=== PATIENT | female | born 1950 | race Caucasian/White ===

== ENCOUNTER 2018-03-12 18:49 | Inpatient (IN) | payer MEDICARE, OTHER ==
[~2018-03-12] VITALS: Ht 162.6 cm; Wt 107.7 kg
--- NOTE | 2018-03-12 19:02 | EKG ---
[address] [address] Test Date: 2018-03-12 Test Time: 18:59:45 Pat Name: DIA MICHELLE Department: Room: Gender: F Adaptive Physical Education Specialist: BASIL : 1950 Requested By: MOISÉS SHARMA Order Number: [id number] Reading MD: Pepe Ryder Measurements Intervals [place] Rate: 90 P: -8 CA: 164 QRS: 18 QRSD: 100 T: 43 QT: 372 QTc: 459 Interpretive Statements SINUS RHYTHM QRS(T) CONTOUR ABNORMALITY NONSPECIFIC ST-T WAVE CHANGES. RI6.01 No previous ECG available for comparison Electronically Signed On 03-23-2018 11:05:10 CDT by Pepe Ryder
[2018-03-12 20:46] LABS: BASO % 1 % (0-3); EOS # 0.3 x10^3/uL (0.0-0.7); EOS % 4 % (0-3); HEMATOCRIT 36.5 % (36.0-47.0); HEMOGLOBIN 12.4 g/dL (12.0-15.5); LYMPH # 3.1 x10^3/uL (1.0-4.8); LYMPH % 42 % (24-48); MEAN CORPUSCULAR HEMOGLOBIN 29 pg (25-35); MEAN CORPUSCULAR HGB CONC 34 g/dL (31-37); MEAN CORPUSCULAR VOLUME 84 fL (79-100); MONO # 0.7 x10^3/uL (0.0-1.1); MONO % 10 % (0-9); NEUT # 3.2 x10^3uL (1.8-7.7); NEUT % 43 % (31-73); PLATELET COUNT 267 x10^3/uL (140-400); RED BLOOD COUNT 4.33 x10^6/uL (3.50-5.40); RED CELL DISTRIBUTION WIDTH 14.3 % (11.5-14.5); WHITE BLOOD COUNT 7.4 x10^3/uL (4.0-11.0)
[2018-03-12 20:50] LABS: AMPHETAMINE/METHAMPHETAMINE NEG (NEG); BARBITURATES NEG (NEG); BENZODIAZEPINES NEG (NEG); CANNABINOIDS NEG (NEG); COCAINE NEG (NEG); METHADONE NEG (NEG); OPIATES NEG (NEG); PHENCYCLIDINE NEG (NEG)
[2018-03-12 20:55] LABS: ALBUMIN 3.6 g/dL (3.4-5.0); ALBUMIN/GLOBULIN RATIO 0.9 (1.0-1.7); CALCIUM 9.2 mg/dL (8.5-10.1); CREATININE 0.9 mg/dL (0.6-1.0); GFR 62.3; MAGNESIUM 1.5 mg/dL (1.8-2.4); TOTAL BILIRUBIN 0.4 mg/dL (0.2-1.0); TOTAL PROTEIN 7.4 g/dL (6.4-8.2)
[2018-03-12 21:03] LABS: POTASSIUM 2.9 mmol/L (3.5-5.1)
[2018-03-12 21:05] LABS: BACTERIA,URINE MANY /HPF (0-FEW); BILIRUBIN,URINE NEG (NEG); CLARITY,URINE CLOUDY; COLOR,URINE YELLOW; GLUCOSE,URINE NEG (NEG); NITRITE,URINE POS (NEG); RBC,URINE 0 /HPF (0-2); UROBILINOGEN,URINE 0.2 mg/dL (0.2 mg/dL)
[2018-03-12] MEDS ORDERED: traMADol 50 MG TABLET PO ONE (21:15)
[2018-03-12] MEDS ORDERED: POTASSIUM CHLORIDE 20 MEQ TABLET.ER. PO ONE (21:15)
[2018-03-12] MEDS ORDERED: MAGNESIUM HYDROXIDE 2,400 MG/30 ML ORAL.SUSP. PO PRN (23:00)
[2018-03-12] MEDS ORDERED: ACETAMINOPHEN 325 MG TABLET PO PRN (23:00)
[2018-03-12] MEDS ORDERED: MAG HYDROX/AL HYDROX/SIMETH 30 ML ORAL.SUSP PO PRN (23:00)
[2018-03-12] MEDS ORDERED: METHYL SALICYLATE/MENTHOL TOPICAL OINTMENT 29GM TUBE. TP PRN (23:00)
[2018-03-12] MEDS ORDERED: POTA20TA4 PO (23:45)
[2018-03-12] MEDS ORDERED: KETO5DRO4 OU (23:45)
[2018-03-12] MEDS ORDERED: CYCL-331 PO (23:45)
[2018-03-12] MEDS ORDERED: RIVA10TA PO (23:45)
[2018-03-12] MEDS ORDERED: CRAN1CAP PO (23:45)
[2018-03-12] MEDS ORDERED: MECL25TA3 PO (23:45)
[2018-03-12] MEDS ORDERED: LATA7.5D OU (23:45)
[2018-03-12] MEDS ORDERED: DICL100G18 TP (23:45)
[2018-03-12] MEDS ORDERED: FURO40TA4 PO (23:45)
[2018-03-12] MEDS ORDERED: SENN8.6T67 PO (23:45)
[2018-03-12] MEDS ORDERED: MELA3TAB2 PO (23:45)
[2018-03-12] MEDS ORDERED: GABA-585 PO (23:45)
[2018-03-12] MEDS ORDERED: CHOL4POW2 PO (23:45)
[2018-03-12] MEDS ORDERED: LEVO50TA5 PO (23:45)
[2018-03-12] MEDS ORDERED: GABA-586 PO (23:45)
[2018-03-12] MEDS ORDERED: SALI44.32 MM (23:45)
[2018-03-12] MEDS ORDERED: HYDR453.3 TP (23:45)
[2018-03-12] MEDS ORDERED: PANT40TA5 PO (23:45)
[2018-03-12] MEDS ORDERED: TOPI25TA52 PO (23:45)
[2018-03-12] MEDS ORDERED: TRAM50TA PO (23:45)
[2018-03-12] MEDS ORDERED: METO25TA4 PO (23:45)
[2018-03-12] MEDS ORDERED: LAMO100T PO (23:45)
[2018-03-12] MEDS ORDERED: IPRA3AMP29 NEB (23:45)
[2018-03-12] MEDS ORDERED: DULO20CA50 PO (23:45)
[2018-03-12] MEDS ORDERED: NITR0.4T22 SL (23:45)
[2018-03-12] MEDS ORDERED: DEXT15DR5 OU ×2 (23:45)
[2018-03-12] MEDS ORDERED: LACT1CAP6 PO (23:45)
[2018-03-12] MEDS ORDERED: ACET325T9 PO (23:45)
[2018-03-12] MEDS ORDERED: LORA0.5T PO (23:45)
[2018-03-12] MEDS ORDERED: MICO10PO MC (23:45)
[2018-03-13] MEDS ORDERED: SALIVA STIMULANT AGENT 44ML SPRAY BOTTLE. MM PRN (00:15)
[2018-03-13] MEDS ORDERED: MECLIZINE 12.5 MG TABLET. PO PRN (00:15)
[2018-03-13] MEDS ORDERED: NITROGLYCERIN SUBLINGUAL 0.4 MG BOTTLE OF 25. SL PRN (00:15)
[2018-03-13] MEDS ORDERED: ALBUTEROL SULFATE 2.5 MG/3 ML NEBU. NEB PRN (00:15)
[2018-03-13] MEDS ORDERED: POLYVINYL ALCOHOL 1.4% OPHTH SOLUTION 15ML BOTTLE. OU PRN (00:15)
[2018-03-13] MEDS: traMADol 50 MG TABLET PO PRN (00:41)
[2018-03-13 03:45] VITALS: BP 134/71
[2018-03-13] MEDS: CYCLOBENZAPRINE 10 MG TABLET. PO PRN ×2 (05:20→18:47)
[2018-03-13 06:30] VITALS: BP 138/89
--- NOTE | 2018-03-13 06:51 | ED.ADGEN ---
Past History Past Medical History: Anxiety, Asthma, Bipolar, CHF, Depression, Diabetes, DVT , GERD, Hypertension, Hypothyroid, Hepatitis, UTI Alcohol Use: None Drug Use: None Adult General Chief Complaint Chief Complaint Medical clearance for psychiatric admission HPI HPI Patient is a 67-year-old female presents for medical clearance for psychiatric admission . Denies medical complaints. Patient has history of bipolar, anxiety, fibromyalgia and is been acting aggressively towards residential staff. [] Review of Systems Review of Systems Review symptoms as per history of present illness. All other systems were reviewed and found to be within normal limits, except as documented in this note. Current Medications Current Medications Current Medications Medications (Trade) Dose Ordered Sig/Huyen Start Time Stop Time Status Last Admin Dose Admin Potassium Chloride (Klor-Con) 40 meq 1X ONCE 03/12/18 21:15 03/12/18 21:53 DC Tramadol HCl (Ultram) 50 mg 1X ONCE 03/12/18 21:15 03/12/18 21:36 DC 03/12/18 21:09 50 MG Allergies Allergies Allergies Coded Allergies Type Severity Reaction Last Updated Verified Sulfa (Sulfonamide Antibiotics) Allergy Unknown 03/12/18 Yes butorphanol Allergy Unknown 03/12/18 Yes cephalexin Allergy Unknown 03/12/18 Yes hydrocodone Allergy Unknown 03/12/18 Yes hydromorphone Allergy Unknown 03/12/18 Yes metoclopramide Allergy Unknown 03/12/18 Yes minocycline Allergy Unknown 03/12/18 Yes morphine Allergy Unknown 03/12/18 Yes moxifloxacin Allergy Unknown 03/12/18 Yes Physical Exam Physical Exam Constitutional: Well developed, well nourished, no acute distress, non-toxic appearance. [] HENT: Normocephalic, atraumatic, bilateral external ears normal, oropharynx moist, no oral exudates, nose normal. [] Eyes: PERRLA, EOMI, conjunctiva normal, no discharge. [] Neck: Normal range of motion, no tenderness, supple, no stridor. [] Cardiovascular:Heart rate regular rhythm, no murmur [] Lungs & Thorax: Bilateral breath sounds clear to auscultation [] Abdomen: Bowel sounds normal, soft, no tenderness, no masses, no pulsatile masses. [] Skin: Warm, dry, no erythema, no rash. [] Back: No tenderness. [] Extremities: No tenderness, no cyanosis, no clubbing, ROM intact, no edema. [] Neurologic: Alert and oriented X 3, normal motor function,. [] Psychologic: Affect, anxiouss. [] Current Patient Data Vital Signs Vital Signs Date Time Temp Pulse Resp B/P (MAP) Pulse Ox O2 Delivery O2 Flow Rate FiO2 03/12/18 21:09 16 98 03/12/18 18:50 97.9 77 Room Air Lab Results Laboratory Tests Test 03/12/18 20:31 White Blood Count 7.4 x10^3/uL (4.0-11.0) Red Blood Count 4.33 x10^6/uL (3.50-5.40) Hemoglobin 12.4 g/dL (12.0-15.5) Hematocrit 36.5 % (36.0-47.0) Mean Corpuscular Volume 84 fL (79-100) Mean Corpuscular Hemoglobin 29 pg (25-35) Mean Corpuscular Hemoglobin Concent 34 g/dL (31-37) Red Cell Distribution Width 14.3 % (11.5-14.5) Platelet Count 267 x10^3/uL (140-400) Neutrophils (%) (Auto) 43 % (31-73) Lymphocytes (%) (Auto) 42 % (24-48) Monocytes (%) (Auto) 10 % (0-9) H Eosinophils (%) (Auto) 4 % (0-3) H Basophils (%) (Auto) 1 % (0-3) Neutrophils # (Auto) 3.2 x10^3uL (1.8-7.7) Lymphocytes # (Auto) 3.1 x10^3/uL (1.0-4.8) Monocytes # (Auto) 0.7 x10^3/uL (0.0-1.1) Eosinophils # (Auto) 0.3 x10^3/uL (0.0-0.7) Basophils # (Auto) 0.0 x10^3/uL (0.0-0.2) Urine Collection Type U cath Urine Color Yellow Urine Clarity Cloudy Urine pH 8.5 Urine Specific [place] 1.015 Urine Protein Neg (NEG-TRACE) Urine Glucose (UA) Neg mg/dL (NEG) Urine Ketones (Stick) Neg mg/dL (NEG) Urine Blood Trace (NEG) Urine Nitrite Pos (NEG) Urine Bilirubin Neg (NEG) Urine Urobilinogen Dipstick 0.2 mg/dL (0.2 mg/dL) Urine Leukocyte Esterase Neg (NEG) Urine RBC 0 /HPF (0-2) Urine WBC 1-4 /HPF (0-4) Urine Squamous Epithelial Cells None /LPF Urine Bacteria Many /HPF (0-FEW) Urine Mucus Slight /LPF Sodium Level 138 mmol/L (136-145) Potassium Level 2.9 mmol/L (3.5-5.1) *L Chloride Level 103 mmol/L (98-107) Carbon Dioxide Level 25 mmol/L (21-32) Anion Gap 10 (6-14) Blood Urea Nitrogen 11 mg/dL (7-20) Creatinine 0.9 mg/dL (0.6-1.0) Estimated GFR (Cockcroft-Gault) 62.3 BUN/Creatinine Ratio 12 (6-20) Glucose Level 96 mg/dL (70-99) Calcium Level 9.2 mg/dL (8.5-10.1) Magnesium Level 1.5 mg/dL (1.8-2.4) L Total Bilirubin 0.4 mg/dL (0.2-1.0) Aspartate Amino Transferase (AST) 18 U/L (15-37) Alanine Aminotransferase (ALT) 17 U/L (14-59) Alkaline Phosphatase 104 U/L (46-116) Troponin I Quantitative < 0.017 ng/mL (0-0.055) Total Protein 7.4 g/dL (6.4-8.2) Albumin 3.6 g/dL (3.4-5.0) Albumin/Globulin Ratio 0.9 (1.0-1.7) L Urine Opiates Screen Neg (NEG) Urine Methadone Screen Neg (NEG) Urine Barbiturates Neg (NEG) Urine Phencyclidine Screen Neg (NEG) Urine Amphetamine/Methamphetamine Neg (NEG) Urine Benzodiazepines Screen Neg (NEG) Urine Cocaine Screen Neg (NEG) Urine Cannabinoids Screen Neg (NEG) Ethyl Alcohol Level < 10 mg/dL (0-10) Urine Ethyl Alcohol Neg (NEG) EKG EKG [EKG: Reviewed] Radiology/Procedures Radiology/Procedures [] Course & Med Decision Making Course & Med Decision Making Pertinent Labs and Imaging studies reviewed. (See chart for details) [Potassium replaced. Medically stable. . ] Final Impression Final Impression [1. Medical examination for screening examination] Fei Disclaimer Dragon Disclaimer This electronic medical record was generated, in whole or in part, using a voice recognition dictation system. MOISÉS SHARMA DO Mar 13, 2018 06:51
[2018-03-13] MEDS: CHOLESTYRAMINE/ASPARTAME 4 GM PACKET PO SCH ×2 (08:57→18:00)
[2018-03-13] MEDS: POTASSIUM CHLORIDE 20 MEQ TABLET.ER. PO SCH (08:58)
[2018-03-13] MEDS: LEVOTHYROXINE 50 MCG TABLET PO SCH (08:59)
[2018-03-13] MEDS: FUROSEMIDE 40 MG TABLET PO SCH ×2 (08:59→18:32)
[2018-03-13] MEDS: LACTOBACILLUS RHAMNOSUS GG 1 CAPSULE. PO SCH (08:59)
[2018-03-13] MEDS: METOPROLOL TART IMMED RELEASE 25 MG TABLET PO SCH (08:59)
[2018-03-13] MEDS: lamoTRIgine 100 MG TABLET. PO SCH ×2 (08:59→20:25)
[2018-03-13] MEDS: SENNOSIDES 8.6 MG TABLET PO SCH (08:59)
[2018-03-13] MEDS: GABAPENTIN 100 MG CAPSULE. PO SCH (08:59)
[2018-03-13] MEDS: PANTOPRAZOLE 40 MG TABLET. PO SCH ×2 (08:59→18:32)
[2018-03-13] MEDS ORDERED: [UNRECOGNIZED DRUG - OTHER] PO SCH (09:00)
[2018-03-13] MEDS: HYDROCORTISONE 1% TOPICAL CREAM 30GM TUBE. TP SCH ×2 (09:00→20:28)
[2018-03-13] MEDS ORDERED: CRANBERRY PO SCH (09:00)
[2018-03-13] MEDS: MICONAZOLE NITRATE 2% TOPICAL CREAM 28GM TUBE. TP SCH ×2 (09:00→20:27)
[2018-03-13] MEDS: DICLOFENAC SODIUM 1% TOPICAL GEL 100GM TUBE. TP SCH ×2 (09:00→20:33)
[2018-03-13] MEDS ORDERED: DULoxetine HCL 20 MG CAPSULE.DR PO SCH (09:00)
[2018-03-13] MEDS ORDERED: ASCORBIC ACID PO SCH (09:00)
[2018-03-13] MEDS: KETOTIFEN FUMARATE 0.025% OPHT SOLUTION BOTTLE. OU SCH ×3 (09:01→20:39)
[2018-03-13 13:44] LABS: THYROID STIM HORMONE (TSH) 1.252 uIU/mL (0.358-3.740)
--- NOTE | 2018-03-13 15:30 | CONS ---
DATE OF CONSULTATION: 03/13/2018 REASON FOR CONSULTATION: Medical management. HISTORY OF PRESENT ILLNESS: The patient is a 67-year-old female patient, a resident at [facility]. She was admitted as she has been calling 911, calling [employer], calling the facility staff repeatedly. She reports that the staffs are hurting her, paranoid, see bugs in her bed, has been in manic episode, has been doing this daily for the last 7 days, all this in a background of bipolar disorder. She is here for inpatient psychiatric stabilization. The patient has multiple medical problems including chronic respiratory failure, mild intermittent bronchial asthma. She has gastroesophageal reflux disease without esophagitis, insomnia, hypothyroidism, bipolar disorder, anxiety disorder, essential hypertension, primary osteoarthritis, personality disorder. 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 Has chronic pain syndrome, diabetes mellitus due to underlying condition without diabetic nephropathy, obesity, rheumatoid arthritis, chronic hepatitis, and she is status post right artificial shoulder. ALLERGIES: She is allergic to BUTORPHANOL, CEPHALEXIN, HYDROCODONE, HYDROMORPHONE, METOCLOPRAMIDE, MINOCYCLINE, MORPHINE, MOXIFLOXACIN, SULFONAMIDE, and TAPE. FAMILY HISTORY: Unremarkable. SOCIAL HISTORY: She is a resident at [facility]. She does not smoke, drink alcohol, or use recreational drugs. REVIEW OF SYSTEMS: As per history of present illness. MEDICATIONS: She is currently on following medications: She is on ipratropium bromide, albuterol sulfate for DuoNeb 3 mL via nebulizer every 4 hours, cyclobenzaprine 10 mg q.8 hourly, rivaroxaban 20 mg at bedtime, cholestyramine 4 grams twice a day, nitroglycerin 0.4 mg sublingually q.5 minutes, metoprolol tartrate 12.5 mg twice a day, diclofenac sodium for Voltaren 1 gram topically twice a day, tramadol 50 mg p.o. q.4 hourly, Tylenol 650 mg every 6 hours, gabapentin 100 mg daily, gabapentin 300 mg at bedtime, lamotrigine 100 mg twice a day, topiramate 25 mg at bedtime, duloxetine 40 mg twice a day, lorazepam 0.5 mg every 6 hours, potassium chloride 20 mEq daily, furosemide 40 mg twice a day, ketotifen fumarate for Zaditor 1 drop to both eyes 3 times a day. She is on latanoprost 1 drop to both eyes at bedtime, Artificial Tears 1 drop to both eyes at bedtime, Lactobacillus acidophilus 1 capsule p.o. daily, sennoside 1 tablet once a day, Protonix 40 mg twice a day, levothyroxine sodium 50 mcg daily, miconazole nitrate 1 application twice a day and hydrocortisone cream applied topically twice a day, Biotene Oral Balance 30 mL every 3 hours as needed, cranberry concentrate or ascorbic acid 425 mg 3 times a day, melatonin 3 mg at bedtime. PHYSICAL EXAMINATION: GENERAL: On examining her, she was resting slightly propped up in bed, in no apparent respiratory distress. She was pale, but no jaundice, cyanosis, or thyromegaly. No jugular venous distention. No limb edema. VITAL SIGNS: Her heart rate was 79, blood pressure was 138/89, temperature was 98, respiratory rate was 20, and oxygen saturation was 94%. HEAD, EYES, EARS, NOSE, AND THROAT: Showed normocephalic, atraumatic. NECK: Supple. HEART: Showed normal first and second sounds with no gallop, rub, or murmur. CHEST: Clear to auscultation. No crepitation or rhonchi. ABDOMEN: Distended, soft, nontender. No guarding or rigidity. No organomegaly. All hernial orifice intact. Bowel sounds normal. NEUROLOGIC: She is awake, alert, very paranoid. However, all cranial nerves intact. She moves upper extremities to much greater extent than lower extremities. She is mostly bedbound and chair bound. LABORATORY DATA: Her lab work on admission showed a white cell count of 7400, hemoglobin 12, hematocrit 36, MCV 84 and platelet count 267,000 with normal manual differential. Her serum sodium was 138, potassium 2.9, chloride 103, bicarbonate 25, anion gap of 10, BUN 11, creatinine 0.9. Estimated GFR was 62 mL per minute. Her glucose was 96, calcium was 9.2, magnesium was 1.5. Total bilirubin, AST, ALT, alkaline phosphatase were normal. Total protein was 7.4, albumin 3.6. Urinalysis showed the urine was yellow, cloudy with a pH of 8.5, specific gravity of 1.015. The urine was negative for protein, glucose, ketones but trace of blood, negative for bilirubin and leukocyte esterase with 0 rbc's, 1-4 wbc's and too many bacteria. The urine toxicology screen was negative. IMPRESSION: In summary, this is a 67-year-old female patient, a resident at [facility], who was admitted to this unit on account of enma, on the phone 24 hours a day, 7 days a week. She called social security, called 911, called the facility staff repeatedly. Reports that the staff are hurting her and paranoid, stated that the bugs in her bed and the nursing staff are trying to poison her, all this in a background of schizophrenia and bipolar disorder. Medically, she has multiple medical problems including hypertension, hyperlipidemia, type 2 diabetes, chronic obstructive pulmonary disease, chronic diastolic congestive heart failure, hypothyroidism, history of deep vein thrombosis and chronic pain syndrome. All-in-all, her vital signs and her lab works are all within acceptable range. I will review all the lab works that are still pending at the time of this dictation and make necessary recommendation. She has hypokalemia that will be replenished and also hypomagnesemia. I will repeat all her lab work tomorrow. Thank you, Dr. Snyder, for allowing me to participate in the care of this patient. SHAMAR MONGE MD DR: GIRISH/yusuf JOB#: [id number] / [id number]
[2018-03-13 16:48] VITALS: BP 122/66
[2018-03-13] MEDS ORDERED: DEXTROSE 50% 25 GM / 50ML DISP.SYRIN. IV PRN (19:30)
[2018-03-13] MEDS ORDERED: traZODone 100 MG TABLET. PO PRN (19:30)
[2018-03-13] MEDS: INSULIN LISPRO 300 UNITS/3 ML INSULN.PEN. SQ SCH (20:01)
[2018-03-13] MEDS: traZODone 100 MG TABLET. PO SCH (20:24)
[2018-03-13] MEDS: TOPIRAMATE 25 MG TABLET. PO SCH (20:25)
[2018-03-13] MEDS: RIVAROXABAN 10 MG TABLET. PO SCH (20:25)
[2018-03-13] MEDS: POLYVINYL ALCOHOL 1.4% OPHTH SOLUTION 15ML BOTTLE. OU SCH (20:27)
[2018-03-13] MEDS: LATANOPROST 0.005% OPHTH SOLUTION 2.5ML BOTTLE. OU SCH (20:27)
[2018-03-13] MEDS: GABAPENTIN 300 MG CAPSULE. PO SCH (20:32)
--- NOTE | 2018-03-13 20:58 | PDOC ---
Exam Note: Fernando Note: Please also refer to the separate dictated note~for this date of service dictated separately.~Patient seen individually. Discussed the patient with Nursing staff reviewed the chart.~Reviewed interim history and current functioning. Reviewed vital signs,~Labs/ Radiology~and current medications noted below. Continue current treatment with the changes noted in the dictated addendum note Assessment: Vital Signs: Vital Signs Date Time Temp Pulse Resp B/P (MAP) Pulse Ox O2 Delivery O2 Flow Rate FiO2 03/13/18 16:48 97.9 68 18 122/66 (84) 99 03/13/18 03:45 96.0 03/13/18 01:41 Nasal Cannula I&O Intake and Output 03/13/18 06:59 Intake Total 120 ml Output Total 525 ml Balance -405 ml Intake Oral 120 ml Output Urine Total 525 ml # Bowel Movements 1 Labs: Laboratory Tests Test 03/13/18 19:49 Glucose (Fingerstick) 213 mg/dL (70-99) H Current Medications: Meds: Current Medications Tramadol HCl (Ultram) 50 mg 1X ONCE PO Last administered on 03/12/18at 21:09; Start 03/12/18 at 21:15; Stop 03/12/18 at 21:36; Status DC Potassium Chloride (Klor-Con) 40 meq 1X ONCE PO ; Start 03/12/18 at 21:15; Stop 03/12/18 at 21:53; Status DC Acetaminophen (Tylenol) 650 mg PRN Q6HRS PRN PO PAIN / TEMP; Start 03/12/18 at 23:00 Multi-Ingredient Ointment (Analgesic [place]) 1 belle PRN QID PRN TP MUSCLE PAIN; Start 03/12/18 at 23:00 Al Hydroxide/Mg Hydroxide (Mylanta Plus Xs) 15 ml PRN AFTMEALHC PRN PO DYSPEPSIA; Start 03/12/18 at 23:00 Magnesium Hydroxide (Milk Of Magnesia) 2,400 mg PRN QHS PRN PO CONSTIPATION; Start 03/12/18 at 23:00 Duloxetine HCl (Cymbalta) 40 mg BID PO Last administered on 03/13/18at 08:59; Start 03/13/18 at 09:00; Stop 03/13/18 at 19:25; Status DC Lorazepam (Ativan) 0.5 mg PRN Q6HRS PRN PO ANXIETY; Start 03/13/18 at 00:15 Acetaminophen (Tylenol) 650 mg PRN Q6HRS PRN PO PAIN / TEMP; Start 03/13/18 at 00:15 Cyclobenzaprine HCl (Flexeril) 10 mg PRN Q8HRS PRN PO MUSCLE SPASMS Last administered on 03/13/18at 18:47; Start 03/13/18 at 00:15 Diclofenac Sodium (Voltaren) 1 belle BID TP ; Start 03/13/18 at 09:00 Gabapentin (Neurontin) 100 mg DAILY PO Last administered on 03/13/18at 08:59; Start 03/13/18 at 09:00 Gabapentin (Neurontin) 300 mg HS PO Last administered on 03/13/18at 20:32; Start 03/13/18 at 21:00 Albuterol Sulfate (Ventolin) 2.5 mg PRN Q4HRS PRN NEB SHORTNESS OF BREATH; Start 03/13/18 at 00:15 Metoprolol Tartrate (Lopressor) 12.5 mg DAILY PO Last administered on at 08:59; Start 03/13/18 at 09:00 Nitroglycerin (Nitrostat) 0.4 mg PRN Q5MIN PRN SL CHEST PAIN; Start 03/13/18 at 00:15 Potassium Chloride (Klor-Con) 20 meq DAILY PO Last administered on 03/13/18at 08 :58; Start 03/13/18 at 09:00 Rivaroxaban (Xarelto) 20 mg QHS PO Last administered on 03/13/18at 20:25; Start 03/13/18 at 21:00 Tramadol HCl (Ultram) 50 mg PRN Q4HRS PRN PO PAIN Last administered on at 00:41; Start 03/13/18 at 00:15 Cholestyramine Resin (Questran Light) 4 gm BIDAFTMEAL PO Last administered on at 08:57; Start 03/13/18 at 09:00 Non-Formulary Medication (Cranberry Conc/ Ascorbic Acid (Cranberry Concentrate Softgel)) 425 mg TID PO ; Start 03/13/18 at 09:00; Status UNV Artificial Tears (Artificial Tears) 2 drop PRN Q4HRS PRN OU DRY EYE; Start at 00:15 Artificial Tears (Artificial Tears) 2 drop QHS OU Last administered on 20:27; Start 03/13/18 at 21:00 Furosemide (Lasix) 40 mg BID92 PO Last administered on 03/13/18at 18:32; Start 03/13/18 at 09:00 Hydrocortisone (Cortaid) 1 belle BID TP Last administered on 03/13/18at 20:28; Start 03/13/18 at 09:00 Ketotifen Fumarate (Zaditor) 1 drop TID OU Last administered on 03/13/18at 09:01 ; Start 03/13/18 at 09:00 Lactobacillus Rhamnosus (Culturelle) 1 cap DAILY PO Last administered on at 08:59; Start 03/13/18 at 09:00 Lamotrigine (LaMICtal) 100 mg BID PO Last administered on 03/13/18at 20:25; Start 03/13/18 at 09:00 Latanoprost (Xalatan) 1 drop QHS OU Last administered on 03/13/18 20:27; Start 03/13/18 at 21:00 Levothyroxine Sodium (Synthroid) 50 mcg DAILY07 PO Last administered on 08:59; Start 03/13/18 at 07:00 Meclizine HCl (Antivert) 25 mg PRN Q8HRS PRN PO DIZZINESS; Start 03/13/18 at 00 :15 Miconazole Nitrate (Monistat-Derm) 1 belle BID TP Last administered on 03/13/18at 20:27; Start 03/13/18 at 09:00 Pantoprazole Sodium (Protonix) 40 mg BIDBFRMEAL PO Last administered on at 18:32; Start 03/13/18 at 07:30 Saliva Substitute (Biotene Moisturizing Mouth) 1 spray PRN Q3HRS PRN MM DRY MOUTH; Start 03/13/18 at 00:15 Sennosides (Senna) 8.6 mg DAILY PO ; Start 03/13/18 at 09:00 Topiramate (Topamax) 25 mg QHS PO Last administered on 03/13/18at 20:25; Start 03/13/18 at 21:00 Melatonin 6 mg PRN QHS PRN PO INSOMNIA; Start 03/13/18 at 06:00 Insulin Human Lispro (HumaLOG) 0-5 UNITS TIDWMEALS SQ ; Start 03/14/18 at 08:00 Dextrose 12.5 gm PRN Q15MIN PRN IV SEE COMMENTS; Start 03/13/18 at 19:30 Duloxetine HCl (Cymbalta) 40 mg DAILY PO ; Start 03/14/18 at 09:00 Oxcarbazepine (Trileptal) 300 mg DAILY PO ; Start 03/14/18 at 09:00 Trazodone HCl (Desyrel) 100 mg QHS PO Last administered on 03/13/18at 20:24; Start 03/13/18 at 21:00 Trazodone HCl (Desyrel) 100 mg PRN QHS PRN PO INSOMNIA; Start 03/13/18 at 19:30 Active Scripts Active Reported Xarelto (Rivaroxaban) 10 Mg Tablet 20 Mg PO QHS Tramadol Hcl (Tramadol HCl) 50 Mg Tablet 50 Mg PO Q4HRS PRN Topamax (Topiramate) 25 Mg Tablet 25 Mg PO QHS Sennosides 8.6 Mg Tablet 8.6 Mg PO DAILY Klor-Con M20 (Potassium Chloride) 20 Meq Tab.er.prt 20 Meq PO DAILY Pantoprazole Sodium 40 Mg Tablet.dr 40 Mg PO BIDBFRMEAL NITROGLYCERIN SubLingual (Nitroglycerin) 0.4 Mg Tab.subl 0.4 Mg SL PRN Q5MIN PRN Miconazole Nitrate 10 Gm Powder 1 Applic MC BID Metoprolol Tartrate 25 Mg Tablet 12.5 Mg PO DAILY Melatonin 3 Mg Tablet 5 Mg PO PRN QHS PRN Meclizine Hcl 25 Mg Tablet 25 Mg PO PRN Q8HRS PRN Lorazepam 0.5 Mg Tablet 0.5 Mg PO PRN Q6HRS PRN Levothyroxine Sodium 50 Mcg Tablet 50 Mcg PO DAILYAC Latanoprost 0.005% Eye Drop (Latanoprost/Pf) 7.5 Ml Drops 1 Drop OU QHS Lamotrigine 100 Mg Tablet 100 Mg PO BID Probiotic (Lactobacillus Acidophilus) 1 Each Capsule 1 Each PO DAILY Zaditor (Ketotifen Fumarate) 5 Ml Drops 1 Drop OU TID Hydrocortisone 453.6 Gm Cream..g. 1 Applic TP BID Gabapentin 300 Mg Capsule 300 Mg PO HS Gabapentin 100 Mg Capsule 100 Mg PO DAILY Furosemide 40 Mg Tablet 40 Mg PO BID Duoneb 0.5-3(2.5) Mg/3 Ml (Albuterol/Ipratropium) 3 Ml Ampul.neb 3 Ml NEB PRN Q4HRS PRN Voltaren (Diclofenac Sodium) 100 Gm Gel..gram. 1 Applic TP BID Cymbalta (Duloxetine Hcl) 20 Mg Capsule.dr 40 Mg PO BID Cyclobenzaprine Hcl 10 Mg Tablet 10 Mg PO PRN Q8HRS PRN Cranberry Concentrate Softgel (Cranberry Conc/Ascorbic Acid) 1 Each Capsule 425 Mg PO TID Cholestyramine Packet (Cholestyramine (With Sugar)) 4 Gm Powd.pack 4 Gm PO BID Biotene Oralbalance (Saliva Stimulant Agents Comb.2) 44.3 Ml Liquid 30 Ml MM PRN Q3HRS PRN Artificial Tears Eye Drops (Dextran 70/Hypromellose) 15 Ml Drops 2 Ml OU PRN Q4HRS PRN Artificial Tears Eye Drops (Dextran 70/Hypromellose) 15 Ml Drops 2 Ml OU QHS Tylenol (Acetaminophen) 325 Mg Tablet 650 Mg PO PRN Q6HRS PRN I have reviewed the current psychotropics carefully including drug interactions. Risk benefit ratio favors no change other than as noted in my dictated progress note. Diagnosis: Problems: (1) Medical clearance for psychiatric admission PATRIC QUEVEDO MD Mar 13, 2018 20:57
[2018-03-13 22:07] LABS: THYROXINE 7.6 ug/dL (4.5-12.0)
[2018-03-14 02:12] LABS: HEMOGLOBIN A1C 5.2 % (4.8-5.6)
[2018-03-14 06:02] VITALS: BP 111/62
[2018-03-14] MEDS: LEVOTHYROXINE 50 MCG TABLET PO SCH (06:03)
[2018-03-14] MEDS: DICLOFENAC SODIUM 1% TOPICAL GEL 100GM TUBE. TP SCH ×2 (09:00→19:24)
[2018-03-14] MEDS: SENNOSIDES 8.6 MG TABLET PO SCH (09:00)
[2018-03-14] MEDS: MICONAZOLE NITRATE 2% TOPICAL CREAM 28GM TUBE. TP SCH ×2 (09:00→19:21)
[2018-03-14] MEDS: METOPROLOL TART IMMED RELEASE 25 MG TABLET PO SCH (09:00)
[2018-03-14] MEDS: lamoTRIgine 100 MG TABLET. PO SCH ×2 (09:31→19:21)
[2018-03-14] MEDS: LACTOBACILLUS RHAMNOSUS GG 1 CAPSULE. PO SCH (09:32)
[2018-03-14] MEDS: FUROSEMIDE 40 MG TABLET PO SCH ×2 (09:32→13:59)
[2018-03-14] MEDS: GABAPENTIN 100 MG CAPSULE. PO SCH (09:32)
[2018-03-14] MEDS: PANTOPRAZOLE 40 MG TABLET. PO SCH ×2 (09:32→16:30)
[2018-03-14] MEDS: POTASSIUM CHLORIDE 20 MEQ TABLET.ER. PO SCH (09:32)
[2018-03-14] MEDS: CHOLESTYRAMINE/ASPARTAME 4 GM PACKET PO SCH ×2 (09:34→17:59)
[2018-03-14] MEDS: DULoxetine HCL 20 MG CAPSULE.DR PO SCH (09:35)
[2018-03-14] MEDS: KETOTIFEN FUMARATE 0.025% OPHT SOLUTION BOTTLE. OU SCH ×3 (09:35→19:23)
[2018-03-14] MEDS: HYDROCORTISONE 1% TOPICAL CREAM 30GM TUBE. TP SCH ×2 (09:37→19:23)
[2018-03-14] MEDS: CYCLOBENZAPRINE 10 MG TABLET. PO PRN ×2 (09:46→19:26)
[2018-03-14] MEDS: INSULIN LISPRO 300 UNITS/3 ML INSULN.PEN. SQ SCH ×2 (12:00→17:00)
[2018-03-14] MEDS: traMADol 50 MG TABLET PO PRN (14:00)
--- NOTE | 2018-03-14 14:51 | HP ---
ADMIT DATE: 03/13/2018 PSYCHIATRIC ADMISSION HISTORY/EVALUATION This is a late entry, date of service 03/13/2018, covers elements not covered in my initial note. SUMMARY OF PROGRESS: I met with the patient evening of 03/13/2018 and previously discussed with nursing staff several times including prior to the patient's admission to gather background historical referral information from [facility], referred by Dr. Valentino, her primary care physician on account of marked enma, psychotic symptoms, agitation, paranoia. The patient has failed outpatient psychiatric interventions resulting in this referral as she has been unmanageable, behaviors out of control at the skilled nursing. IDENTIFYING DATA: The patient is a 67-year-old female. As noted, referred from [facility] in [place], [place] by Dr. Valentino on account of extremely manic behaviors, being hyperverbal on the phone "24 x 7 calling 911 and social security, etc." Reportedly, the patient claims the staff is hurting her. She has been paranoid, seeing bugs in her food, extremely psychosomatic, noncompliant with treatment, disruptive at the skilled nursing. CHIEF COMPLAINT: "There is no problem with me." The patient is extremely hyperverbal, difficult to interrupt, difficult to understand, somewhat domineering, directing me where to stand or sit at different times of our visit, quite distractible. HISTORY OF PRESENT ILLNESS: The patient has a long history of schizoaffective disorder, bipolar type. She has been residing at the above skilled nursing for the past few weeks prior to which she has been at several different nursing facilities. Behaviors as noted have been totally out of control, unmanageable, disruptive at the skilled nursing. She has failed outpatient psychiatric interventions. She has a history of significant mood swings, paranoia, auditory hallucinations. According to the information from the patient's sister who is her DPOA, she also has a history of "drug addiction." PAST PSYCHIATRIC HISTORY: She was hospitalized at [place], [place] in 2017. PAST MEDICAL HISTORY: Positive for renal failure, diabetes mellitus, GERD, hypertension, hypothyroidism, osteoarthritis, rheumatoid arthritis, asthma, neuromuscular dysfunction of bladder, chronic hepatitis, neuropathy, chronic pain, fibromyalgia. ACCU-CHEKS: Before meals and at bedtime. ALLERGIES: She has multiple allergies, which I reviewed and the read is referred to the chart for details. FAMILY HISTORY: Noncontributory. SOCIAL HISTORY: Past history of drug addiction. No alcohol abuse history. No physical, sexual or elder abuse history is noted. Not known to be a perpetrator. REACTION TO HOSPITALIZATION: The patient accepting of it. ASSETS: Supportive sister, though the patient resents her sister. REVIEW OF SYSTEMS: Ambulation impaired, in wheelchair. No CV, , pulmonary, eye, ENT system symptoms on review. She is restless, constantly moving, extremely hyperverbal, unable to stop and interact with me. She is quite paranoid, suspicious, believes the staff are after her trying to hurt her. Attention span short. Language function intact. Intellect average. Insight poor. Judgment marginal. No active suicidal or homicidal ideation. IMPRESSION: Schizoaffective disorder, bipolar type, mixed with psychotic features versus bipolar 1 disorder, manic with psychotic features; anxiety disorder, unspecified; impulse control disorder, unspecified; cognitive disorder, unspecified. Rest as above. PLAN: Admit to geropsychiatry unit at [facility]. I will see the patient daily individually from a psychiatric standpoint, medical followup per Dr. Valentino/Dr. Harrison. I had consider starting her on Depakote, but I am unable to do this due to her history of hepatitis. I would also consider lithium, but unable to do this because of her renal failure. We will go ahead and start Trileptal 300 mg daily, increase gradually. She slept zero hours previous night. We will start her on trazodone 100 mg at bedtime, may repeat x 1 p.r.n. for insomnia. She is also on Cymbalta 40 mg twice a day. This high dose antidepressant could well be worsening her enma and will drop it down to 40 mg once a day. Continue melatonin 5 mg at bedtime p.r.n., Ativan 0.5 mg q.6 hours p.r.n. Consider adding Risperdal as an atypical antipsychotic depending on her progress. MAN Prasanth QUEVEDO MD DR: DUSTY/yusuf JOB#: [id number] / [id number]
[2018-03-14 15:51] VITALS: BP 138/80
[2018-03-14] MEDS: traZODone 100 MG TABLET. PO SCH (19:20)
[2018-03-14] MEDS: GABAPENTIN 300 MG CAPSULE. PO SCH (19:21)
[2018-03-14] MEDS: TOPIRAMATE 25 MG TABLET. PO SCH (19:21)
[2018-03-14] MEDS: RIVAROXABAN 10 MG TABLET. PO SCH (19:21)
[2018-03-14] MEDS: LATANOPROST 0.005% OPHTH SOLUTION 2.5ML BOTTLE. OU SCH (19:22)
[2018-03-14] MEDS: POLYVINYL ALCOHOL 1.4% OPHTH SOLUTION 15ML BOTTLE. OU SCH (19:23)
--- NOTE | 2018-03-14 20:41 | PDOC ---
Exam Note: Fernando Note: Please also refer to the separate dictated note~for this date of service dictated separately.~Patient seen individually. Discussed the patient with Nursing staff reviewed the chart.~Reviewed interim history and current functioning. Reviewed vital signs,~Labs/ Radiology~and current medications noted below. Continue current treatment with the changes noted in the dictated addendum note Assessment: Vital Signs: Vital Signs Date Time Temp Pulse Resp B/P (MAP) Pulse Ox O2 Delivery O2 Flow Rate FiO2 03/14/18 15:51 97.1 85 18 138/80 (99) 96 03/13/18 03:45 96.0 03/13/18 01:41 Nasal Cannula I&O Intake and Output 03/14/18 06:59 Intake Total 840 ml Output Total 925 ml Balance -85 ml Intake Oral 840 ml Output Urine Total 925 ml # Bowel Movements 2 Labs: Laboratory Tests Test 03/14/18 12:13 03/14/18 17:37 03/14/18 20:02 Glucose (Fingerstick) 114 mg/dL (70-99) H 112 mg/dL (70-99) H 135 mg/dL (70-99) H Current Medications: Meds: Current Medications Tramadol HCl (Ultram) 50 mg 1X ONCE PO Last administered on 03/12/18at 21:09; Start 03/12/18 at 21:15; Stop 03/12/18 at 21:36; Status DC Potassium Chloride (Klor-Con) 40 meq 1X ONCE PO ; Start 03/12/18 at 21:15; Stop 03/12/18 at 21:53; Status DC Acetaminophen (Tylenol) 650 mg PRN Q6HRS PRN PO PAIN / TEMP Last administered on 03/14/18at 03:42; Start 03/12/18 at 23:00; Stop 03/14/18 at 16:35; Status DC Multi-Ingredient Ointment (Analgesic [place]) 1 belle PRN QID PRN TP MUSCLE PAIN; Start 03/12/18 at 23:00 Al Hydroxide/Mg Hydroxide (Mylanta Plus Xs) 15 ml PRN AFTMEALHC PRN PO DYSPEPSIA; Start 03/12/18 at 23:00 Magnesium Hydroxide (Milk Of Magnesia) 2,400 mg PRN QHS PRN PO CONSTIPATION; Start 03/12/18 at 23:00 Duloxetine HCl (Cymbalta) 40 mg BID PO Last administered on 03/13/18at 08:59; Start 03/13/18 at 09:00; Stop 03/13/18 at 19:25; Status DC Lorazepam (Ativan) 0.5 mg PRN Q6HRS PRN PO ANXIETY; Start 03/13/18 at 00:15 Acetaminophen (Tylenol) 650 mg PRN Q6HRS PRN PO PAIN / TEMP; Start 03/13/18 at 00:15 Cyclobenzaprine HCl (Flexeril) 10 mg PRN Q8HRS PRN PO MUSCLE SPASMS Last administered on 03/14/18at 19:26; Start 03/13/18 at 00:15 Diclofenac Sodium (Voltaren) 1 belle BID TP ; Start 03/13/18 at 09:00 Gabapentin (Neurontin) 100 mg DAILY PO Last administered on 03/14/18 09:32; Start 03/13/18 at 09:00 Gabapentin (Neurontin) 300 mg HS PO Last administered on 03/14/18at 19:21; Start 03/13/18 at 21:00 Albuterol Sulfate (Ventolin) 2.5 mg PRN Q4HRS PRN NEB SHORTNESS OF BREATH; Start 03/13/18 at 00:15 Metoprolol Tartrate (Lopressor) 12.5 mg DAILY PO Last administered on at 08:59; Start 03/13/18 at 09:00 Nitroglycerin (Nitrostat) 0.4 mg PRN Q5MIN PRN SL CHEST PAIN; Start 03/13/18 at 00:15 Potassium Chloride (Klor-Con) 20 meq DAILY PO Last administered on 03/14/18at 09 :32; Start 03/13/18 at 09:00 Rivaroxaban (Xarelto) 20 mg QHS PO Last administered on 03/14/18 19:21; Start 03/13/18 at 21:00 Tramadol HCl (Ultram) 50 mg PRN Q4HRS PRN PO PAIN Last administered on at 14:00; Start 03/13/18 at 00:15 Cholestyramine Resin (Questran Light) 4 gm BIDAFTMEAL PO Last administered on at 09:34; Start 03/13/18 at 09:00 Non-Formulary Medication (Cranberry Conc/ Ascorbic Acid (Cranberry Concentrate Softgel)) 425 mg TID PO ; Start 03/13/18 at 09:00; Status UNV Artificial Tears (Artificial Tears) 2 drop PRN Q4HRS PRN OU DRY EYE; Start at 00:15 Artificial Tears (Artificial Tears) 2 drop QHS OU Last administered on 19:23; Start 03/13/18 at 21:00 Furosemide (Lasix) 40 mg [id number] PO Last administered on 03/14/18at 13:59; Start 03/13/18 at 09:00 Hydrocortisone (Cortaid) 1 belle BID TP Last administered on 03/14/18 19:23; Start 03/13/18 at 09:00 Ketotifen Fumarate (Zaditor) 1 drop TID OU Last administered on 03/14/18 19:23 ; Start 03/13/18 at 09:00 Lactobacillus Rhamnosus (Culturelle) 1 cap DAILY PO Last administered on at 09:32; Start 03/13/18 at 09:00 Lamotrigine (LaMICtal) 100 mg BID PO Last administered on 03/14/18 19:21; Start 03/13/18 at 09:00 Latanoprost (Xalatan) 1 drop QHS OU Last administered on 03/14/18 19:22; Start 03/13/18 at 21:00 Levothyroxine Sodium (Synthroid) 50 mcg DAILY07 PO Last administered on at 06:03; Start 03/13/18 at 07:00 Meclizine HCl (Antivert) 25 mg PRN Q8HRS PRN PO DIZZINESS; Start 03/13/18 at 00 :15 Miconazole Nitrate (Monistat-Derm) 1 belle BID TP Last administered on 03/14/18 19:21; Start 03/13/18 at 09:00 Pantoprazole Sodium (Protonix) 40 mg BIDBFRMEAL PO Last administered on at 16:30; Start 03/13/18 at 07:30 Saliva Substitute (Biotene Moisturizing Mouth) 1 spray PRN Q3HRS PRN MM DRY MOUTH; Start 03/13/18 at 00:15 Sennosides (Senna) 8.6 mg DAILY PO ; Start 03/13/18 at 09:00 Topiramate (Topamax) 25 mg QHS PO Last administered on 03/14/18at 19:21; Start 03/13/18 at 21:00 Melatonin 6 mg PRN QHS PRN PO INSOMNIA; Start 03/13/18 at 06:00 Insulin Human Lispro (HumaLOG) 0-5 UNITS TIDWMEALS SQ ; Start 03/14/18 at 08:00 Dextrose 12.5 gm PRN Q15MIN PRN IV SEE COMMENTS; Start 03/13/18 at 19:30 Duloxetine HCl (Cymbalta) 40 mg DAILY PO Last administered on 03/14/18at 09:35; Start 03/14/18 at 09:00 Oxcarbazepine (Trileptal) 300 mg DAILY PO Last administered on 03/14/18at 09:35 ; Start 03/14/18 at 09:00 Trazodone HCl (Desyrel) 100 mg QHS PO Last administered on 03/14/18at 19:20; Start 03/13/18 at 21:00 Trazodone HCl (Desyrel) 100 mg PRN QHS PRN PO INSOMNIA; Start 03/13/18 at 19:30 Active Scripts Active Reported Xarelto (Rivaroxaban) 10 Mg Tablet 20 Mg PO QHS Tramadol Hcl (Tramadol HCl) 50 Mg Tablet 50 Mg PO Q4HRS PRN Topamax (Topiramate) 25 Mg Tablet 25 Mg PO QHS Sennosides 8.6 Mg Tablet 8.6 Mg PO DAILY Klor-Con M20 (Potassium Chloride) 20 Meq Tab.er.prt 20 Meq PO DAILY Pantoprazole Sodium 40 Mg Tablet.dr 40 Mg PO BIDBFRMEAL NITROGLYCERIN SubLingual (Nitroglycerin) 0.4 Mg Tab.subl 0.4 Mg SL PRN Q5MIN PRN Miconazole Nitrate 10 Gm Powder 1 Applic MC BID Metoprolol Tartrate 25 Mg Tablet 12.5 Mg PO DAILY Melatonin 3 Mg Tablet 5 Mg PO PRN QHS PRN Meclizine Hcl 25 Mg Tablet 25 Mg PO PRN Q8HRS PRN Lorazepam 0.5 Mg Tablet 0.5 Mg PO PRN Q6HRS PRN Levothyroxine Sodium 50 Mcg Tablet 50 Mcg PO DAILYAC Latanoprost 0.005% Eye Drop (Latanoprost/Pf) 7.5 Ml Drops 1 Drop OU QHS Lamotrigine 100 Mg Tablet 100 Mg PO BID Probiotic (Lactobacillus Acidophilus) 1 Each Capsule 1 Each PO DAILY Zaditor (Ketotifen Fumarate) 5 Ml Drops 1 Drop OU TID Hydrocortisone 453.6 Gm Cream..g. 1 Applic TP BID Gabapentin 300 Mg Capsule 300 Mg PO HS Gabapentin 100 Mg Capsule 100 Mg PO DAILY Furosemide 40 Mg Tablet 40 Mg PO BID Duoneb 0.5-3(2.5) Mg/3 Ml (Albuterol/Ipratropium) 3 Ml Ampul.neb 3 Ml NEB PRN Q4HRS PRN Voltaren (Diclofenac Sodium) 100 Gm Gel..gram. 1 Applic TP BID Cymbalta (Duloxetine Hcl) 20 Mg Capsule.dr 40 Mg PO BID Cyclobenzaprine Hcl 10 Mg Tablet 10 Mg PO PRN Q8HRS PRN Cranberry Concentrate Softgel (Cranberry Conc/Ascorbic Acid) 1 Each Capsule 425 Mg PO TID Cholestyramine Packet (Cholestyramine (With Sugar)) 4 Gm Powd.pack 4 Gm PO BID Biotene Oralbalance (Saliva Stimulant Agents Comb.2) 44.3 Ml Liquid 30 Ml MM PRN Q3HRS PRN Artificial Tears Eye Drops (Dextran 70/Hypromellose) 15 Ml Drops 2 Ml OU PRN Q4HRS PRN Artificial Tears Eye Drops (Dextran 70/Hypromellose) 15 Ml Drops 2 Ml OU QHS Tylenol (Acetaminophen) 325 Mg Tablet 650 Mg PO PRN Q6HRS PRN I have reviewed the current psychotropics carefully including drug interactions. Risk benefit ratio favors no change other than as noted in my dictated progress note. Diagnosis: Problems: (1) Medical clearance for psychiatric admission (2) Anxiety disorder (3) Bipolar 1 disorder, mixed, moderate (4) Impulse control disorder (5) Schizoaffective disorder, bipolar type (6) Vascular dementia with delusions PATRIC QUEVEDO MD Mar 14, 2018 20:41
[2018-03-15] MEDS: LEVOTHYROXINE 50 MCG TABLET PO SCH (05:23)
[2018-03-15 05:36] VITALS: BP 130/68
[2018-03-15] MEDS: ACETAMINOPHEN 325 MG TABLET PO PRN (05:36)
[2018-03-15] MEDS: INSULIN LISPRO 300 UNITS/3 ML INSULN.PEN. SQ SCH ×3 (08:00→17:00)
[2018-03-15] MEDS: lamoTRIgine 100 MG TABLET. PO SCH ×2 (08:20→20:28)
[2018-03-15] MEDS: SENNOSIDES 8.6 MG TABLET PO SCH (08:20)
[2018-03-15] MEDS: CHOLESTYRAMINE/ASPARTAME 4 GM PACKET PO SCH ×2 (08:20→16:50)
[2018-03-15] MEDS: GABAPENTIN 100 MG CAPSULE. PO SCH (08:20)
[2018-03-15] MEDS: DULoxetine HCL 20 MG CAPSULE.DR PO SCH (08:20)
[2018-03-15] MEDS: POTASSIUM CHLORIDE 20 MEQ TABLET.ER. PO SCH (08:20)
[2018-03-15] MEDS: LACTOBACILLUS RHAMNOSUS GG 1 CAPSULE. PO SCH (08:20)
[2018-03-15] MEDS: FUROSEMIDE 40 MG TABLET PO SCH ×2 (08:21→14:05)
[2018-03-15] MEDS: PANTOPRAZOLE 40 MG TABLET. PO SCH ×2 (08:21→16:50)
[2018-03-15] MEDS: METOPROLOL TART IMMED RELEASE 25 MG TABLET PO SCH (08:23)
[2018-03-15] MEDS: KETOTIFEN FUMARATE 0.025% OPHT SOLUTION BOTTLE. OU SCH ×3 (11:20→20:32)
[2018-03-15] MEDS: HYDROCORTISONE 1% TOPICAL CREAM 30GM TUBE. TP SCH ×2 (11:20→20:34)
[2018-03-15] MEDS: MICONAZOLE NITRATE 2% TOPICAL CREAM 28GM TUBE. TP SCH ×2 (11:20→20:35)
[2018-03-15] MEDS: DICLOFENAC SODIUM 1% TOPICAL GEL 100GM TUBE. TP SCH ×2 (11:20→20:36)
[2018-03-15] MEDS: CYCLOBENZAPRINE 10 MG TABLET. PO PRN (11:25)
[2018-03-15] MEDS: traMADol 50 MG TABLET PO PRN (11:26)
[2018-03-15 16:14] VITALS: BP 112/60
[2018-03-15] MEDS: GABAPENTIN 300 MG CAPSULE. PO SCH (20:27)
[2018-03-15] MEDS: RIVAROXABAN 10 MG TABLET. PO SCH (20:28)
[2018-03-15] MEDS: traZODone 100 MG TABLET. PO SCH (20:28)
[2018-03-15] MEDS: TOPIRAMATE 25 MG TABLET. PO SCH (20:31)
[2018-03-15] MEDS: POLYVINYL ALCOHOL 1.4% OPHTH SOLUTION 15ML BOTTLE. OU SCH (20:32)
[2018-03-15] MEDS: LATANOPROST 0.005% OPHTH SOLUTION 2.5ML BOTTLE. OU SCH (20:32)
[2018-03-15] MEDS: MELATONIN 3 MG TABLET PO PRN (20:32)
[2018-03-15] MEDS: NYSTATIN TOPICAL POWDER 15GM BOTTLE. TP SCH (20:36)
--- NOTE | 2018-03-15 20:37 | PDOC ---
Exam Note: Fernando Note: Please also refer to the separate dictated note~for this date of service dictated separately.~Patient seen individually. Discussed the patient with Nursing staff reviewed the chart.~Reviewed interim history and current functioning. Reviewed vital signs,~Labs/ Radiology~and current medications noted below. Continue current treatment with the changes noted in the dictated addendum note Assessment: Vital Signs: Vital Signs Date Time Temp Pulse Resp B/P (MAP) Pulse Ox O2 Delivery O2 Flow Rate FiO2 03/15/18 16:14 97.3 72 18 112/60 (77) 100 Room Air 03/13/18 03:45 96.0 I&O Intake and Output 03/15/18 06:59 Intake Total 1080 ml Output Total 1300 ml Balance -220 ml Intake Oral 1080 ml Output Urine Total 1300 ml # Voids 1 # Bowel Movements 1 Labs: Laboratory Tests Test 03/15/18 07:25 03/15/18 11:20 03/15/18 16:51 Glucose (Fingerstick) 118 mg/dL (70-99) H 104 mg/dL (70-99) H 133 mg/dL (70-99) H Current Medications: Meds: Current Medications Tramadol HCl (Ultram) 50 mg 1X ONCE PO Last administered on 03/12/18at 21:09; Start 03/12/18 at 21:15; Stop 03/12/18 at 21:36; Status DC Potassium Chloride (Klor-Con) 40 meq 1X ONCE PO ; Start 03/12/18 at 21:15; Stop 03/12/18 at 21:53; Status DC Acetaminophen (Tylenol) 650 mg PRN Q6HRS PRN PO PAIN / TEMP Last administered on 03/14/18at 03:42; Start 03/12/18 at 23:00; Stop 03/14/18 at 16:35; Status DC Multi-Ingredient Ointment (Analgesic [place]) 1 belle PRN QID PRN TP MUSCLE PAIN; Start 03/12/18 at 23:00 Al Hydroxide/Mg Hydroxide (Mylanta Plus Xs) 15 ml PRN AFTMEALHC PRN PO DYSPEPSIA; Start 03/12/18 at 23:00 Magnesium Hydroxide (Milk Of Magnesia) 2,400 mg PRN QHS PRN PO CONSTIPATION; Start 03/12/18 at 23:00 Duloxetine HCl (Cymbalta) 40 mg BID PO Last administered on 03/13/18at 08:59; Start 03/13/18 at 09:00; Stop 03/13/18 at 19:25; Status DC Lorazepam (Ativan) 0.5 mg PRN Q6HRS PRN PO ANXIETY; Start 03/13/18 at 00:15 Acetaminophen (Tylenol) 650 mg PRN Q6HRS PRN PO PAIN / TEMP Last administered on 03/15/18at 05:36; Start 03/13/18 at 00:15 Cyclobenzaprine HCl (Flexeril) 10 mg PRN Q8HRS PRN PO MUSCLE SPASMS Last administered on 03/15/18at 11:25; Start 03/13/18 at 00:15 Diclofenac Sodium (Voltaren) 1 belle BID TP ; Start 03/13/18 at 09:00 Gabapentin (Neurontin) 100 mg DAILY PO Last administered on 03/15/18at 08:20; Start 03/13/18 at 09:00 Gabapentin (Neurontin) 300 mg HS PO Last administered on 03/15/18at 20:27; Start 03/13/18 at 21:00 Albuterol Sulfate (Ventolin) 2.5 mg PRN Q4HRS PRN NEB SHORTNESS OF BREATH; Start 03/13/18 at 00:15 Metoprolol Tartrate (Lopressor) 12.5 mg DAILY PO Last administered on at 08:23; Start 03/13/18 at 09:00 Nitroglycerin (Nitrostat) 0.4 mg PRN Q5MIN PRN SL CHEST PAIN; Start 03/13/18 at 00:15 Potassium Chloride (Klor-Con) 20 meq DAILY PO Last administered on 03/15/18at 08 :20; Start 03/13/18 at 09:00 Rivaroxaban (Xarelto) 20 mg QHS PO Last administered on 03/15/18at 20:28; Start 03/13/18 at 21:00 Tramadol HCl (Ultram) 50 mg PRN Q4HRS PRN PO PAIN Last administered on at 11:26; Start 03/13/18 at 00:15 Cholestyramine Resin (Questran Light) 4 gm BIDAFTMEAL PO Last administered on at 16:50; Start 03/13/18 at 09:00 Non-Formulary Medication (Cranberry Conc/ Ascorbic Acid (Cranberry Concentrate Softgel)) 425 mg TID PO ; Start 03/13/18 at 09:00; Status UNV Artificial Tears (Artificial Tears) 2 drop PRN Q4HRS PRN OU DRY EYE; Start at 00:15 Artificial Tears (Artificial Tears) 2 drop QHS OU Last administered on 20:32; Start 03/13/18 at 21:00 Furosemide (Lasix) 40 mg BID92 PO Last administered on 03/15/18 14:05; Start 03/13/18 at 09:00 Hydrocortisone (Cortaid) 1 belle BID TP Last administered on 03/15/18 20:34; Start 03/13/18 at 09:00 Ketotifen Fumarate (Zaditor) 1 drop TID OU Last administered on 03/15/18 20:32 ; Start 03/13/18 at 09:00 Lactobacillus Rhamnosus (Culturelle) 1 cap DAILY PO Last administered on 08:20; Start 03/13/18 at 09:00 Lamotrigine (LaMICtal) 100 mg BID PO Last administered on 03/15/18 20:28; Start 03/13/18 at 09:00 Latanoprost (Xalatan) 1 drop QHS OU Last administered on 03/15/18 20:32; Start 03/13/18 at 21:00 Levothyroxine Sodium (Synthroid) 50 mcg DAILY07 PO Last administered on 05:23; Start 03/13/18 at 07:00 Meclizine HCl (Antivert) 25 mg PRN Q8HRS PRN PO DIZZINESS; Start 03/13/18 at 00 :15 Miconazole Nitrate (Monistat-Derm) 1 belle BID TP Last administered on 03/15/18 20:35; Start 03/13/18 at 09:00 Pantoprazole Sodium (Protonix) 40 mg BIDBFRMEAL PO Last administered on at 16:50; Start 03/13/18 at 07:30 Saliva Substitute (Biotene Moisturizing Mouth) 1 spray PRN Q3HRS PRN MM DRY MOUTH; Start 03/13/18 at 00:15 Sennosides (Senna) 8.6 mg DAILY PO Last administered on 03/15/18 08:20; Start 03/13/18 at 09:00 Topiramate (Topamax) 25 mg QHS PO Last administered on 03/14/18at 19:21; Start 03/13/18 at 21:00; Stop 03/15/18 at 17:03; Status DC Melatonin 6 mg PRN QHS PRN PO INSOMNIA Last administered on 03/15/18at 20:32; Start 03/13/18 at 06:00 Insulin Human Lispro (HumaLOG) 0-5 UNITS TIDWMEALS SQ ; Start 03/14/18 at 08:00 Dextrose 12.5 gm PRN Q15MIN PRN IV SEE COMMENTS; Start 03/13/18 at 19:30 Duloxetine HCl (Cymbalta) 40 mg DAILY PO Last administered on 03/15/18at 08:20; Start 03/14/18 at 09:00 Oxcarbazepine (Trileptal) 300 mg DAILY PO Last administered on 03/15/18at 08:21 ; Start 03/14/18 at 09:00 Trazodone HCl (Desyrel) 100 mg QHS PO Last administered on 03/15/18at 20:28; Start 03/13/18 at 21:00 Trazodone HCl (Desyrel) 100 mg PRN QHS PRN PO INSOMNIA; Start 03/13/18 at 19:30 Topiramate (Topamax) 50 mg QHS PO Last administered on 03/15/18at 20:31; Start 03/15/18 at 21:00 Nystatin (Nystop) 1 belle BID TP Last administered on 03/15/18at 20:36; Start at 21:00 Ondansetron HCl (Zofran Odt) 4 mg PRN Q8HRS PRN PO NAUSEA/VOMITING; Start 03/15 at 17:15 Active Scripts Active Reported Xarelto (Rivaroxaban) 10 Mg Tablet 20 Mg PO QHS Tramadol Hcl (Tramadol HCl) 50 Mg Tablet 50 Mg PO Q4HRS PRN Topamax (Topiramate) 25 Mg Tablet 25 Mg PO QHS Sennosides 8.6 Mg Tablet 8.6 Mg PO DAILY Klor-Con M20 (Potassium Chloride) 20 Meq Tab.er.prt 20 Meq PO DAILY Pantoprazole Sodium 40 Mg Tablet.dr 40 Mg PO BIDBFRMEAL NITROGLYCERIN SubLingual (Nitroglycerin) 0.4 Mg Tab.subl 0.4 Mg SL PRN Q5MIN PRN Miconazole Nitrate 10 Gm Powder 1 Applic MC BID Metoprolol Tartrate 25 Mg Tablet 12.5 Mg PO DAILY Melatonin 3 Mg Tablet 5 Mg PO PRN QHS PRN Meclizine Hcl 25 Mg Tablet 25 Mg PO PRN Q8HRS PRN Lorazepam 0.5 Mg Tablet 0.5 Mg PO PRN Q6HRS PRN Levothyroxine Sodium 50 Mcg Tablet 50 Mcg PO DAILYAC Latanoprost 0.005% Eye Drop (Latanoprost/Pf) 7.5 Ml Drops 1 Drop OU QHS Lamotrigine 100 Mg Tablet 100 Mg PO BID Probiotic (Lactobacillus Acidophilus) 1 Each Capsule 1 Each PO DAILY Zaditor (Ketotifen Fumarate) 5 Ml Drops 1 Drop OU TID Hydrocortisone 453.6 Gm Cream..g. 1 Applic TP BID Gabapentin 300 Mg Capsule 300 Mg PO HS Gabapentin 100 Mg Capsule 100 Mg PO DAILY Furosemide 40 Mg Tablet 40 Mg PO BID Duoneb 0.5-3(2.5) Mg/3 Ml (Albuterol/Ipratropium) 3 Ml Ampul.neb 3 Ml NEB PRN Q4HRS PRN Voltaren (Diclofenac Sodium) 100 Gm Gel..gram. 1 Applic TP BID Cymbalta (Duloxetine Hcl) 20 Mg Capsule.dr 40 Mg PO BID Cyclobenzaprine Hcl 10 Mg Tablet 10 Mg PO PRN Q8HRS PRN Cranberry Concentrate Softgel (Cranberry Conc/Ascorbic Acid) 1 Each Capsule 425 Mg PO TID Cholestyramine Packet (Cholestyramine (With Sugar)) 4 Gm Powd.pack 4 Gm PO BID Biotene Oralbalance (Saliva Stimulant Agents Comb.2) 44.3 Ml Liquid 30 Ml MM PRN Q3HRS PRN Artificial Tears Eye Drops (Dextran 70/Hypromellose) 15 Ml Drops 2 Ml OU PRN Q4HRS PRN Artificial Tears Eye Drops (Dextran 70/Hypromellose) 15 Ml Drops 2 Ml OU QHS Tylenol (Acetaminophen) 325 Mg Tablet 650 Mg PO PRN Q6HRS PRN I have reviewed the current psychotropics carefully including drug interactions. Risk benefit ratio favors no change other than as noted in my dictated progress note. Diagnosis: Problems: (1) Medical clearance for psychiatric admission (2) Anxiety disorder (3) Bipolar 1 disorder, mixed, moderate (4) Impulse control disorder (5) Schizoaffective disorder, bipolar type (6) Vascular dementia with delusions PATRIC QUEVEDO MD Mar 15, 2018 20:37
[2018-03-15] MEDS ORDERED: MELATONIN 3 MG TABLET ONE (21:00)
[2018-03-16] MEDS: LEVOTHYROXINE 50 MCG TABLET PO SCH (05:38)
[2018-03-16 06:24] VITALS: BP 91/44
[2018-03-16] MEDS: INSULIN LISPRO 300 UNITS/3 ML INSULN.PEN. SQ SCH ×3 (08:00→17:00)
[2018-03-16] MEDS: METOPROLOL TART IMMED RELEASE 25 MG TABLET PO SCH (09:00)
[2018-03-16] MEDS: SENNOSIDES 8.6 MG TABLET PO SCH ×2 (09:00→09:29)
[2018-03-16] MEDS: DICLOFENAC SODIUM 1% TOPICAL GEL 100GM TUBE. TP SCH ×2 (09:00→21:00)
[2018-03-16] MEDS: DULoxetine HCL 20 MG CAPSULE.DR PO SCH (09:26)
[2018-03-16] MEDS: CHOLESTYRAMINE/ASPARTAME 4 GM PACKET PO SCH ×2 (09:26→17:42)
[2018-03-16] MEDS: POTASSIUM CHLORIDE 20 MEQ TABLET.ER. PO SCH (09:27)
[2018-03-16] MEDS: lamoTRIgine 100 MG TABLET. PO SCH ×2 (09:28→20:23)
[2018-03-16] MEDS: GABAPENTIN 100 MG CAPSULE. PO SCH (09:28)
[2018-03-16] MEDS: PANTOPRAZOLE 40 MG TABLET. PO SCH ×2 (09:28→17:42)
[2018-03-16] MEDS: LACTOBACILLUS RHAMNOSUS GG 1 CAPSULE. PO SCH (09:28)
[2018-03-16] MEDS: FUROSEMIDE 40 MG TABLET PO SCH ×2 (09:28→13:49)
[2018-03-16] MEDS: KETOTIFEN FUMARATE 0.025% OPHT SOLUTION BOTTLE. OU SCH ×3 (09:33→21:00)
[2018-03-16] MEDS: MICONAZOLE NITRATE 2% TOPICAL CREAM 28GM TUBE. TP SCH ×2 (09:33→21:00)
[2018-03-16] MEDS: HYDROCORTISONE 1% TOPICAL CREAM 30GM TUBE. TP SCH ×2 (09:33→21:00)
[2018-03-16] MEDS: NYSTATIN TOPICAL POWDER 15GM BOTTLE. TP SCH ×2 (09:34→21:00)
[2018-03-16] MEDS: CYCLOBENZAPRINE 10 MG TABLET. PO PRN ×2 (09:50→18:31)
[2018-03-16] MEDS: ACETAMINOPHEN 325 MG TABLET PO PRN (11:13)
[2018-03-16] MEDS: traMADol 50 MG TABLET PO PRN ×2 (13:48→18:31)
[2018-03-16 15:51] VITALS: BP 119/76
[2018-03-16] MEDS: GABAPENTIN 300 MG CAPSULE. PO SCH (20:22)
[2018-03-16] MEDS: traZODone 100 MG TABLET. PO SCH (20:23)
[2018-03-16] MEDS: LATANOPROST 0.005% OPHTH SOLUTION 2.5ML BOTTLE. OU SCH (20:23)
[2018-03-16] MEDS: RIVAROXABAN 10 MG TABLET. PO SCH (20:23)
[2018-03-16] MEDS: POLYVINYL ALCOHOL 1.4% OPHTH SOLUTION 15ML BOTTLE. OU SCH (20:28)
[2018-03-16] MEDS: TOPIRAMATE 25 MG TABLET. PO SCH (20:28)
--- NOTE | 2018-03-16 20:45 | PDOC ---
Exam Note: Fernando Note: Please also refer to the separate dictated note~for this date of service dictated separately.~Patient seen individually. Discussed the patient with Nursing staff reviewed the chart.~Reviewed interim history and current functioning. Reviewed vital signs,~Labs/ Radiology~and current medications noted below. Continue current treatment with the changes noted in the dictated addendum note Assessment: Vital Signs: Vital Signs Date Time Temp Pulse Resp B/P (MAP) Pulse Ox O2 Delivery O2 Flow Rate FiO2 03/16/18 18:31 20 95 Room Air 03/16/18 15:51 96.8 75 119/76 (90) 03/13/18 03:45 96.0 I&O Intake and Output 03/16/18 07:00 Intake Total 840 ml Output Total 700 ml Balance 140 ml Intake Oral 840 ml Output Urine Total 700 ml # Bowel Movements 2 Labs: Laboratory Tests Test 03/16/18 07:52 03/16/18 11:56 03/16/18 17:23 03/16/18 19:26 Glucose (Fingerstick) 97 mg/dL (70-99) 121 mg/dL (70-99) H 81 mg/dL (70-99) 69 mg/dL (70-99) L Test 03/16/18 19:41 Glucose (Fingerstick) 256 mg/dL (70-99) H Current Medications: Meds: Current Medications Tramadol HCl (Ultram) 50 mg 1X ONCE PO Last administered on 03/12/18at 21:09; Start 03/12/18 at 21:15; Stop 03/12/18 at 21:36; Status DC Potassium Chloride (Klor-Con) 40 meq 1X ONCE PO ; Start 03/12/18 at 21:15; Stop 03/12/18 at 21:53; Status DC Acetaminophen (Tylenol) 650 mg PRN Q6HRS PRN PO PAIN / TEMP Last administered on 03/14/18at 03:42; Start 03/12/18 at 23:00; Stop 03/14/18 at 16:35; Status DC Multi-Ingredient Ointment (Analgesic [place]) 1 belle PRN QID PRN TP MUSCLE PAIN; Start 03/12/18 at 23:00 Al Hydroxide/Mg Hydroxide (Mylanta Plus Xs) 15 ml PRN AFTMEALHC PRN PO DYSPEPSIA; Start 03/12/18 at 23:00 Magnesium Hydroxide (Milk Of Magnesia) 2,400 mg PRN QHS PRN PO CONSTIPATION; Start 03/12/18 at 23:00 Duloxetine HCl (Cymbalta) 40 mg BID PO Last administered on 03/13/18at 08:59; Start 03/13/18 at 09:00; Stop 03/13/18 at 19:25; Status DC Lorazepam (Ativan) 0.5 mg PRN Q6HRS PRN PO ANXIETY; Start 03/13/18 at 00:15 Acetaminophen (Tylenol) 650 mg PRN Q6HRS PRN PO PAIN / TEMP Last administered on 03/16/18at 11:13; Start 03/13/18 at 00:15 Cyclobenzaprine HCl (Flexeril) 10 mg PRN Q8HRS PRN PO MUSCLE SPASMS Last administered on 03/16/18 18:31; Start 03/13/18 at 00:15 Diclofenac Sodium (Voltaren) 1 belle BID TP ; Start 03/13/18 at 09:00 Gabapentin (Neurontin) 100 mg DAILY PO Last administered on 03/16/18 09:28; Start 03/13/18 at 09:00 Gabapentin (Neurontin) 300 mg HS PO Last administered on 03/16/18 20:22; Start 03/13/18 at 21:00 Albuterol Sulfate (Ventolin) 2.5 mg PRN Q4HRS PRN NEB SHORTNESS OF BREATH; Start 03/13/18 at 00:15 Metoprolol Tartrate (Lopressor) 12.5 mg DAILY PO Last administered on at 08:23; Start 03/13/18 at 09:00 Nitroglycerin (Nitrostat) 0.4 mg PRN Q5MIN PRN SL CHEST PAIN; Start 03/13/18 at 00:15 Potassium Chloride (Klor-Con) 20 meq DAILY PO Last administered on 03/16/18 09 :27; Start 03/13/18 at 09:00 Rivaroxaban (Xarelto) 20 mg QHS PO Last administered on 03/16/18 20:23; Start 03/13/18 at 21:00 Tramadol HCl (Ultram) 50 mg PRN Q4HRS PRN PO PAIN Last administered on 18:31; Start 03/13/18 at 00:15 Cholestyramine Resin (Questran Light) 4 gm BIDAFTMEAL PO Last administered on 17:42; Start 03/13/18 at 09:00 Non-Formulary Medication (Cranberry Conc/ Ascorbic Acid (Cranberry Concentrate Softgel)) 425 mg TID PO ; Start 03/13/18 at 09:00; Status UNV Artificial Tears (Artificial Tears) 2 drop PRN Q4HRS PRN OU DRY EYE; Start at 00:15 Artificial Tears (Artificial Tears) 2 drop QHS OU Last administered on 20:28; Start 03/13/18 at 21:00 Furosemide (Lasix) 40 mg BID92 PO Last administered on 03/16/18 13:49; Start 03/13/18 at 09:00 Hydrocortisone (Cortaid) 1 belle BID TP Last administered on 03/16/18 09:33; Start 03/13/18 at 09:00 Ketotifen Fumarate (Zaditor) 1 drop TID OU Last administered on 03/16/18 13:57 ; Start 03/13/18 at 09:00 Lactobacillus Rhamnosus (Culturelle) 1 cap DAILY PO Last administered on 09:28; Start 03/13/18 at 09:00 Lamotrigine (LaMICtal) 100 mg BID PO Last administered on 03/16/18 20:23; Start 03/13/18 at 09:00 Latanoprost (Xalatan) 1 drop QHS OU Last administered on 03/16/18 20:23; Start 03/13/18 at 21:00 Levothyroxine Sodium (Synthroid) 50 mcg DAILY07 PO Last administered on 05:38; Start 03/13/18 at 07:00 Meclizine HCl (Antivert) 25 mg PRN Q8HRS PRN PO DIZZINESS; Start 03/13/18 at 00 :15 Miconazole Nitrate (Monistat-Derm) 1 belle BID TP Last administered on 03/16/18 09:33; Start 03/13/18 at 09:00 Pantoprazole Sodium (Protonix) 40 mg BIDBFRMEAL PO Last administered on 7/20/ 18at 17:42; Start 03/13/18 at 07:30 Saliva Substitute (Biotene Moisturizing Mouth) 1 spray PRN Q3HRS PRN MM DRY MOUTH; Start 03/13/18 at 00:15 Sennosides (Senna) 8.6 mg DAILY PO Last administered on 03/15/18at 08:20; Start 03/13/18 at 09:00 Topiramate (Topamax) 25 mg QHS PO Last administered on 03/14/18at 19:21; Start 03/13/18 at 21:00; Stop 03/15/18 at 17:03; Status DC Melatonin 6 mg PRN QHS PRN PO INSOMNIA Last administered on 03/15/18 20:32; Start 03/13/18 at 06:00 Insulin Human Lispro (HumaLOG) 0-5 UNITS TIDWMEALS SQ ; Start 03/14/18 at 08:00 Dextrose 12.5 gm PRN Q15MIN PRN IV SEE COMMENTS; Start 03/13/18 at 19:30 Duloxetine HCl (Cymbalta) 40 mg DAILY PO Last administered on 03/16/18at 09:26; Start 03/14/18 at 09:00; Stop 03/16/18 at 19:41; Status DC Oxcarbazepine (Trileptal) 300 mg DAILY PO Last administered on 03/16/18 09:28 ; Start 03/14/18 at 09:00; Stop 03/16/18 at 19:41; Status DC Trazodone HCl (Desyrel) 100 mg QHS PO Last administered on 03/16/18at 20:23; Start 03/13/18 at 21:00 Trazodone HCl (Desyrel) 100 mg PRN QHS PRN PO INSOMNIA; Start 03/13/18 at 19:30 Topiramate (Topamax) 50 mg QHS PO Last administered on 03/16/18at 20:28; Start 03/15/18 at 21:00 Nystatin (Nystop) 1 belle BID TP Last administered on 03/16/18at 09:34; Start at 21:00 Ondansetron HCl (Zofran Odt) 4 mg PRN Q8HRS PRN PO NAUSEA/VOMITING; Start 03/15 at 17:15 Oxcarbazepine (Trileptal) 300 mg BID PO Last administered on 03/16/18at 20:28; Start 03/16/18 at 21:00 Active Scripts Active Reported Xarelto (Rivaroxaban) 10 Mg Tablet 20 Mg PO QHS Tramadol Hcl (Tramadol HCl) 50 Mg Tablet 50 Mg PO Q4HRS PRN Topamax (Topiramate) 25 Mg Tablet 25 Mg PO QHS Sennosides 8.6 Mg Tablet 8.6 Mg PO DAILY Klor-Con M20 (Potassium Chloride) 20 Meq Tab.er.prt 20 Meq PO DAILY Pantoprazole Sodium 40 Mg Tablet.dr 40 Mg PO BIDBFRMEAL NITROGLYCERIN SubLingual (Nitroglycerin) 0.4 Mg Tab.subl 0.4 Mg SL PRN Q5MIN PRN Miconazole Nitrate 10 Gm Powder 1 Applic MC BID Metoprolol Tartrate 25 Mg Tablet 12.5 Mg PO DAILY Melatonin 3 Mg Tablet 5 Mg PO PRN QHS PRN Meclizine Hcl 25 Mg Tablet 25 Mg PO PRN Q8HRS PRN Lorazepam 0.5 Mg Tablet 0.5 Mg PO PRN Q6HRS PRN Levothyroxine Sodium 50 Mcg Tablet 50 Mcg PO DAILYAC Latanoprost 0.005% Eye Drop (Latanoprost/Pf) 7.5 Ml Drops 1 Drop OU QHS Lamotrigine 100 Mg Tablet 100 Mg PO BID Probiotic (Lactobacillus Acidophilus) 1 Each Capsule 1 Each PO DAILY Zaditor (Ketotifen Fumarate) 5 Ml Drops 1 Drop OU TID Hydrocortisone 453.6 Gm Cream..g. 1 Applic TP BID Gabapentin 300 Mg Capsule 300 Mg PO HS Gabapentin 100 Mg Capsule 100 Mg PO DAILY Furosemide 40 Mg Tablet 40 Mg PO BID Duoneb 0.5-3(2.5) Mg/3 Ml (Albuterol/Ipratropium) 3 Ml Ampul.neb 3 Ml NEB PRN Q4HRS PRN Voltaren (Diclofenac Sodium) 100 Gm Gel..gram. 1 Applic TP BID Cymbalta (Duloxetine Hcl) 20 Mg Capsule.dr 40 Mg PO BID Cyclobenzaprine Hcl 10 Mg Tablet 10 Mg PO PRN Q8HRS PRN Cranberry Concentrate Softgel (Cranberry Conc/Ascorbic Acid) 1 Each Capsule 425 Mg PO TID Cholestyramine Packet (Cholestyramine (With Sugar)) 4 Gm Powd.pack 4 Gm PO BID Biotene Oralbalance (Saliva Stimulant Agents Comb.2) 44.3 Ml Liquid 30 Ml MM PRN Q3HRS PRN Artificial Tears Eye Drops (Dextran 70/Hypromellose) 15 Ml Drops 2 Ml OU PRN Q4HRS PRN Artificial Tears Eye Drops (Dextran 70/Hypromellose) 15 Ml Drops 2 Ml OU QHS Tylenol (Acetaminophen) 325 Mg Tablet 650 Mg PO PRN Q6HRS PRN I have reviewed the current psychotropics carefully including drug interactions. Risk benefit ratio favors no change other than as noted in my dictated progress note. Diagnosis: Problems: (1) Medical clearance for psychiatric admission (2) Anxiety disorder (3) Bipolar 1 disorder, mixed, moderate (4) Impulse control disorder (5) Schizoaffective disorder, bipolar type (6) Vascular dementia with delusions PATRIC QUEVEDO MD Mar 16, 2018 20:45
--- NOTE | 2018-03-16 23:42 | PN ---
DATE: 03/14/2018 PSYCHIATRIC PROGRESS NOTE This is a late entry 03/14/2018 covers elements not covered in my initial note. SUBJECTIVE: I met with the patient in the evening. The patient slept 5 hours previous evening. Previous night, she was extremely agitated, irritable, demanding, especially in the shower time. Trying to make frequent telephone calls, less irritable during the day 03/14/2018, frequent telephone calls to the sisters, makes frequent statements, not wanting to "get back to the hell hole" referring to the nursing facility she was living at. REVIEW OF SYSTEMS: Ambulation impaired, in wheelchair. No CV, , pulmonary, eye, ENT system symptoms on review. MENTAL STATUS EXAM: Oriented reasonably. Speech coherent, rapid at times. Abstraction fair, computation impaired, language function intact, attention span short. Mood and affect remain somewhat labile. LABORATORY DATA: Reviewed. IMPRESSION: Unchanged from initial note. Make further adjustments as clinically indicated. PATRIC QUEVEDO MD DR: DUSTY/yusuf JOB#: [id number] / [id number]
--- NOTE | 2018-03-16 23:46 | PN ---
DATE: 03/15/2018 PSYCHIATRIC PROGRESS NOTE This late entry date of service 03/15/2018, covers elements not covered in my initial note. I met with the patient in the evening and staffed at a treatment team meeting with the entire team in the morning. The patient's sister, Rhonda, attended the treatment team meeting. Reviewed the patient's history, diagnosis, reviewed her past medications and it appears the patient has never been on Depakote or lithium. Discussed her current psychotropics. Appetite 40%, sleeping an average of 5 hours, slept 6-1/2 hours previous evening. REVIEW OF SYSTEMS: Ambulation impaired, in wheelchair. No CV, , pulmonary, eye, ENT system symptoms on review. Reliability poor. MENTAL STATUS EXAM: Reasonably oriented. Speech coherent, rapid at times. Abstraction fair, computation impaired, language function intact. Mood and affect remain somewhat labile, manic, grandiose. No suicidal or homicidal ideation. LABORATORY DATA: Reviewed. IMPRESSION: Unchanged from initial note. PLAN: Continue current psychotropics. Adjust the Trileptal as a mood stabilizer. Cymbalta was reduced. May go ahead and drop it down further in a day or so. PATRIC QUEVEDO MD DR: DUSTY/yusuf JOB#: [id number] / [id number]
[2018-03-17 05:42] VITALS: BP 104/70
[2018-03-17] MEDS: LEVOTHYROXINE 50 MCG TABLET PO SCH (05:48)
[2018-03-17] MEDS: traMADol 50 MG TABLET PO PRN (05:56)
[2018-03-17] MEDS: lamoTRIgine 100 MG TABLET. PO SCH ×2 (07:35→19:40)
[2018-03-17] MEDS: FUROSEMIDE 40 MG TABLET PO SCH ×2 (07:35→13:38)
[2018-03-17] MEDS: CHOLESTYRAMINE/ASPARTAME 4 GM PACKET PO SCH ×2 (07:35→17:56)
[2018-03-17] MEDS: LACTOBACILLUS RHAMNOSUS GG 1 CAPSULE. PO SCH ×2 (07:35→19:44)
[2018-03-17] MEDS: SENNOSIDES 8.6 MG TABLET PO SCH ×3 (07:36→10:47)
[2018-03-17] MEDS: GABAPENTIN 100 MG CAPSULE. PO SCH (07:36)
[2018-03-17] MEDS: METOPROLOL TART IMMED RELEASE 25 MG TABLET PO SCH (07:36)
[2018-03-17] MEDS: PANTOPRAZOLE 40 MG TABLET. PO SCH ×2 (07:36→17:55)
[2018-03-17] MEDS: POTASSIUM CHLORIDE 20 MEQ TABLET.ER. PO SCH (07:37)
[2018-03-17] MEDS: MICONAZOLE NITRATE 2% TOPICAL CREAM 28GM TUBE. TP SCH ×2 (07:39→19:47)
[2018-03-17] MEDS: NYSTATIN TOPICAL POWDER 15GM BOTTLE. TP SCH ×2 (07:40→19:47)
[2018-03-17] MEDS: HYDROCORTISONE 1% TOPICAL CREAM 30GM TUBE. TP SCH ×2 (07:40→19:48)
[2018-03-17] MEDS: KETOTIFEN FUMARATE 0.025% OPHT SOLUTION BOTTLE. OU SCH ×3 (07:40→19:44)
[2018-03-17] MEDS: INSULIN LISPRO 300 UNITS/3 ML INSULN.PEN. SQ SCH ×3 (08:00→17:00)
[2018-03-17] MEDS: ACETAMINOPHEN 325 MG TABLET PO PRN (09:35)
[2018-03-17] MEDS: DICLOFENAC SODIUM 1% TOPICAL GEL 100GM TUBE. TP SCH ×2 (09:35→19:47)
[2018-03-17] MEDS: CYCLOBENZAPRINE 10 MG TABLET. PO PRN (13:38)
[2018-03-17] MEDS ORDERED: HYDROcodone/APAP 5/325MG 1 TAB TABLET PO PRN (15:00)
[2018-03-17] MEDS: HYDROcodone/APAP 5/325MG 1 TAB TABLET PO PRN (15:51)
[2018-03-17 15:56] VITALS: BP 117/76
[2018-03-17] MEDS: GABAPENTIN 300 MG CAPSULE. PO SCH (19:40)
[2018-03-17] MEDS: traZODone 100 MG TABLET. PO SCH (19:40)
[2018-03-17] MEDS: RIVAROXABAN 10 MG TABLET. PO SCH (19:40)
[2018-03-17] MEDS: TOPIRAMATE 25 MG TABLET. PO SCH (19:41)
[2018-03-17] MEDS: AMOXICILLIN/K CLAV 875/125MG TABLET. PO SCH (19:44)
[2018-03-17] MEDS: POLYVINYL ALCOHOL 1.4% OPHTH SOLUTION 15ML BOTTLE. OU SCH (19:44)
[2018-03-17] MEDS: QUEtiapine 50 MG TABLET. PO SCH (19:47)
[2018-03-17] MEDS: LATANOPROST 0.005% OPHTH SOLUTION 2.5ML BOTTLE. OU SCH (21:00)
--- NOTE | 2018-03-17 22:07 | PN ---
DATE: 03/16/2018 PSYCHIATRIC PROGRESS NOTE This is a late entry 03/16/2018 covers elements not covered in my initial note. SUBJECTIVE: The patient has been somewhat demanding, disorganized at times. Previous evening, she was quite labile. REVIEW OF SYSTEMS: Ambulation impaired, in wheelchair. No CV, , pulmonary, eye, ENT system symptoms on review. Reliability poor. MENTAL STATUS EXAM: Oriented to herself and situation. Speech coherent, rapid, pressured at times. Abstraction fair, computation impaired, language function intact, attention span short. Mood and affect remain somewhat grandiose, labile. The patient had many questions about her diagnosis. Discussed at great length with her. She is still unaccepting of the bipolar diagnosis. LABORATORY DATA: Reviewed. IMPRESSION: Unchanged from initial note. PLAN: Stop the Cymbalta since it could be worsening the enma. Maintain melatonin, Ativan. Increase Trileptal from 300 mg a day to 300 mg twice a day. Maintain trazodone 100 mg at bedtime, may repeat x 1 for insomnia. MAN Prasanth QUEVEDO MD DR: DUSTY/yusuf JOB#: [id number] / [id number]
--- NOTE | 2018-03-17 22:12 | PN ---
DATE: 03/17/2018 This note covers the elements not covered in my initial note of 03/17/2018. SUBJECTIVE: The patient slept 6-1/4 hours previous evening. She does have UTI Klebsiella positive, started on Augmentin. REVIEW OF SYSTEMS: Ambulation impaired in wheelchair. No CV, , pulmonary, eye, ENT system symptoms on review. MENTAL STATUS EXAM: Oriented to herself and situation. Speech coherent, rapid at times, pressured. Abstraction fair, computation impaired, language function intact, attention span short. Mood and affect remains somewhat grandiose, manic. As I met with her in the afternoon, she had many, many questions about her diagnosis, unwilling to accept the bipolar diagnosis, questioning on the criteria. Lengthy discussion with her. Labs reviewed. IMPRESSION: Bipolar 1 disorder, manic with psychotic features, urinary tract infection. PLAN: She is started on Augmentin for UTI. Start Seroquel 50 mg at bedtime. Maintain Lamictal 100 mg b.i.d., melatonin and Ativan, Trileptal 300 mg b.i.d., trazodone as before. MAN Prasanth QUEVEDO MD DR: DUSTY/yusuf JOB#: [id number] / [id number]
--- NOTE | 2018-03-17 23:00 | PDOC ---
Exam Note: Fernando Note: Please also refer to the separate dictated note~for this date of service dictated separately.~Patient seen individually. Discussed the patient with Nursing staff reviewed the chart.~Reviewed interim history and current functioning. Reviewed vital signs,~Labs/ Radiology~and current medications noted below. Continue current treatment with the changes noted in the dictated addendum note Assessment: Vital Signs: Vital Signs Date Time Temp Pulse Resp B/P (MAP) Pulse Ox O2 Delivery O2 Flow Rate FiO2 03/17/18 15:56 97.5 73 20 117/76 (90) 95 Room Air 03/13/18 03:45 96.0 I&O Intake and Output 03/17/18 06:59 Intake Total 1560 ml Output Total 950 ml Balance 610 ml Intake Oral 1560 ml Output Urine Total 950 ml # Bowel Movements 1 Labs: Laboratory Tests Test 03/17/18 07:43 03/17/18 12:10 03/17/18 17:02 03/17/18 19:06 Glucose (Fingerstick) 101 mg/dL (70-99) H 88 mg/dL (70-99) 88 mg/dL (70-99) 63 mg/dL (70-99) L Current Medications: Meds: Current Medications Tramadol HCl (Ultram) 50 mg 1X ONCE PO Last administered on 03/12/18at 21:09; Start 03/12/18 at 21:15; Stop 03/12/18 at 21:36; Status DC Potassium Chloride (Klor-Con) 40 meq 1X ONCE PO ; Start 03/12/18 at 21:15; Stop 03/12/18 at 21:53; Status DC Acetaminophen (Tylenol) 650 mg PRN Q6HRS PRN PO PAIN / TEMP Last administered on 03/14/18at 03:42; Start 03/12/18 at 23:00; Stop 03/14/18 at 16:35; Status DC Multi-Ingredient Ointment (Analgesic [place]) 1 belle PRN QID PRN TP MUSCLE PAIN; Start 03/12/18 at 23:00 Al Hydroxide/Mg Hydroxide (Mylanta Plus Xs) 15 ml PRN AFTMEALHC PRN PO DYSPEPSIA; Start 03/12/18 at 23:00 Magnesium Hydroxide (Milk Of Magnesia) 2,400 mg PRN QHS PRN PO CONSTIPATION; Start 03/12/18 at 23:00 Duloxetine HCl (Cymbalta) 40 mg BID PO Last administered on 03/13/18at 08:59; Start 03/13/18 at 09:00; Stop 03/13/18 at 19:25; Status DC Lorazepam (Ativan) 0.5 mg PRN Q6HRS PRN PO ANXIETY; Start 03/13/18 at 00:15 Acetaminophen (Tylenol) 650 mg PRN Q6HRS PRN PO PAIN / TEMP Last administered on 03/17/18at 09:35; Start 03/13/18 at 00:15 Cyclobenzaprine HCl (Flexeril) 10 mg PRN Q8HRS PRN PO MUSCLE SPASMS Last administered on 03/17/18 13:38; Start 03/13/18 at 00:15 Diclofenac Sodium (Voltaren) 1 belle BID TP Last administered on 03/17/18 19:47 ; Start 03/13/18 at 09:00 Gabapentin (Neurontin) 100 mg DAILY PO Last administered on 03/17/18at 07:36; Start 03/13/18 at 09:00 Gabapentin (Neurontin) 300 mg HS PO Last administered on 03/17/18 19:40; Start 03/13/18 at 21:00 Albuterol Sulfate (Ventolin) 2.5 mg PRN Q4HRS PRN NEB SHORTNESS OF BREATH; Start 03/13/18 at 00:15 Metoprolol Tartrate (Lopressor) 12.5 mg DAILY PO Last administered on at 07:36; Start 03/13/18 at 09:00 Nitroglycerin (Nitrostat) 0.4 mg PRN Q5MIN PRN SL CHEST PAIN; Start 03/13/18 at 00:15 Potassium Chloride (Klor-Con) 20 meq DAILY PO Last administered on 03/17/18 07 :37; Start 03/13/18 at 09:00 Rivaroxaban (Xarelto) 20 mg QHS PO Last administered on 03/17/18at 19:40; Start 03/13/18 at 21:00 Tramadol HCl (Ultram) 50 mg PRN Q4HRS PRN PO PAIN Last administered on at 05:56; Start 03/13/18 at 00:15; Stop 03/17/18 at 14:57; Status DC Cholestyramine Resin (Questran Light) 4 gm BIDAFTMEAL PO Last administered on 07:35; Start 03/13/18 at 09:00 Non-Formulary Medication (Cranberry Conc/ Ascorbic Acid (Cranberry Concentrate Softgel)) 425 mg TID PO ; Start 03/13/18 at 09:00; Status UNV Artificial Tears (Artificial Tears) 2 drop PRN Q4HRS PRN OU DRY EYE; Start at 00:15 Artificial Tears (Artificial Tears) 2 drop QHS OU Last administered on 19:44; Start 03/13/18 at 21:00 Furosemide (Lasix) 40 mg BID92 PO Last administered on 03/17/18 13:38; Start 03/13/18 at 09:00 Hydrocortisone (Cortaid) 1 belle BID TP Last administered on 03/17/18 19:48; Start 03/13/18 at 09:00 Ketotifen Fumarate (Zaditor) 1 drop TID OU Last administered on 03/17/18 19:44 ; Start 03/13/18 at 09:00 Lactobacillus Rhamnosus (Culturelle) 1 cap DAILY PO Last administered on 07:35; Start 03/13/18 at 09:00; Stop 03/17/18 at 15:35; Status DC Lamotrigine (LaMICtal) 100 mg BID PO Last administered on 03/17/18 19:40; Start 03/13/18 at 09:00 Latanoprost (Xalatan) 1 drop QHS OU Last administered on 03/17/18 21:00; Start 03/13/18 at 21:00 Levothyroxine Sodium (Synthroid) 50 mcg DAILY07 PO Last administered on 05:48; Start 03/13/18 at 07:00 Meclizine HCl (Antivert) 25 mg PRN Q8HRS PRN PO DIZZINESS; Start 03/13/18 at 00 :15 Miconazole Nitrate (Monistat-Derm) 1 belle BID TP Last administered on 03/17/18 19:47; Start 03/13/18 at 09:00 Pantoprazole Sodium (Protonix) 40 mg BIDBFRMEAL PO Last administered on 7/21/ 18at 17:55; Start 03/13/18 at 07:30 Saliva Substitute (Biotene Moisturizing Mouth) 1 spray PRN Q3HRS PRN MM DRY MOUTH; Start 03/13/18 at 00:15 Sennosides (Senna) 8.6 mg DAILY PO Last administered on 03/15/18at 08:20; Start 03/13/18 at 09:00 Topiramate (Topamax) 25 mg QHS PO Last administered on 03/14/18at 19:21; Start 03/13/18 at 21:00; Stop 03/15/18 at 17:03; Status DC Melatonin 6 mg PRN QHS PRN PO INSOMNIA Last administered on 03/15/18at 20:32; Start 03/13/18 at 06:00 Insulin Human Lispro (HumaLOG) 0-5 UNITS TIDWMEALS SQ ; Start 03/14/18 at 08:00 Dextrose 12.5 gm PRN Q15MIN PRN IV SEE COMMENTS; Start 03/13/18 at 19:30 Duloxetine HCl (Cymbalta) 40 mg DAILY PO Last administered on 03/16/18at 09:26; Start 03/14/18 at 09:00; Stop 03/16/18 at 19:41; Status DC Oxcarbazepine (Trileptal) 300 mg DAILY PO Last administered on 03/16/18at 09:28 ; Start 03/14/18 at 09:00; Stop 03/16/18 at 19:41; Status DC Trazodone HCl (Desyrel) 100 mg QHS PO Last administered on 03/17/18at 19:40; Start 03/13/18 at 21:00 Trazodone HCl (Desyrel) 100 mg PRN QHS PRN PO INSOMNIA; Start 03/13/18 at 19:30 Topiramate (Topamax) 50 mg QHS PO Last administered on 03/17/18at 19:41; Start 03/15/18 at 21:00 Nystatin (Nystop) 1 belle BID TP Last administered on 03/17/18at 19:47; Start at 21:00 Ondansetron HCl (Zofran Odt) 4 mg PRN Q8HRS PRN PO NAUSEA/VOMITING; Start 03/15 at 17:15 Oxcarbazepine (Trileptal) 300 mg BID PO Last administered on 03/17/18at 19:40; Start 03/16/18 at 21:00 Amoxicillin/ Clavulanate Potassium (Augmentin 875/ 125mg) 1 tab BID PO Last administered on 03/17/18at 19:44; Start 03/17/18 at 21:00; Stop 03/24/18 at 20:59 Lactobacillus Rhamnosus (Culturelle) 1 cap BID PO Last administered on at 19:44; Start 03/17/18 at 21:00 Quetiapine Fumarate (SEROquel) 50 mg HS PO Last administered on 03/17/18at 19:47 ; Start 03/17/18 at 21:00 Acetaminophen/ Hydrocodone Bitart (Lortab 5/325) 1 tab PRN Q6HRS PRN PO PAIN; Start 03/17/18 at 15:00; Stop 03/17/18 at 15:16; Status DC Acetaminophen/ Hydrocodone Bitart (Lortab 5/325) 1 tab PRN Q6HRS PRN PO PAIN Last administered on 03/17/18at 15:51; Start 03/17/18 at 15:45 Active Scripts Active Reported Xarelto (Rivaroxaban) 10 Mg Tablet 20 Mg PO QHS Tramadol Hcl (Tramadol HCl) 50 Mg Tablet 50 Mg PO Q4HRS PRN Topamax (Topiramate) 25 Mg Tablet 25 Mg PO QHS Sennosides 8.6 Mg Tablet 8.6 Mg PO DAILY Klor-Con M20 (Potassium Chloride) 20 Meq Tab.er.prt 20 Meq PO DAILY Pantoprazole Sodium 40 Mg Tablet.dr 40 Mg PO BIDBFRMEAL NITROGLYCERIN SubLingual (Nitroglycerin) 0.4 Mg Tab.subl 0.4 Mg SL PRN Q5MIN PRN Miconazole Nitrate 10 Gm Powder 1 Applic MC BID Metoprolol Tartrate 25 Mg Tablet 12.5 Mg PO DAILY Melatonin 3 Mg Tablet 5 Mg PO PRN QHS PRN Meclizine Hcl 25 Mg Tablet 25 Mg PO PRN Q8HRS PRN Lorazepam 0.5 Mg Tablet 0.5 Mg PO PRN Q6HRS PRN Levothyroxine Sodium 50 Mcg Tablet 50 Mcg PO DAILYAC Latanoprost 0.005% Eye Drop (Latanoprost/Pf) 7.5 Ml Drops 1 Drop OU QHS Lamotrigine 100 Mg Tablet 100 Mg PO BID Probiotic (Lactobacillus Acidophilus) 1 Each Capsule 1 Each PO DAILY Zaditor (Ketotifen Fumarate) 5 Ml Drops 1 Drop OU TID Hydrocortisone 453.6 Gm Cream..g. 1 Applic TP BID Gabapentin 300 Mg Capsule 300 Mg PO HS Gabapentin 100 Mg Capsule 100 Mg PO DAILY Furosemide 40 Mg Tablet 40 Mg PO BID Duoneb 0.5-3(2.5) Mg/3 Ml (Albuterol/Ipratropium) 3 Ml Ampul.neb 3 Ml NEB PRN Q4HRS PRN Voltaren (Diclofenac Sodium) 100 Gm Gel..gram. 1 Applic TP BID Cymbalta (Duloxetine Hcl) 20 Mg Capsule.dr 40 Mg PO BID Cyclobenzaprine Hcl 10 Mg Tablet 10 Mg PO PRN Q8HRS PRN Cranberry Concentrate Softgel (Cranberry Conc/Ascorbic Acid) 1 Each Capsule 425 Mg PO TID Cholestyramine Packet (Cholestyramine (With Sugar)) 4 Gm Powd.pack 4 Gm PO BID Biotene Oralbalance (Saliva Stimulant Agents Comb.2) 44.3 Ml Liquid 30 Ml MM PRN Q3HRS PRN Artificial Tears Eye Drops (Dextran 70/Hypromellose) 15 Ml Drops 2 Ml OU PRN Q4HRS PRN Artificial Tears Eye Drops (Dextran 70/Hypromellose) 15 Ml Drops 2 Ml OU QHS Tylenol (Acetaminophen) 325 Mg Tablet 650 Mg PO PRN Q6HRS PRN I have reviewed the current psychotropics carefully including drug interactions. Risk benefit ratio favors no change other than as noted in my dictated progress note. Diagnosis: Problems: (1) Medical clearance for psychiatric admission (2) Anxiety disorder (3) Bipolar 1 disorder, mixed, moderate (4) Impulse control disorder (5) Schizoaffective disorder, bipolar type (6) Vascular dementia with delusions PATRIC QUEVEDO MD Mar 17, 2018 23:00
[2018-03-18] MEDS: LORazepam 0.5 MG TABLET PO PRN (05:19)
[2018-03-18] MEDS: LEVOTHYROXINE 50 MCG TABLET PO SCH (05:19)
[2018-03-18] MEDS: ACETAMINOPHEN 325 MG TABLET PO PRN (05:19)
[2018-03-18 05:35] VITALS: BP 116/58
[2018-03-18] MEDS: SENNOSIDES 8.6 MG TABLET PO SCH (07:24)
[2018-03-18] MEDS: CHOLESTYRAMINE/ASPARTAME 4 GM PACKET PO SCH ×2 (07:24→17:56)
[2018-03-18] MEDS: LACTOBACILLUS RHAMNOSUS GG 1 CAPSULE. PO SCH ×2 (07:24→21:05)
[2018-03-18] MEDS: PANTOPRAZOLE 40 MG TABLET. PO SCH ×2 (07:24→17:55)
[2018-03-18] MEDS: FUROSEMIDE 40 MG TABLET PO SCH ×2 (07:24→13:49)
[2018-03-18] MEDS: AMOXICILLIN/K CLAV 875/125MG TABLET. PO SCH ×2 (07:24→21:04)
[2018-03-18] MEDS: lamoTRIgine 100 MG TABLET. PO SCH ×2 (07:25→21:05)
[2018-03-18] MEDS: POTASSIUM CHLORIDE 20 MEQ TABLET.ER. PO SCH (07:25)
[2018-03-18] MEDS: GABAPENTIN 100 MG CAPSULE. PO SCH (07:25)
[2018-03-18] MEDS: METOPROLOL TART IMMED RELEASE 25 MG TABLET PO SCH (07:25)
[2018-03-18] MEDS: KETOTIFEN FUMARATE 0.025% OPHT SOLUTION BOTTLE. OU SCH ×3 (07:26→21:09)
[2018-03-18] MEDS: HYDROCORTISONE 1% TOPICAL CREAM 30GM TUBE. TP SCH ×2 (07:26→21:10)
[2018-03-18] MEDS: DICLOFENAC SODIUM 1% TOPICAL GEL 100GM TUBE. TP SCH ×2 (07:27→21:10)
[2018-03-18] MEDS: NYSTATIN TOPICAL POWDER 15GM BOTTLE. TP SCH ×2 (07:27→21:10)
[2018-03-18] MEDS: MICONAZOLE NITRATE 2% TOPICAL CREAM 28GM TUBE. TP SCH ×2 (07:27→21:10)
[2018-03-18] MEDS: INSULIN LISPRO 300 UNITS/3 ML INSULN.PEN. SQ SCH ×3 (08:00→17:00)
[2018-03-18 08:01] LABS: BASO % 1 % (0-3); EOS # 0.3 x10^3/uL (0.0-0.7); EOS % 6 % (0-3); HEMATOCRIT 41.8 % (36.0-47.0); HEMOGLOBIN 13.8 g/dL (12.0-15.5); LYMPH # 2.4 x10^3/uL (1.0-4.8); LYMPH % 38 % (24-48); MEAN CORPUSCULAR HEMOGLOBIN 28 pg (25-35); MEAN CORPUSCULAR HGB CONC 33 g/dL (31-37); MEAN CORPUSCULAR VOLUME 86 fL (79-100); MONO # 0.4 x10^3/uL (0.0-1.1); MONO % 6 % (0-9); NEUT # 3.1 x10^3uL (1.8-7.7); NEUT % 50 % (31-73); PLATELET COUNT 246 x10^3/uL (140-400); RED BLOOD COUNT 4.86 x10^6/uL (3.50-5.40); RED CELL DISTRIBUTION WIDTH 14.2 % (11.5-14.5); WHITE BLOOD COUNT 6.3 x10^3/uL (4.0-11.0)
[2018-03-18 08:22] LABS: ALBUMIN 3.7 g/dL (3.4-5.0); ALBUMIN/GLOBULIN RATIO 0.9 (1.0-1.7); CALCIUM 9.6 mg/dL (8.5-10.1); CREATININE 0.9 mg/dL (0.6-1.0); GFR 62.3; POTASSIUM 4.4 mmol/L (3.5-5.1); TOTAL BILIRUBIN 0.2 mg/dL (0.2-1.0); TOTAL PROTEIN 7.8 g/dL (6.4-8.2)
[2018-03-18] MEDS: HYDROcodone/APAP 5/325MG 1 TAB TABLET PO PRN (15:22)
[2018-03-18] MEDS: CYCLOBENZAPRINE 10 MG TABLET. PO PRN (15:23)
[2018-03-18 15:59] VITALS: BP 123/64
--- NOTE | 2018-03-18 20:08 | PDOC ---
Exam Note: Fernando Note: Please also refer to the separate dictated note~for this date of service dictated separately.~Patient seen individually. Discussed the patient with Nursing staff reviewed the chart.~Reviewed interim history and current functioning. Reviewed vital signs,~Labs/ Radiology~and current medications noted below. Continue current treatment with the changes noted in the dictated addendum note Assessment: Vital Signs: Vital Signs Date Time Temp Pulse Resp B/P (MAP) Pulse Ox O2 Delivery O2 Flow Rate FiO2 03/18/18 15:59 97.3 65 18 123/64 (83) 98 03/17/18 15:56 Room Air 03/13/18 03:45 96.0 I&O Intake and Output 03/18/18 06:59 Intake Total 1200 ml Output Total 1550 ml Balance -350 ml Intake Oral 1200 ml Tube Feeding 0 ml Output Urine Total 1550 ml # Bowel Movements 3 Labs: Laboratory Tests Test 03/18/18 07:45 03/18/18 07:52 03/18/18 11:51 03/18/18 17:05 White Blood Count 6.3 x10^3/uL (4.0-11.0) Red Blood Count 4.86 x10^6/uL (3.50-5.40) Hemoglobin 13.8 g/dL (12.0-15.5) Hematocrit 41.8 % (36.0-47.0) Mean Corpuscular Volume 86 fL (79-100) Mean Corpuscular Hemoglobin 28 pg (25-35) Mean Corpuscular Hemoglobin Concent 33 g/dL (31-37) Red Cell Distribution Width 14.2 % (11.5-14.5) Platelet Count 246 x10^3/uL (140-400) Neutrophils (%) (Auto) 50 % (31-73) Lymphocytes (%) (Auto) 38 % (24-48) Monocytes (%) (Auto) 6 % (0-9) Eosinophils (%) (Auto) 6 % (0-3) H Basophils (%) (Auto) 1 % (0-3) Neutrophils # (Auto) 3.1 x10^3uL (1.8-7.7) Lymphocytes # (Auto) 2.4 x10^3/uL (1.0-4.8) Monocytes # (Auto) 0.4 x10^3/uL (0.0-1.1) Eosinophils # (Auto) 0.3 x10^3/uL (0.0-0.7) Basophils # (Auto) 0.0 x10^3/uL (0.0-0.2) Sodium Level 136 mmol/L (136-145) Potassium Level 4.4 mmol/L (3.5-5.1) Chloride Level 102 mmol/L (98-107) Carbon Dioxide Level 24 mmol/L (21-32) Anion Gap 10 (6-14) Blood Urea Nitrogen 16 mg/dL (7-20) Creatinine 0.9 mg/dL (0.6-1.0) Estimated GFR (Cockcroft-Gault) 62.3 BUN/Creatinine Ratio 18 (6-20) Glucose Level 98 mg/dL (70-99) Calcium Level 9.6 mg/dL (8.5-10.1) Total Bilirubin 0.2 mg/dL (0.2-1.0) Aspartate Amino Transferase (AST) 24 U/L (15-37) Alanine Aminotransferase (ALT) 24 U/L (14-59) Alkaline Phosphatase 123 U/L (46-116) H Total Protein 7.8 g/dL (6.4-8.2) Albumin 3.7 g/dL (3.4-5.0) Albumin/Globulin Ratio 0.9 (1.0-1.7) L Glucose (Fingerstick) 96 mg/dL (70-99) 69 mg/dL (70-99) L 99 mg/dL (70-99) Test 03/18/18 19:40 Glucose (Fingerstick) 98 mg/dL (70-99) Current Medications: Meds: Current Medications Tramadol HCl (Ultram) 50 mg 1X ONCE PO Last administered on 03/12/18at 21:09; Start 03/12/18 at 21:15; Stop 03/12/18 at 21:36; Status DC Potassium Chloride (Klor-Con) 40 meq 1X ONCE PO ; Start 03/12/18 at 21:15; Stop 03/12/18 at 21:53; Status DC Acetaminophen (Tylenol) 650 mg PRN Q6HRS PRN PO PAIN / TEMP Last administered on 03/14/18at 03:42; Start 03/12/18 at 23:00; Stop 03/14/18 at 16:35; Status DC Multi-Ingredient Ointment (Analgesic [place]) 1 belle PRN QID PRN TP MUSCLE PAIN; Start 03/12/18 at 23:00 Al Hydroxide/Mg Hydroxide (Mylanta Plus Xs) 15 ml PRN AFTMEALHC PRN PO DYSPEPSIA; Start 03/12/18 at 23:00 Magnesium Hydroxide (Milk Of Magnesia) 2,400 mg PRN QHS PRN PO CONSTIPATION; Start 03/12/18 at 23:00 Duloxetine HCl (Cymbalta) 40 mg BID PO Last administered on 03/13/18at 08:59; Start 03/13/18 at 09:00; Stop 03/13/18 at 19:25; Status DC Lorazepam (Ativan) 0.5 mg PRN Q6HRS PRN PO ANXIETY Last administered on at 05:19; Start 03/13/18 at 00:15 Acetaminophen (Tylenol) 650 mg PRN Q6HRS PRN PO PAIN / TEMP Last administered on 03/18/18at 05:19; Start 03/13/18 at 00:15 Cyclobenzaprine HCl (Flexeril) 10 mg PRN Q8HRS PRN PO MUSCLE SPASMS Last administered on 03/18/18at 15:23; Start 03/13/18 at 00:15 Diclofenac Sodium (Voltaren) 1 belle BID TP Last administered on 03/18/18at 07:27 ; Start 03/13/18 at 09:00 Gabapentin (Neurontin) 100 mg DAILY PO Last administered on 03/18/18at 07:25; Start 03/13/18 at 09:00 Gabapentin (Neurontin) 300 mg HS PO Last administered on 03/17/18at 19:40; Start 03/13/18 at 21:00 Albuterol Sulfate (Ventolin) 2.5 mg PRN Q4HRS PRN NEB SHORTNESS OF BREATH; Start 03/13/18 at 00:15 Metoprolol Tartrate (Lopressor) 12.5 mg DAILY PO Last administered on at 07:25; Start 03/13/18 at 09:00 Nitroglycerin (Nitrostat) 0.4 mg PRN Q5MIN PRN SL CHEST PAIN; Start 03/13/18 at 00:15 Potassium Chloride (Klor-Con) 20 meq DAILY PO Last administered on 03/18/18 07 :25; Start 03/13/18 at 09:00 Rivaroxaban (Xarelto) 20 mg QHS PO Last administered on 03/17/18 19:40; Start 03/13/18 at 21:00 Tramadol HCl (Ultram) 50 mg PRN Q4HRS PRN PO PAIN Last administered on 05:56; Start 03/13/18 at 00:15; Stop 03/17/18 at 14:57; Status DC Cholestyramine Resin (Questran Light) 4 gm BIDAFTMEAL PO Last administered on 17:56; Start 03/13/18 at 09:00 Non-Formulary Medication (Cranberry Conc/ Ascorbic Acid (Cranberry Concentrate Softgel)) 425 mg TID PO ; Start 03/13/18 at 09:00; Status UNV Artificial Tears (Artificial Tears) 2 drop PRN Q4HRS PRN OU DRY EYE; Start at 00:15 Artificial Tears (Artificial Tears) 2 drop QHS OU Last administered on 19:44; Start 03/13/18 at 21:00 Furosemide (Lasix) 40 mg [id number] PO Last administered on 03/18/18 13:49; Start 03/13/18 at 09:00 Hydrocortisone (Cortaid) 1 belle BID TP Last administered on 03/18/18 07:26; Start 03/13/18 at 09:00 Ketotifen Fumarate (Zaditor) 1 drop TID OU Last administered on 03/18/18 13:50 ; Start 03/13/18 at 09:00 Lactobacillus Rhamnosus (Culturelle) 1 cap DAILY PO Last administered on 07:35; Start 03/13/18 at 09:00; Stop 03/17/18 at 15:35; Status DC Lamotrigine (LaMICtal) 100 mg BID PO Last administered on 03/18/18 07:25; Start 03/13/18 at 09:00 Latanoprost (Xalatan) 1 drop QHS OU Last administered on 03/17/18 21:00; Start 03/13/18 at 21:00 Levothyroxine Sodium (Synthroid) 50 mcg DAILY07 PO Last administered on 05:19; Start 03/13/18 at 07:00 Meclizine HCl (Antivert) 25 mg PRN Q8HRS PRN PO DIZZINESS; Start 03/13/18 at 00 :15 Miconazole Nitrate (Monistat-Derm) 1 belle BID TP Last administered on 03/18/18 07:27; Start 03/13/18 at 09:00 Pantoprazole Sodium (Protonix) 40 mg BIDBFRMEAL PO Last administered on at 17:55; Start 03/13/18 at 07:30 Saliva Substitute (Biotene Moisturizing Mouth) 1 spray PRN Q3HRS PRN MM DRY MOUTH; Start 03/13/18 at 00:15 Sennosides (Senna) 8.6 mg DAILY PO Last administered on 03/18/18 07:24; Start 03/13/18 at 09:00 Topiramate (Topamax) 25 mg QHS PO Last administered on 03/14/18at 19:21; Start 03/13/18 at 21:00; Stop 03/15/18 at 17:03; Status DC Melatonin 6 mg PRN QHS PRN PO INSOMNIA Last administered on 03/15/18at 20:32; Start 03/13/18 at 06:00 Insulin Human Lispro (HumaLOG) 0-5 UNITS TIDWMEALS SQ ; Start 03/14/18 at 08:00 Dextrose 12.5 gm PRN Q15MIN PRN IV SEE COMMENTS; Start 03/13/18 at 19:30 Duloxetine HCl (Cymbalta) 40 mg DAILY PO Last administered on 03/16/18at 09:26; Start 03/14/18 at 09:00; Stop 03/16/18 at 19:41; Status DC Oxcarbazepine (Trileptal) 300 mg DAILY PO Last administered on 03/16/18at 09:28 ; Start 03/14/18 at 09:00; Stop 03/16/18 at 19:41; Status DC Trazodone HCl (Desyrel) 100 mg QHS PO Last administered on 03/17/18at 19:40; Start 03/13/18 at 21:00 Trazodone HCl (Desyrel) 100 mg PRN QHS PRN PO INSOMNIA; Start 03/13/18 at 19:30 Topiramate (Topamax) 50 mg QHS PO Last administered on 03/17/18at 19:41; Start 03/15/18 at 21:00 Nystatin (Nystop) 1 belle BID TP Last administered on 03/18/18at 07:27; Start at 21:00 Ondansetron HCl (Zofran Odt) 4 mg PRN Q8HRS PRN PO NAUSEA/VOMITING; Start 03/15 at 17:15 Oxcarbazepine (Trileptal) 300 mg BID PO Last administered on 03/18/18 07:25; Start 03/16/18 at 21:00 Amoxicillin/ Clavulanate Potassium (Augmentin 875/ 125mg) 1 tab BID PO Last administered on 03/18/18at 07:24; Start 03/17/18 at 21:00; Stop 03/24/18 at 20:59 Lactobacillus Rhamnosus (Culturelle) 1 cap BID PO Last administered on at 07:24; Start 03/17/18 at 21:00 Quetiapine Fumarate (SEROquel) 50 mg HS PO Last administered on 03/17/18at 19:47 ; Start 03/17/18 at 21:00 Acetaminophen/ Hydrocodone Bitart (Lortab 5/325) 1 tab PRN Q6HRS PRN PO PAIN; Start 03/17/18 at 15:00; Stop 03/17/18 at 15:16; Status DC Acetaminophen/ Hydrocodone Bitart (Lortab 5/325) 1 tab PRN Q6HRS PRN PO PAIN Last administered on 03/18/18at 15:22; Start 03/17/18 at 15:45 Active Scripts Active Reported Xarelto (Rivaroxaban) 10 Mg Tablet 20 Mg PO QHS Tramadol Hcl (Tramadol HCl) 50 Mg Tablet 50 Mg PO Q4HRS PRN Topamax (Topiramate) 25 Mg Tablet 25 Mg PO QHS Sennosides 8.6 Mg Tablet 8.6 Mg PO DAILY Klor-Con M20 (Potassium Chloride) 20 Meq Tab.er.prt 20 Meq PO DAILY Pantoprazole Sodium 40 Mg Tablet.dr 40 Mg PO BIDBFRMEAL NITROGLYCERIN SubLingual (Nitroglycerin) 0.4 Mg Tab.subl 0.4 Mg SL PRN Q5MIN PRN Miconazole Nitrate 10 Gm Powder 1 Applic MC BID Metoprolol Tartrate 25 Mg Tablet 12.5 Mg PO DAILY Melatonin 3 Mg Tablet 5 Mg PO PRN QHS PRN Meclizine Hcl 25 Mg Tablet 25 Mg PO PRN Q8HRS PRN Lorazepam 0.5 Mg Tablet 0.5 Mg PO PRN Q6HRS PRN Levothyroxine Sodium 50 Mcg Tablet 50 Mcg PO DAILYAC Latanoprost 0.005% Eye Drop (Latanoprost/Pf) 7.5 Ml Drops 1 Drop OU QHS Lamotrigine 100 Mg Tablet 100 Mg PO BID Probiotic (Lactobacillus Acidophilus) 1 Each Capsule 1 Each PO DAILY Zaditor (Ketotifen Fumarate) 5 Ml Drops 1 Drop OU TID Hydrocortisone 453.6 Gm Cream..g. 1 Applic TP BID Gabapentin 300 Mg Capsule 300 Mg PO HS Gabapentin 100 Mg Capsule 100 Mg PO DAILY Furosemide 40 Mg Tablet 40 Mg PO BID Duoneb 0.5-3(2.5) Mg/3 Ml (Albuterol/Ipratropium) 3 Ml Ampul.neb 3 Ml NEB PRN Q4HRS PRN Voltaren (Diclofenac Sodium) 100 Gm Gel..gram. 1 Applic TP BID Cymbalta (Duloxetine Hcl) 20 Mg Capsule.dr 40 Mg PO BID Cyclobenzaprine Hcl 10 Mg Tablet 10 Mg PO PRN Q8HRS PRN Cranberry Concentrate Softgel (Cranberry Conc/Ascorbic Acid) 1 Each Capsule 425 Mg PO TID Cholestyramine Packet (Cholestyramine (With Sugar)) 4 Gm Powd.pack 4 Gm PO BID Biotene Oralbalance (Saliva Stimulant Agents Comb.2) 44.3 Ml Liquid 30 Ml MM PRN Q3HRS PRN Artificial Tears Eye Drops (Dextran 70/Hypromellose) 15 Ml Drops 2 Ml OU PRN Q4HRS PRN Artificial Tears Eye Drops (Dextran 70/Hypromellose) 15 Ml Drops 2 Ml OU QHS Tylenol (Acetaminophen) 325 Mg Tablet 650 Mg PO PRN Q6HRS PRN I have reviewed the current psychotropics carefully including drug interactions. Risk benefit ratio favors no change other than as noted in my dictated progress note. Diagnosis: Problems: (1) Medical clearance for psychiatric admission (2) Anxiety disorder (3) Bipolar 1 disorder, mixed, moderate (4) Impulse control disorder (5) Schizoaffective disorder, bipolar type (6) Vascular dementia with delusions PATRIC QUEVEDO MD Mar 18, 2018 20:07
[2018-03-18] MEDS: GABAPENTIN 300 MG CAPSULE. PO SCH (21:04)
[2018-03-18] MEDS: RIVAROXABAN 10 MG TABLET. PO SCH (21:04)
[2018-03-18] MEDS: traZODone 100 MG TABLET. PO SCH (21:05)
[2018-03-18] MEDS: TOPIRAMATE 25 MG TABLET. PO SCH (21:05)
[2018-03-18] MEDS: QUEtiapine 50 MG TABLET. PO SCH (21:05)
[2018-03-18] MEDS: POLYVINYL ALCOHOL 1.4% OPHTH SOLUTION 15ML BOTTLE. OU SCH (21:09)
[2018-03-18] MEDS: LATANOPROST 0.005% OPHTH SOLUTION 2.5ML BOTTLE. OU SCH (21:09)
[2018-03-19 06:16] VITALS: BP 110/63
[2018-03-19] MEDS: LACTOBACILLUS RHAMNOSUS GG 1 CAPSULE. PO SCH ×2 (07:48→20:10)
[2018-03-19] MEDS: POTASSIUM CHLORIDE 20 MEQ TABLET.ER. PO SCH (07:49)
[2018-03-19] MEDS: SENNOSIDES 8.6 MG TABLET PO SCH (07:49)
[2018-03-19] MEDS: lamoTRIgine 100 MG TABLET. PO SCH ×2 (07:49→20:11)
[2018-03-19] MEDS: AMOXICILLIN/K CLAV 875/125MG TABLET. PO SCH ×2 (07:49→20:09)
[2018-03-19] MEDS: METOPROLOL TART IMMED RELEASE 25 MG TABLET PO SCH (07:49)
[2018-03-19] MEDS: PANTOPRAZOLE 40 MG TABLET. PO SCH ×2 (07:49→16:41)
[2018-03-19] MEDS: FUROSEMIDE 40 MG TABLET PO SCH ×2 (07:49→14:33)
[2018-03-19] MEDS: CHOLESTYRAMINE/ASPARTAME 4 GM PACKET PO SCH ×3 (07:50→18:04)
[2018-03-19] MEDS: INSULIN LISPRO 300 UNITS/3 ML INSULN.PEN. SQ SCH ×3 (07:50→17:00)
[2018-03-19] MEDS: GABAPENTIN 100 MG CAPSULE. PO SCH (07:50)
[2018-03-19] MEDS: KETOTIFEN FUMARATE 0.025% OPHT SOLUTION BOTTLE. OU SCH ×3 (07:52→20:12)
[2018-03-19] MEDS: HYDROCORTISONE 1% TOPICAL CREAM 30GM TUBE. TP SCH ×2 (07:52→20:13)
[2018-03-19] MEDS: LEVOTHYROXINE 50 MCG TABLET PO SCH (07:52)
[2018-03-19] MEDS: MICONAZOLE NITRATE 2% TOPICAL CREAM 28GM TUBE. TP SCH ×2 (07:52→20:12)
[2018-03-19] MEDS: NYSTATIN TOPICAL POWDER 15GM BOTTLE. TP SCH ×2 (07:54→20:12)
[2018-03-19] MEDS: DICLOFENAC SODIUM 1% TOPICAL GEL 100GM TUBE. TP SCH ×2 (07:54→20:11)
[2018-03-19] MEDS: HYDROcodone/APAP 5/325MG 1 TAB TABLET PO PRN ×2 (08:54→14:54)
[2018-03-19] MEDS: CYCLOBENZAPRINE 10 MG TABLET. PO PRN ×3 (08:54→20:09)
[2018-03-19] MEDS: LORazepam 0.5 MG TABLET PO PRN (14:54)
[2018-03-19 15:59] VITALS: BP 106/70
[2018-03-19] MEDS ORDERED: DEXTROSE ORAL GEL 15 GM TUBE. ONE ×2 (16:49→16:50)
[2018-03-19] MEDS: ACETAMINOPHEN 325 MG TABLET PO PRN ×2 (18:04→20:09)
[2018-03-19] MEDS: QUEtiapine 50 MG TABLET. PO SCH (20:09)
[2018-03-19] MEDS: traZODone 100 MG TABLET. PO SCH (20:09)
[2018-03-19] MEDS: TOPIRAMATE 25 MG TABLET. PO SCH (20:10)
[2018-03-19] MEDS: RIVAROXABAN 10 MG TABLET. PO SCH (20:10)
[2018-03-19] MEDS: GABAPENTIN 300 MG CAPSULE. PO SCH (20:10)
[2018-03-19] MEDS: LATANOPROST 0.005% OPHTH SOLUTION 2.5ML BOTTLE. OU SCH (20:11)
[2018-03-19] MEDS: POLYVINYL ALCOHOL 1.4% OPHTH SOLUTION 15ML BOTTLE. OU SCH (20:11)
--- NOTE | 2018-03-19 20:32 | PDOC ---
Exam Note: Fernando Note: Please also refer to the separate dictated note~for this date of service dictated separately.~Patient seen individually. Discussed the patient with Nursing staff reviewed the chart.~Reviewed interim history and current functioning. Reviewed vital signs,~Labs/ Radiology~and current medications noted below. Continue current treatment with the changes noted in the dictated addendum note Assessment: Vital Signs: Vital Signs Date Time Temp Pulse Resp B/P (MAP) Pulse Ox O2 Delivery O2 Flow Rate FiO2 03/19/18 15:59 98.4 62 20 106/70 (82) 98 03/19/18 10:35 Room Air I&O Intake and Output 03/19/18 07:00 Intake Total 2280 ml Output Total 900 ml Balance 1380 ml Intake Oral 2280 ml Output Urine Total 900 ml # Bowel Movements 2 Labs: Laboratory Tests Test 03/19/18 07:34 03/19/18 12:02 03/19/18 16:46 03/19/18 16:50 Glucose (Fingerstick) 96 mg/dL (70-99) 88 mg/dL (70-99) 35 mg/dL (70-99) *L 64 mg/dL (70-99) L Test 03/19/18 18:12 03/19/18 19:14 Glucose (Fingerstick) 92 mg/dL (70-99) 102 mg/dL (70-99) H Current Medications: Meds: Current Medications Tramadol HCl (Ultram) 50 mg 1X ONCE PO Last administered on 03/12/18at 21:09; Start 03/12/18 at 21:15; Stop 03/12/18 at 21:36; Status DC Potassium Chloride (Klor-Con) 40 meq 1X ONCE PO ; Start 03/12/18 at 21:15; Stop 03/12/18 at 21:53; Status DC Acetaminophen (Tylenol) 650 mg PRN Q6HRS PRN PO PAIN / TEMP Last administered on 03/14/18at 03:42; Start 03/12/18 at 23:00; Stop 03/14/18 at 16:35; Status DC Multi-Ingredient Ointment (Analgesic [place]) 1 belle PRN QID PRN TP MUSCLE PAIN; Start 03/12/18 at 23:00 Al Hydroxide/Mg Hydroxide (Mylanta Plus Xs) 15 ml PRN AFTMEALHC PRN PO DYSPEPSIA; Start 03/12/18 at 23:00 Magnesium Hydroxide (Milk Of Magnesia) 2,400 mg PRN QHS PRN PO CONSTIPATION; Start 03/12/18 at 23:00 Duloxetine HCl (Cymbalta) 40 mg BID PO Last administered on 03/13/18at 08:59; Start 03/13/18 at 09:00; Stop 03/13/18 at 19:25; Status DC Lorazepam (Ativan) 0.5 mg PRN Q6HRS PRN PO ANXIETY Last administered on 14:54; Start 03/13/18 at 00:15 Acetaminophen (Tylenol) 650 mg PRN Q6HRS PRN PO PAIN / TEMP Last administered on 03/19/18 20:09; Start 03/13/18 at 00:15 Cyclobenzaprine HCl (Flexeril) 10 mg PRN Q8HRS PRN PO MUSCLE SPASMS Last administered on 03/19/18 20:09; Start 03/13/18 at 00:15 Diclofenac Sodium (Voltaren) 1 belle BID TP Last administered on 03/19/18 20:11 ; Start 03/13/18 at 09:00 Gabapentin (Neurontin) 100 mg DAILY PO Last administered on 03/19/18 07:50; Start 03/13/18 at 09:00 Gabapentin (Neurontin) 300 mg HS PO Last administered on 03/19/18 20:10; Start 03/13/18 at 21:00 Albuterol Sulfate (Ventolin) 2.5 mg PRN Q4HRS PRN NEB SHORTNESS OF BREATH; Start 03/13/18 at 00:15 Metoprolol Tartrate (Lopressor) 12.5 mg DAILY PO Last administered on 07:49; Start 03/13/18 at 09:00 Nitroglycerin (Nitrostat) 0.4 mg PRN Q5MIN PRN SL CHEST PAIN; Start 03/13/18 at 00:15 Potassium Chloride (Klor-Con) 20 meq DAILY PO Last administered on 03/19/18 07 :49; Start 03/13/18 at 09:00 Rivaroxaban (Xarelto) 20 mg QHS PO Last administered on 03/19/18 20:10; Start 03/13/18 at 21:00 Tramadol HCl (Ultram) 50 mg PRN Q4HRS PRN PO PAIN Last administered on 05:56; Start 03/13/18 at 00:15; Stop 03/17/18 at 14:57; Status DC Cholestyramine Resin (Questran Light) 4 gm BIDAFTMEAL PO Last administered on 18:04; Start 03/13/18 at 09:00 Non-Formulary Medication (Cranberry Conc/ Ascorbic Acid (Cranberry Concentrate Softgel)) 425 mg TID PO ; Start 03/13/18 at 09:00; Status UNV Artificial Tears (Artificial Tears) 2 drop PRN Q4HRS PRN OU DRY EYE; Start at 00:15 Artificial Tears (Artificial Tears) 2 drop QHS OU Last administered on 20:11; Start 03/13/18 at 21:00 Furosemide (Lasix) 40 mg BID92 PO Last administered on 03/19/18 14:33; Start 03/13/18 at 09:00 Hydrocortisone (Cortaid) 1 belle BID TP Last administered on 03/19/18 20:13; Start 03/13/18 at 09:00 Ketotifen Fumarate (Zaditor) 1 drop TID OU Last administered on 03/19/18 20:12 ; Start 03/13/18 at 09:00 Lactobacillus Rhamnosus (Culturelle) 1 cap DAILY PO Last administered on 07:35; Start 03/13/18 at 09:00; Stop 03/17/18 at 15:35; Status DC Lamotrigine (LaMICtal) 100 mg BID PO Last administered on 03/19/18 20:11; Start 03/13/18 at 09:00 Latanoprost (Xalatan) 1 drop QHS OU Last administered on 03/19/18 20:11; Start 03/13/18 at 21:00 Levothyroxine Sodium (Synthroid) 50 mcg DAILY07 PO Last administered on 07:52; Start 03/13/18 at 07:00 Meclizine HCl (Antivert) 25 mg PRN Q8HRS PRN PO DIZZINESS; Start 03/13/18 at 00 :15 Miconazole Nitrate (Monistat-Derm) 1 belle BID TP Last administered on 03/19/18 20:12; Start 03/13/18 at 09:00 Pantoprazole Sodium (Protonix) 40 mg BIDBFRMEAL PO Last administered on at 16:41; Start 03/13/18 at 07:30 Saliva Substitute (Biotene Moisturizing Mouth) 1 spray PRN Q3HRS PRN MM DRY MOUTH; Start 03/13/18 at 00:15 Sennosides (Senna) 8.6 mg DAILY PO Last administered on 03/19/18 07:49; Start 03/13/18 at 09:00 Topiramate (Topamax) 25 mg QHS PO Last administered on 03/14/18 19:21; Start 03/13/18 at 21:00; Stop 03/15/18 at 17:03; Status DC Melatonin 6 mg PRN QHS PRN PO INSOMNIA Last administered on 03/15/18at 20:32; Start 03/13/18 at 06:00 Insulin Human Lispro (HumaLOG) 0-5 UNITS TIDWMEALS SQ ; Start 03/14/18 at 08:00 Dextrose 12.5 gm PRN Q15MIN PRN IV SEE COMMENTS; Start 03/13/18 at 19:30 Duloxetine HCl (Cymbalta) 40 mg DAILY PO Last administered on 03/16/18at 09:26; Start 03/14/18 at 09:00; Stop 03/16/18 at 19:41; Status DC Oxcarbazepine (Trileptal) 300 mg DAILY PO Last administered on 03/16/18at 09:28 ; Start 03/14/18 at 09:00; Stop 03/16/18 at 19:41; Status DC Trazodone HCl (Desyrel) 100 mg QHS PO Last administered on 03/19/18at 20:09; Start 03/13/18 at 21:00 Trazodone HCl (Desyrel) 100 mg PRN QHS PRN PO INSOMNIA; Start 03/13/18 at 19:30 Topiramate (Topamax) 50 mg QHS PO Last administered on 03/19/18at 20:10; Start 03/15/18 at 21:00 Nystatin (Nystop) 1 belle BID TP Last administered on 03/19/18at 20:12; Start at 21:00 Ondansetron HCl (Zofran Odt) 4 mg PRN Q8HRS PRN PO NAUSEA/VOMITING; Start 03/15 at 17:15 Oxcarbazepine (Trileptal) 300 mg BID PO Last administered on 03/19/18at 20:10; Start 03/16/18 at 21:00 Amoxicillin/ Clavulanate Potassium (Augmentin 875/ 125mg) 1 tab BID PO Last administered on 03/19/18at 20:09; Start 03/17/18 at 21:00; Stop 03/24/18 at 20:59 Lactobacillus Rhamnosus (Culturelle) 1 cap BID PO Last administered on at 20:10; Start 03/17/18 at 21:00 Quetiapine Fumarate (SEROquel) 50 mg HS PO Last administered on 03/19/18at 20:09 ; Start 03/17/18 at 21:00 Acetaminophen/ Hydrocodone Bitart (Lortab 5/325) 1 tab PRN Q6HRS PRN PO PAIN; Start 03/17/18 at 15:00; Stop 03/17/18 at 15:16; Status DC Acetaminophen/ Hydrocodone Bitart (Lortab 5/325) 1 tab PRN Q6HRS PRN PO PAIN Last administered on 03/19/18at 14:54; Start 03/17/18 at 15:45 Diphenhydramine HCl (Benadryl) 25 mg PRN QHS PRN PO ITCHING; Start 03/18/18 at 20:45 Glucose (Insta-Glucose) 15 gm STK-MED ONCE .ROUTE ; Start 03/19/18 at 16:49; Stop 03/19/18 at 16:50; Status DC Glucose (Insta-Glucose) 15 gm STK-MED ONCE .ROUTE ; Start 03/19/18 at 16:50; Stop 03/19/18 at 16:51; Status DC Quetiapine Fumarate (SEROquel) 25 mg DAILY08 PO ; Start 03/20/18 at 08:00 Quetiapine Fumarate (SEROquel) 25 mg DAILY PO ; Start 03/20/18 at 09:00; Status UNV Active Scripts Active Reported Xarelto (Rivaroxaban) 10 Mg Tablet 20 Mg PO QHS Tramadol Hcl (Tramadol HCl) 50 Mg Tablet 50 Mg PO Q4HRS PRN Topamax (Topiramate) 25 Mg Tablet 25 Mg PO QHS Sennosides 8.6 Mg Tablet 8.6 Mg PO DAILY Klor-Con M20 (Potassium Chloride) 20 Meq Tab.er.prt 20 Meq PO DAILY Pantoprazole Sodium 40 Mg Tablet.dr 40 Mg PO BIDBFRMEAL NITROGLYCERIN SubLingual (Nitroglycerin) 0.4 Mg Tab.subl 0.4 Mg SL PRN Q5MIN PRN Miconazole Nitrate 10 Gm Powder 1 Applic MC BID Metoprolol Tartrate 25 Mg Tablet 12.5 Mg PO DAILY Melatonin 3 Mg Tablet 5 Mg PO PRN QHS PRN Meclizine Hcl 25 Mg Tablet 25 Mg PO PRN Q8HRS PRN Lorazepam 0.5 Mg Tablet 0.5 Mg PO PRN Q6HRS PRN Levothyroxine Sodium 50 Mcg Tablet 50 Mcg PO DAILYAC Latanoprost 0.005% Eye Drop (Latanoprost/Pf) 7.5 Ml Drops 1 Drop OU QHS Lamotrigine 100 Mg Tablet 100 Mg PO BID Probiotic (Lactobacillus Acidophilus) 1 Each Capsule 1 Each PO DAILY Zaditor (Ketotifen Fumarate) 5 Ml Drops 1 Drop OU TID Hydrocortisone 453.6 Gm Cream..g. 1 Applic TP BID Gabapentin 300 Mg Capsule 300 Mg PO HS Gabapentin 100 Mg Capsule 100 Mg PO DAILY Furosemide 40 Mg Tablet 40 Mg PO BID Duoneb 0.5-3(2.5) Mg/3 Ml (Albuterol/Ipratropium) 3 Ml Ampul.neb 3 Ml NEB PRN Q4HRS PRN Voltaren (Diclofenac Sodium) 100 Gm Gel..gram. 1 Applic TP BID Cymbalta (Duloxetine Hcl) 20 Mg Capsule.dr 40 Mg PO BID Cyclobenzaprine Hcl 10 Mg Tablet 10 Mg PO PRN Q8HRS PRN Cranberry Concentrate Softgel (Cranberry Conc/Ascorbic Acid) 1 Each Capsule 425 Mg PO TID Cholestyramine Packet (Cholestyramine (With Sugar)) 4 Gm Powd.pack 4 Gm PO BID Biotene Oralbalance (Saliva Stimulant Agents Comb.2) 44.3 Ml Liquid 30 Ml MM PRN Q3HRS PRN Artificial Tears Eye Drops (Dextran 70/Hypromellose) 15 Ml Drops 2 Ml OU PRN Q4HRS PRN Artificial Tears Eye Drops (Dextran 70/Hypromellose) 15 Ml Drops 2 Ml OU QHS Tylenol (Acetaminophen) 325 Mg Tablet 650 Mg PO PRN Q6HRS PRN I have reviewed the current psychotropics carefully including drug interactions. Risk benefit ratio favors no change other than as noted in my dictated progress note. Diagnosis: Problems: (1) Medical clearance for psychiatric admission (2) Anxiety disorder (3) Bipolar 1 disorder, mixed, moderate (4) Impulse control disorder (5) Schizoaffective disorder, bipolar type (6) Vascular dementia with delusions PATRIC QUEVEDO MD Mar 19, 2018 20:32
--- NOTE | 2018-03-20 02:56 | PN ---
DATE: 03/18/2018 This late entry 03/18/2018 covers the elements not covered in my initial note. SUBJECTIVE: I met with the patient in the evening. The patient has been having some itching, wanting Benadryl p.r.n. We will start 25 mg at bedtime p.r.n. itching. She has been demanding, attention seeking, manipulative; per nursing report, wanting to go home. She has been writing out complaints, strangulating staff. REVIEW OF SYSTEMS: Ambulation impaired, in wheelchair. No CV, , pulmonary, eye system symptoms on review. Vague somatic symptoms. MENTAL STATUS EXAM: Reasonably oriented. Speech coherent, rapid. Abstraction fair, computation impaired, language function intact, attention span short. Mood and affect remain somewhat labile. LABORATORY DATA: Reviewed. IMPRESSION: Unchanged from initial note. PLAN: No change from a psychiatric standpoint. Continue to adjust the Trileptal, maintain Seroquel, Lamictal, trazodone, melatonin, may need to increase Seroquel as well. MAN Prasanth QUEVEDO MD DR: DUSTY/yusuf JOB#: [id number] / [id number]
[2018-03-20] MEDS: HYDROcodone/APAP 5/325MG 1 TAB TABLET PO PRN ×3 (04:04→21:24)
[2018-03-20 05:45] VITALS: BP 120/55
[2018-03-20] MEDS: LEVOTHYROXINE 50 MCG TABLET PO SCH (06:18)
[2018-03-20] MEDS: INSULIN LISPRO 300 UNITS/3 ML INSULN.PEN. SQ SCH ×3 (08:00→17:00)
[2018-03-20] MEDS ORDERED: QUEtiapine 25 MG TABLET. PO SCH ×2 (08:00→09:00)
[2018-03-20] MEDS: PANTOPRAZOLE 40 MG TABLET. PO SCH ×2 (08:22→17:29)
[2018-03-20] MEDS: FUROSEMIDE 40 MG TABLET PO SCH ×2 (08:22→14:20)
[2018-03-20] MEDS: POTASSIUM CHLORIDE 20 MEQ TABLET.ER. PO SCH (08:23)
[2018-03-20] MEDS: LACTOBACILLUS RHAMNOSUS GG 1 CAPSULE. PO SCH ×2 (08:23→20:30)
[2018-03-20] MEDS: GABAPENTIN 100 MG CAPSULE. PO SCH (08:23)
[2018-03-20] MEDS: METOPROLOL TART IMMED RELEASE 25 MG TABLET PO SCH (08:24)
[2018-03-20] MEDS: lamoTRIgine 100 MG TABLET. PO SCH ×2 (08:24→20:31)
[2018-03-20] MEDS: SENNOSIDES 8.6 MG TABLET PO SCH (08:24)
[2018-03-20] MEDS: AMOXICILLIN/K CLAV 875/125MG TABLET. PO SCH ×2 (08:25→20:29)
[2018-03-20] MEDS: CHOLESTYRAMINE/ASPARTAME 4 GM PACKET PO SCH ×2 (08:25→17:30)
[2018-03-20] MEDS: KETOTIFEN FUMARATE 0.025% OPHT SOLUTION BOTTLE. OU SCH ×3 (08:29→20:32)
[2018-03-20] MEDS: NYSTATIN TOPICAL POWDER 15GM BOTTLE. TP SCH ×2 (08:30→20:32)
[2018-03-20] MEDS: MICONAZOLE NITRATE 2% TOPICAL CREAM 28GM TUBE. TP SCH ×2 (08:30→20:32)
[2018-03-20] MEDS: HYDROCORTISONE 1% TOPICAL CREAM 30GM TUBE. TP SCH ×2 (08:30→20:32)
[2018-03-20] MEDS: DICLOFENAC SODIUM 1% TOPICAL GEL 100GM TUBE. TP SCH ×2 (08:30→20:32)
[2018-03-20] MEDS: CYCLOBENZAPRINE 10 MG TABLET. PO PRN ×2 (09:20→21:23)
[2018-03-20 15:55] VITALS: BP 104/70
[2018-03-20] MEDS: TOPIRAMATE 25 MG TABLET. PO SCH (20:30)
[2018-03-20] MEDS: MELATONIN 3 MG TABLET PO PRN (20:30)
[2018-03-20] MEDS: GABAPENTIN 300 MG CAPSULE. PO SCH (20:30)
[2018-03-20] MEDS: RIVAROXABAN 10 MG TABLET. PO SCH (20:30)
[2018-03-20] MEDS: traZODone 100 MG TABLET. PO SCH (20:31)
[2018-03-20] MEDS: QUEtiapine 50 MG TABLET. PO SCH (20:31)
[2018-03-20] MEDS: LATANOPROST 0.005% OPHTH SOLUTION 2.5ML BOTTLE. OU SCH (20:32)
[2018-03-20] MEDS: POLYVINYL ALCOHOL 1.4% OPHTH SOLUTION 15ML BOTTLE. OU SCH (20:32)
[2018-03-20] MEDS ORDERED: MELATONIN 3 MG TABLET ONE (21:00)
--- NOTE | 2018-03-20 21:15 | PDOC ---
Exam Note: Fernando Note: Please also refer to the separate dictated note~for this date of service dictated separately.~Patient seen individually. Discussed the patient with Nursing staff reviewed the chart.~Reviewed interim history and current functioning. Reviewed vital signs,~Labs/ Radiology~and current medications noted below. Continue current treatment with the changes noted in the dictated addendum note Assessment: Vital Signs: Vital Signs Date Time Temp Pulse Resp B/P (MAP) Pulse Ox O2 Delivery O2 Flow Rate FiO2 03/20/18 15:55 97.0 64 20 104/70 (81) 99 03/19/18 10:35 Room Air I&O Intake and Output 03/20/18 07:00 Intake Total 1920 ml Output Total 1450 ml Balance 470 ml Intake Oral 1920 ml Output Urine Total 1450 ml # Bowel Movements 2 Labs: Laboratory Tests Test 03/20/18 07:38 03/20/18 12:01 03/20/18 17:35 03/20/18 20:39 Glucose (Fingerstick) 94 mg/dL (70-99) 82 mg/dL (70-99) 91 mg/dL (70-99) 35 mg/dL (70-99) *L Test 03/20/18 20:40 Glucose (Fingerstick) 61 mg/dL (70-99) L Current Medications: Meds: Current Medications Tramadol HCl (Ultram) 50 mg 1X ONCE PO Last administered on 03/12/18at 21:09; Start 03/12/18 at 21:15; Stop 03/12/18 at 21:36; Status DC Potassium Chloride (Klor-Con) 40 meq 1X ONCE PO ; Start 03/12/18 at 21:15; Stop 03/12/18 at 21:53; Status DC Acetaminophen (Tylenol) 650 mg PRN Q6HRS PRN PO PAIN / TEMP Last administered on 03/14/18at 03:42; Start 03/12/18 at 23:00; Stop 03/14/18 at 16:35; Status DC Multi-Ingredient Ointment (Analgesic [place]) 1 belle PRN QID PRN TP MUSCLE PAIN; Start 03/12/18 at 23:00 Al Hydroxide/Mg Hydroxide (Mylanta Plus Xs) 15 ml PRN AFTMEALHC PRN PO DYSPEPSIA; Start 03/12/18 at 23:00 Magnesium Hydroxide (Milk Of Magnesia) 2,400 mg PRN QHS PRN PO CONSTIPATION; Start 03/12/18 at 23:00 Duloxetine HCl (Cymbalta) 40 mg BID PO Last administered on 03/13/18 08:59; Start 03/13/18 at 09:00; Stop 03/13/18 at 19:25; Status DC Lorazepam (Ativan) 0.5 mg PRN Q6HRS PRN PO ANXIETY Last administered on 14:54; Start 03/13/18 at 00:15 Acetaminophen (Tylenol) 650 mg PRN Q6HRS PRN PO PAIN / TEMP Last administered on 03/19/18 20:09; Start 03/13/18 at 00:15 Cyclobenzaprine HCl (Flexeril) 10 mg PRN Q8HRS PRN PO MUSCLE SPASMS Last administered on 03/20/18 09:20; Start 03/13/18 at 00:15 Diclofenac Sodium (Voltaren) 1 belle BID TP Last administered on 03/20/18 20:32 ; Start 03/13/18 at 09:00 Gabapentin (Neurontin) 100 mg DAILY PO Last administered on 03/20/18 08:23; Start 03/13/18 at 09:00 Gabapentin (Neurontin) 300 mg HS PO Last administered on 03/20/18 20:30; Start 03/13/18 at 21:00 Albuterol Sulfate (Ventolin) 2.5 mg PRN Q4HRS PRN NEB SHORTNESS OF BREATH; Start 03/13/18 at 00:15 Metoprolol Tartrate (Lopressor) 12.5 mg DAILY PO Last administered on 08:24; Start 03/13/18 at 09:00 Nitroglycerin (Nitrostat) 0.4 mg PRN Q5MIN PRN SL CHEST PAIN; Start 03/13/18 at 00:15 Potassium Chloride (Klor-Con) 20 meq DAILY PO Last administered on 03/20/18 08 :23; Start 03/13/18 at 09:00 Rivaroxaban (Xarelto) 20 mg QHS PO Last administered on 03/20/18 20:30; Start 03/13/18 at 21:00 Tramadol HCl (Ultram) 50 mg PRN Q4HRS PRN PO PAIN Last administered on 05:56; Start 03/13/18 at 00:15; Stop 03/17/18 at 14:57; Status DC Cholestyramine Resin (Questran Light) 4 gm BIDAFTMEAL PO Last administered on 17:30; Start 03/13/18 at 09:00 Non-Formulary Medication (Cranberry Conc/ Ascorbic Acid (Cranberry Concentrate Softgel)) 425 mg TID PO ; Start 03/13/18 at 09:00; Status UNV Artificial Tears (Artificial Tears) 2 drop PRN Q4HRS PRN OU DRY EYE; Start at 00:15 Artificial Tears (Artificial Tears) 2 drop QHS OU Last administered on 20:32; Start 03/13/18 at 21:00 Furosemide (Lasix) 40 mg BID92 PO Last administered on 03/20/18 14:20; Start 03/13/18 at 09:00 Hydrocortisone (Cortaid) 1 belle BID TP Last administered on 03/20/18 20:32; Start 03/13/18 at 09:00 Ketotifen Fumarate (Zaditor) 1 drop TID OU Last administered on 03/20/18 20:32 ; Start 03/13/18 at 09:00 Lactobacillus Rhamnosus (Culturelle) 1 cap DAILY PO Last administered on 07:35; Start 03/13/18 at 09:00; Stop 03/17/18 at 15:35; Status DC Lamotrigine (LaMICtal) 100 mg BID PO Last administered on 03/20/18 20:31; Start 03/13/18 at 09:00 Latanoprost (Xalatan) 1 drop QHS OU Last administered on 03/20/18 20:32; Start 03/13/18 at 21:00 Levothyroxine Sodium (Synthroid) 50 mcg DAILY07 PO Last administered on 06:18; Start 03/13/18 at 07:00 Meclizine HCl (Antivert) 25 mg PRN Q8HRS PRN PO DIZZINESS; Start 03/13/18 at 00 :15 Miconazole Nitrate (Monistat-Derm) 1 belle BID TP Last administered on 03/20/18 20:32; Start 03/13/18 at 09:00 Pantoprazole Sodium (Protonix) 40 mg BIDBFRMEAL PO Last administered on 17:29; Start 03/13/18 at 07:30 Saliva Substitute (Biotene Moisturizing Mouth) 1 spray PRN Q3HRS PRN MM DRY MOUTH; Start 03/13/18 at 00:15 Sennosides (Senna) 8.6 mg DAILY PO Last administered on 03/20/18 08:24; Start 03/13/18 at 09:00 Topiramate (Topamax) 25 mg QHS PO Last administered on 03/14/18 19:21; Start 03/13/18 at 21:00; Stop 03/15/18 at 17:03; Status DC Melatonin 6 mg PRN QHS PRN PO INSOMNIA Last administered on 03/20/18 20:30; Start 03/13/18 at 06:00 Insulin Human Lispro (HumaLOG) 0-5 UNITS TIDWMEALS SQ ; Start 03/14/18 at 08:00 Dextrose 12.5 gm PRN Q15MIN PRN IV SEE COMMENTS; Start 03/13/18 at 19:30 Duloxetine HCl (Cymbalta) 40 mg DAILY PO Last administered on 03/16/18 09:26; Start 03/14/18 at 09:00; Stop 03/16/18 at 19:41; Status DC Oxcarbazepine (Trileptal) 300 mg DAILY PO Last administered on 03/16/18 09:28 ; Start 03/14/18 at 09:00; Stop 03/16/18 at 19:41; Status DC Trazodone HCl (Desyrel) 100 mg QHS PO Last administered on 03/20/18 20:31; Start 03/13/18 at 21:00 Trazodone HCl (Desyrel) 100 mg PRN QHS PRN PO INSOMNIA; Start 03/13/18 at 19:30 Topiramate (Topamax) 50 mg QHS PO Last administered on 03/20/18 20:30; Start 03/15/18 at 21:00 Nystatin (Nystop) 1 belle BID TP Last administered on 03/20/18 20:32; Start at 21:00 Ondansetron HCl (Zofran Odt) 4 mg PRN Q8HRS PRN PO NAUSEA/VOMITING; Start 03/15 at 17:15 Oxcarbazepine (Trileptal) 300 mg BID PO Last administered on 03/20/18at 20:30; Start 03/16/18 at 21:00 Amoxicillin/ Clavulanate Potassium (Augmentin 875/ 125mg) 1 tab BID PO Last administered on 03/20/18at 20:29; Start 03/17/18 at 21:00; Stop 03/24/18 at 20:59 Lactobacillus Rhamnosus (Culturelle) 1 cap BID PO Last administered on at 20:30; Start 03/17/18 at 21:00 Quetiapine Fumarate (SEROquel) 50 mg HS PO Last administered on 03/20/18at 20:31 ; Start 03/17/18 at 21:00 Acetaminophen/ Hydrocodone Bitart (Lortab 5/325) 1 tab PRN Q6HRS PRN PO PAIN; Start 03/17/18 at 15:00; Stop 03/17/18 at 15:16; Status DC Acetaminophen/ Hydrocodone Bitart (Lortab 5/325) 1 tab PRN Q6HRS PRN PO PAIN Last administered on 03/20/18at 09:21; Start 03/17/18 at 15:45 Diphenhydramine HCl (Benadryl) 25 mg PRN QHS PRN PO ITCHING; Start 03/18/18 at 20:45 Glucose (Insta-Glucose) 15 gm STK-MED ONCE .ROUTE ; Start 03/19/18 at 16:49; Stop 03/19/18 at 16:50; Status DC Glucose (Insta-Glucose) 15 gm STK-MED ONCE .ROUTE ; Start 03/19/18 at 16:50; Stop 03/19/18 at 16:51; Status DC Quetiapine Fumarate (SEROquel) 25 mg DAILY08 PO Last administered on 03/20/18at 08:29; Start 03/20/18 at 08:00; Stop 03/20/18 at 18:47; Status DC Quetiapine Fumarate (SEROquel) 25 mg DAILY PO ; Start 03/20/18 at 09:00; Status UNV Quetiapine Fumarate (SEROquel) 25 mg TIDBFRMEAL PO ; Start 03/21/18 at 07:30 Active Scripts Active Reported Xarelto (Rivaroxaban) 10 Mg Tablet 20 Mg PO QHS Tramadol Hcl (Tramadol HCl) 50 Mg Tablet 50 Mg PO Q4HRS PRN Topamax (Topiramate) 25 Mg Tablet 25 Mg PO QHS Sennosides 8.6 Mg Tablet 8.6 Mg PO DAILY Klor-Con M20 (Potassium Chloride) 20 Meq Tab.er.prt 20 Meq PO DAILY Pantoprazole Sodium 40 Mg Tablet.dr 40 Mg PO BIDBFRMEAL NITROGLYCERIN SubLingual (Nitroglycerin) 0.4 Mg Tab.subl 0.4 Mg SL PRN Q5MIN PRN Miconazole Nitrate 10 Gm Powder 1 Applic MC BID Metoprolol Tartrate 25 Mg Tablet 12.5 Mg PO DAILY Melatonin 3 Mg Tablet 5 Mg PO PRN QHS PRN Meclizine Hcl 25 Mg Tablet 25 Mg PO PRN Q8HRS PRN Lorazepam 0.5 Mg Tablet 0.5 Mg PO PRN Q6HRS PRN Levothyroxine Sodium 50 Mcg Tablet 50 Mcg PO DAILYAC Latanoprost 0.005% Eye Drop (Latanoprost/Pf) 7.5 Ml Drops 1 Drop OU QHS Lamotrigine 100 Mg Tablet 100 Mg PO BID Probiotic (Lactobacillus Acidophilus) 1 Each Capsule 1 Each PO DAILY Zaditor (Ketotifen Fumarate) 5 Ml Drops 1 Drop OU TID Hydrocortisone 453.6 Gm Cream..g. 1 Applic TP BID Gabapentin 300 Mg Capsule 300 Mg PO HS Gabapentin 100 Mg Capsule 100 Mg PO DAILY Furosemide 40 Mg Tablet 40 Mg PO BID Duoneb 0.5-3(2.5) Mg/3 Ml (Albuterol/Ipratropium) 3 Ml Ampul.neb 3 Ml NEB PRN Q4HRS PRN Voltaren (Diclofenac Sodium) 100 Gm Gel..gram. 1 Applic TP BID Cymbalta (Duloxetine Hcl) 20 Mg Capsule.dr 40 Mg PO BID Cyclobenzaprine Hcl 10 Mg Tablet 10 Mg PO PRN Q8HRS PRN Cranberry Concentrate Softgel (Cranberry Conc/Ascorbic Acid) 1 Each Capsule 425 Mg PO TID Cholestyramine Packet (Cholestyramine (With Sugar)) 4 Gm Powd.pack 4 Gm PO BID Biotene Oralbalance (Saliva Stimulant Agents Comb.2) 44.3 Ml Liquid 30 Ml MM PRN Q3HRS PRN Artificial Tears Eye Drops (Dextran 70/Hypromellose) 15 Ml Drops 2 Ml OU PRN Q4HRS PRN Artificial Tears Eye Drops (Dextran 70/Hypromellose) 15 Ml Drops 2 Ml OU QHS Tylenol (Acetaminophen) 325 Mg Tablet 650 Mg PO PRN Q6HRS PRN I have reviewed the current psychotropics carefully including drug interactions. Risk benefit ratio favors no change other than as noted in my dictated progress note. Diagnosis: Problems: (1) Medical clearance for psychiatric admission (2) Anxiety disorder (3) Bipolar 1 disorder, mixed, moderate (4) Impulse control disorder (5) Schizoaffective disorder, bipolar type (6) Vascular dementia with delusions PATRIC QUEVEDO MD Mar 20, 2018 21:15
[2018-03-20] MEDS: diphenhydrAMINE HCL 25 MG CAPSULE PO PRN (21:23)
--- NOTE | 2018-03-20 21:30 | PN ---
DATE: 03/19/2018 This is a late entry, 03/19/2018, covers the elements not covered in my initial note. SUBJECTIVE: I met with the patient in the evening. The patient slept 8 hours the previous evening. Per nursing report, she has been extremely demanding, labile, manipulative, and repetitive. She has been strangulating nursing staff per nursing report. MENTAL STATUS EXAM: Oriented to herself and situation. Speech coherent, rapid, pressured. Abstraction fair, computation impaired, language function intact. Mood and affect remains labile. She is convinced she does not have bipolar disorder, has no psychiatric problems. 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 Nevertheless, given the progression of her age and circumstances and the symptoms that have been presenting for her are consistent with a bipolar diagnosis in addition to her personality disorder. Discussed at great length and educated her on this. REVIEW OF SYSTEMS: No CV, , pulmonary, eye, ENT system symptoms on review, in a wheelchair. MENTAL STATUS EXAM: Oriented to her reasonably well. Speech is coherent, rapid. Abstraction fair, computation impaired, language function intact, attention span short. Mood and affect remains labile and grandiose. LABORATORY DATA: Reviewed. IMPRESSION: Bipolar 1 disorder, mixed with psychotic features, in partial remission. Rest unchanged. PLAN: Start Seroquel 25 mg in the morning. Continue Lamictal 100 mg two times a day, Seroquel 50 mg at bedtime, Ativan, and melatonin as needed, Trileptal 300 two times a day as a mood stabilizer, trazodone 100 mg at bedtime, december repeat x 1. MAN Prasanth QUEVEDO MD DR: DUSTY/yusuf JOB#: [id number] / [id number]
[2018-03-21] MEDS: DICLOFENAC SODIUM 1% TOPICAL GEL 100GM TUBE. TP SCH ×3 (01:00→20:02)
[2018-03-21 06:00] VITALS: BP 94/46
[2018-03-21] MEDS: PANTOPRAZOLE 40 MG TABLET. PO SCH ×3 (06:05→17:39)
[2018-03-21] MEDS: LEVOTHYROXINE 50 MCG TABLET PO SCH (06:07)
[2018-03-21] MEDS: INSULIN LISPRO 300 UNITS/3 ML INSULN.PEN. SQ SCH ×3 (08:00→17:00)
[2018-03-21] MEDS: CHOLESTYRAMINE/ASPARTAME 4 GM PACKET PO SCH ×2 (08:38→17:39)
[2018-03-21] MEDS: FUROSEMIDE 40 MG TABLET PO SCH ×2 (08:40→12:50)
[2018-03-21] MEDS: METOPROLOL TART IMMED RELEASE 25 MG TABLET PO SCH (08:40)
[2018-03-21] MEDS: SENNOSIDES 8.6 MG TABLET PO SCH (08:40)
[2018-03-21] MEDS: AMOXICILLIN/K CLAV 875/125MG TABLET. PO SCH ×2 (08:40→20:00)
[2018-03-21] MEDS: GABAPENTIN 100 MG CAPSULE. PO SCH (08:40)
[2018-03-21] MEDS: lamoTRIgine 100 MG TABLET. PO SCH ×2 (08:40→20:01)
[2018-03-21] MEDS: POTASSIUM CHLORIDE 20 MEQ TABLET.ER. PO SCH (08:40)
[2018-03-21] MEDS: LACTOBACILLUS RHAMNOSUS GG 1 CAPSULE. PO SCH ×2 (08:40→20:02)
[2018-03-21] MEDS: MICONAZOLE NITRATE 2% TOPICAL CREAM 28GM TUBE. TP SCH ×2 (08:43→20:03)
[2018-03-21] MEDS: HYDROCORTISONE 1% TOPICAL CREAM 30GM TUBE. TP SCH ×2 (08:43→20:03)
[2018-03-21] MEDS: NYSTATIN TOPICAL POWDER 15GM BOTTLE. TP SCH ×2 (08:44→20:03)
[2018-03-21] MEDS: KETOTIFEN FUMARATE 0.025% OPHT SOLUTION BOTTLE. OU SCH ×3 (08:44→20:03)
[2018-03-21] MEDS: QUEtiapine 25 MG TABLET. PO SCH ×3 (08:45→17:39)
[2018-03-21] MEDS: CYCLOBENZAPRINE 10 MG TABLET. PO PRN ×2 (09:56→20:00)
[2018-03-21] MEDS: HYDROcodone/APAP 5/325MG 1 TAB TABLET PO PRN ×2 (09:57→20:00)
--- NOTE | 2018-03-21 13:46 | PN ---
DATE: 03/20/2018 This is a late entry 03/20/2018, covers elements not covered in my initial note. SUBJECTIVE: I met with the patient in the evening. I met with her on 3 different occasions as she would come back after a visit to have more questions about discharge, all of which we addressed many times, but she slept 6-1/4 hours, remains quite attention seeking, sarcastic per nursing report, manipulative and dividing staff. REVIEW OF SYSTEMS: Ambulation impaired, in wheelchair. No CV, , pulmonary, eye, ENT system symptoms on review. MENTAL STATUS EXAM: Oriented reasonably. Speech coherent, rapid. Abstraction fair, computation impaired, language function intact, attention span short. Mood and affect remains somewhat labile, manic, grandiose. LABORATORY DATA: Reviewed. IMPRESSION: Unchanged from initial note. PLAN: Increase Seroquel from 50 mg at bedtime to 50 mg 9 a.m., 1:00 p.m., 5:00 p.m. Continue Lamictal, Trileptal, trazodone, melatonin at current dosage. MAN Prasanth QUEVEDO MD DR: DUSTY/yusuf JOB#: [id number] / [id number]
[2018-03-21] MEDS: LORazepam 0.5 MG TABLET PO PRN (15:04)
[2018-03-21 16:15] VITALS: BP 141/85
[2018-03-21] MEDS: RIVAROXABAN 10 MG TABLET. PO SCH (20:00)
[2018-03-21] MEDS: GABAPENTIN 300 MG CAPSULE. PO SCH (20:00)
[2018-03-21] MEDS: QUEtiapine 50 MG TABLET. PO SCH (20:01)
[2018-03-21] MEDS: TOPIRAMATE 25 MG TABLET. PO SCH (20:02)
[2018-03-21] MEDS: traZODone 100 MG TABLET. PO SCH (20:02)
[2018-03-21] MEDS: LATANOPROST 0.005% OPHTH SOLUTION 2.5ML BOTTLE. OU SCH (20:03)
[2018-03-21] MEDS: POLYVINYL ALCOHOL 1.4% OPHTH SOLUTION 15ML BOTTLE. OU SCH (20:03)
--- NOTE | 2018-03-21 20:58 | PDOC ---
Exam Note: Fernando Note: Please also refer to the separate dictated note~for this date of service dictated separately.~Patient seen individually. Discussed the patient with Nursing staff reviewed the chart.~Reviewed interim history and current functioning. Reviewed vital signs,~Labs/ Radiology~and current medications noted below. Continue current treatment with the changes noted in the dictated addendum note Assessment: Vital Signs: Vital Signs Date Time Temp Pulse Resp B/P (MAP) Pulse Ox O2 Delivery O2 Flow Rate FiO2 03/21/18 16:15 97.0 89 22 141/85 (103) 96 Room Air 03/21/18 06:00 2.0 I&O Intake and Output 03/21/18 07:00 Intake Total 1140 ml Output Total 1975 ml Balance -835 ml Intake Oral 1140 ml Output Urine Total 1975 ml Labs: Laboratory Tests Test 03/21/18 07:41 03/21/18 12:05 03/21/18 17:01 03/21/18 17:14 Glucose (Fingerstick) 84 mg/dL (70-99) 75 mg/dL (70-99) 53 mg/dL (70-99) L 40 mg/dL (70-99) L Test 03/21/18 17:16 03/21/18 19:15 Glucose (Fingerstick) 83 mg/dL (70-99) 116 mg/dL (70-99) H Current Medications: Meds: Current Medications Tramadol HCl (Ultram) 50 mg 1X ONCE PO Last administered on 03/12/18at 21:09; Start 03/12/18 at 21:15; Stop 03/12/18 at 21:36; Status DC Potassium Chloride (Klor-Con) 40 meq 1X ONCE PO ; Start 03/12/18 at 21:15; Stop 03/12/18 at 21:53; Status DC Acetaminophen (Tylenol) 650 mg PRN Q6HRS PRN PO PAIN / TEMP Last administered on 03/14/18at 03:42; Start 03/12/18 at 23:00; Stop 03/14/18 at 16:35; Status DC Multi-Ingredient Ointment (Analgesic [place]) 1 belle PRN QID PRN TP MUSCLE PAIN; Start 03/12/18 at 23:00 Al Hydroxide/Mg Hydroxide (Mylanta Plus Xs) 15 ml PRN AFTMEALHC PRN PO DYSPEPSIA; Start 03/12/18 at 23:00 Magnesium Hydroxide (Milk Of Magnesia) 2,400 mg PRN QHS PRN PO CONSTIPATION; Start 03/12/18 at 23:00 Duloxetine HCl (Cymbalta) 40 mg BID PO Last administered on 03/13/18at 08:59; Start 03/13/18 at 09:00; Stop 03/13/18 at 19:25; Status DC Lorazepam (Ativan) 0.5 mg PRN Q6HRS PRN PO ANXIETY Last administered on 15:04; Start 03/13/18 at 00:15 Acetaminophen (Tylenol) 650 mg PRN Q6HRS PRN PO PAIN / TEMP Last administered on 03/19/18 20:09; Start 03/13/18 at 00:15 Cyclobenzaprine HCl (Flexeril) 10 mg PRN Q8HRS PRN PO MUSCLE SPASMS Last administered on 03/21/18 20:00; Start 03/13/18 at 00:15 Diclofenac Sodium (Voltaren) 1 belle BID TP Last administered on 03/21/18 20:02 ; Start 03/13/18 at 09:00 Gabapentin (Neurontin) 100 mg DAILY PO Last administered on 03/21/18 08:40; Start 03/13/18 at 09:00 Gabapentin (Neurontin) 300 mg HS PO Last administered on 03/21/18 20:00; Start 03/13/18 at 21:00 Albuterol Sulfate (Ventolin) 2.5 mg PRN Q4HRS PRN NEB SHORTNESS OF BREATH; Start 03/13/18 at 00:15 Metoprolol Tartrate (Lopressor) 12.5 mg DAILY PO Last administered on 08:40; Start 03/13/18 at 09:00 Nitroglycerin (Nitrostat) 0.4 mg PRN Q5MIN PRN SL CHEST PAIN; Start 03/13/18 at 00:15 Potassium Chloride (Klor-Con) 20 meq DAILY PO Last administered on 03/21/18 08 :40; Start 03/13/18 at 09:00 Rivaroxaban (Xarelto) 20 mg QHS PO Last administered on 03/21/18 20:00; Start 03/13/18 at 21:00 Tramadol HCl (Ultram) 50 mg PRN Q4HRS PRN PO PAIN Last administered on 05:56; Start 03/13/18 at 00:15; Stop 03/17/18 at 14:57; Status DC Cholestyramine Resin (Questran Light) 4 gm BIDAFTMEAL PO Last administered on 17:39; Start 03/13/18 at 09:00 Non-Formulary Medication (Cranberry Conc/ Ascorbic Acid (Cranberry Concentrate Softgel)) 425 mg TID PO ; Start 03/13/18 at 09:00; Status UNV Artificial Tears (Artificial Tears) 2 drop PRN Q4HRS PRN OU DRY EYE; Start at 00:15 Artificial Tears (Artificial Tears) 2 drop QHS OU Last administered on 20:03; Start 03/13/18 at 21:00 Furosemide (Lasix) 40 mg BID92 PO Last administered on 03/21/18 12:50; Start 03/13/18 at 09:00 Hydrocortisone (Cortaid) 1 belle BID TP Last administered on 03/21/18 20:03; Start 03/13/18 at 09:00 Ketotifen Fumarate (Zaditor) 1 drop TID OU Last administered on 03/21/18 20:03 ; Start 03/13/18 at 09:00 Lactobacillus Rhamnosus (Culturelle) 1 cap DAILY PO Last administered on 07:35; Start 03/13/18 at 09:00; Stop 03/17/18 at 15:35; Status DC Lamotrigine (LaMICtal) 100 mg BID PO Last administered on 03/21/18 20:01; Start 03/13/18 at 09:00 Latanoprost (Xalatan) 1 drop QHS OU Last administered on 03/21/18 20:03; Start 03/13/18 at 21:00 Levothyroxine Sodium (Synthroid) 50 mcg DAILY07 PO Last administered on 06:07; Start 03/13/18 at 07:00 Meclizine HCl (Antivert) 25 mg PRN Q8HRS PRN PO DIZZINESS; Start 03/13/18 at 00 :15 Miconazole Nitrate (Monistat-Derm) 1 belle BID TP Last administered on 03/21/18 20:03; Start 03/13/18 at 09:00 Pantoprazole Sodium (Protonix) 40 mg BIDBFRMEAL PO Last administered on at 17:39; Start 03/13/18 at 07:30 Saliva Substitute (Biotene Moisturizing Mouth) 1 spray PRN Q3HRS PRN MM DRY MOUTH; Start 03/13/18 at 00:15 Sennosides (Senna) 8.6 mg DAILY PO Last administered on 03/21/18 08:40; Start 03/13/18 at 09:00 Topiramate (Topamax) 25 mg QHS PO Last administered on 03/14/18 19:21; Start 03/13/18 at 21:00; Stop 03/15/18 at 17:03; Status DC Melatonin 6 mg PRN QHS PRN PO INSOMNIA Last administered on 03/20/18at 20:30; Start 03/13/18 at 06:00 Insulin Human Lispro (HumaLOG) 0-5 UNITS TIDWMEALS SQ ; Start 03/14/18 at 08:00 Dextrose 12.5 gm PRN Q15MIN PRN IV SEE COMMENTS; Start 03/13/18 at 19:30 Duloxetine HCl (Cymbalta) 40 mg DAILY PO Last administered on 03/16/18at 09:26; Start 03/14/18 at 09:00; Stop 03/16/18 at 19:41; Status DC Oxcarbazepine (Trileptal) 300 mg DAILY PO Last administered on 03/16/18at 09:28 ; Start 03/14/18 at 09:00; Stop 03/16/18 at 19:41; Status DC Trazodone HCl (Desyrel) 100 mg QHS PO Last administered on 03/21/18 20:02; Start 03/13/18 at 21:00 Trazodone HCl (Desyrel) 100 mg PRN QHS PRN PO INSOMNIA; Start 03/13/18 at 19:30 Topiramate (Topamax) 50 mg QHS PO Last administered on 03/21/18at 20:02; Start 03/15/18 at 21:00 Nystatin (Nystop) 1 belle BID TP Last administered on 03/21/18at 20:03; Start at 21:00 Ondansetron HCl (Zofran Odt) 4 mg PRN Q8HRS PRN PO NAUSEA/VOMITING; Start 03/15 at 17:15 Oxcarbazepine (Trileptal) 300 mg BID PO Last administered on 03/21/18at 08:40; Start 03/16/18 at 21:00; Stop 03/21/18 at 18:55; Status DC Amoxicillin/ Clavulanate Potassium (Augmentin 875/ 125mg) 1 tab BID PO Last administered on 03/21/18at 20:00; Start 03/17/18 at 21:00; Stop 03/24/18 at 20:59 Lactobacillus Rhamnosus (Culturelle) 1 cap BID PO Last administered on at 20:02; Start 03/17/18 at 21:00 Quetiapine Fumarate (SEROquel) 50 mg HS PO Last administered on 03/21/18at 20:01 ; Start 03/17/18 at 21:00 Acetaminophen/ Hydrocodone Bitart (Lortab 5/325) 1 tab PRN Q6HRS PRN PO PAIN; Start 03/17/18 at 15:00; Stop 03/17/18 at 15:16; Status DC Acetaminophen/ Hydrocodone Bitart (Lortab 5/325) 1 tab PRN Q6HRS PRN PO PAIN Last administered on 03/21/18at 20:00; Start 03/17/18 at 15:45 Diphenhydramine HCl (Benadryl) 25 mg PRN QHS PRN PO ITCHING Last administered on 03/20/18at 21:23; Start 03/18/18 at 20:45 Glucose (Insta-Glucose) 15 gm STK-MED ONCE .ROUTE ; Start 03/19/18 at 16:49; Stop 03/19/18 at 16:50; Status DC Glucose (Insta-Glucose) 15 gm STK-MED ONCE .ROUTE ; Start 03/19/18 at 16:50; Stop 03/19/18 at 16:51; Status DC Quetiapine Fumarate (SEROquel) 25 mg DAILY08 PO Last administered on 03/20/18at 08:29; Start 03/20/18 at 08:00; Stop 03/20/18 at 18:47; Status DC Quetiapine Fumarate (SEROquel) 25 mg DAILY PO ; Start 03/20/18 at 09:00; Status UNV Quetiapine Fumarate (SEROquel) 25 mg TIDBFRMEAL PO Last administered on at 17:39; Start 03/21/18 at 07:30 Oxcarbazepine (Trileptal) 300 mg DAILY PO ; Start 03/22/18 at 09:00 Oxcarbazepine (Trileptal) 600 mg QHS PO Last administered on 03/21/18at 20:01; Start 03/21/18 at 21:00 Active Scripts Active Reported Xarelto (Rivaroxaban) 10 Mg Tablet 20 Mg PO QHS Tramadol Hcl (Tramadol HCl) 50 Mg Tablet 50 Mg PO Q4HRS PRN Topamax (Topiramate) 25 Mg Tablet 25 Mg PO QHS Sennosides 8.6 Mg Tablet 8.6 Mg PO DAILY Klor-Con M20 (Potassium Chloride) 20 Meq Tab.er.prt 20 Meq PO DAILY Pantoprazole Sodium 40 Mg Tablet.dr 40 Mg PO BIDBFRMEAL NITROGLYCERIN SubLingual (Nitroglycerin) 0.4 Mg Tab.subl 0.4 Mg SL PRN Q5MIN PRN Miconazole Nitrate 10 Gm Powder 1 Applic MC BID Metoprolol Tartrate 25 Mg Tablet 12.5 Mg PO DAILY Melatonin 3 Mg Tablet 5 Mg PO PRN QHS PRN Meclizine Hcl 25 Mg Tablet 25 Mg PO PRN Q8HRS PRN Lorazepam 0.5 Mg Tablet 0.5 Mg PO PRN Q6HRS PRN Levothyroxine Sodium 50 Mcg Tablet 50 Mcg PO DAILYAC Latanoprost 0.005% Eye Drop (Latanoprost/Pf) 7.5 Ml Drops 1 Drop OU QHS Lamotrigine 100 Mg Tablet 100 Mg PO BID Probiotic (Lactobacillus Acidophilus) 1 Each Capsule 1 Each PO DAILY Zaditor (Ketotifen Fumarate) 5 Ml Drops 1 Drop OU TID Hydrocortisone 453.6 Gm Cream..g. 1 Applic TP BID Gabapentin 300 Mg Capsule 300 Mg PO HS Gabapentin 100 Mg Capsule 100 Mg PO DAILY Furosemide 40 Mg Tablet 40 Mg PO BID Duoneb 0.5-3(2.5) Mg/3 Ml (Albuterol/Ipratropium) 3 Ml Ampul.neb 3 Ml NEB PRN Q4HRS PRN Voltaren (Diclofenac Sodium) 100 Gm Gel..gram. 1 Applic TP BID Cymbalta (Duloxetine Hcl) 20 Mg Capsule.dr 40 Mg PO BID Cyclobenzaprine Hcl 10 Mg Tablet 10 Mg PO PRN Q8HRS PRN Cranberry Concentrate Softgel (Cranberry Conc/Ascorbic Acid) 1 Each Capsule 425 Mg PO TID Cholestyramine Packet (Cholestyramine (With Sugar)) 4 Gm Powd.pack 4 Gm PO BID Biotene Oralbalance (Saliva Stimulant Agents Comb.2) 44.3 Ml Liquid 30 Ml MM PRN Q3HRS PRN Artificial Tears Eye Drops (Dextran 70/Hypromellose) 15 Ml Drops 2 Ml OU PRN Q4HRS PRN Artificial Tears Eye Drops (Dextran 70/Hypromellose) 15 Ml Drops 2 Ml OU QHS Tylenol (Acetaminophen) 325 Mg Tablet 650 Mg PO PRN Q6HRS PRN I have reviewed the current psychotropics carefully including drug interactions. Risk benefit ratio favors no change other than as noted in my dictated progress note. Diagnosis: Problems: (1) Medical clearance for psychiatric admission (2) Anxiety disorder (3) Bipolar 1 disorder, mixed, moderate (4) Impulse control disorder (5) Schizoaffective disorder, bipolar type (6) Vascular dementia with delusions PATRIC QUEVEDO MD Mar 21, 2018 20:58
[2018-03-22] MEDS: LEVOTHYROXINE 50 MCG TABLET PO SCH (05:56)
[2018-03-22 06:01] VITALS: BP 121/57
[2018-03-22] MEDS: CHOLESTYRAMINE/ASPARTAME 4 GM PACKET PO SCH ×2 (07:52→16:55)
[2018-03-22] MEDS: PANTOPRAZOLE 40 MG TABLET. PO SCH ×2 (07:53→16:55)
[2018-03-22] MEDS: GABAPENTIN 100 MG CAPSULE. PO SCH (07:53)
[2018-03-22] MEDS: LACTOBACILLUS RHAMNOSUS GG 1 CAPSULE. PO SCH ×2 (07:53→19:21)
[2018-03-22] MEDS: AMOXICILLIN/K CLAV 875/125MG TABLET. PO SCH ×2 (07:53→19:21)
[2018-03-22] MEDS: POTASSIUM CHLORIDE 20 MEQ TABLET.ER. PO SCH (07:53)
[2018-03-22] MEDS: METOPROLOL TART IMMED RELEASE 25 MG TABLET PO SCH (07:54)
[2018-03-22] MEDS: lamoTRIgine 100 MG TABLET. PO SCH ×2 (07:55→19:21)
[2018-03-22] MEDS: QUEtiapine 25 MG TABLET. PO SCH ×3 (07:55→16:55)
[2018-03-22] MEDS: SENNOSIDES 8.6 MG TABLET PO SCH ×2 (07:55→09:00)
[2018-03-22] MEDS: FUROSEMIDE 40 MG TABLET PO SCH ×2 (07:55→12:28)
[2018-03-22] MEDS: KETOTIFEN FUMARATE 0.025% OPHT SOLUTION BOTTLE. OU SCH ×3 (07:56→19:33)
[2018-03-22] MEDS: INSULIN LISPRO 300 UNITS/3 ML INSULN.PEN. SQ SCH ×3 (08:00→17:00)
[2018-03-22] MEDS: HYDROCORTISONE 1% TOPICAL CREAM 30GM TUBE. TP SCH ×2 (08:02→19:33)
[2018-03-22] MEDS: DICLOFENAC SODIUM 1% TOPICAL GEL 100GM TUBE. TP SCH ×2 (08:02→19:34)
[2018-03-22] MEDS: MICONAZOLE NITRATE 2% TOPICAL CREAM 28GM TUBE. TP SCH ×2 (08:02→19:33)
[2018-03-22] MEDS: NYSTATIN TOPICAL POWDER 15GM BOTTLE. TP SCH ×2 (08:02→19:33)
[2018-03-22] MEDS: HYDROcodone/APAP 5/325MG 1 TAB TABLET PO PRN ×2 (08:08→20:21)
[2018-03-22] MEDS: CYCLOBENZAPRINE 10 MG TABLET. PO PRN ×2 (08:09→20:18)
[2018-03-22] MEDS: LORazepam 0.5 MG TABLET PO PRN (08:31)
[2018-03-22 15:56] VITALS: BP 118/74
[2018-03-22] MEDS: QUEtiapine 50 MG TABLET. PO SCH (19:21)
[2018-03-22] MEDS: traZODone 100 MG TABLET. PO SCH (19:21)
[2018-03-22] MEDS: GABAPENTIN 300 MG CAPSULE. PO SCH (19:21)
[2018-03-22] MEDS: RIVAROXABAN 10 MG TABLET. PO SCH (19:22)
[2018-03-22] MEDS: TOPIRAMATE 25 MG TABLET. PO SCH (19:22)
[2018-03-22] MEDS: LATANOPROST 0.005% OPHTH SOLUTION 2.5ML BOTTLE. OU SCH (19:32)
[2018-03-22] MEDS: POLYVINYL ALCOHOL 1.4% OPHTH SOLUTION 15ML BOTTLE. OU SCH (19:32)
--- NOTE | 2018-03-22 20:37 | PDOC ---
Exam Note: Fernando Note: Please also refer to the separate dictated note~for this date of service dictated separately.~Patient seen individually. Discussed the patient with Nursing staff reviewed the chart.~Reviewed interim history and current functioning. Reviewed vital signs,~Labs/ Radiology~and current medications noted below. Continue current treatment with the changes noted in the dictated addendum note Assessment: Vital Signs: Vital Signs Date Time Temp Pulse Resp B/P (MAP) Pulse Ox O2 Delivery O2 Flow Rate FiO2 03/22/18 20:21 92 03/22/18 15:56 97.4 55 16 118/74 (89) 2.0 03/21/18 16:15 Room Air I&O Intake and Output 03/22/18 06:59 Intake Total 1800 ml Output Total 1450 ml Balance 350 ml Intake Oral 1800 ml Output Urine Total 1450 ml # Bowel Movements 3 Labs: Laboratory Tests Test 03/22/18 07:30 03/22/18 11:48 03/22/18 17:02 03/22/18 19:06 Glucose (Fingerstick) 79 mg/dL (70-99) 70 mg/dL (70-99) 75 mg/dL (70-99) 138 mg/dL (70-99) H Current Medications: Meds: Current Medications Tramadol HCl (Ultram) 50 mg 1X ONCE PO Last administered on 03/12/18at 21:09; Start 03/12/18 at 21:15; Stop 03/12/18 at 21:36; Status DC Potassium Chloride (Klor-Con) 40 meq 1X ONCE PO ; Start 03/12/18 at 21:15; Stop 03/12/18 at 21:53; Status DC Acetaminophen (Tylenol) 650 mg PRN Q6HRS PRN PO PAIN / TEMP Last administered on 03/14/18at 03:42; Start 03/12/18 at 23:00; Stop 03/14/18 at 16:35; Status DC Multi-Ingredient Ointment (Analgesic [place]) 1 belle PRN QID PRN TP MUSCLE PAIN; Start 03/12/18 at 23:00 Al Hydroxide/Mg Hydroxide (Mylanta Plus Xs) 15 ml PRN AFTMEALHC PRN PO DYSPEPSIA; Start 03/12/18 at 23:00 Magnesium Hydroxide (Milk Of Magnesia) 2,400 mg PRN QHS PRN PO CONSTIPATION; Start 03/12/18 at 23:00 Duloxetine HCl (Cymbalta) 40 mg BID PO Last administered on 03/13/18 08:59; Start 03/13/18 at 09:00; Stop 03/13/18 at 19:25; Status DC Lorazepam (Ativan) 0.5 mg PRN Q6HRS PRN PO ANXIETY Last administered on 08:31; Start 03/13/18 at 00:15 Acetaminophen (Tylenol) 650 mg PRN Q6HRS PRN PO PAIN / TEMP Last administered on 03/19/18 20:09; Start 03/13/18 at 00:15 Cyclobenzaprine HCl (Flexeril) 10 mg PRN Q8HRS PRN PO MUSCLE SPASMS Last administered on 03/22/18 20:18; Start 03/13/18 at 00:15 Diclofenac Sodium (Voltaren) 1 belle BID TP Last administered on 03/22/18 19:34 ; Start 03/13/18 at 09:00 Gabapentin (Neurontin) 100 mg DAILY PO Last administered on 03/22/18 07:53; Start 03/13/18 at 09:00 Gabapentin (Neurontin) 300 mg HS PO Last administered on 03/22/18 19:21; Start 03/13/18 at 21:00 Albuterol Sulfate (Ventolin) 2.5 mg PRN Q4HRS PRN NEB SHORTNESS OF BREATH; Start 03/13/18 at 00:15 Metoprolol Tartrate (Lopressor) 12.5 mg DAILY PO Last administered on 07:54; Start 03/13/18 at 09:00 Nitroglycerin (Nitrostat) 0.4 mg PRN Q5MIN PRN SL CHEST PAIN; Start 03/13/18 at 00:15 Potassium Chloride (Klor-Con) 20 meq DAILY PO Last administered on 03/22/18 07 :53; Start 03/13/18 at 09:00 Rivaroxaban (Xarelto) 20 mg QHS PO Last administered on 03/22/18 19:22; Start 03/13/18 at 21:00 Tramadol HCl (Ultram) 50 mg PRN Q4HRS PRN PO PAIN Last administered on 05:56; Start 03/13/18 at 00:15; Stop 03/17/18 at 14:57; Status DC Cholestyramine Resin (Questran Light) 4 gm BIDAFTMEAL PO Last administered on 16:55; Start 03/13/18 at 09:00 Non-Formulary Medication (Cranberry Conc/ Ascorbic Acid (Cranberry Concentrate Softgel)) 425 mg TID PO ; Start 03/13/18 at 09:00; Status UNV Artificial Tears (Artificial Tears) 2 drop PRN Q4HRS PRN OU DRY EYE; Start at 00:15 Artificial Tears (Artificial Tears) 2 drop QHS OU Last administered on 19:32; Start 03/13/18 at 21:00 Furosemide (Lasix) 40 mg BID92 PO Last administered on 03/22/18 12:28; Start 03/13/18 at 09:00 Hydrocortisone (Cortaid) 1 belle BID TP Last administered on 03/22/18 19:33; Start 03/13/18 at 09:00 Ketotifen Fumarate (Zaditor) 1 drop TID OU Last administered on 03/22/18 19:33 ; Start 03/13/18 at 09:00 Lactobacillus Rhamnosus (Culturelle) 1 cap DAILY PO Last administered on 07:35; Start 03/13/18 at 09:00; Stop 03/17/18 at 15:35; Status DC Lamotrigine (LaMICtal) 100 mg BID PO Last administered on 03/22/18 19:21; Start 03/13/18 at 09:00 Latanoprost (Xalatan) 1 drop QHS OU Last administered on 03/22/18 19:32; Start 03/13/18 at 21:00 Levothyroxine Sodium (Synthroid) 50 mcg DAILY07 PO Last administered on 05:56; Start 03/13/18 at 07:00 Meclizine HCl (Antivert) 25 mg PRN Q8HRS PRN PO DIZZINESS; Start 03/13/18 at 00 :15 Miconazole Nitrate (Monistat-Derm) 1 belle BID TP Last administered on 03/22/18 19:33; Start 03/13/18 at 09:00 Pantoprazole Sodium (Protonix) 40 mg BIDBFRMEAL PO Last administered on at 16:55; Start 03/13/18 at 07:30 Saliva Substitute (Biotene Moisturizing Mouth) 1 spray PRN Q3HRS PRN MM DRY MOUTH; Start 03/13/18 at 00:15 Sennosides (Senna) 8.6 mg DAILY PO Last administered on 03/21/18at 08:40; Start 03/13/18 at 09:00 Topiramate (Topamax) 25 mg QHS PO Last administered on 03/14/18 19:21; Start 03/13/18 at 21:00; Stop 03/15/18 at 17:03; Status DC Melatonin 6 mg PRN QHS PRN PO INSOMNIA Last administered on 03/20/18 20:30; Start 03/13/18 at 06:00 Insulin Human Lispro (HumaLOG) 0-5 UNITS TIDWMEALS SQ ; Start 03/14/18 at 08:00 Dextrose 12.5 gm PRN Q15MIN PRN IV SEE COMMENTS; Start 03/13/18 at 19:30 Duloxetine HCl (Cymbalta) 40 mg DAILY PO Last administered on 03/16/18 09:26; Start 03/14/18 at 09:00; Stop 03/16/18 at 19:41; Status DC Oxcarbazepine (Trileptal) 300 mg DAILY PO Last administered on 03/16/18at 09:28 ; Start 03/14/18 at 09:00; Stop 03/16/18 at 19:41; Status DC Trazodone HCl (Desyrel) 100 mg QHS PO Last administered on 03/22/18at 19:21; Start 03/13/18 at 21:00 Trazodone HCl (Desyrel) 100 mg PRN QHS PRN PO INSOMNIA; Start 03/13/18 at 19:30 Topiramate (Topamax) 50 mg QHS PO Last administered on 03/22/18at 19:22; Start 03/15/18 at 21:00 Nystatin (Nystop) 1 belle BID TP Last administered on 03/22/18 19:33; Start at 21:00 Ondansetron HCl (Zofran Odt) 4 mg PRN Q8HRS PRN PO NAUSEA/VOMITING; Start 03/15 at 17:15 Oxcarbazepine (Trileptal) 300 mg BID PO Last administered on 03/21/18at 08:40; Start 03/16/18 at 21:00; Stop 03/21/18 at 18:55; Status DC Amoxicillin/ Clavulanate Potassium (Augmentin 875/ 125mg) 1 tab BID PO Last administered on 03/22/18at 19:21; Start 03/17/18 at 21:00; Stop 03/24/18 at 20:59 Lactobacillus Rhamnosus (Culturelle) 1 cap BID PO Last administered on at 19:21; Start 03/17/18 at 21:00 Quetiapine Fumarate (SEROquel) 50 mg HS PO Last administered on 03/22/18at 19:21 ; Start 03/17/18 at 21:00 Acetaminophen/ Hydrocodone Bitart (Lortab 5/325) 1 tab PRN Q6HRS PRN PO PAIN; Start 03/17/18 at 15:00; Stop 03/17/18 at 15:16; Status DC Acetaminophen/ Hydrocodone Bitart (Lortab 5/325) 1 tab PRN Q6HRS PRN PO PAIN Last administered on 03/22/18at 20:21; Start 03/17/18 at 15:45 Diphenhydramine HCl (Benadryl) 25 mg PRN QHS PRN PO ITCHING Last administered on 03/20/18at 21:23; Start 03/18/18 at 20:45 Glucose (Insta-Glucose) 15 gm STK-MED ONCE .ROUTE ; Start 03/19/18 at 16:49; Stop 03/19/18 at 16:50; Status DC Glucose (Insta-Glucose) 15 gm STK-MED ONCE .ROUTE ; Start 03/19/18 at 16:50; Stop 03/19/18 at 16:51; Status DC Quetiapine Fumarate (SEROquel) 25 mg DAILY08 PO Last administered on 03/20/18at 08:29; Start 03/20/18 at 08:00; Stop 03/20/18 at 18:47; Status DC Quetiapine Fumarate (SEROquel) 25 mg DAILY PO ; Start 03/20/18 at 09:00; Status UNV Quetiapine Fumarate (SEROquel) 25 mg TIDBFRMEAL PO Last administered on at 16:55; Start 03/21/18 at 07:30 Oxcarbazepine (Trileptal) 300 mg DAILY PO Last administered on 03/22/18at 08:08 ; Start 03/22/18 at 09:00 Oxcarbazepine (Trileptal) 600 mg QHS PO Last administered on 03/22/18at 19:22; Start 03/21/18 at 21:00 Active Scripts Active Reported Xarelto (Rivaroxaban) 10 Mg Tablet 20 Mg PO QHS Tramadol Hcl (Tramadol HCl) 50 Mg Tablet 50 Mg PO Q4HRS PRN Topamax (Topiramate) 25 Mg Tablet 25 Mg PO QHS Sennosides 8.6 Mg Tablet 8.6 Mg PO DAILY Klor-Con M20 (Potassium Chloride) 20 Meq Tab.er.prt 20 Meq PO DAILY Pantoprazole Sodium 40 Mg Tablet.dr 40 Mg PO BIDBFRMEAL NITROGLYCERIN SubLingual (Nitroglycerin) 0.4 Mg Tab.subl 0.4 Mg SL PRN Q5MIN PRN Miconazole Nitrate 10 Gm Powder 1 Applic MC BID Metoprolol Tartrate 25 Mg Tablet 12.5 Mg PO DAILY Melatonin 3 Mg Tablet 5 Mg PO PRN QHS PRN Meclizine Hcl 25 Mg Tablet 25 Mg PO PRN Q8HRS PRN Lorazepam 0.5 Mg Tablet 0.5 Mg PO PRN Q6HRS PRN Levothyroxine Sodium 50 Mcg Tablet 50 Mcg PO DAILYAC Latanoprost 0.005% Eye Drop (Latanoprost/Pf) 7.5 Ml Drops 1 Drop OU QHS Lamotrigine 100 Mg Tablet 100 Mg PO BID Probiotic (Lactobacillus Acidophilus) 1 Each Capsule 1 Each PO DAILY Zaditor (Ketotifen Fumarate) 5 Ml Drops 1 Drop OU TID Hydrocortisone 453.6 Gm Cream..g. 1 Applic TP BID Gabapentin 300 Mg Capsule 300 Mg PO HS Gabapentin 100 Mg Capsule 100 Mg PO DAILY Furosemide 40 Mg Tablet 40 Mg PO BID Duoneb 0.5-3(2.5) Mg/3 Ml (Albuterol/Ipratropium) 3 Ml Ampul.neb 3 Ml NEB PRN Q4HRS PRN Voltaren (Diclofenac Sodium) 100 Gm Gel..gram. 1 Applic TP BID Cymbalta (Duloxetine Hcl) 20 Mg Capsule.dr 40 Mg PO BID Cyclobenzaprine Hcl 10 Mg Tablet 10 Mg PO PRN Q8HRS PRN Cranberry Concentrate Softgel (Cranberry Conc/Ascorbic Acid) 1 Each Capsule 425 Mg PO TID Cholestyramine Packet (Cholestyramine (With Sugar)) 4 Gm Powd.pack 4 Gm PO BID Biotene Oralbalance (Saliva Stimulant Agents Comb.2) 44.3 Ml Liquid 30 Ml MM PRN Q3HRS PRN Artificial Tears Eye Drops (Dextran 70/Hypromellose) 15 Ml Drops 2 Ml OU PRN Q4HRS PRN Artificial Tears Eye Drops (Dextran 70/Hypromellose) 15 Ml Drops 2 Ml OU QHS Tylenol (Acetaminophen) 325 Mg Tablet 650 Mg PO PRN Q6HRS PRN I have reviewed the current psychotropics carefully including drug interactions. Risk benefit ratio favors no change other than as noted in my dictated progress note. Diagnosis: Problems: (1) Medical clearance for psychiatric admission (2) Anxiety disorder (3) Bipolar 1 disorder, mixed, moderate (4) Impulse control disorder (5) Schizoaffective disorder, bipolar type (6) Vascular dementia with delusions PATRIC QUEVEDO MD Mar 22, 2018 20:36
[2018-03-23] MEDS: diphenhydrAMINE HCL 25 MG CAPSULE PO PRN ×2 (00:39→19:41)
[2018-03-23 05:35] VITALS: BP 110/50
[2018-03-23] MEDS: LEVOTHYROXINE 50 MCG TABLET PO SCH (05:35)
[2018-03-23] MEDS: FUROSEMIDE 40 MG TABLET PO SCH ×2 (07:20→12:19)
[2018-03-23] MEDS: QUEtiapine 25 MG TABLET. PO SCH ×3 (07:20→16:02)
[2018-03-23] MEDS: SENNOSIDES 8.6 MG TABLET PO SCH (07:20)
[2018-03-23] MEDS: POTASSIUM CHLORIDE 20 MEQ TABLET.ER. PO SCH (07:21)
[2018-03-23] MEDS: LACTOBACILLUS RHAMNOSUS GG 1 CAPSULE. PO SCH ×2 (07:21→19:36)
[2018-03-23] MEDS: AMOXICILLIN/K CLAV 875/125MG TABLET. PO SCH ×2 (07:21→19:36)
[2018-03-23] MEDS: GABAPENTIN 100 MG CAPSULE. PO SCH (07:21)
[2018-03-23] MEDS: lamoTRIgine 100 MG TABLET. PO SCH ×2 (07:21→19:36)
[2018-03-23] MEDS: PANTOPRAZOLE 40 MG TABLET. PO SCH ×2 (07:21→16:02)
[2018-03-23] MEDS: METOPROLOL TART IMMED RELEASE 25 MG TABLET PO SCH (07:22)
[2018-03-23] MEDS: HYDROCORTISONE 1% TOPICAL CREAM 30GM TUBE. TP SCH ×2 (07:23→19:39)
[2018-03-23] MEDS: NYSTATIN TOPICAL POWDER 15GM BOTTLE. TP SCH ×2 (07:23→19:38)
[2018-03-23] MEDS: MICONAZOLE NITRATE 2% TOPICAL CREAM 28GM TUBE. TP SCH ×2 (07:24→19:38)
[2018-03-23] MEDS: DICLOFENAC SODIUM 1% TOPICAL GEL 100GM TUBE. TP SCH ×2 (07:24→19:39)
[2018-03-23] MEDS: CHOLESTYRAMINE/ASPARTAME 4 GM PACKET PO SCH ×2 (07:25→16:02)
[2018-03-23] MEDS: KETOTIFEN FUMARATE 0.025% OPHT SOLUTION BOTTLE. OU SCH ×3 (07:25→19:34)
[2018-03-23] MEDS: INSULIN LISPRO 300 UNITS/3 ML INSULN.PEN. SQ SCH ×3 (07:51→17:27)
[2018-03-23] MEDS: HYDROcodone/APAP 5/325MG 1 TAB TABLET PO PRN ×2 (08:50→19:38)
[2018-03-23] MEDS: CYCLOBENZAPRINE 10 MG TABLET. PO PRN ×2 (08:50→19:38)
[2018-03-23 16:01] VITALS: BP 102/60
[2018-03-23] MEDS: LATANOPROST 0.005% OPHTH SOLUTION 2.5ML BOTTLE. OU SCH (19:34)
[2018-03-23] MEDS: POLYVINYL ALCOHOL 1.4% OPHTH SOLUTION 15ML BOTTLE. OU SCH (19:34)
[2018-03-23] MEDS: GABAPENTIN 300 MG CAPSULE. PO SCH (19:36)
[2018-03-23] MEDS: traZODone 100 MG TABLET. PO SCH (19:36)
[2018-03-23] MEDS: QUEtiapine 50 MG TABLET. PO SCH (19:37)
[2018-03-23] MEDS: TOPIRAMATE 25 MG TABLET. PO SCH (19:37)
[2018-03-23] MEDS: RIVAROXABAN 10 MG TABLET. PO SCH (19:37)
[2018-03-23] MEDS: MELATONIN 3 MG TABLET PO PRN (19:41)
--- NOTE | 2018-03-23 20:33 | PDOC ---
Exam Note: Fernando Note: Please also refer to the separate dictated note~for this date of service dictated separately.~Patient seen individually. Discussed the patient with Nursing staff reviewed the chart.~Reviewed interim history and current functioning. Reviewed vital signs,~Labs/ Radiology~and current medications noted below. Continue current treatment with the changes noted in the dictated addendum note Assessment: Vital Signs: Vital Signs Date Time Temp Pulse Resp B/P (MAP) Pulse Ox O2 Delivery O2 Flow Rate FiO2 03/23/18 19:38 99 Room Air 03/23/18 16:01 97.0 68 20 102/60 (74) 03/22/18 15:56 2.0 I&O Intake and Output 03/23/18 06:59 Intake Total 1680 ml Output Total 2800 ml Balance -1120 ml Intake Oral 1680 ml Output Urine Total 2800 ml # Bowel Movements 1 Labs: Laboratory Tests Test 03/23/18 01:52 03/23/18 07:43 03/23/18 11:32 03/23/18 16:39 Glucose (Fingerstick) 95 mg/dL (70-99) 83 mg/dL (70-99) 53 mg/dL (70-99) L 90 mg/dL (70-99) Test 03/23/18 19:11 Glucose (Fingerstick) 145 mg/dL (70-99) H Current Medications: Meds: Current Medications Tramadol HCl (Ultram) 50 mg 1X ONCE PO Last administered on 03/12/18at 21:09; Start 03/12/18 at 21:15; Stop 03/12/18 at 21:36; Status DC Potassium Chloride (Klor-Con) 40 meq 1X ONCE PO ; Start 03/12/18 at 21:15; Stop 03/12/18 at 21:53; Status DC Acetaminophen (Tylenol) 650 mg PRN Q6HRS PRN PO PAIN / TEMP Last administered on 03/14/18at 03:42; Start 03/12/18 at 23:00; Stop 03/14/18 at 16:35; Status DC Multi-Ingredient Ointment (Analgesic [place]) 1 belle PRN QID PRN TP MUSCLE PAIN; Start 03/12/18 at 23:00 Al Hydroxide/Mg Hydroxide (Mylanta Plus Xs) 15 ml PRN AFTMEALHC PRN PO DYSPEPSIA; Start 03/12/18 at 23:00 Magnesium Hydroxide (Milk Of Magnesia) 2,400 mg PRN QHS PRN PO CONSTIPATION; Start 03/12/18 at 23:00 Duloxetine HCl (Cymbalta) 40 mg BID PO Last administered on 03/13/18at 08:59; Start 03/13/18 at 09:00; Stop 03/13/18 at 19:25; Status DC Lorazepam (Ativan) 0.5 mg PRN Q6HRS PRN PO ANXIETY Last administered on 08:31; Start 03/13/18 at 00:15 Acetaminophen (Tylenol) 650 mg PRN Q6HRS PRN PO PAIN / TEMP Last administered on 03/19/18 20:09; Start 03/13/18 at 00:15 Cyclobenzaprine HCl (Flexeril) 10 mg PRN Q8HRS PRN PO MUSCLE SPASMS Last administered on 03/23/18 19:38; Start 03/13/18 at 00:15 Diclofenac Sodium (Voltaren) 1 belle BID TP Last administered on 03/23/18 19:39 ; Start 03/13/18 at 09:00 Gabapentin (Neurontin) 100 mg DAILY PO Last administered on 03/23/18 07:21; Start 03/13/18 at 09:00 Gabapentin (Neurontin) 300 mg HS PO Last administered on 03/23/18 19:36; Start 03/13/18 at 21:00 Albuterol Sulfate (Ventolin) 2.5 mg PRN Q4HRS PRN NEB SHORTNESS OF BREATH; Start 03/13/18 at 00:15 Metoprolol Tartrate (Lopressor) 12.5 mg DAILY PO Last administered on 07:22; Start 03/13/18 at 09:00 Nitroglycerin (Nitrostat) 0.4 mg PRN Q5MIN PRN SL CHEST PAIN; Start 03/13/18 at 00:15 Potassium Chloride (Klor-Con) 20 meq DAILY PO Last administered on 03/23/18 07 :21; Start 03/13/18 at 09:00 Rivaroxaban (Xarelto) 20 mg QHS PO Last administered on 03/23/18 19:37; Start 03/13/18 at 21:00 Tramadol HCl (Ultram) 50 mg PRN Q4HRS PRN PO PAIN Last administered on 05:56; Start 03/13/18 at 00:15; Stop 03/17/18 at 14:57; Status DC Cholestyramine Resin (Questran Light) 4 gm BIDAFTMEAL PO Last administered on 16:02; Start 03/13/18 at 09:00 Non-Formulary Medication (Cranberry Conc/ Ascorbic Acid (Cranberry Concentrate Softgel)) 425 mg TID PO ; Start 03/13/18 at 09:00; Status UNV Artificial Tears (Artificial Tears) 2 drop PRN Q4HRS PRN OU DRY EYE; Start at 00:15 Artificial Tears (Artificial Tears) 2 drop QHS OU Last administered on 19:34; Start 03/13/18 at 21:00 Furosemide (Lasix) 40 mg BID92 PO Last administered on 03/23/18 12:19; Start 03/13/18 at 09:00 Hydrocortisone (Cortaid) 1 belle BID TP Last administered on 03/23/18 19:39; Start 03/13/18 at 09:00 Ketotifen Fumarate (Zaditor) 1 drop TID OU Last administered on 03/23/18 19:34 ; Start 03/13/18 at 09:00 Lactobacillus Rhamnosus (Culturelle) 1 cap DAILY PO Last administered on 07:35; Start 03/13/18 at 09:00; Stop 03/17/18 at 15:35; Status DC Lamotrigine (LaMICtal) 100 mg BID PO Last administered on 03/23/18 19:36; Start 03/13/18 at 09:00 Latanoprost (Xalatan) 1 drop QHS OU Last administered on 03/23/18 19:34; Start 03/13/18 at 21:00 Levothyroxine Sodium (Synthroid) 50 mcg DAILY07 PO Last administered on 05:35; Start 03/13/18 at 07:00 Meclizine HCl (Antivert) 25 mg PRN Q8HRS PRN PO DIZZINESS; Start 03/13/18 at 00 :15 Miconazole Nitrate (Monistat-Derm) 1 belle BID TP Last administered on 03/23/18 19:38; Start 03/13/18 at 09:00 Pantoprazole Sodium (Protonix) 40 mg BIDBFRMEAL PO Last administered on 16:02; Start 03/13/18 at 07:30 Saliva Substitute (Biotene Moisturizing Mouth) 1 spray PRN Q3HRS PRN MM DRY MOUTH; Start 03/13/18 at 00:15 Sennosides (Senna) 8.6 mg DAILY PO Last administered on 03/23/18 07:20; Start 03/13/18 at 09:00 Topiramate (Topamax) 25 mg QHS PO Last administered on 03/14/18 19:21; Start 03/13/18 at 21:00; Stop 03/15/18 at 17:03; Status DC Melatonin 6 mg PRN QHS PRN PO INSOMNIA Last administered on 03/23/18 19:41; Start 03/13/18 at 06:00 Insulin Human Lispro (HumaLOG) 0-5 UNITS TIDWMEALS SQ ; Start 03/14/18 at 08:00 Dextrose 12.5 gm PRN Q15MIN PRN IV SEE COMMENTS; Start 03/13/18 at 19:30 Duloxetine HCl (Cymbalta) 40 mg DAILY PO Last administered on 03/16/18 09:26; Start 03/14/18 at 09:00; Stop 03/16/18 at 19:41; Status DC Oxcarbazepine (Trileptal) 300 mg DAILY PO Last administered on 03/16/18 09:28 ; Start 03/14/18 at 09:00; Stop 03/16/18 at 19:41; Status DC Trazodone HCl (Desyrel) 100 mg QHS PO Last administered on 03/23/18 19:36; Start 03/13/18 at 21:00 Trazodone HCl (Desyrel) 100 mg PRN QHS PRN PO INSOMNIA; Start 03/13/18 at 19:30 Topiramate (Topamax) 50 mg QHS PO Last administered on 03/23/18 19:37; Start 03/15/18 at 21:00 Nystatin (Nystop) 1 belle BID TP Last administered on 03/23/18 19:38; Start at 21:00 Ondansetron HCl (Zofran Odt) 4 mg PRN Q8HRS PRN PO NAUSEA/VOMITING; Start 03/15 at 17:15 Oxcarbazepine (Trileptal) 300 mg BID PO Last administered on 03/21/18at 08:40; Start 03/16/18 at 21:00; Stop 03/21/18 at 18:55; Status DC Amoxicillin/ Clavulanate Potassium (Augmentin 875/ 125mg) 1 tab BID PO Last administered on 03/23/18 19:36; Start 03/17/18 at 21:00; Stop 03/24/18 at 20:59 Lactobacillus Rhamnosus (Culturelle) 1 cap BID PO Last administered on at 19:36; Start 03/17/18 at 21:00 Quetiapine Fumarate (SEROquel) 50 mg HS PO Last administered on 03/23/18at 19:37 ; Start 03/17/18 at 21:00 Acetaminophen/ Hydrocodone Bitart (Lortab 5/325) 1 tab PRN Q6HRS PRN PO PAIN; Start 03/17/18 at 15:00; Stop 03/17/18 at 15:16; Status DC Acetaminophen/ Hydrocodone Bitart (Lortab 5/325) 1 tab PRN Q6HRS PRN PO PAIN Last administered on 03/23/18at 19:38; Start 03/17/18 at 15:45 Diphenhydramine HCl (Benadryl) 25 mg PRN QHS PRN PO ITCHING Last administered on 03/23/18at 19:41; Start 03/18/18 at 20:45 Glucose (Insta-Glucose) 15 gm STK-MED ONCE .ROUTE ; Start 03/19/18 at 16:49; Stop 03/19/18 at 16:50; Status DC Glucose (Insta-Glucose) 15 gm STK-MED ONCE .ROUTE ; Start 03/19/18 at 16:50; Stop 03/19/18 at 16:51; Status DC Quetiapine Fumarate (SEROquel) 25 mg DAILY08 PO Last administered on 03/20/18at 08:29; Start 03/20/18 at 08:00; Stop 03/20/18 at 18:47; Status DC Quetiapine Fumarate (SEROquel) 25 mg DAILY PO ; Start 03/20/18 at 09:00; Status UNV Quetiapine Fumarate (SEROquel) 25 mg TIDBFRMEAL PO Last administered on at 16:02; Start 03/21/18 at 07:30 Oxcarbazepine (Trileptal) 300 mg DAILY PO Last administered on 03/23/18at 07:21 ; Start 03/22/18 at 09:00; Stop 03/23/18 at 18:17; Status DC Oxcarbazepine (Trileptal) 600 mg QHS PO Last administered on 03/23/18at 19:37; Start 03/21/18 at 21:00 Oxcarbazepine (Trileptal) 600 mg DAILY PO ; Start 03/24/18 at 09:00 Quetiapine Fumarate (SEROquel) 25 mg DAILY@1300 PO ; Start 03/24/18 at 13:00 Active Scripts Active Reported Xarelto (Rivaroxaban) 10 Mg Tablet 20 Mg PO QHS Tramadol Hcl (Tramadol HCl) 50 Mg Tablet 50 Mg PO Q4HRS PRN Topamax (Topiramate) 25 Mg Tablet 25 Mg PO QHS Sennosides 8.6 Mg Tablet 8.6 Mg PO DAILY Klor-Con M20 (Potassium Chloride) 20 Meq Tab.er.prt 20 Meq PO DAILY Pantoprazole Sodium 40 Mg Tablet.dr 40 Mg PO BIDBFRMEAL NITROGLYCERIN SubLingual (Nitroglycerin) 0.4 Mg Tab.subl 0.4 Mg SL PRN Q5MIN PRN Miconazole Nitrate 10 Gm Powder 1 Applic MC BID Metoprolol Tartrate 25 Mg Tablet 12.5 Mg PO DAILY Melatonin 3 Mg Tablet 5 Mg PO PRN QHS PRN Meclizine Hcl 25 Mg Tablet 25 Mg PO PRN Q8HRS PRN Lorazepam 0.5 Mg Tablet 0.5 Mg PO PRN Q6HRS PRN Levothyroxine Sodium 50 Mcg Tablet 50 Mcg PO DAILYAC Latanoprost 0.005% Eye Drop (Latanoprost/Pf) 7.5 Ml Drops 1 Drop OU QHS Lamotrigine 100 Mg Tablet 100 Mg PO BID Probiotic (Lactobacillus Acidophilus) 1 Each Capsule 1 Each PO DAILY Zaditor (Ketotifen Fumarate) 5 Ml Drops 1 Drop OU TID Hydrocortisone 453.6 Gm Cream..g. 1 Applic TP BID Gabapentin 300 Mg Capsule 300 Mg PO HS Gabapentin 100 Mg Capsule 100 Mg PO DAILY Furosemide 40 Mg Tablet 40 Mg PO BID Duoneb 0.5-3(2.5) Mg/3 Ml (Albuterol/Ipratropium) 3 Ml Ampul.neb 3 Ml NEB PRN Q4HRS PRN Voltaren (Diclofenac Sodium) 100 Gm Gel..gram. 1 Applic TP BID Cymbalta (Duloxetine Hcl) 20 Mg Capsule.dr 40 Mg PO BID Cyclobenzaprine Hcl 10 Mg Tablet 10 Mg PO PRN Q8HRS PRN Cranberry Concentrate Softgel (Cranberry Conc/Ascorbic Acid) 1 Each Capsule 425 Mg PO TID Cholestyramine Packet (Cholestyramine (With Sugar)) 4 Gm Powd.pack 4 Gm PO BID Biotene Oralbalance (Saliva Stimulant Agents Comb.2) 44.3 Ml Liquid 30 Ml MM PRN Q3HRS PRN Artificial Tears Eye Drops (Dextran 70/Hypromellose) 15 Ml Drops 2 Ml OU PRN Q4HRS PRN Artificial Tears Eye Drops (Dextran 70/Hypromellose) 15 Ml Drops 2 Ml OU QHS Tylenol (Acetaminophen) 325 Mg Tablet 650 Mg PO PRN Q6HRS PRN I have reviewed the current psychotropics carefully including drug interactions. Risk benefit ratio favors no change other than as noted in my dictated progress note. Diagnosis: Problems: (1) Medical clearance for psychiatric admission (2) Anxiety disorder (3) Bipolar 1 disorder, mixed, moderate (4) Impulse control disorder (5) Schizoaffective disorder, bipolar type (6) Vascular dementia with delusions PATRIC QUEVEDO MD Mar 23, 2018 20:33
[2018-03-23] MEDS ORDERED: MELATONIN 3 MG TABLET ONE (21:00)
[2018-03-24 05:53] VITALS: BP 107/62
[2018-03-24] MEDS: LEVOTHYROXINE 50 MCG TABLET PO SCH (05:54)
[2018-03-24] MEDS: CHOLESTYRAMINE/ASPARTAME 4 GM PACKET PO SCH ×2 (07:12→18:10)
[2018-03-24] MEDS: QUEtiapine 25 MG TABLET. PO SCH ×3 (07:12→18:10)
[2018-03-24] MEDS: POTASSIUM CHLORIDE 20 MEQ TABLET.ER. PO SCH (07:12)
[2018-03-24] MEDS: GABAPENTIN 100 MG CAPSULE. PO SCH (07:13)
[2018-03-24] MEDS: PANTOPRAZOLE 40 MG TABLET. PO SCH ×2 (07:13→18:10)
[2018-03-24] MEDS: AMOXICILLIN/K CLAV 875/125MG TABLET. PO SCH ×2 (07:13→20:18)
[2018-03-24] MEDS: lamoTRIgine 100 MG TABLET. PO SCH ×2 (07:13→20:17)
[2018-03-24] MEDS: LACTOBACILLUS RHAMNOSUS GG 1 CAPSULE. PO SCH ×2 (07:13→20:18)
[2018-03-24] MEDS: SENNOSIDES 8.6 MG TABLET PO SCH (07:13)
[2018-03-24] MEDS: HYDROCORTISONE 1% TOPICAL CREAM 30GM TUBE. TP SCH ×2 (07:13→20:20)
[2018-03-24] MEDS: METOPROLOL TART IMMED RELEASE 25 MG TABLET PO SCH (07:14)
[2018-03-24] MEDS: MICONAZOLE NITRATE 2% TOPICAL CREAM 28GM TUBE. TP SCH ×2 (07:14→20:20)
[2018-03-24] MEDS: NYSTATIN TOPICAL POWDER 15GM BOTTLE. TP SCH ×2 (07:14→20:20)
[2018-03-24] MEDS: DICLOFENAC SODIUM 1% TOPICAL GEL 100GM TUBE. TP SCH ×2 (07:14→20:21)
[2018-03-24] MEDS: FUROSEMIDE 40 MG TABLET PO SCH ×2 (07:15→12:16)
[2018-03-24] MEDS: KETOTIFEN FUMARATE 0.025% OPHT SOLUTION BOTTLE. OU SCH ×3 (07:15→20:20)
[2018-03-24] MEDS: INSULIN LISPRO 300 UNITS/3 ML INSULN.PEN. SQ SCH ×3 (08:00→16:57)
[2018-03-24 08:09] LABS: BASO % 0 % (0-3); EOS # 0.3 x10^3/uL (0.0-0.7); EOS % 7 % (0-3); HEMATOCRIT 34.5 % (36.0-47.0); HEMOGLOBIN 11.8 g/dL (12.0-15.5); LYMPH # 2.2 x10^3/uL (1.0-4.8); LYMPH % 45 % (24-48); MEAN CORPUSCULAR HEMOGLOBIN 29 pg (25-35); MEAN CORPUSCULAR HGB CONC 34 g/dL (31-37); MEAN CORPUSCULAR VOLUME 84 fL (79-100); MONO # 0.3 x10^3/uL (0.0-1.1); MONO % 7 % (0-9); NEUT % 42 % (31-73); PLATELET COUNT 192 x10^3/uL (140-400); RED BLOOD COUNT 4.13 x10^6/uL (3.50-5.40); RED CELL DISTRIBUTION WIDTH 14.3 % (11.5-14.5); WHITE BLOOD COUNT 4.8 x10^3/uL (4.0-11.0)
[2018-03-24 08:20] LABS: CREATININE 0.8 mg/dL (0.6-1.0); GFR 71.3; POTASSIUM 4.1 mmol/L (3.5-5.1)
[2018-03-24] MEDS: CYCLOBENZAPRINE 10 MG TABLET. PO PRN ×2 (08:44→15:00)
[2018-03-24] MEDS: HYDROcodone/APAP 5/325MG 1 TAB TABLET PO PRN ×2 (08:44→15:01)
--- NOTE | 2018-03-24 11:28 | PN ---
DATE: 03/22/2018 PSYCHIATRIC PROGRESS NOTE This is a late entry 03/22/2018, covers elements not covered in my initial note. SUBJECTIVE: I met with the patient in the evening, staffed at treatment team meeting with the entire team in the morning. We reviewed her diagnoses progress, transition plans at length including her past history, other treatment team meeting. The patient remains quite intrusive, disruptive at times, labile in her mood. REVIEW OF SYSTEMS: Ambulation impaired, in wheelchair. No CV, , pulmonary, eye, ENT system symptoms on review. MENTAL STATUS EXAM: Oriented to herself and situation. Speech coherent, rapid. Abstraction fair, computation impaired, language function intact, attention span short. Mood and affect remains somewhat labile and she is extremely obsessed about discharge plans, which I addressed with her. LABORATORY DATA: Reviewed. IMPRESSION: Bipolar 1 disorder, mixed with psychotic features. Rest unchanged. PLAN: Continue psychotropics. Trileptal was just increased. Rest unchanged from initial note. MAN Prasanth QUEVEDO MD DR: DUSTY/yusuf JOB#: [id number] / [id number]
--- NOTE | 2018-03-24 11:28 | PN ---
DATE: 03/21/2018 PSYCHIATRIC PROGRESS NOTE This is a late entry 03/21/2018 covers elements not covered in my initial note. SUBJECTIVE: I met with the patient in the evening. The patient slept 7-3/4 hours previous evening. She has been anxious, restless, extremely disruptive, intrusive, repetitive to nursing staff. She defecated on herself, yet was yelling at the nursing staff, labile in her mood. Denies she has any problems whatsoever. Reportedly, she called the insurance company, I am unsure of the details. She is wanting to be discharged, unable to recognize that she has a DPOA to make decisions for her, but nothing I could do to talk to her at length in her room evening of 03/21/2018, would convince her about this. REVIEW OF SYSTEMS: Ambulation impaired, in wheelchair. No CV, , pulmonary, eye system symptoms on review. MENTAL STATUS EXAM: Oriented to herself and situation. Speech coherent, rapid. Abstraction fair, computation impaired, language function intact. Mood and affect remains labile. LABORATORY DATA: Reviewed. IMPRESSION: Bipolar 1 disorder, mixed with psychotic features. Rest unchanged. PLAN: Increase Trileptal from 300 b.i.d. to 300 a.m. and 600 at bedtime. Continue rest unchanged from initial note. MAN Prasanth QUEVEDO MD DR: DUSTY/yusuf JOB#: [id number] / [id number]
[2018-03-24] MEDS ORDERED: QUEtiapine 25 MG TABLET. PO SCH (13:00)
[2018-03-24 15:59] VITALS: BP 118/75
[2018-03-24] MEDS: RIVAROXABAN 10 MG TABLET. PO SCH (20:17)
[2018-03-24] MEDS: traZODone 100 MG TABLET. PO SCH (20:17)
[2018-03-24] MEDS: TOPIRAMATE 25 MG TABLET. PO SCH (20:17)
[2018-03-24] MEDS: GABAPENTIN 300 MG CAPSULE. PO SCH (20:18)
[2018-03-24] MEDS: QUEtiapine 50 MG TABLET. PO SCH (20:18)
[2018-03-24] MEDS: POLYVINYL ALCOHOL 1.4% OPHTH SOLUTION 15ML BOTTLE. OU SCH (20:20)
[2018-03-24] MEDS: LATANOPROST 0.005% OPHTH SOLUTION 2.5ML BOTTLE. OU SCH (20:20)
--- NOTE | 2018-03-24 22:41 | PDOC ---
Exam Note: Fernando Note: Please also refer to the separate dictated note~for this date of service dictated separately.~Patient seen individually. Discussed the patient with Nursing staff reviewed the chart.~Reviewed interim history and current functioning. Reviewed vital signs,~Labs/ Radiology~and current medications noted below. Continue current treatment with the changes noted in the dictated addendum note Assessment: Vital Signs: Vital Signs Date Time Temp Pulse Resp B/P (MAP) Pulse Ox O2 Delivery O2 Flow Rate FiO2 03/24/18 15:59 98.4 70 19 118/75 (89) 96 03/23/18 20:38 Nasal Cannula 2.0 I&O Intake and Output 03/24/18 07:00 Intake Total 1300 ml Output Total 1150 ml Balance 150 ml Intake Oral 1300 ml Output Urine Total 1150 ml # Bowel Movements 1 Labs: Laboratory Tests Test 03/24/18 07:00 03/24/18 07:38 03/24/18 11:59 03/24/18 16:55 White Blood Count 4.8 x10^3/uL (4.0-11.0) Red Blood Count 4.13 x10^6/uL (3.50-5.40) Hemoglobin 11.8 g/dL (12.0-15.5) L Hematocrit 34.5 % (36.0-47.0) L Mean Corpuscular Volume 84 fL (79-100) Mean Corpuscular Hemoglobin 29 pg (25-35) Mean Corpuscular Hemoglobin Concent 34 g/dL (31-37) Red Cell Distribution Width 14.3 % (11.5-14.5) Platelet Count 192 x10^3/uL (140-400) Neutrophils (%) (Auto) 42 % (31-73) Lymphocytes (%) (Auto) 45 % (24-48) Monocytes (%) (Auto) 7 % (0-9) Eosinophils (%) (Auto) 7 % (0-3) H Basophils (%) (Auto) 0 % (0-3) Neutrophils # (Auto) 2.0 x10^3uL (1.8-7.7) Lymphocytes # (Auto) 2.2 x10^3/uL (1.0-4.8) Monocytes # (Auto) 0.3 x10^3/uL (0.0-1.1) Eosinophils # (Auto) 0.3 x10^3/uL (0.0-0.7) Basophils # (Auto) 0.0 x10^3/uL (0.0-0.2) Sodium Level 135 mmol/L (136-145) L Potassium Level 4.1 mmol/L (3.5-5.1) Chloride Level 104 mmol/L (98-107) Carbon Dioxide Level 21 mmol/L (21-32) Anion Gap 10 (6-14) Blood Urea Nitrogen 13 mg/dL (7-20) Creatinine 0.8 mg/dL (0.6-1.0) Estimated GFR (Cockcroft-Gault) 71.3 Glucose Level 90 mg/dL (70-99) Calcium Level 9.0 mg/dL (8.5-10.1) Glucose (Fingerstick) 82 mg/dL (70-99) 78 mg/dL (70-99) 79 mg/dL (70-99) Test 03/24/18 19:07 Glucose (Fingerstick) 76 mg/dL (70-99) Current Medications: Meds: Current Medications Tramadol HCl (Ultram) 50 mg 1X ONCE PO Last administered on 03/12/18at 21:09; Start 03/12/18 at 21:15; Stop 03/12/18 at 21:36; Status DC Potassium Chloride (Klor-Con) 40 meq 1X ONCE PO ; Start 03/12/18 at 21:15; Stop 03/12/18 at 21:53; Status DC Acetaminophen (Tylenol) 650 mg PRN Q6HRS PRN PO PAIN / TEMP Last administered on 03/14/18at 03:42; Start 03/12/18 at 23:00; Stop 03/14/18 at 16:35; Status DC Multi-Ingredient Ointment (Analgesic [place]) 1 belle PRN QID PRN TP MUSCLE PAIN; Start 03/12/18 at 23:00 Al Hydroxide/Mg Hydroxide (Mylanta Plus Xs) 15 ml PRN AFTMEALHC PRN PO DYSPEPSIA; Start 03/12/18 at 23:00 Magnesium Hydroxide (Milk Of Magnesia) 2,400 mg PRN QHS PRN PO CONSTIPATION; Start 03/12/18 at 23:00 Duloxetine HCl (Cymbalta) 40 mg BID PO Last administered on 03/13/18 08:59; Start 03/13/18 at 09:00; Stop 03/13/18 at 19:25; Status DC Lorazepam (Ativan) 0.5 mg PRN Q6HRS PRN PO ANXIETY Last administered on 08:31; Start 03/13/18 at 00:15 Acetaminophen (Tylenol) 650 mg PRN Q6HRS PRN PO PAIN / TEMP Last administered on 03/19/18 20:09; Start 03/13/18 at 00:15 Cyclobenzaprine HCl (Flexeril) 10 mg PRN Q8HRS PRN PO MUSCLE SPASMS Last administered on 03/24/18 15:00; Start 03/13/18 at 00:15 Diclofenac Sodium (Voltaren) 1 belle BID TP Last administered on 03/24/18 20:21 ; Start 03/13/18 at 09:00 Gabapentin (Neurontin) 100 mg DAILY PO Last administered on 03/24/18 07:13; Start 03/13/18 at 09:00 Gabapentin (Neurontin) 300 mg HS PO Last administered on 03/24/18 20:18; Start 03/13/18 at 21:00 Albuterol Sulfate (Ventolin) 2.5 mg PRN Q4HRS PRN NEB SHORTNESS OF BREATH; Start 03/13/18 at 00:15 Metoprolol Tartrate (Lopressor) 12.5 mg DAILY PO Last administered on 07:22; Start 03/13/18 at 09:00 Nitroglycerin (Nitrostat) 0.4 mg PRN Q5MIN PRN SL CHEST PAIN; Start 03/13/18 at 00:15 Potassium Chloride (Klor-Con) 20 meq DAILY PO Last administered on 03/24/18 07 :12; Start 03/13/18 at 09:00 Rivaroxaban (Xarelto) 20 mg QHS PO Last administered on 03/24/18 20:17; Start 03/13/18 at 21:00 Tramadol HCl (Ultram) 50 mg PRN Q4HRS PRN PO PAIN Last administered on 05:56; Start 03/13/18 at 00:15; Stop 03/17/18 at 14:57; Status DC Cholestyramine Resin (Questran Light) 4 gm BIDAFTMEAL PO Last administered on 18:10; Start 03/13/18 at 09:00 Non-Formulary Medication (Cranberry Conc/ Ascorbic Acid (Cranberry Concentrate Softgel)) 425 mg TID PO ; Start 03/13/18 at 09:00; Status UNV Artificial Tears (Artificial Tears) 2 drop PRN Q4HRS PRN OU DRY EYE; Start at 00:15 Artificial Tears (Artificial Tears) 2 drop QHS OU Last administered on 20:20; Start 03/13/18 at 21:00 Furosemide (Lasix) 40 mg BID92 PO Last administered on 03/24/18 12:16; Start 03/13/18 at 09:00 Hydrocortisone (Cortaid) 1 belle BID TP Last administered on 03/24/18 20:20; Start 03/13/18 at 09:00 Ketotifen Fumarate (Zaditor) 1 drop TID OU Last administered on 03/24/18 20:20 ; Start 03/13/18 at 09:00 Lactobacillus Rhamnosus (Culturelle) 1 cap DAILY PO Last administered on 07:35; Start 03/13/18 at 09:00; Stop 03/17/18 at 15:35; Status DC Lamotrigine (LaMICtal) 100 mg BID PO Last administered on 03/24/18 20:17; Start 03/13/18 at 09:00 Latanoprost (Xalatan) 1 drop QHS OU Last administered on 03/24/18 20:20; Start 03/13/18 at 21:00 Levothyroxine Sodium (Synthroid) 50 mcg DAILY07 PO Last administered on 05:54; Start 03/13/18 at 07:00 Meclizine HCl (Antivert) 25 mg PRN Q8HRS PRN PO DIZZINESS; Start 03/13/18 at 00 :15 Miconazole Nitrate (Monistat-Derm) 1 belle BID TP Last administered on 03/24/18 20:20; Start 03/13/18 at 09:00 Pantoprazole Sodium (Protonix) 40 mg BIDBFRMEAL PO Last administered on 18:10; Start 03/13/18 at 07:30 Saliva Substitute (Biotene Moisturizing Mouth) 1 spray PRN Q3HRS PRN MM DRY MOUTH; Start 03/13/18 at 00:15 Sennosides (Senna) 8.6 mg DAILY PO Last administered on 03/24/18at 07:13; Start 03/13/18 at 09:00 Topiramate (Topamax) 25 mg QHS PO Last administered on 03/14/18at 19:21; Start 03/13/18 at 21:00; Stop 03/15/18 at 17:03; Status DC Melatonin 6 mg PRN QHS PRN PO INSOMNIA Last administered on 03/23/18at 19:41; Start 03/13/18 at 06:00 Insulin Human Lispro (HumaLOG) 0-5 UNITS TIDWMEALS SQ ; Start 03/14/18 at 08:00 Dextrose 12.5 gm PRN Q15MIN PRN IV SEE COMMENTS; Start 03/13/18 at 19:30 Duloxetine HCl (Cymbalta) 40 mg DAILY PO Last administered on 03/16/18at 09:26; Start 03/14/18 at 09:00; Stop 03/16/18 at 19:41; Status DC Oxcarbazepine (Trileptal) 300 mg DAILY PO Last administered on 03/16/18at 09:28 ; Start 03/14/18 at 09:00; Stop 03/16/18 at 19:41; Status DC Trazodone HCl (Desyrel) 100 mg QHS PO Last administered on 03/24/18at 20:17; Start 03/13/18 at 21:00 Trazodone HCl (Desyrel) 100 mg PRN QHS PRN PO INSOMNIA; Start 03/13/18 at 19:30 Topiramate (Topamax) 50 mg QHS PO Last administered on 03/24/18 20:17; Start 03/15/18 at 21:00 Nystatin (Nystop) 1 belle BID TP Last administered on 03/24/18 20:20; Start at 21:00 Ondansetron HCl (Zofran Odt) 4 mg PRN Q8HRS PRN PO NAUSEA/VOMITING; Start 03/15 at 17:15 Oxcarbazepine (Trileptal) 300 mg BID PO Last administered on 03/21/18at 08:40; Start 03/16/18 at 21:00; Stop 03/21/18 at 18:55; Status DC Amoxicillin/ Clavulanate Potassium (Augmentin 875/ 125mg) 1 tab BID PO Last administered on 03/24/18at 20:18; Start 03/17/18 at 21:00; Stop 03/24/18 at 20:59 ; Status DC Lactobacillus Rhamnosus (Culturelle) 1 cap BID PO Last administered on at 20:18; Start 03/17/18 at 21:00 Quetiapine Fumarate (SEROquel) 50 mg HS PO Last administered on 03/24/18at 20:18 ; Start 03/17/18 at 21:00 Acetaminophen/ Hydrocodone Bitart (Lortab 5/325) 1 tab PRN Q6HRS PRN PO PAIN; Start 03/17/18 at 15:00; Stop 03/17/18 at 15:16; Status DC Acetaminophen/ Hydrocodone Bitart (Lortab 5/325) 1 tab PRN Q6HRS PRN PO PAIN Last administered on 03/24/18at 15:01; Start 03/17/18 at 15:45 Diphenhydramine HCl (Benadryl) 25 mg PRN QHS PRN PO ITCHING Last administered on 03/23/18at 19:41; Start 03/18/18 at 20:45 Glucose (Insta-Glucose) 15 gm STK-MED ONCE .ROUTE ; Start 03/19/18 at 16:49; Stop 03/19/18 at 16:50; Status DC Glucose (Insta-Glucose) 15 gm STK-MED ONCE .ROUTE ; Start 03/19/18 at 16:50; Stop 03/19/18 at 16:51; Status DC Quetiapine Fumarate (SEROquel) 25 mg DAILY08 PO Last administered on 03/20/18at 08:29; Start 03/20/18 at 08:00; Stop 03/20/18 at 18:47; Status DC Quetiapine Fumarate (SEROquel) 25 mg DAILY PO ; Start 03/20/18 at 09:00; Status UNV Quetiapine Fumarate (SEROquel) 25 mg TIDBFRMEAL PO Last administered on at 18:10; Start 03/21/18 at 07:30 Oxcarbazepine (Trileptal) 300 mg DAILY PO Last administered on 03/23/18at 07:21 ; Start 03/22/18 at 09:00; Stop 03/23/18 at 18:17; Status DC Oxcarbazepine (Trileptal) 600 mg QHS PO Last administered on 03/24/18at 20:18; Start 03/21/18 at 21:00 Oxcarbazepine (Trileptal) 600 mg DAILY PO Last administered on 03/24/18at 07:18 ; Start 03/24/18 at 09:00 Quetiapine Fumarate (SEROquel) 25 mg DAILY@1300 PO ; Start 03/24/18 at 13:00; Stop 03/24/18 at 13:00; Status DC Active Scripts Active Reported Xarelto (Rivaroxaban) 10 Mg Tablet 20 Mg PO QHS Tramadol Hcl (Tramadol HCl) 50 Mg Tablet 50 Mg PO Q4HRS PRN Topamax (Topiramate) 25 Mg Tablet 25 Mg PO QHS Sennosides 8.6 Mg Tablet 8.6 Mg PO DAILY Klor-Con M20 (Potassium Chloride) 20 Meq Tab.er.prt 20 Meq PO DAILY Pantoprazole Sodium 40 Mg Tablet.dr 40 Mg PO BIDBFRMEAL NITROGLYCERIN SubLingual (Nitroglycerin) 0.4 Mg Tab.subl 0.4 Mg SL PRN Q5MIN PRN Miconazole Nitrate 10 Gm Powder 1 Applic MC BID Metoprolol Tartrate 25 Mg Tablet 12.5 Mg PO DAILY Melatonin 3 Mg Tablet 5 Mg PO PRN QHS PRN Meclizine Hcl 25 Mg Tablet 25 Mg PO PRN Q8HRS PRN Lorazepam 0.5 Mg Tablet 0.5 Mg PO PRN Q6HRS PRN Levothyroxine Sodium 50 Mcg Tablet 50 Mcg PO DAILYAC Latanoprost 0.005% Eye Drop (Latanoprost/Pf) 7.5 Ml Drops 1 Drop OU QHS Lamotrigine 100 Mg Tablet 100 Mg PO BID Probiotic (Lactobacillus Acidophilus) 1 Each Capsule 1 Each PO DAILY Zaditor (Ketotifen Fumarate) 5 Ml Drops 1 Drop OU TID Hydrocortisone 453.6 Gm Cream..g. 1 Applic TP BID Gabapentin 300 Mg Capsule 300 Mg PO HS Gabapentin 100 Mg Capsule 100 Mg PO DAILY Furosemide 40 Mg Tablet 40 Mg PO BID Duoneb 0.5-3(2.5) Mg/3 Ml (Albuterol/Ipratropium) 3 Ml Ampul.neb 3 Ml NEB PRN Q4HRS PRN Voltaren (Diclofenac Sodium) 100 Gm Gel..gram. 1 Applic TP BID Cymbalta (Duloxetine Hcl) 20 Mg Capsule.dr 40 Mg PO BID Cyclobenzaprine Hcl 10 Mg Tablet 10 Mg PO PRN Q8HRS PRN Cranberry Concentrate Softgel (Cranberry Conc/Ascorbic Acid) 1 Each Capsule 425 Mg PO TID Cholestyramine Packet (Cholestyramine (With Sugar)) 4 Gm Powd.pack 4 Gm PO BID Biotene Oralbalance (Saliva Stimulant Agents Comb.2) 44.3 Ml Liquid 30 Ml MM PRN Q3HRS PRN Artificial Tears Eye Drops (Dextran 70/Hypromellose) 15 Ml Drops 2 Ml OU PRN Q4HRS PRN Artificial Tears Eye Drops (Dextran 70/Hypromellose) 15 Ml Drops 2 Ml OU QHS Tylenol (Acetaminophen) 325 Mg Tablet 650 Mg PO PRN Q6HRS PRN I have reviewed the current psychotropics carefully including drug interactions. Risk benefit ratio favors no change other than as noted in my dictated progress note. Diagnosis: Problems: (1) Medical clearance for psychiatric admission (2) Anxiety disorder (3) Bipolar 1 disorder, mixed, moderate (4) Impulse control disorder (5) Schizoaffective disorder, bipolar type (6) Vascular dementia with delusions PATRIC QUEVEDO MD Mar 24, 2018 22:41
[2018-03-25 05:45] VITALS: BP 122/65
[2018-03-25] MEDS: LEVOTHYROXINE 50 MCG TABLET PO SCH (07:00)
[2018-03-25] MEDS: INSULIN LISPRO 300 UNITS/3 ML INSULN.PEN. SQ SCH ×3 (07:35→17:00)
[2018-03-25] MEDS: lamoTRIgine 100 MG TABLET. PO SCH ×2 (07:38→20:41)
[2018-03-25] MEDS: CHOLESTYRAMINE/ASPARTAME 4 GM PACKET PO SCH ×2 (07:38→18:29)
[2018-03-25] MEDS: QUEtiapine 25 MG TABLET. PO SCH ×3 (07:38→18:30)
[2018-03-25] MEDS: SENNOSIDES 8.6 MG TABLET PO SCH (07:38)
[2018-03-25] MEDS: LACTOBACILLUS RHAMNOSUS GG 1 CAPSULE. PO SCH ×2 (07:38→20:42)
[2018-03-25] MEDS: GABAPENTIN 100 MG CAPSULE. PO SCH (07:38)
[2018-03-25] MEDS: PANTOPRAZOLE 40 MG TABLET. PO SCH ×2 (07:38→18:31)
[2018-03-25] MEDS: POTASSIUM CHLORIDE 20 MEQ TABLET.ER. PO SCH (07:38)
[2018-03-25] MEDS: FUROSEMIDE 40 MG TABLET PO SCH ×2 (07:39→13:22)
[2018-03-25] MEDS: METOPROLOL TART IMMED RELEASE 25 MG TABLET PO SCH (07:39)
[2018-03-25] MEDS: HYDROCORTISONE 1% TOPICAL CREAM 30GM TUBE. TP SCH ×2 (07:39→20:43)
[2018-03-25] MEDS: MICONAZOLE NITRATE 2% TOPICAL CREAM 28GM TUBE. TP SCH ×2 (07:39→20:44)
[2018-03-25] MEDS: KETOTIFEN FUMARATE 0.025% OPHT SOLUTION BOTTLE. OU SCH ×3 (07:40→20:42)
[2018-03-25] MEDS: DICLOFENAC SODIUM 1% TOPICAL GEL 100GM TUBE. TP SCH ×2 (07:40→20:44)
[2018-03-25] MEDS: NYSTATIN TOPICAL POWDER 15GM BOTTLE. TP SCH ×2 (07:40→20:43)
[2018-03-25] MEDS: CYCLOBENZAPRINE 10 MG TABLET. PO PRN ×2 (07:53→18:40)
[2018-03-25] MEDS: HYDROcodone/APAP 5/325MG 1 TAB TABLET PO PRN ×2 (07:53→18:40)
[2018-03-25 16:03] VITALS: BP 133/81
[2018-03-25] MEDS: RIVAROXABAN 10 MG TABLET. PO SCH (20:41)
[2018-03-25] MEDS: TOPIRAMATE 25 MG TABLET. PO SCH (20:41)
[2018-03-25] MEDS: POLYVINYL ALCOHOL 1.4% OPHTH SOLUTION 15ML BOTTLE. OU SCH (20:42)
[2018-03-25] MEDS: GABAPENTIN 300 MG CAPSULE. PO SCH (20:42)
[2018-03-25] MEDS: QUEtiapine 50 MG TABLET. PO SCH (20:42)
[2018-03-25] MEDS: traZODone 100 MG TABLET. PO SCH (20:42)
--- NOTE | 2018-03-25 20:47 | PDOC ---
Exam Note: Fernando Note: Please also refer to the separate dictated note~for this date of service dictated separately.~Patient seen individually. Discussed the patient with Nursing staff reviewed the chart.~Reviewed interim history and current functioning. Reviewed vital signs,~Labs/ Radiology~and current medications noted below. Continue current treatment with the changes noted in the dictated addendum note Assessment: Vital Signs: Vital Signs Date Time Temp Pulse Resp B/P (MAP) Pulse Ox O2 Delivery O2 Flow Rate FiO2 03/25/18 19:43 20 Room Air 03/25/18 16:03 98.0 82 133/81 (98) 98 03/23/18 20:38 2.0 I&O Intake and Output 03/25/18 07:00 Intake Total 1940 ml Output Total 600 ml Balance 1340 ml Intake Oral 1940 ml Output Urine Total 600 ml # Bowel Movements 3 Labs: Laboratory Tests Test 03/25/18 07:17 03/25/18 11:57 03/25/18 16:29 03/25/18 16:50 Glucose (Fingerstick) 78 mg/dL (70-99) 94 mg/dL (70-99) 56 mg/dL (70-99) L 74 mg/dL (70-99) Test 03/25/18 19:44 Glucose (Fingerstick) 64 mg/dL (70-99) L Current Medications: Meds: Current Medications Tramadol HCl (Ultram) 50 mg 1X ONCE PO Last administered on 03/12/18at 21:09; Start 03/12/18 at 21:15; Stop 03/12/18 at 21:36; Status DC Potassium Chloride (Klor-Con) 40 meq 1X ONCE PO ; Start 03/12/18 at 21:15; Stop 03/12/18 at 21:53; Status DC Acetaminophen (Tylenol) 650 mg PRN Q6HRS PRN PO PAIN / TEMP Last administered on 03/14/18at 03:42; Start 03/12/18 at 23:00; Stop 03/14/18 at 16:35; Status DC Multi-Ingredient Ointment (Analgesic [place]) 1 belle PRN QID PRN TP MUSCLE PAIN; Start 03/12/18 at 23:00 Al Hydroxide/Mg Hydroxide (Mylanta Plus Xs) 15 ml PRN AFTMEALHC PRN PO DYSPEPSIA; Start 03/12/18 at 23:00 Magnesium Hydroxide (Milk Of Magnesia) 2,400 mg PRN QHS PRN PO CONSTIPATION; Start 03/12/18 at 23:00 Duloxetine HCl (Cymbalta) 40 mg BID PO Last administered on 03/13/18at 08:59; Start 03/13/18 at 09:00; Stop 03/13/18 at 19:25; Status DC Lorazepam (Ativan) 0.5 mg PRN Q6HRS PRN PO ANXIETY Last administered on 08:31; Start 03/13/18 at 00:15 Acetaminophen (Tylenol) 650 mg PRN Q6HRS PRN PO PAIN / TEMP Last administered on 03/19/18 20:09; Start 03/13/18 at 00:15 Cyclobenzaprine HCl (Flexeril) 10 mg PRN Q8HRS PRN PO MUSCLE SPASMS Last administered on 03/25/18 18:40; Start 03/13/18 at 00:15 Diclofenac Sodium (Voltaren) 1 belle BID TP Last administered on 03/25/18 07:40 ; Start 03/13/18 at 09:00 Gabapentin (Neurontin) 100 mg DAILY PO Last administered on 03/25/18 07:38; Start 03/13/18 at 09:00 Gabapentin (Neurontin) 300 mg HS PO Last administered on 03/24/18 20:18; Start 03/13/18 at 21:00 Albuterol Sulfate (Ventolin) 2.5 mg PRN Q4HRS PRN NEB SHORTNESS OF BREATH; Start 03/13/18 at 00:15 Metoprolol Tartrate (Lopressor) 12.5 mg DAILY PO Last administered on 07:39; Start 03/13/18 at 09:00 Nitroglycerin (Nitrostat) 0.4 mg PRN Q5MIN PRN SL CHEST PAIN; Start 03/13/18 at 00:15 Potassium Chloride (Klor-Con) 20 meq DAILY PO Last administered on 03/25/18 07 :38; Start 03/13/18 at 09:00 Rivaroxaban (Xarelto) 20 mg QHS PO Last administered on 03/24/18 20:17; Start 03/13/18 at 21:00 Tramadol HCl (Ultram) 50 mg PRN Q4HRS PRN PO PAIN Last administered on 05:56; Start 03/13/18 at 00:15; Stop 03/17/18 at 14:57; Status DC Cholestyramine Resin (Questran Light) 4 gm BIDAFTMEAL PO Last administered on 18:29; Start 03/13/18 at 09:00 Non-Formulary Medication (Cranberry Conc/ Ascorbic Acid (Cranberry Concentrate Softgel)) 425 mg TID PO ; Start 03/13/18 at 09:00; Status UNV Artificial Tears (Artificial Tears) 2 drop PRN Q4HRS PRN OU DRY EYE; Start at 00:15 Artificial Tears (Artificial Tears) 2 drop QHS OU Last administered on 20:20; Start 03/13/18 at 21:00 Furosemide (Lasix) 40 mg BID92 PO Last administered on 03/25/18 13:22; Start 03/13/18 at 09:00 Hydrocortisone (Cortaid) 1 belle BID TP Last administered on 03/25/18 07:39; Start 03/13/18 at 09:00 Ketotifen Fumarate (Zaditor) 1 drop TID OU Last administered on 03/25/18 13:22 ; Start 03/13/18 at 09:00 Lactobacillus Rhamnosus (Culturelle) 1 cap DAILY PO Last administered on 07:35; Start 03/13/18 at 09:00; Stop 03/17/18 at 15:35; Status DC Lamotrigine (LaMICtal) 100 mg BID PO Last administered on 03/25/18 07:38; Start 03/13/18 at 09:00 Latanoprost (Xalatan) 1 drop QHS OU Last administered on 03/24/18 20:20; Start 03/13/18 at 21:00 Levothyroxine Sodium (Synthroid) 50 mcg DAILY07 PO Last administered on 07:00; Start 03/13/18 at 07:00 Meclizine HCl (Antivert) 25 mg PRN Q8HRS PRN PO DIZZINESS; Start 03/13/18 at 00 :15 Miconazole Nitrate (Monistat-Derm) 1 belle BID TP Last administered on 03/25/18 07:39; Start 03/13/18 at 09:00 Pantoprazole Sodium (Protonix) 40 mg BIDBFRMEAL PO Last administered on 18:31; Start 03/13/18 at 07:30 Saliva Substitute (Biotene Moisturizing Mouth) 1 spray PRN Q3HRS PRN MM DRY MOUTH; Start 03/13/18 at 00:15 Sennosides (Senna) 8.6 mg DAILY PO Last administered on 03/25/18 07:38; Start 03/13/18 at 09:00 Topiramate (Topamax) 25 mg QHS PO Last administered on 03/14/18 19:21; Start 03/13/18 at 21:00; Stop 03/15/18 at 17:03; Status DC Melatonin 6 mg PRN QHS PRN PO INSOMNIA Last administered on 03/23/18 19:41; Start 03/13/18 at 06:00 Insulin Human Lispro (HumaLOG) 0-5 UNITS TIDWMEALS SQ ; Start 03/14/18 at 08:00 Dextrose 12.5 gm PRN Q15MIN PRN IV SEE COMMENTS; Start 03/13/18 at 19:30 Duloxetine HCl (Cymbalta) 40 mg DAILY PO Last administered on 03/16/18 09:26; Start 03/14/18 at 09:00; Stop 03/16/18 at 19:41; Status DC Oxcarbazepine (Trileptal) 300 mg DAILY PO Last administered on 03/16/18 09:28 ; Start 03/14/18 at 09:00; Stop 03/16/18 at 19:41; Status DC Trazodone HCl (Desyrel) 100 mg QHS PO Last administered on 03/24/18 20:17; Start 03/13/18 at 21:00 Trazodone HCl (Desyrel) 100 mg PRN QHS PRN PO INSOMNIA; Start 03/13/18 at 19:30 Topiramate (Topamax) 50 mg QHS PO Last administered on 03/24/18 20:17; Start 03/15/18 at 21:00 Nystatin (Nystop) 1 belle BID TP Last administered on 7/29/18at 07:40; Start at 21:00 Ondansetron HCl (Zofran Odt) 4 mg PRN Q8HRS PRN PO NAUSEA/VOMITING; Start 03/15 at 17:15 Oxcarbazepine (Trileptal) 300 mg BID PO Last administered on 03/21/18at 08:40; Start 03/16/18 at 21:00; Stop 03/21/18 at 18:55; Status DC Amoxicillin/ Clavulanate Potassium (Augmentin 875/ 125mg) 1 tab BID PO Last administered on 03/24/18at 20:18; Start 03/17/18 at 21:00; Stop 03/24/18 at 20:59 ; Status DC Lactobacillus Rhamnosus (Culturelle) 1 cap BID PO Last administered on at 07:38; Start 03/17/18 at 21:00 Quetiapine Fumarate (SEROquel) 50 mg HS PO Last administered on 03/24/18at 20:18 ; Start 03/17/18 at 21:00 Acetaminophen/ Hydrocodone Bitart (Lortab 5/325) 1 tab PRN Q6HRS PRN PO PAIN; Start 03/17/18 at 15:00; Stop 03/17/18 at 15:16; Status DC Acetaminophen/ Hydrocodone Bitart (Lortab 5/325) 1 tab PRN Q6HRS PRN PO PAIN Last administered on 03/25/18at 18:40; Start 03/17/18 at 15:45 Diphenhydramine HCl (Benadryl) 25 mg PRN QHS PRN PO ITCHING Last administered on 03/23/18at 19:41; Start 03/18/18 at 20:45 Glucose (Insta-Glucose) 15 gm STK-MED ONCE .ROUTE ; Start 03/19/18 at 16:49; Stop 03/19/18 at 16:50; Status DC Glucose (Insta-Glucose) 15 gm STK-MED ONCE .ROUTE ; Start 03/19/18 at 16:50; Stop 03/19/18 at 16:51; Status DC Quetiapine Fumarate (SEROquel) 25 mg DAILY08 PO Last administered on 03/20/18at 08:29; Start 03/20/18 at 08:00; Stop 03/20/18 at 18:47; Status DC Quetiapine Fumarate (SEROquel) 25 mg DAILY PO ; Start 03/20/18 at 09:00; Status UNV Quetiapine Fumarate (SEROquel) 25 mg TIDBFRMEAL PO Last administered on at 18:30; Start 03/21/18 at 07:30 Oxcarbazepine (Trileptal) 300 mg DAILY PO Last administered on 03/23/18at 07:21 ; Start 03/22/18 at 09:00; Stop 03/23/18 at 18:17; Status DC Oxcarbazepine (Trileptal) 600 mg QHS PO Last administered on 03/24/18at 20:18; Start 03/21/18 at 21:00 Oxcarbazepine (Trileptal) 600 mg DAILY PO Last administered on 03/25/18at 07:39 ; Start 03/24/18 at 09:00 Quetiapine Fumarate (SEROquel) 25 mg DAILY@1300 PO ; Start 03/24/18 at 13:00; Stop 03/24/18 at 13:00; Status DC Melatonin 6 mg STK-MED ONCE .ROUTE ; Start 03/15/18 at 21:00; Stop 03/25/18 at 12:42; Status DC Melatonin 6 mg STK-MED ONCE .ROUTE ; Start 03/20/18 at 21:00; Stop 03/25/18 at 12:43; Status DC Melatonin 6 mg STK-MED ONCE .ROUTE ; Start 03/23/18 at 21:00; Stop 03/25/18 at 12:43; Status DC Clotrimazole (Mycelex-7) 1 belle HS VG ; Start 03/25/18 at 21:00; Stop 04/01/18 at 20:59 Active Scripts Active Reported Xarelto (Rivaroxaban) 10 Mg Tablet 20 Mg PO QHS Tramadol Hcl (Tramadol HCl) 50 Mg Tablet 50 Mg PO Q4HRS PRN Topamax (Topiramate) 25 Mg Tablet 25 Mg PO QHS Sennosides 8.6 Mg Tablet 8.6 Mg PO DAILY Klor-Con M20 (Potassium Chloride) 20 Meq Tab.er.prt 20 Meq PO DAILY Pantoprazole Sodium 40 Mg Tablet.dr 40 Mg PO BIDBFRMEAL NITROGLYCERIN SubLingual (Nitroglycerin) 0.4 Mg Tab.subl 0.4 Mg SL PRN Q5MIN PRN Miconazole Nitrate 10 Gm Powder 1 Applic MC BID Metoprolol Tartrate 25 Mg Tablet 12.5 Mg PO DAILY Melatonin 3 Mg Tablet 5 Mg PO PRN QHS PRN Meclizine Hcl 25 Mg Tablet 25 Mg PO PRN Q8HRS PRN Lorazepam 0.5 Mg Tablet 0.5 Mg PO PRN Q6HRS PRN Levothyroxine Sodium 50 Mcg Tablet 50 Mcg PO DAILYAC Latanoprost 0.005% Eye Drop (Latanoprost/Pf) 7.5 Ml Drops 1 Drop OU QHS Lamotrigine 100 Mg Tablet 100 Mg PO BID Probiotic (Lactobacillus Acidophilus) 1 Each Capsule 1 Each PO DAILY Zaditor (Ketotifen Fumarate) 5 Ml Drops 1 Drop OU TID Hydrocortisone 453.6 Gm Cream..g. 1 Applic TP BID Gabapentin 300 Mg Capsule 300 Mg PO HS Gabapentin 100 Mg Capsule 100 Mg PO DAILY Furosemide 40 Mg Tablet 40 Mg PO BID Duoneb 0.5-3(2.5) Mg/3 Ml (Albuterol/Ipratropium) 3 Ml Ampul.neb 3 Ml NEB PRN Q4HRS PRN Voltaren (Diclofenac Sodium) 100 Gm Gel..gram. 1 Applic TP BID Cymbalta (Duloxetine Hcl) 20 Mg Capsule.dr 40 Mg PO BID Cyclobenzaprine Hcl 10 Mg Tablet 10 Mg PO PRN Q8HRS PRN Cranberry Concentrate Softgel (Cranberry Conc/Ascorbic Acid) 1 Each Capsule 425 Mg PO TID Cholestyramine Packet (Cholestyramine (With Sugar)) 4 Gm Powd.pack 4 Gm PO BID Biotene Oralbalance (Saliva Stimulant Agents Comb.2) 44.3 Ml Liquid 30 Ml MM PRN Q3HRS PRN Artificial Tears Eye Drops (Dextran 70/Hypromellose) 15 Ml Drops 2 Ml OU PRN Q4HRS PRN Artificial Tears Eye Drops (Dextran 70/Hypromellose) 15 Ml Drops 2 Ml OU QHS Tylenol (Acetaminophen) 325 Mg Tablet 650 Mg PO PRN Q6HRS PRN I have reviewed the current psychotropics carefully including drug interactions. Risk benefit ratio favors no change other than as noted in my dictated progress note. Diagnosis: Problems: (1) Medical clearance for psychiatric admission (2) Anxiety disorder (3) Bipolar 1 disorder, mixed, moderate (4) Impulse control disorder (5) Schizoaffective disorder, bipolar type (6) Vascular dementia with delusions PATRIC QUEVEDO MD Mar 25, 2018 20:47
[2018-03-25] MEDS: CLOTRIMAZOLE 1% VAGINAL CREAM 45GM TUBE. VG SCH (20:48)
[2018-03-25] MEDS: LATANOPROST 0.005% OPHTH SOLUTION 2.5ML BOTTLE. OU SCH (20:48)
--- NOTE | 2018-03-25 22:46 | PN ---
DATE: 03/23/2018 PSYCHIATRIC PROGRESS NOTE This is a late entry 03/23/2018 covers elements not covered in my initial note. SUBJECTIVE: Met with the patient in the evening. The patient has been quite labile, triangulating staff, verbally abrasive, complaining and marked rumination about very detail, complains about each nursing staff. She is wanting to go home, repeating this, following me around the unit loud as I tried to discuss the pros and cons and discharge plans with her. REVIEW OF SYSTEMS: Ambulation is impaired, in wheelchair. No CV, , pulmonary, eye, ENT system symptoms on review. MENTAL STATUS EXAM: Oriented to herself and situation. Speech is coherent, rapid, loud at times. Abstraction fair, computation impaired, language function is intact, attention span short. Mood and affect remain somewhat labile. LABORATORY DATA: Reviewed. IMPRESSION: Bipolar 1 disorder, mixed with psychotic features, personality disorder. Rest unchanged. PLAN: Continue Seroquel 25 mg a.m., 50 at bedtime, and add 25 mg at 1:00 p.m. as a mood stabilizer. She is also on Trileptal 300 mg b.i.d., we will increase to 600 mg b.i.d. for her bipolar disorder. Adjust further as clinically indicated. MAN Prasanth QUEVEDO MD DR: DUSTY/yusuf JOB#: [id number] / [id number]
--- NOTE | 2018-03-25 22:50 | PN ---
DATE: 03/24/2018 PSYCHIATRIC PROGRESS NOTE This late entry 03/24/2018 covers elements not covered in my initial note. SUBJECTIVE: Met with the patient in the evening. The patient slept 8 hours previous evening. Per nursing report, she has been "terrible." On further details, she has been attention-seeking, yelling at her sister over the phone, manipulative, loud, abrasive disruptive. I spent a lot of time with her individually in the evening trying to process, all of this with limited results. REVIEW OF SYSTEMS: Ambulation is impaired, in wheelchair. No CV, , pulmonary, eye, ENT system symptoms on review. Reliability varies. MENTAL STATUS EXAM: Reasonably oriented. Speech is coherent, rapid, loud at times. Abstraction fair, computation impaired, language function is intact, attention span short. Mood and affect remain somewhat labile, paranoid. No suicidal or homicidal ideation. LABORATORY DATA: Reviewed. IMPRESSION: Bipolar 1 disorder, mixed with psychotic features, personality disorder. PLAN: Trileptal has been increased to 600 b.i.d., Seroquel to 25 mg a.m. and 1 p.m. 50 at bedtime. Maintain Lamictal, melatonin, Ativan p.r.n., trazodone for now. PATRIC QUEVEDO MD DR: DUSTY/yusuf JOB#: [id number] / [id number]
[2018-03-26] MEDS: LEVOTHYROXINE 50 MCG TABLET PO SCH (05:59)
[2018-03-26 06:20] VITALS: BP 105/64
[2018-03-26] MEDS: CHOLESTYRAMINE/ASPARTAME 4 GM PACKET PO SCH ×2 (07:18→18:20)
[2018-03-26] MEDS: LACTOBACILLUS RHAMNOSUS GG 1 CAPSULE. PO SCH ×2 (07:19→19:49)
[2018-03-26] MEDS: METOPROLOL TART IMMED RELEASE 25 MG TABLET PO SCH (07:19)
[2018-03-26] MEDS: QUEtiapine 25 MG TABLET. PO SCH ×3 (07:19→18:20)
[2018-03-26] MEDS: FUROSEMIDE 40 MG TABLET PO SCH ×2 (07:19→14:29)
[2018-03-26] MEDS: POTASSIUM CHLORIDE 20 MEQ TABLET.ER. PO SCH (07:19)
[2018-03-26] MEDS: SENNOSIDES 8.6 MG TABLET PO SCH (07:19)
[2018-03-26] MEDS: lamoTRIgine 100 MG TABLET. PO SCH ×2 (07:20→19:50)
[2018-03-26] MEDS: PANTOPRAZOLE 40 MG TABLET. PO SCH ×2 (07:20→18:20)
[2018-03-26] MEDS: GABAPENTIN 100 MG CAPSULE. PO SCH (07:20)
[2018-03-26] MEDS: HYDROCORTISONE 1% TOPICAL CREAM 30GM TUBE. TP SCH ×2 (07:21→19:53)
[2018-03-26] MEDS: MICONAZOLE NITRATE 2% TOPICAL CREAM 28GM TUBE. TP SCH ×2 (07:21→19:53)
[2018-03-26] MEDS: DICLOFENAC SODIUM 1% TOPICAL GEL 100GM TUBE. TP SCH ×2 (07:21→19:53)
[2018-03-26] MEDS: KETOTIFEN FUMARATE 0.025% OPHT SOLUTION BOTTLE. OU SCH ×3 (07:21→19:53)
[2018-03-26] MEDS: NYSTATIN TOPICAL POWDER 15GM BOTTLE. TP SCH ×2 (07:22→19:53)
[2018-03-26] MEDS: INSULIN LISPRO 300 UNITS/3 ML INSULN.PEN. SQ SCH ×2 (08:00→12:00)
[2018-03-26] MEDS ORDERED: SENNOSIDES 8.6 MG TABLET PO PRN (09:00)
[2018-03-26] MEDS: ONDANSETRON ODT 4 MG TAB.RAPDIS PO PRN (09:36)
[2018-03-26] MEDS: HYDROcodone/APAP 5/325MG 1 TAB TABLET PO PRN ×3 (10:00→20:42)
[2018-03-26] MEDS: CYCLOBENZAPRINE 10 MG TABLET. PO PRN ×2 (10:00→18:20)
[2018-03-26 16:20] VITALS: BP 95/55
--- NOTE | 2018-03-26 19:03 | RAD ---
PQRS Compliance Statement: One or more of the following individualized dose reduction techniques were utilized for this examination: 1. Automated exposure control 2. Adjustment of the mA and/or kV according to patient size 3. Use of iterative reconstruction technique CT abdomen/pelvis without contrast 03/26/2018 4:41 PM INDICATION: Abdominal and flank pain. COMPARISON: CT abdomen/pelvis February 22, 2018 TECHNIQUE: Multiple axial CT images of the abdomen and pelvis were obtained without intravenous contrast. Coronal and sagittal reformats are provided. FINDINGS: There is a 6 mm solid noncalcified pulmonary nodule in the left lower lobe (series 6, image 151). There is a small hiatal hernia. No suspicious hepatic lesion is visualized. Gallbladder is surgically absent. Spleen is nonenlarged. Adrenal glands are normal. Severe fatty atrophy of the pancreas is noted. Small duodenal diverticulum is noted. Abdominal aorta is normal in course and caliber. IVC filter is present. Minor atherosclerotic changes of the abdominal aorta are present. Left periaortic lymph node measures 7 mm by short axis (series 2, image 42). There is no free fluid or free intraperitoneal air. Kidneys are symmetric in appearance. There is no hydronephrosis. Renal cortical scarring is visualized. An ileal conduit is identified in the right lower quadrant. Moderate amount stool is noted in the left colon which is mildly distended with gas. Bowel resection changes are visualized. No evidence for bowel obstruction or inflammation. There is no free fluid in the pelvis. Advanced degenerative changes of the lumbar spine are present. IMPRESSION: 1. Postoperative changes from ileal conduit are identified. No evidence for hydronephrosis or renal calculi. Bilateral renal cortical scarring is noted. 2. IVC is present. 3. Similar increased stool and gas in the left colon. 4. Small hiatal hernia. Electronically signed by: Elizabeth Bejarano MD (03/26/2018 6:59 PM) [facility]
[2018-03-26] MEDS: QUEtiapine 50 MG TABLET. PO SCH (19:49)
[2018-03-26] MEDS: RIVAROXABAN 10 MG TABLET. PO SCH (19:49)
--- NOTE | 2018-03-26 19:49 | PDOC ---
Exam Note: Fernando Note: Please also refer to the separate dictated note~for this date of service dictated separately.~Patient seen individually. Discussed the patient with Nursing staff reviewed the chart.~Reviewed interim history and current functioning. Reviewed vital signs,~Labs/ Radiology~and current medications noted below. Continue current treatment with the changes noted in the dictated addendum note Assessment: Vital Signs: Vital Signs Date Time Temp Pulse Resp B/P (MAP) Pulse Ox O2 Delivery O2 Flow Rate FiO2 03/26/18 16:20 97.6 74 20 95/55 (68) 95 03/25/18 19:43 Room Air 03/23/18 20:38 2.0 I&O Intake and Output 03/26/18 06:59 Intake Total 1800 ml Output Total 2675 ml Balance -875 ml Intake Oral 1800 ml Output Urine Total 2675 ml Labs: Laboratory Tests Test 03/26/18 07:37 03/26/18 11:47 03/26/18 16:57 Glucose (Fingerstick) 77 mg/dL (70-99) 92 mg/dL (70-99) 89 mg/dL (70-99) Current Medications: Meds: Current Medications Tramadol HCl (Ultram) 50 mg 1X ONCE PO Last administered on 03/12/18at 21:09; Start 03/12/18 at 21:15; Stop 03/12/18 at 21:36; Status DC Potassium Chloride (Klor-Con) 40 meq 1X ONCE PO ; Start 03/12/18 at 21:15; Stop 03/12/18 at 21:53; Status DC Acetaminophen (Tylenol) 650 mg PRN Q6HRS PRN PO PAIN / TEMP Last administered on 03/14/18at 03:42; Start 03/12/18 at 23:00; Stop 03/14/18 at 16:35; Status DC Multi-Ingredient Ointment (Analgesic [place]) 1 belle PRN QID PRN TP MUSCLE PAIN; Start 03/12/18 at 23:00 Al Hydroxide/Mg Hydroxide (Mylanta Plus Xs) 15 ml PRN AFTMEALHC PRN PO DYSPEPSIA; Start 03/12/18 at 23:00 Magnesium Hydroxide (Milk Of Magnesia) 2,400 mg PRN QHS PRN PO CONSTIPATION; Start 03/12/18 at 23:00 Duloxetine HCl (Cymbalta) 40 mg BID PO Last administered on 03/13/18 08:59; Start 03/13/18 at 09:00; Stop 03/13/18 at 19:25; Status DC Lorazepam (Ativan) 0.5 mg PRN Q6HRS PRN PO ANXIETY Last administered on 08:31; Start 03/13/18 at 00:15 Acetaminophen (Tylenol) 650 mg PRN Q6HRS PRN PO PAIN / TEMP Last administered on 03/19/18 20:09; Start 03/13/18 at 00:15 Cyclobenzaprine HCl (Flexeril) 10 mg PRN Q8HRS PRN PO MUSCLE SPASMS Last administered on 03/26/18 18:20; Start 03/13/18 at 00:15 Diclofenac Sodium (Voltaren) 1 belle BID TP Last administered on 03/26/18 07:21 ; Start 03/13/18 at 09:00 Gabapentin (Neurontin) 100 mg DAILY PO Last administered on 03/26/18 07:20; Start 03/13/18 at 09:00 Gabapentin (Neurontin) 300 mg HS PO Last administered on 03/25/18 20:42; Start 03/13/18 at 21:00 Albuterol Sulfate (Ventolin) 2.5 mg PRN Q4HRS PRN NEB SHORTNESS OF BREATH; Start 03/13/18 at 00:15 Metoprolol Tartrate (Lopressor) 12.5 mg DAILY PO Last administered on 07:19; Start 03/13/18 at 09:00 Nitroglycerin (Nitrostat) 0.4 mg PRN Q5MIN PRN SL CHEST PAIN; Start 03/13/18 at 00:15 Potassium Chloride (Klor-Con) 20 meq DAILY PO Last administered on 03/26/18 07 :19; Start 03/13/18 at 09:00 Rivaroxaban (Xarelto) 20 mg QHS PO Last administered on 03/25/18 20:41; Start 03/13/18 at 21:00 Tramadol HCl (Ultram) 50 mg PRN Q4HRS PRN PO PAIN Last administered on 05:56; Start 03/13/18 at 00:15; Stop 03/17/18 at 14:57; Status DC Cholestyramine Resin (Questran Light) 4 gm BIDAFTMEAL PO Last administered on 18:20; Start 03/13/18 at 09:00 Non-Formulary Medication (Cranberry Conc/ Ascorbic Acid (Cranberry Concentrate Softgel)) 425 mg TID PO ; Start 03/13/18 at 09:00; Status UNV Artificial Tears (Artificial Tears) 2 drop PRN Q4HRS PRN OU DRY EYE; Start at 00:15 Artificial Tears (Artificial Tears) 2 drop QHS OU Last administered on 20:42; Start 03/13/18 at 21:00 Furosemide (Lasix) 40 mg BID92 PO Last administered on 03/26/18 14:29; Start 03/13/18 at 09:00 Hydrocortisone (Cortaid) 1 belle BID TP Last administered on 03/26/18 07:21; Start 03/13/18 at 09:00 Ketotifen Fumarate (Zaditor) 1 drop TID OU Last administered on 03/26/18 14:00 ; Start 03/13/18 at 09:00 Lactobacillus Rhamnosus (Culturelle) 1 cap DAILY PO Last administered on 07:35; Start 03/13/18 at 09:00; Stop 03/17/18 at 15:35; Status DC Lamotrigine (LaMICtal) 100 mg BID PO Last administered on 03/26/18 07:20; Start 03/13/18 at 09:00 Latanoprost (Xalatan) 1 drop QHS OU Last administered on 03/25/18 20:48; Start 03/13/18 at 21:00 Levothyroxine Sodium (Synthroid) 50 mcg DAILY07 PO Last administered on 05:59; Start 03/13/18 at 07:00 Meclizine HCl (Antivert) 25 mg PRN Q8HRS PRN PO DIZZINESS; Start 03/13/18 at 00 :15 Miconazole Nitrate (Monistat-Derm) 1 belle BID TP Last administered on 03/26/18 07:21; Start 03/13/18 at 09:00 Pantoprazole Sodium (Protonix) 40 mg BIDBFRMEAL PO Last administered on 18:20; Start 03/13/18 at 07:30 Saliva Substitute (Biotene Moisturizing Mouth) 1 spray PRN Q3HRS PRN MM DRY MOUTH; Start 03/13/18 at 00:15 Sennosides (Senna) 8.6 mg DAILY PO Last administered on 03/26/18 07:19; Start 03/13/18 at 09:00; Stop 03/26/18 at 08:34; Status DC Topiramate (Topamax) 25 mg QHS PO Last administered on 03/14/18 19:21; Start 03/13/18 at 21:00; Stop 03/15/18 at 17:03; Status DC Melatonin 6 mg PRN QHS PRN PO INSOMNIA Last administered on 03/23/18 19:41; Start 03/13/18 at 06:00 Insulin Human Lispro (HumaLOG) 0-5 UNITS TIDWMEALS SQ ; Start 03/14/18 at 08:00 ; Stop 03/26/18 at 12:48; Status DC Dextrose 12.5 gm PRN Q15MIN PRN IV SEE COMMENTS; Start 03/13/18 at 19:30 Duloxetine HCl (Cymbalta) 40 mg DAILY PO Last administered on 03/16/18 09:26; Start 03/14/18 at 09:00; Stop 03/16/18 at 19:41; Status DC Oxcarbazepine (Trileptal) 300 mg DAILY PO Last administered on 03/16/18 09:28 ; Start 03/14/18 at 09:00; Stop 03/16/18 at 19:41; Status DC Trazodone HCl (Desyrel) 100 mg QHS PO Last administered on 03/25/18at 20:42; Start 03/13/18 at 21:00 Trazodone HCl (Desyrel) 100 mg PRN QHS PRN PO INSOMNIA; Start 03/13/18 at 19:30 Topiramate (Topamax) 50 mg QHS PO Last administered on 03/25/18 20:41; Start 03/15/18 at 21:00 Nystatin (Nystop) 1 belle BID TP Last administered on 03/26/18 07:22; Start at 21:00 Ondansetron HCl (Zofran Odt) 4 mg PRN Q8HRS PRN PO NAUSEA/VOMITING Last administered on 03/26/18at 09:36; Start 03/15/18 at 17:15 Oxcarbazepine (Trileptal) 300 mg BID PO Last administered on 03/21/18at 08:40; Start 03/16/18 at 21:00; Stop 03/21/18 at 18:55; Status DC Amoxicillin/ Clavulanate Potassium (Augmentin 875/ 125mg) 1 tab BID PO Last administered on 03/24/18at 20:18; Start 03/17/18 at 21:00; Stop 03/24/18 at 20:59 ; Status DC Lactobacillus Rhamnosus (Culturelle) 1 cap BID PO Last administered on at 07:19; Start 03/17/18 at 21:00 Quetiapine Fumarate (SEROquel) 50 mg HS PO Last administered on 03/25/18at 20:42 ; Start 03/17/18 at 21:00; Stop 03/26/18 at 18:58; Status DC Acetaminophen/ Hydrocodone Bitart (Lortab 5/325) 1 tab PRN Q6HRS PRN PO PAIN; Start 03/17/18 at 15:00; Stop 03/17/18 at 15:16; Status DC Acetaminophen/ Hydrocodone Bitart (Lortab 5/325) 1 tab PRN Q6HRS PRN PO PAIN Last administered on 03/26/18at 10:00; Start 03/17/18 at 15:45; Stop 03/26/18 at 13:08; Status DC Diphenhydramine HCl (Benadryl) 25 mg PRN QHS PRN PO ITCHING Last administered on 03/23/18at 19:41; Start 03/18/18 at 20:45; Stop 03/26/18 at 12:47; Status DC Glucose (Insta-Glucose) 15 gm STK-MED ONCE .ROUTE ; Start 03/19/18 at 16:49; Stop 03/19/18 at 16:50; Status DC Glucose (Insta-Glucose) 15 gm STK-MED ONCE .ROUTE ; Start 03/19/18 at 16:50; Stop 03/19/18 at 16:51; Status DC Quetiapine Fumarate (SEROquel) 25 mg DAILY08 PO Last administered on 03/20/18at 08:29; Start 03/20/18 at 08:00; Stop 03/20/18 at 18:47; Status DC Quetiapine Fumarate (SEROquel) 25 mg DAILY PO ; Start 03/20/18 at 09:00; Status UNV Quetiapine Fumarate (SEROquel) 25 mg TIDBFRMEAL PO Last administered on at 18:20; Start 03/21/18 at 07:30; Stop 03/26/18 at 18:58; Status DC Oxcarbazepine (Trileptal) 300 mg DAILY PO Last administered on 03/23/18at 07:21 ; Start 03/22/18 at 09:00; Stop 03/23/18 at 18:17; Status DC Oxcarbazepine (Trileptal) 600 mg QHS PO Last administered on 03/25/18at 20:41; Start 03/21/18 at 21:00 Oxcarbazepine (Trileptal) 600 mg DAILY PO Last administered on 03/26/18at 07:19 ; Start 03/24/18 at 09:00 Quetiapine Fumarate (SEROquel) 25 mg DAILY@1300 PO ; Start 03/24/18 at 13:00; Stop 03/24/18 at 13:00; Status DC Melatonin 6 mg STK-MED ONCE .ROUTE ; Start 03/15/18 at 21:00; Stop 03/25/18 at 12:42; Status DC Melatonin 6 mg STK-MED ONCE .ROUTE ; Start 03/20/18 at 21:00; Stop 03/25/18 at 12:43; Status DC Melatonin 6 mg STK-MED ONCE .ROUTE ; Start 03/23/18 at 21:00; Stop 03/25/18 at 12:43; Status DC Clotrimazole (Mycelex-7) 1 belle HS VG Last administered on 03/25/18at 20:48; Start 03/25/18 at 21:00; Stop 04/01/18 at 20:59 Sennosides (Senna) 8.6 mg PRN DAILY PRN PO CONSTIPATION; Start 03/26/18 at 09: 00 Diphenhydramine HCl (Benadryl) 25 mg PRN Q6HRS PRN PO ITCHING; Start 03/26/18 at 13:00 Acetaminophen/ Hydrocodone Bitart (Lortab 5/325) 1 tab PRN Q4HRS PRN PO PAIN Last administered on 03/26/18at 18:20; Start 03/26/18 at 13:15 Oxycodone HCl (OxyCONTIN) 10 mg Q12HR PO ; Start 03/26/18 at 21:00; Stop at 21:00; Status DC Quetiapine Fumarate (SEROquel) 50 mg QID PO ; Start 03/26/18 at 21:00 Active Scripts Active Reported Xarelto (Rivaroxaban) 10 Mg Tablet 20 Mg PO QHS Tramadol Hcl (Tramadol HCl) 50 Mg Tablet 50 Mg PO Q4HRS PRN Topamax (Topiramate) 25 Mg Tablet 25 Mg PO QHS Sennosides 8.6 Mg Tablet 8.6 Mg PO DAILY Klor-Con M20 (Potassium Chloride) 20 Meq Tab.er.prt 20 Meq PO DAILY Pantoprazole Sodium 40 Mg Tablet.dr 40 Mg PO BIDBFRMEAL NITROGLYCERIN SubLingual (Nitroglycerin) 0.4 Mg Tab.subl 0.4 Mg SL PRN Q5MIN PRN Miconazole Nitrate 10 Gm Powder 1 Applic MC BID Metoprolol Tartrate 25 Mg Tablet 12.5 Mg PO DAILY Melatonin 3 Mg Tablet 5 Mg PO PRN QHS PRN Meclizine Hcl 25 Mg Tablet 25 Mg PO PRN Q8HRS PRN Lorazepam 0.5 Mg Tablet 0.5 Mg PO PRN Q6HRS PRN Levothyroxine Sodium 50 Mcg Tablet 50 Mcg PO DAILYAC Latanoprost 0.005% Eye Drop (Latanoprost/Pf) 7.5 Ml Drops 1 Drop OU QHS Lamotrigine 100 Mg Tablet 100 Mg PO BID Probiotic (Lactobacillus Acidophilus) 1 Each Capsule 1 Each PO DAILY Zaditor (Ketotifen Fumarate) 5 Ml Drops 1 Drop OU TID Hydrocortisone 453.6 Gm Cream..g. 1 Applic TP BID Gabapentin 300 Mg Capsule 300 Mg PO HS Gabapentin 100 Mg Capsule 100 Mg PO DAILY Furosemide 40 Mg Tablet 40 Mg PO BID Duoneb 0.5-3(2.5) Mg/3 Ml (Albuterol/Ipratropium) 3 Ml Ampul.neb 3 Ml NEB PRN Q4HRS PRN Voltaren (Diclofenac Sodium) 100 Gm Gel..gram. 1 Applic TP BID Cymbalta (Duloxetine Hcl) 20 Mg Capsule.dr 40 Mg PO BID Cyclobenzaprine Hcl 10 Mg Tablet 10 Mg PO PRN Q8HRS PRN Cranberry Concentrate Softgel (Cranberry Conc/Ascorbic Acid) 1 Each Capsule 425 Mg PO TID Cholestyramine Packet (Cholestyramine (With Sugar)) 4 Gm Powd.pack 4 Gm PO BID Biotene Oralbalance (Saliva Stimulant Agents Comb.2) 44.3 Ml Liquid 30 Ml MM PRN Q3HRS PRN Artificial Tears Eye Drops (Dextran 70/Hypromellose) 15 Ml Drops 2 Ml OU PRN Q4HRS PRN Artificial Tears Eye Drops (Dextran 70/Hypromellose) 15 Ml Drops 2 Ml OU QHS Tylenol (Acetaminophen) 325 Mg Tablet 650 Mg PO PRN Q6HRS PRN I have reviewed the current psychotropics carefully including drug interactions. Risk benefit ratio favors no change other than as noted in my dictated progress note. Diagnosis: Problems: (1) Medical clearance for psychiatric admission (2) Anxiety disorder (3) Bipolar 1 disorder, mixed, moderate (4) Impulse control disorder (5) Schizoaffective disorder, bipolar type (6) Vascular dementia with delusions PATRIC QUEVEDO MD Mar 26, 2018 19:49
[2018-03-26] MEDS: traZODone 100 MG TABLET. PO SCH (19:50)
[2018-03-26] MEDS: TOPIRAMATE 25 MG TABLET. PO SCH (19:50)
[2018-03-26] MEDS: GABAPENTIN 300 MG CAPSULE. PO SCH (19:50)
[2018-03-26] MEDS: CLOTRIMAZOLE 1% VAGINAL CREAM 45GM TUBE. VG SCH (19:53)
[2018-03-26] MEDS: LATANOPROST 0.005% OPHTH SOLUTION 2.5ML BOTTLE. OU SCH (19:54)
[2018-03-26] MEDS: POLYVINYL ALCOHOL 1.4% OPHTH SOLUTION 15ML BOTTLE. OU SCH (19:54)
[2018-03-26] MEDS: MELATONIN 3 MG TABLET PO PRN (20:42)
[2018-03-26] MEDS ORDERED: oxyCODONE ER 10 MG TAB.ER.12H PO SCH (21:00)
[2018-03-27] MEDS: CYCLOBENZAPRINE 10 MG TABLET. PO PRN ×2 (02:40→10:46)
[2018-03-27] MEDS: HYDROcodone/APAP 5/325MG 1 TAB TABLET PO PRN ×4 (02:41→22:19)
--- NOTE | 2018-03-27 04:00 | PN ---
DATE: 03/25/2018 PSYCHIATRIC PROGRESS NOTE This is a late entry 03/25/2018, covers elements not covered in my initial note. SUBJECTIVE: I met with the patient in the evening, staffed with the nursing staff. She remains quite labile, anxious, loud, disruptive, accusing staff of various responses that were not as quickly as she perceives they would have been to her request. Monistat is being used for her yeast infection. I will defer to Dr. Valentino. REVIEW OF SYSTEMS: Ambulation impaired, in wheelchair. No CV, , pulmonary, eye system symptoms on review. Reliability varies. MENTAL STATUS EXAM: Oriented to herself and situation. Speech coherent, rapid at times. Abstraction fair, computation impaired, language function intact, attention span short. Mood and affect extremely labile and she was yelling, screaming as she met with me complaining of certain staff members not responding to her quickly enough for her request. Process this with her. LABORATORY DATA: Reviewed. IMPRESSION: Unchanged from initial note. PLAN: Continue psychotropics from initial note. Seroquel has been increased as has the Trileptal. She remains on Lamictal as well. We are unable to use Depakote due to her history of chronic hepatitis, may consider lithium if needed. PATRIC QUEVEDO MD DR: DUSTY/nts JOB#: [id number] / [id number]
[2018-03-27] MEDS: LEVOTHYROXINE 50 MCG TABLET PO SCH (05:17)
[2018-03-27 05:52] VITALS: BP 97/48
[2018-03-27] MEDS: CHOLESTYRAMINE/ASPARTAME 4 GM PACKET PO SCH ×2 (07:51→17:02)
[2018-03-27] MEDS: POTASSIUM CHLORIDE 20 MEQ TABLET.ER. PO SCH (07:51)
[2018-03-27] MEDS: FUROSEMIDE 40 MG TABLET PO SCH ×2 (07:51→13:14)
[2018-03-27] MEDS: PANTOPRAZOLE 40 MG TABLET. PO SCH ×2 (07:52→17:04)
[2018-03-27] MEDS: LACTOBACILLUS RHAMNOSUS GG 1 CAPSULE. PO SCH ×2 (07:52→21:27)
[2018-03-27] MEDS: QUEtiapine 50 MG TABLET. PO SCH ×4 (07:53→22:18)
[2018-03-27] MEDS: GABAPENTIN 100 MG CAPSULE. PO SCH (07:53)
[2018-03-27] MEDS: lamoTRIgine 100 MG TABLET. PO SCH ×2 (07:53→21:27)
[2018-03-27] MEDS: MICONAZOLE NITRATE 2% TOPICAL CREAM 28GM TUBE. TP SCH ×2 (07:54→22:20)
[2018-03-27] MEDS: DICLOFENAC SODIUM 1% TOPICAL GEL 100GM TUBE. TP SCH ×2 (07:55→21:29)
[2018-03-27] MEDS: HYDROCORTISONE 1% TOPICAL CREAM 30GM TUBE. TP SCH ×2 (07:55→22:21)
[2018-03-27] MEDS: KETOTIFEN FUMARATE 0.025% OPHT SOLUTION BOTTLE. OU SCH ×3 (07:56→21:00)
[2018-03-27] MEDS: NYSTATIN TOPICAL POWDER 15GM BOTTLE. TP SCH ×2 (07:57→22:20)
[2018-03-27] MEDS: METOPROLOL TART IMMED RELEASE 25 MG TABLET PO SCH (09:00)
[2018-03-27] MEDS: diphenhydrAMINE HCL 25 MG CAPSULE PO PRN (11:41)
[2018-03-27] MEDS: ACETAMINOPHEN 325 MG TABLET PO PRN (11:41)
[2018-03-27 15:55] VITALS: BP 128/69
[2018-03-27] MEDS ORDERED: traZODone 150 MG TABLET. PO PRN (19:30)
--- NOTE | 2018-03-27 19:48 | PDOC ---
Exam Note: Fernando Note: Please also refer to the separate dictated note~for this date of service dictated separately.~Patient seen individually. Discussed the patient with Nursing staff reviewed the chart.~Reviewed interim history and current functioning. Reviewed vital signs,~Labs/ Radiology~and current medications noted below. Continue current treatment with the changes noted in the dictated addendum note Assessment: Vital Signs: Vital Signs Date Time Temp Pulse Resp B/P (MAP) Pulse Ox O2 Delivery O2 Flow Rate FiO2 03/27/18 18:30 18 95 Room Air 03/27/18 15:55 97.8 65 128/69 (88) 03/23/18 20:38 2.0 I&O Intake and Output 03/27/18 07:00 Intake Total 1920 ml Output Total 2100 ml Balance -180 ml Intake Oral 1920 ml Output Urine Total 2100 ml # Bowel Movements 2 Current Medications: Meds: Current Medications Tramadol HCl (Ultram) 50 mg 1X ONCE PO Last administered on 03/12/18at 21:09; Start 03/12/18 at 21:15; Stop 03/12/18 at 21:36; Status DC Potassium Chloride (Klor-Con) 40 meq 1X ONCE PO ; Start 03/12/18 at 21:15; Stop 03/12/18 at 21:53; Status DC Acetaminophen (Tylenol) 650 mg PRN Q6HRS PRN PO PAIN / TEMP Last administered on 03/14/18at 03:42; Start 03/12/18 at 23:00; Stop 03/14/18 at 16:35; Status DC Multi-Ingredient Ointment (Analgesic [place]) 1 belle PRN QID PRN TP MUSCLE PAIN; Start 03/12/18 at 23:00 Al Hydroxide/Mg Hydroxide (Mylanta Plus Xs) 15 ml PRN AFTMEALHC PRN PO DYSPEPSIA; Start 03/12/18 at 23:00 Magnesium Hydroxide (Milk Of Magnesia) 2,400 mg PRN QHS PRN PO CONSTIPATION; Start 03/12/18 at 23:00 Duloxetine HCl (Cymbalta) 40 mg BID PO Last administered on 03/13/18at 08:59; Start 03/13/18 at 09:00; Stop 03/13/18 at 19:25; Status DC Lorazepam (Ativan) 0.5 mg PRN Q6HRS PRN PO ANXIETY Last administered on 08:31; Start 03/13/18 at 00:15 Acetaminophen (Tylenol) 650 mg PRN Q6HRS PRN PO PAIN / TEMP Last administered on 03/27/18 11:41; Start 03/13/18 at 00:15 Cyclobenzaprine HCl (Flexeril) 10 mg PRN Q8HRS PRN PO MUSCLE SPASMS Last administered on 03/27/18 10:46; Start 03/13/18 at 00:15 Diclofenac Sodium (Voltaren) 1 belle BID TP Last administered on 03/27/18 07:55 ; Start 03/13/18 at 09:00 Gabapentin (Neurontin) 100 mg DAILY PO Last administered on 03/27/18 07:53; Start 03/13/18 at 09:00 Gabapentin (Neurontin) 300 mg HS PO Last administered on 03/26/18 19:50; Start 03/13/18 at 21:00 Albuterol Sulfate (Ventolin) 2.5 mg PRN Q4HRS PRN NEB SHORTNESS OF BREATH; Start 03/13/18 at 00:15 Metoprolol Tartrate (Lopressor) 12.5 mg DAILY PO Last administered on 07:19; Start 03/13/18 at 09:00 Nitroglycerin (Nitrostat) 0.4 mg PRN Q5MIN PRN SL CHEST PAIN; Start 03/13/18 at 00:15 Potassium Chloride (Klor-Con) 20 meq DAILY PO Last administered on 03/27/18 07 :51; Start 03/13/18 at 09:00 Rivaroxaban (Xarelto) 20 mg QHS PO Last administered on 03/26/18 19:49; Start 03/13/18 at 21:00 Tramadol HCl (Ultram) 50 mg PRN Q4HRS PRN PO PAIN Last administered on 05:56; Start 03/13/18 at 00:15; Stop 03/17/18 at 14:57; Status DC Cholestyramine Resin (Questran Light) 4 gm BIDAFTMEAL PO Last administered on 17:02; Start 03/13/18 at 09:00 Non-Formulary Medication (Cranberry Conc/ Ascorbic Acid (Cranberry Concentrate Softgel)) 425 mg TID PO ; Start 03/13/18 at 09:00; Status UNV Artificial Tears (Artificial Tears) 2 drop PRN Q4HRS PRN OU DRY EYE; Start at 00:15 Artificial Tears (Artificial Tears) 2 drop QHS OU Last administered on 19:54; Start 03/13/18 at 21:00 Furosemide (Lasix) 40 mg BID92 PO Last administered on 03/27/18 13:14; Start 03/13/18 at 09:00 Hydrocortisone (Cortaid) 1 belle BID TP Last administered on 03/27/18 07:55; Start 03/13/18 at 09:00 Ketotifen Fumarate (Zaditor) 1 drop TID OU Last administered on 03/27/18 13:14 ; Start 03/13/18 at 09:00 Lactobacillus Rhamnosus (Culturelle) 1 cap DAILY PO Last administered on 07:35; Start 03/13/18 at 09:00; Stop 03/17/18 at 15:35; Status DC Lamotrigine (LaMICtal) 100 mg BID PO Last administered on 03/27/18 07:53; Start 03/13/18 at 09:00 Latanoprost (Xalatan) 1 drop QHS OU Last administered on 03/26/18 19:54; Start 03/13/18 at 21:00 Levothyroxine Sodium (Synthroid) 50 mcg DAILY07 PO Last administered on 05:17; Start 03/13/18 at 07:00 Meclizine HCl (Antivert) 25 mg PRN Q8HRS PRN PO DIZZINESS; Start 03/13/18 at 00 :15 Miconazole Nitrate (Monistat-Derm) 1 belle BID TP Last administered on 03/27/18 07:54; Start 03/13/18 at 09:00 Pantoprazole Sodium (Protonix) 40 mg BIDBFRMEAL PO Last administered on 17:04; Start 03/13/18 at 07:30 Saliva Substitute (Biotene Moisturizing Mouth) 1 spray PRN Q3HRS PRN MM DRY MOUTH; Start 03/13/18 at 00:15 Sennosides (Senna) 8.6 mg DAILY PO Last administered on 03/26/18 07:19; Start 03/13/18 at 09:00; Stop 03/26/18 at 08:34; Status DC Topiramate (Topamax) 25 mg QHS PO Last administered on 03/14/18 19:21; Start 03/13/18 at 21:00; Stop 03/15/18 at 17:03; Status DC Melatonin 6 mg PRN QHS PRN PO INSOMNIA Last administered on 03/26/18 20:42; Start 03/13/18 at 06:00 Insulin Human Lispro (HumaLOG) 0-5 UNITS TIDWMEALS SQ ; Start 03/14/18 at 08:00 ; Stop 03/26/18 at 12:48; Status DC Dextrose 12.5 gm PRN Q15MIN PRN IV SEE COMMENTS; Start 03/13/18 at 19:30 Duloxetine HCl (Cymbalta) 40 mg DAILY PO Last administered on 03/16/18 09:26; Start 03/14/18 at 09:00; Stop 03/16/18 at 19:41; Status DC Oxcarbazepine (Trileptal) 300 mg DAILY PO Last administered on 03/16/18 09:28 ; Start 03/14/18 at 09:00; Stop 03/16/18 at 19:41; Status DC Trazodone HCl (Desyrel) 100 mg QHS PO Last administered on 03/26/18 19:50; Start 03/13/18 at 21:00; Stop 03/27/18 at 19:11; Status DC Trazodone HCl (Desyrel) 100 mg PRN QHS PRN PO INSOMNIA; Start 03/13/18 at 19:30 ; Stop 03/27/18 at 19:11; Status DC Topiramate (Topamax) 50 mg QHS PO Last administered on 03/26/18 19:50; Start 03/15/18 at 21:00 Nystatin (Nystop) 1 belle BID TP Last administered on 03/27/18 07:57; Start at 21:00 Ondansetron HCl (Zofran Odt) 4 mg PRN Q8HRS PRN PO NAUSEA/VOMITING Last administered on 7/30/18at 09:36; Start 03/15/18 at 17:15 Oxcarbazepine (Trileptal) 300 mg BID PO Last administered on 03/21/18at 08:40; Start 03/16/18 at 21:00; Stop 03/21/18 at 18:55; Status DC Amoxicillin/ Clavulanate Potassium (Augmentin 875/ 125mg) 1 tab BID PO Last administered on 03/24/18at 20:18; Start 03/17/18 at 21:00; Stop 03/24/18 at 20:59 ; Status DC Lactobacillus Rhamnosus (Culturelle) 1 cap BID PO Last administered on at 07:52; Start 03/17/18 at 21:00 Quetiapine Fumarate (SEROquel) 50 mg HS PO Last administered on 03/25/18at 20:42 ; Start 03/17/18 at 21:00; Stop 03/26/18 at 18:58; Status DC Acetaminophen/ Hydrocodone Bitart (Lortab 5/325) 1 tab PRN Q6HRS PRN PO PAIN; Start 03/17/18 at 15:00; Stop 03/17/18 at 15:16; Status DC Acetaminophen/ Hydrocodone Bitart (Lortab 5/325) 1 tab PRN Q6HRS PRN PO PAIN Last administered on 03/26/18at 10:00; Start 03/17/18 at 15:45; Stop 03/26/18 at 13:08; Status DC Diphenhydramine HCl (Benadryl) 25 mg PRN QHS PRN PO ITCHING Last administered on 03/23/18at 19:41; Start 03/18/18 at 20:45; Stop 03/26/18 at 12:47; Status DC Glucose (Insta-Glucose) 15 gm STK-MED ONCE .ROUTE ; Start 03/19/18 at 16:49; Stop 03/19/18 at 16:50; Status DC Glucose (Insta-Glucose) 15 gm STK-MED ONCE .ROUTE ; Start 03/19/18 at 16:50; Stop 03/19/18 at 16:51; Status DC Quetiapine Fumarate (SEROquel) 25 mg DAILY08 PO Last administered on 03/20/18at 08:29; Start 03/20/18 at 08:00; Stop 03/20/18 at 18:47; Status DC Quetiapine Fumarate (SEROquel) 25 mg DAILY PO ; Start 03/20/18 at 09:00; Status UNV Quetiapine Fumarate (SEROquel) 25 mg TIDBFRMEAL PO Last administered on at 18:20; Start 03/21/18 at 07:30; Stop 03/26/18 at 18:58; Status DC Oxcarbazepine (Trileptal) 300 mg DAILY PO Last administered on 03/23/18at 07:21 ; Start 03/22/18 at 09:00; Stop 03/23/18 at 18:17; Status DC Oxcarbazepine (Trileptal) 600 mg QHS PO Last administered on 03/26/18at 19:50; Start 03/21/18 at 21:00 Oxcarbazepine (Trileptal) 600 mg DAILY PO Last administered on 03/27/18at 07:52 ; Start 03/24/18 at 09:00 Quetiapine Fumarate (SEROquel) 25 mg DAILY@1300 PO ; Start 03/24/18 at 13:00; Stop 03/24/18 at 13:00; Status DC Melatonin 6 mg STK-MED ONCE .ROUTE ; Start 03/15/18 at 21:00; Stop 03/25/18 at 12:42; Status DC Melatonin 6 mg STK-MED ONCE .ROUTE ; Start 03/20/18 at 21:00; Stop 03/25/18 at 12:43; Status DC Melatonin 6 mg STK-MED ONCE .ROUTE ; Start 03/23/18 at 21:00; Stop 03/25/18 at 12:43; Status DC Clotrimazole (Mycelex-7) 1 belle HS VG Last administered on 03/26/18at 19:53; Start 03/25/18 at 21:00; Stop 04/01/18 at 20:59 Sennosides (Senna) 8.6 mg PRN DAILY PRN PO CONSTIPATION; Start 03/26/18 at 09: 00 Diphenhydramine HCl (Benadryl) 25 mg PRN Q6HRS PRN PO ITCHING Last administered on 03/27/18at 11:41; Start 03/26/18 at 13:00 Acetaminophen/ Hydrocodone Bitart (Lortab 5/325) 1 tab PRN Q4HRS PRN PO PAIN Last administered on 03/27/18at 17:03; Start 03/26/18 at 13:15 Oxycodone HCl (OxyCONTIN) 10 mg Q12HR PO ; Start 03/26/18 at 21:00; Stop at 21:00; Status DC Quetiapine Fumarate (SEROquel) 50 mg QID PO Last administered on 03/27/18at 17: 03; Start 03/26/18 at 21:00 Trazodone HCl (Desyrel) 150 mg PRN QHS PRN PO INSOMNIA; Start 03/27/18 at 19:30 Trazodone HCl (Desyrel) 150 mg QHS PO ; Start 03/27/18 at 21:00 Active Scripts Active Reported Xarelto (Rivaroxaban) 10 Mg Tablet 20 Mg PO QHS Tramadol Hcl (Tramadol HCl) 50 Mg Tablet 50 Mg PO Q4HRS PRN Topamax (Topiramate) 25 Mg Tablet 25 Mg PO QHS Sennosides 8.6 Mg Tablet 8.6 Mg PO DAILY Klor-Con M20 (Potassium Chloride) 20 Meq Tab.er.prt 20 Meq PO DAILY Pantoprazole Sodium 40 Mg Tablet.dr 40 Mg PO BIDBFRMEAL NITROGLYCERIN SubLingual (Nitroglycerin) 0.4 Mg Tab.subl 0.4 Mg SL PRN Q5MIN PRN Miconazole Nitrate 10 Gm Powder 1 Applic MC BID Metoprolol Tartrate 25 Mg Tablet 12.5 Mg PO DAILY Melatonin 3 Mg Tablet 5 Mg PO PRN QHS PRN Meclizine Hcl 25 Mg Tablet 25 Mg PO PRN Q8HRS PRN Lorazepam 0.5 Mg Tablet 0.5 Mg PO PRN Q6HRS PRN Levothyroxine Sodium 50 Mcg Tablet 50 Mcg PO DAILYAC Latanoprost 0.005% Eye Drop (Latanoprost/Pf) 7.5 Ml Drops 1 Drop OU QHS Lamotrigine 100 Mg Tablet 100 Mg PO BID Probiotic (Lactobacillus Acidophilus) 1 Each Capsule 1 Each PO DAILY Zaditor (Ketotifen Fumarate) 5 Ml Drops 1 Drop OU TID Hydrocortisone 453.6 Gm Cream..g. 1 Applic TP BID Gabapentin 300 Mg Capsule 300 Mg PO HS Gabapentin 100 Mg Capsule 100 Mg PO DAILY Furosemide 40 Mg Tablet 40 Mg PO BID Duoneb 0.5-3(2.5) Mg/3 Ml (Albuterol/Ipratropium) 3 Ml Ampul.neb 3 Ml NEB PRN Q4HRS PRN Voltaren (Diclofenac Sodium) 100 Gm Gel..gram. 1 Applic TP BID Cymbalta (Duloxetine Hcl) 20 Mg Capsule.dr 40 Mg PO BID Cyclobenzaprine Hcl 10 Mg Tablet 10 Mg PO PRN Q8HRS PRN Cranberry Concentrate Softgel (Cranberry Conc/Ascorbic Acid) 1 Each Capsule 425 Mg PO TID Cholestyramine Packet (Cholestyramine (With Sugar)) 4 Gm Powd.pack 4 Gm PO BID Biotene Oralbalance (Saliva Stimulant Agents Comb.2) 44.3 Ml Liquid 30 Ml MM PRN Q3HRS PRN Artificial Tears Eye Drops (Dextran 70/Hypromellose) 15 Ml Drops 2 Ml OU PRN Q4HRS PRN Artificial Tears Eye Drops (Dextran 70/Hypromellose) 15 Ml Drops 2 Ml OU QHS Tylenol (Acetaminophen) 325 Mg Tablet 650 Mg PO PRN Q6HRS PRN I have reviewed the current psychotropics carefully including drug interactions. Risk benefit ratio favors no change other than as noted in my dictated progress note. Diagnosis: Problems: (1) Medical clearance for psychiatric admission (2) Anxiety disorder (3) Bipolar 1 disorder, mixed, moderate (4) Impulse control disorder (5) Schizoaffective disorder, bipolar type (6) Vascular dementia with delusions PATRIC QUEVEDO MD Mar 27, 2018 19:48
[2018-03-27] MEDS: RIVAROXABAN 10 MG TABLET. PO SCH (21:27)
[2018-03-27] MEDS: GABAPENTIN 300 MG CAPSULE. PO SCH (21:27)
[2018-03-27] MEDS: TOPIRAMATE 25 MG TABLET. PO SCH (21:27)
[2018-03-27] MEDS: CLOTRIMAZOLE 1% VAGINAL CREAM 45GM TUBE. VG SCH (21:29)
[2018-03-27] MEDS: LATANOPROST 0.005% OPHTH SOLUTION 2.5ML BOTTLE. OU SCH (21:36)
[2018-03-27] MEDS: POLYVINYL ALCOHOL 1.4% OPHTH SOLUTION 15ML BOTTLE. OU SCH (21:36)
[2018-03-27] MEDS: traZODone 150 MG TABLET. PO SCH (22:21)
[2018-03-28 05:38] VITALS: BP 110/62
[2018-03-28] MEDS: LEVOTHYROXINE 50 MCG TABLET PO SCH (05:44)
[2018-03-28] MEDS: FUROSEMIDE 40 MG TABLET PO SCH ×2 (08:15→14:32)
[2018-03-28] MEDS: LACTOBACILLUS RHAMNOSUS GG 1 CAPSULE. PO SCH ×2 (08:16→20:55)
[2018-03-28] MEDS: QUEtiapine 50 MG TABLET. PO SCH ×4 (08:16→20:55)
[2018-03-28] MEDS: GABAPENTIN 100 MG CAPSULE. PO SCH (08:16)
[2018-03-28] MEDS: METOPROLOL TART IMMED RELEASE 25 MG TABLET PO SCH (08:16)
[2018-03-28] MEDS: CHOLESTYRAMINE/ASPARTAME 4 GM PACKET PO SCH ×2 (08:17→17:02)
[2018-03-28] MEDS: PANTOPRAZOLE 40 MG TABLET. PO SCH ×2 (08:17→17:02)
[2018-03-28] MEDS: lamoTRIgine 100 MG TABLET. PO SCH ×2 (08:17→20:55)
[2018-03-28] MEDS: POTASSIUM CHLORIDE 20 MEQ TABLET.ER. PO SCH (08:17)
[2018-03-28] MEDS: DICLOFENAC SODIUM 1% TOPICAL GEL 100GM TUBE. TP SCH ×2 (08:19→20:57)
[2018-03-28] MEDS: NYSTATIN TOPICAL POWDER 15GM BOTTLE. TP SCH ×2 (08:20→20:56)
[2018-03-28] MEDS: MICONAZOLE NITRATE 2% TOPICAL CREAM 28GM TUBE. TP SCH ×2 (08:20→20:57)
[2018-03-28] MEDS: HYDROCORTISONE 1% TOPICAL CREAM 30GM TUBE. TP SCH ×2 (08:20→20:57)
[2018-03-28] MEDS: KETOTIFEN FUMARATE 0.025% OPHT SOLUTION BOTTLE. OU SCH ×3 (08:21→20:56)
[2018-03-28] MEDS: CYCLOBENZAPRINE 10 MG TABLET. PO PRN (08:32)
[2018-03-28] MEDS: HYDROcodone/APAP 5/325MG 1 TAB TABLET PO PRN (08:32)
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
[2018-03-28] MEDS: diphenhydrAMINE HCL 25 MG CAPSULE PO PRN ×2 (10:08→17:53)
[2018-03-28] MEDS ORDERED: LOPERAMIDE 2 MG CAPSULE PO PRN (14:00)
[2018-03-28 15:45] VITALS: BP 120/68
[2018-03-28] MEDS: LOPERAMIDE 2 MG CAPSULE PO PRN (18:34)
--- NOTE | 2018-03-28 20:47 | PDOC ---
Exam Note: Fernanod Note: Please also refer to the separate dictated note~for this date of service dictated separately.~Patient seen individually. Discussed the patient with Nursing staff reviewed the chart.~Reviewed interim history and current functioning. Reviewed vital signs,~Labs/ Radiology~and current medications noted below. Continue current treatment with the changes noted in the dictated addendum note Assessment: Vital Signs: Vital Signs Date Time Temp Pulse Resp B/P (MAP) Pulse Ox O2 Delivery O2 Flow Rate FiO2 03/28/18 15:45 98.0 78 18 120/68 (85) 95 03/28/18 11:00 Room Air 03/23/18 20:38 2.0 I&O Intake and Output 03/28/18 07:00 Intake Total 1860 ml Output Total 1800 ml Balance 60 ml Intake Oral 1860 ml Output Urine Total 1800 ml Current Medications: Meds: Current Medications Tramadol HCl (Ultram) 50 mg 1X ONCE PO Last administered on 03/12/18at 21:09; Start 03/12/18 at 21:15; Stop 03/12/18 at 21:36; Status DC Potassium Chloride (Klor-Con) 40 meq 1X ONCE PO ; Start 03/12/18 at 21:15; Stop 03/12/18 at 21:53; Status DC Acetaminophen (Tylenol) 650 mg PRN Q6HRS PRN PO PAIN / TEMP Last administered on 03/14/18at 03:42; Start 03/12/18 at 23:00; Stop 03/14/18 at 16:35; Status DC Multi-Ingredient Ointment (Analgesic Dalhart) 1 belle PRN QID PRN TP MUSCLE PAIN; Start 03/12/18 at 23:00 Al Hydroxide/Mg Hydroxide (Mylanta Plus Xs) 15 ml PRN AFTMEALHC PRN PO DYSPEPSIA; Start 03/12/18 at 23:00 Magnesium Hydroxide (Milk Of Magnesia) 2,400 mg PRN QHS PRN PO CONSTIPATION; Start 03/12/18 at 23:00 Duloxetine HCl (Cymbalta) 40 mg BID PO Last administered on 03/13/18at 08:59; Start 03/13/18 at 09:00; Stop 03/13/18 at 19:25; Status DC Lorazepam (Ativan) 0.5 mg PRN Q6HRS PRN PO ANXIETY Last administered on 08:31; Start 03/13/18 at 00:15 Acetaminophen (Tylenol) 650 mg PRN Q6HRS PRN PO PAIN / TEMP Last administered on 03/27/18 11:41; Start 03/13/18 at 00:15 Cyclobenzaprine HCl (Flexeril) 10 mg PRN Q8HRS PRN PO MUSCLE SPASMS Last administered on 03/28/18 08:32; Start 03/13/18 at 00:15 Diclofenac Sodium (Voltaren) 1 belle BID TP Last administered on 03/28/18 08:19; Start 03/13/18 at 09:00 Gabapentin (Neurontin) 100 mg DAILY PO Last administered on 03/28/18 08:16; Start 03/13/18 at 09:00 Gabapentin (Neurontin) 300 mg HS PO Last administered on 03/27/18 21:27; Start 03/13/18 at 21:00 Albuterol Sulfate (Ventolin) 2.5 mg PRN Q4HRS PRN NEB SHORTNESS OF BREATH; Start 03/13/18 at 00:15 Metoprolol Tartrate (Lopressor) 12.5 mg DAILY PO Last administered on 03/28/18 08:16; Start 03/13/18 at 09:00 Nitroglycerin (Nitrostat) 0.4 mg PRN Q5MIN PRN SL CHEST PAIN; Start 03/13/18 at 00:15 Potassium Chloride (Klor-Con) 20 meq DAILY PO Last administered on 03/28/18 08: 17; Start 03/13/18 at 09:00 Rivaroxaban (Xarelto) 20 mg QHS PO Last administered on 03/27/18 21:27; Start 03/13/18 at 21:00 Tramadol HCl (Ultram) 50 mg PRN Q4HRS PRN PO PAIN Last administered on 05:56; Start 03/13/18 at 00:15; Stop 03/17/18 at 14:57; Status DC Cholestyramine Resin (Questran Light) 4 gm BIDAFTMEAL PO Last administered on 17:02; Start 03/13/18 at 09:00 Non-Formulary Medication (Cranberry Conc/ Ascorbic Acid (Cranberry Concentrate Softgel)) 425 mg TID PO ; Start 03/13/18 at 09:00; Status UNV Artificial Tears (Artificial Tears) 2 drop PRN Q4HRS PRN OU DRY EYE; Start at 00:15 Artificial Tears (Artificial Tears) 2 drop QHS OU Last administered on 21:36; Start 03/13/18 at 21:00 Furosemide (Lasix) 40 mg BID92 PO Last administered on 03/28/18 14:32; Start at 09:00 Hydrocortisone (Cortaid) 1 belle BID TP Last administered on 03/28/18 08:20; Start 03/13/18 at 09:00 Ketotifen Fumarate (Zaditor) 1 drop TID OU Last administered on 03/28/18 14:33 ; Start 03/13/18 at 09:00 Lactobacillus Rhamnosus (Culturelle) 1 cap DAILY PO Last administered on 07:35; Start 03/13/18 at 09:00; Stop 03/17/18 at 15:35; Status DC Lamotrigine (LaMICtal) 100 mg BID PO Last administered on 03/28/18 08:17; Start 03/13/18 at 09:00 Latanoprost (Xalatan) 1 drop QHS OU Last administered on 03/27/18 21:36; Start 03/13/18 at 21:00 Levothyroxine Sodium (Synthroid) 50 mcg DAILY07 PO Last administered on 05:44; Start 03/13/18 at 07:00 Meclizine HCl (Antivert) 25 mg PRN Q8HRS PRN PO DIZZINESS; Start 03/13/18 at 00 :15 Miconazole Nitrate (Monistat-Derm) 1 belle BID TP Last administered on 03/28/18 08:20; Start 03/13/18 at 09:00 Pantoprazole Sodium (Protonix) 40 mg BIDBFRMEAL PO Last administered on 17:02; Start 03/13/18 at 07:30 Saliva Substitute (Biotene Moisturizing Mouth) 1 spray PRN Q3HRS PRN MM DRY MOUTH; Start 03/13/18 at 00:15 Sennosides (Senna) 8.6 mg DAILY PO Last administered on 03/26/18 07:19; Start 03/13/18 at 09:00; Stop 03/26/18 at 08:34; Status DC Topiramate (Topamax) 25 mg QHS PO Last administered on 03/14/18 19:21; Start 03/13/18 at 21:00; Stop 03/15/18 at 17:03; Status DC Melatonin 6 mg PRN QHS PRN PO INSOMNIA Last administered on 03/26/18at 20:42; Start 03/13/18 at 06:00 Insulin Human Lispro (HumaLOG) 0-5 UNITS TIDWMEALS SQ ; Start 03/14/18 at 08:00 ; Stop 03/26/18 at 12:48; Status DC Dextrose 12.5 gm PRN Q15MIN PRN IV SEE COMMENTS; Start 03/13/18 at 19:30 Duloxetine HCl (Cymbalta) 40 mg DAILY PO Last administered on 03/16/18 09:26; Start 03/14/18 at 09:00; Stop 03/16/18 at 19:41; Status DC Oxcarbazepine (Trileptal) 300 mg DAILY PO Last administered on 03/16/18 09:28 ; Start 03/14/18 at 09:00; Stop 03/16/18 at 19:41; Status DC Trazodone HCl (Desyrel) 100 mg QHS PO Last administered on 03/26/18 19:50; Start 03/13/18 at 21:00; Stop 03/27/18 at 19:11; Status DC Trazodone HCl (Desyrel) 100 mg PRN QHS PRN PO INSOMNIA; Start 03/13/18 at 19:30 ; Stop 03/27/18 at 19:11; Status DC Topiramate (Topamax) 50 mg QHS PO Last administered on 03/27/18at 21:27; Start 03/15/18 at 21:00 Nystatin (Nystop) 1 belle BID TP Last administered on 03/28/18at 08:20; Start 03/15 at 21:00 Ondansetron HCl (Zofran Odt) 4 mg PRN Q8HRS PRN PO NAUSEA/VOMITING Last administered on 03/26/18at 09:36; Start 03/15/18 at 17:15 Oxcarbazepine (Trileptal) 300 mg BID PO Last administered on 03/21/18at 08:40; Start 03/16/18 at 21:00; Stop 03/21/18 at 18:55; Status DC Amoxicillin/ Clavulanate Potassium (Augmentin 875/ 125mg) 1 tab BID PO Last administered on 03/24/18at 20:18; Start 03/17/18 at 21:00; Stop 03/24/18 at 20:59 ; Status DC Lactobacillus Rhamnosus (Culturelle) 1 cap BID PO Last administered on at 08:16; Start 03/17/18 at 21:00 Quetiapine Fumarate (SEROquel) 50 mg HS PO Last administered on 03/25/18at 20:42 ; Start 03/17/18 at 21:00; Stop 03/26/18 at 18:58; Status DC Acetaminophen/ Hydrocodone Bitart (Lortab 5/325) 1 tab PRN Q6HRS PRN PO PAIN; Start 03/17/18 at 15:00; Stop 03/17/18 at 15:16; Status DC Acetaminophen/ Hydrocodone Bitart (Lortab 5/325) 1 tab PRN Q6HRS PRN PO PAIN Last administered on 03/26/18at 10:00; Start 03/17/18 at 15:45; Stop 03/26/18 at 13:08; Status DC Diphenhydramine HCl (Benadryl) 25 mg PRN QHS PRN PO ITCHING Last administered on 03/23/18at 19:41; Start 03/18/18 at 20:45; Stop 03/26/18 at 12:47; Status DC Glucose (Insta-Glucose) 15 gm STK-MED ONCE .ROUTE ; Start 03/19/18 at 16:49; Stop 03/19/18 at 16:50; Status DC Glucose (Insta-Glucose) 15 gm STK-MED ONCE .ROUTE ; Start 03/19/18 at 16:50; Stop 03/19/18 at 16:51; Status DC Quetiapine Fumarate (SEROquel) 25 mg DAILY08 PO Last administered on 03/20/18at 08:29; Start 03/20/18 at 08:00; Stop 03/20/18 at 18:47; Status DC Quetiapine Fumarate (SEROquel) 25 mg DAILY PO ; Start 03/20/18 at 09:00; Status UNV Quetiapine Fumarate (SEROquel) 25 mg TIDBFRMEAL PO Last administered on at 18:20; Start 03/21/18 at 07:30; Stop 03/26/18 at 18:58; Status DC Oxcarbazepine (Trileptal) 300 mg DAILY PO Last administered on 03/23/18at 07:21 ; Start 03/22/18 at 09:00; Stop 03/23/18 at 18:17; Status DC Oxcarbazepine (Trileptal) 600 mg QHS PO Last administered on 03/27/18at 21:27; Start 03/21/18 at 21:00 Oxcarbazepine (Trileptal) 600 mg DAILY PO Last administered on 03/28/18at 08:16; Start 03/24/18 at 09:00 Quetiapine Fumarate (SEROquel) 25 mg DAILY@1300 PO ; Start 03/24/18 at 13:00; Stop 03/24/18 at 13:00; Status DC Melatonin 6 mg STK-MED ONCE .ROUTE ; Start 03/15/18 at 21:00; Stop 03/25/18 at 12:42; Status DC Melatonin 6 mg STK-MED ONCE .ROUTE ; Start 03/20/18 at 21:00; Stop 03/25/18 at 12:43; Status DC Melatonin 6 mg STK-MED ONCE .ROUTE ; Start 03/23/18 at 21:00; Stop 03/25/18 at 12:43; Status DC Clotrimazole (Mycelex-7) 1 belle HS VG Last administered on 03/27/18at 21:29; Start 03/25/18 at 21:00; Stop 04/01/18 at 20:59 Sennosides (Senna) 8.6 mg PRN DAILY PRN PO CONSTIPATION; Start 03/26/18 at 09: 00 Diphenhydramine HCl (Benadryl) 25 mg PRN Q6HRS PRN PO ITCHING Last administered on 03/28/18at 17:53; Start 03/26/18 at 13:00 Acetaminophen/ Hydrocodone Bitart (Lortab 5/325) 1 tab PRN Q4HRS PRN PO PAIN Last administered on 03/28/18at 08:32; Start 03/26/18 at 13:15 Oxycodone HCl (OxyCONTIN) 10 mg Q12HR PO ; Start 03/26/18 at 21:00; Stop at 21:00; Status DC Quetiapine Fumarate (SEROquel) 50 mg QID PO Last administered on 03/28/18at 17:02 ; Start 03/26/18 at 21:00 Trazodone HCl (Desyrel) 150 mg PRN QHS PRN PO INSOMNIA; Start 03/27/18 at 19:30 Trazodone HCl (Desyrel) 150 mg QHS PO Last administered on 03/27/18at 22:21; Start 03/27/18 at 21:00 Loperamide HCl (Imodium) 4 mg PRN DAILY PRN PO DIARRHEA Last administered on 03/28/18at 14:32; Start 03/28/18 at 14:00 Loperamide HCl (Imodium) 2 mg PRN Q1HR PRN PO DIARRHEA Last administered on 03/28at 18:34; Start 03/28/18 at 14:00 Active Scripts Active Reported Xarelto (Rivaroxaban) 10 Mg Tablet 20 Mg PO QHS Tramadol Hcl (Tramadol HCl) 50 Mg Tablet 50 Mg PO Q4HRS PRN Topamax (Topiramate) 25 Mg Tablet 25 Mg PO QHS Sennosides 8.6 Mg Tablet 8.6 Mg PO DAILY Klor-Con M20 (Potassium Chloride) 20 Meq Tab.er.prt 20 Meq PO DAILY Pantoprazole Sodium 40 Mg Tablet.dr 40 Mg PO BIDBFRMEAL NITROGLYCERIN SubLingual (Nitroglycerin) 0.4 Mg Tab.subl 0.4 Mg SL PRN Q5MIN PRN Miconazole Nitrate 10 Gm Powder 1 Applic MC BID Metoprolol Tartrate 25 Mg Tablet 12.5 Mg PO DAILY Melatonin 3 Mg Tablet 5 Mg PO PRN QHS PRN Meclizine Hcl 25 Mg Tablet 25 Mg PO PRN Q8HRS PRN Lorazepam 0.5 Mg Tablet 0.5 Mg PO PRN Q6HRS PRN Levothyroxine Sodium 50 Mcg Tablet 50 Mcg PO DAILYAC Latanoprost 0.005% Eye Drop (Latanoprost/Pf) 7.5 Ml Drops 1 Drop OU QHS Lamotrigine 100 Mg Tablet 100 Mg PO BID Probiotic (Lactobacillus Acidophilus) 1 Each Capsule 1 Each PO DAILY Zaditor (Ketotifen Fumarate) 5 Ml Drops 1 Drop OU TID Hydrocortisone 453.6 Gm Cream..g. 1 Applic TP BID Gabapentin 300 Mg Capsule 300 Mg PO HS Gabapentin 100 Mg Capsule 100 Mg PO DAILY Furosemide 40 Mg Tablet 40 Mg PO BID Duoneb 0.5-3(2.5) Mg/3 Ml (Albuterol/Ipratropium) 3 Ml Ampul.neb 3 Ml NEB PRN Q4HRS PRN Voltaren (Diclofenac Sodium) 100 Gm Gel..gram. 1 Applic TP BID Cymbalta (Duloxetine Hcl) 20 Mg Capsule.dr 40 Mg PO BID Cyclobenzaprine Hcl 10 Mg Tablet 10 Mg PO PRN Q8HRS PRN Cranberry Concentrate Softgel (Cranberry Conc/Ascorbic Acid) 1 Each Capsule 425 Mg PO TID Cholestyramine Packet (Cholestyramine (With Sugar)) 4 Gm Powd.pack 4 Gm PO BID Biotene Oralbalance (Saliva Stimulant Agents Comb.2) 44.3 Ml Liquid 30 Ml MM PRN Q3HRS PRN Artificial Tears Eye Drops (Dextran 70/Hypromellose) 15 Ml Drops 2 Ml OU PRN Q4HRS PRN Artificial Tears Eye Drops (Dextran 70/Hypromellose) 15 Ml Drops 2 Ml OU QHS Tylenol (Acetaminophen) 325 Mg Tablet 650 Mg PO PRN Q6HRS PRN I have reviewed the current psychotropics carefully including drug interactions. Risk benefit ratio favors no change other than as noted in my dictated progress note. Diagnosis: Problems: (1) Medical clearance for psychiatric admission (2) Anxiety disorder (3) Bipolar 1 disorder, mixed, moderate (4) Impulse control disorder (5) Schizoaffective disorder, bipolar type (6) Vascular dementia with delusions PATRIC QUEVEDO MD Mar 28, 2018 20:47
[2018-03-28] MEDS: CLOTRIMAZOLE 1% VAGINAL CREAM 45GM TUBE. VG SCH (20:54)
[2018-03-28] MEDS: GABAPENTIN 300 MG CAPSULE. PO SCH (20:54)
[2018-03-28] MEDS: RIVAROXABAN 10 MG TABLET. PO SCH (20:55)
[2018-03-28] MEDS: traZODone 150 MG TABLET. PO SCH ×2 (20:55→21:00)
[2018-03-28] MEDS: TOPIRAMATE 25 MG TABLET. PO SCH (20:56)
[2018-03-28] MEDS: LATANOPROST 0.005% OPHTH SOLUTION 2.5ML BOTTLE. OU SCH (20:56)
[2018-03-28] MEDS: POLYVINYL ALCOHOL 1.4% OPHTH SOLUTION 15ML BOTTLE. OU SCH (20:57)
--- NOTE | 2018-03-29 03:02 | PN ---
DATE: 03/27/2018 This is a late entry 03/27/2018, covers elements not covered in my initial note. SUBJECTIVE: I met with the patient at length in her room. The patient slept 4-3/4 hours previous evening. She remains somewhat withdrawn at times, demanding and "obnoxious" per nursing staff. She was cursing at staff having somatic bowel problems. CT abdomen was done to rule out bowel obstruction and renal stone, all of which was negative per Dr. Valentino. She has received Lortab, Flexeril, Tylenol and Benadryl as part of her ongoing complaints. REVIEW OF SYSTEMS: Positive for above including impaired ambulation. No CV, , pulmonary, eye system symptoms on review. MENTAL STATUS EXAM: Reasonably oriented. Speech coherent, pressured. Abstraction fair, computation impaired, language function intact, attention span short. Mood and affect still somewhat grandiose, labile, paranoid. LABORATORY DATA: Reviewed. IMPRESSION: Bipolar 1 disorder, mixed with psychotic features, personality disorder, unspecified; anxiety disorder, unspecified. She is constantly moving during the interview, restless, distractable. PLAN: Increase trazodone from 100 mg at bedtime, may repeat x 1 to 150 mg at bedtime, may repeat x 1. Rest unchanged from initial note. MAN Prasanth QUEVEDO MD DR: DUSTY/yusuf JOB#: [id number] / [id number]
[2018-03-29] MEDS: LEVOTHYROXINE 50 MCG TABLET PO SCH (05:20)
[2018-03-29 05:27] VITALS: BP 122/74
[2018-03-29] MEDS: QUEtiapine 50 MG TABLET. PO SCH ×4 (07:48→19:51)
[2018-03-29] MEDS: LACTOBACILLUS RHAMNOSUS GG 1 CAPSULE. PO SCH ×2 (07:48→19:49)
[2018-03-29] MEDS: FUROSEMIDE 40 MG TABLET PO SCH ×2 (07:49→13:10)
[2018-03-29] MEDS: lamoTRIgine 100 MG TABLET. PO SCH ×2 (07:49→19:50)
[2018-03-29] MEDS: POTASSIUM CHLORIDE 20 MEQ TABLET.ER. PO SCH (07:49)
[2018-03-29] MEDS: PANTOPRAZOLE 40 MG TABLET. PO SCH ×2 (07:49→17:36)
[2018-03-29] MEDS: CHOLESTYRAMINE/ASPARTAME 4 GM PACKET PO SCH ×2 (07:51→17:36)
[2018-03-29] MEDS: METOPROLOL TART IMMED RELEASE 25 MG TABLET PO SCH (07:51)
[2018-03-29] MEDS: GABAPENTIN 100 MG CAPSULE. PO SCH (07:51)
[2018-03-29] MEDS: MICONAZOLE NITRATE 2% TOPICAL CREAM 28GM TUBE. TP SCH ×2 (07:52→21:00)
[2018-03-29] MEDS: KETOTIFEN FUMARATE 0.025% OPHT SOLUTION BOTTLE. OU SCH ×3 (07:52→21:00)
[2018-03-29] MEDS: DICLOFENAC SODIUM 1% TOPICAL GEL 100GM TUBE. TP SCH ×2 (07:52→21:00)
[2018-03-29] MEDS: NYSTATIN TOPICAL POWDER 15GM BOTTLE. TP SCH ×2 (07:52→21:00)
[2018-03-29] MEDS: HYDROCORTISONE 1% TOPICAL CREAM 30GM TUBE. TP SCH ×2 (07:53→21:00)
[2018-03-29] MEDS: LORazepam 0.5 MG TABLET PO PRN (10:34)
[2018-03-29] MEDS: CYCLOBENZAPRINE 10 MG TABLET. PO PRN (10:34)
[2018-03-29] MEDS: LOPERAMIDE 2 MG CAPSULE PO PRN (13:33)
[2018-03-29] MEDS: ACETAMINOPHEN 325 MG TABLET PO PRN (13:35)
[2018-03-29 15:50] VITALS: BP 123/60
[2018-03-29] MEDS: RIVAROXABAN 10 MG TABLET. PO SCH (19:49)
[2018-03-29] MEDS: GABAPENTIN 300 MG CAPSULE. PO SCH (19:49)
[2018-03-29] MEDS: TOPIRAMATE 25 MG TABLET. PO SCH (19:49)
[2018-03-29] MEDS: traZODone 150 MG TABLET. PO SCH ×2 (19:49→19:56)
--- NOTE | 2018-03-29 20:47 | PDOC ---
Exam Note: Fernando Note: Please also refer to the separate dictated note~for this date of service dictated separately.~Patient seen individually. Discussed the patient with Nursing staff reviewed the chart.~Reviewed interim history and current functioning. Reviewed vital signs,~Labs/ Radiology~and current medications noted below. Continue current treatment with the changes noted in the dictated addendum note Assessment: Vital Signs: Vital Signs Date Time Temp Pulse Resp B/P (MAP) Pulse Ox O2 Delivery O2 Flow Rate FiO2 03/29/18 15:50 98.1 68 20 123/60 (81) 100 03/28/18 11:00 Room Air 03/23/18 20:38 2.0 I&O Intake and Output 03/29/18 07:00 Intake Total 1320 ml Output Total 1100 ml Balance 220 ml Intake Oral 1320 ml Output Urine Total 1100 ml # Bowel Movements 4 Labs: Laboratory Tests Test 03/29/18 17:37 Glucose (Fingerstick) 89 mg/dL (70-99) Current Medications: Meds: Current Medications Tramadol HCl (Ultram) 50 mg 1X ONCE PO Last administered on 03/12/18at 21:09; Start 03/12/18 at 21:15; Stop 03/12/18 at 21:36; Status DC Potassium Chloride (Klor-Con) 40 meq 1X ONCE PO ; Start 03/12/18 at 21:15; Stop 03/12/18 at 21:53; Status DC Acetaminophen (Tylenol) 650 mg PRN Q6HRS PRN PO PAIN / TEMP Last administered on 03/14/18at 03:42; Start 03/12/18 at 23:00; Stop 03/14/18 at 16:35; Status DC Multi-Ingredient Ointment (Analgesic [place]) 1 belle PRN QID PRN TP MUSCLE PAIN; Start 03/12/18 at 23:00 Al Hydroxide/Mg Hydroxide (Mylanta Plus Xs) 15 ml PRN AFTMEALHC PRN PO DYSPEPSIA; Start 03/12/18 at 23:00 Magnesium Hydroxide (Milk Of Magnesia) 2,400 mg PRN QHS PRN PO CONSTIPATION; Start 03/12/18 at 23:00 Duloxetine HCl (Cymbalta) 40 mg BID PO Last administered on 03/13/18at 08:59; Start 03/13/18 at 09:00; Stop 03/13/18 at 19:25; Status DC Lorazepam (Ativan) 0.5 mg PRN Q6HRS PRN PO ANXIETY Last administered on 10:34; Start 03/13/18 at 00:15 Acetaminophen (Tylenol) 650 mg PRN Q6HRS PRN PO PAIN / TEMP Last administered on 03/29/18 13:35; Start 03/13/18 at 00:15 Cyclobenzaprine HCl (Flexeril) 10 mg PRN Q8HRS PRN PO MUSCLE SPASMS Last administered on 03/29/18 10:34; Start 03/13/18 at 00:15 Diclofenac Sodium (Voltaren) 1 blele BID TP Last administered on 03/29/18 07:52; Start 03/13/18 at 09:00 Gabapentin (Neurontin) 100 mg DAILY PO Last administered on 03/29/18 07:51; Start 03/13/18 at 09:00 Gabapentin (Neurontin) 300 mg HS PO Last administered on 03/29/18 19:49; Start 03/13/18 at 21:00 Albuterol Sulfate (Ventolin) 2.5 mg PRN Q4HRS PRN NEB SHORTNESS OF BREATH; Start 03/13/18 at 00:15 Metoprolol Tartrate (Lopressor) 12.5 mg DAILY PO Last administered on 03/29/18 07:51; Start 03/13/18 at 09:00 Nitroglycerin (Nitrostat) 0.4 mg PRN Q5MIN PRN SL CHEST PAIN; Start 03/13/18 at 00:15 Potassium Chloride (Klor-Con) 20 meq DAILY PO Last administered on 03/29/18 07: 49; Start 03/13/18 at 09:00 Rivaroxaban (Xarelto) 20 mg QHS PO Last administered on 03/29/18 19:49; Start 03/13/18 at 21:00 Tramadol HCl (Ultram) 50 mg PRN Q4HRS PRN PO PAIN Last administered on 05:56; Start 03/13/18 at 00:15; Stop 03/17/18 at 14:57; Status DC Cholestyramine Resin (Questran Light) 4 gm BIDAFTMEAL PO Last administered on 17:36; Start 03/13/18 at 09:00 Non-Formulary Medication (Cranberry Conc/ Ascorbic Acid (Cranberry Concentrate Softgel)) 425 mg TID PO ; Start 03/13/18 at 09:00; Status UNV Artificial Tears (Artificial Tears) 2 drop PRN Q4HRS PRN OU DRY EYE; Start at 00:15 Artificial Tears (Artificial Tears) 2 drop QHS OU Last administered on 20:57; Start 03/13/18 at 21:00 Furosemide (Lasix) 40 mg BID92 PO Last administered on 03/29/18 13:10; Start at 09:00 Hydrocortisone (Cortaid) 1 belle BID TP Last administered on 03/29/18 07:53; Start 03/13/18 at 09:00 Ketotifen Fumarate (Zaditor) 1 drop TID OU Last administered on 03/29/18 13:10 ; Start 03/13/18 at 09:00 Lactobacillus Rhamnosus (Culturelle) 1 cap DAILY PO Last administered on 07:35; Start 03/13/18 at 09:00; Stop 03/17/18 at 15:35; Status DC Lamotrigine (LaMICtal) 100 mg BID PO Last administered on 03/29/18 19:50; Start 03/13/18 at 09:00 Latanoprost (Xalatan) 1 drop QHS OU Last administered on 03/28/18 20:56; Start 03/13/18 at 21:00 Levothyroxine Sodium (Synthroid) 50 mcg DAILY07 PO Last administered on 05:20; Start 03/13/18 at 07:00 Meclizine HCl (Antivert) 25 mg PRN Q8HRS PRN PO DIZZINESS; Start 03/13/18 at 00 :15 Miconazole Nitrate (Monistat-Derm) 1 belle BID TP Last administered on 03/29/18 07:52; Start 03/13/18 at 09:00 Pantoprazole Sodium (Protonix) 40 mg BIDBFRMEAL PO Last administered on 17:36; Start 03/13/18 at 07:30 Saliva Substitute (Biotene Moisturizing Mouth) 1 spray PRN Q3HRS PRN MM DRY MOUTH; Start 03/13/18 at 00:15 Sennosides (Senna) 8.6 mg DAILY PO Last administered on 03/26/18at 07:19; Start 03/13/18 at 09:00; Stop 03/26/18 at 08:34; Status DC Topiramate (Topamax) 25 mg QHS PO Last administered on 03/14/18at 19:21; Start 03/13/18 at 21:00; Stop 03/15/18 at 17:03; Status DC Melatonin 6 mg PRN QHS PRN PO INSOMNIA Last administered on 03/26/18at 20:42; Start 03/13/18 at 06:00 Insulin Human Lispro (HumaLOG) 0-5 UNITS TIDWMEALS SQ ; Start 03/14/18 at 08:00 ; Stop 03/26/18 at 12:48; Status DC Dextrose 12.5 gm PRN Q15MIN PRN IV SEE COMMENTS; Start 03/13/18 at 19:30 Duloxetine HCl (Cymbalta) 40 mg DAILY PO Last administered on 03/16/18at 09:26; Start 03/14/18 at 09:00; Stop 03/16/18 at 19:41; Status DC Oxcarbazepine (Trileptal) 300 mg DAILY PO Last administered on 03/16/18at 09:28 ; Start 03/14/18 at 09:00; Stop 03/16/18 at 19:41; Status DC Trazodone HCl (Desyrel) 100 mg QHS PO Last administered on 03/26/18at 19:50; Start 03/13/18 at 21:00; Stop 03/27/18 at 19:11; Status DC Trazodone HCl (Desyrel) 100 mg PRN QHS PRN PO INSOMNIA; Start 03/13/18 at 19:30 ; Stop 03/27/18 at 19:11; Status DC Topiramate (Topamax) 50 mg QHS PO Last administered on 03/29/18at 19:49; Start at 21:00 Nystatin (Nystop) 1 belle BID TP Last administered on 03/29/18at 07:52; Start 03/15 at 21:00 Ondansetron HCl (Zofran Odt) 4 mg PRN Q8HRS PRN PO NAUSEA/VOMITING Last administered on 03/26/18at 09:36; Start 03/15/18 at 17:15 Oxcarbazepine (Trileptal) 300 mg BID PO Last administered on 03/21/18at 08:40; Start 03/16/18 at 21:00; Stop 03/21/18 at 18:55; Status DC Amoxicillin/ Clavulanate Potassium (Augmentin 875/ 125mg) 1 tab BID PO Last administered on 03/24/18at 20:18; Start 03/17/18 at 21:00; Stop 03/24/18 at 20:59 ; Status DC Lactobacillus Rhamnosus (Culturelle) 1 cap BID PO Last administered on at 19:49; Start 03/17/18 at 21:00 Quetiapine Fumarate (SEROquel) 50 mg HS PO Last administered on 03/25/18at 20:42 ; Start 03/17/18 at 21:00; Stop 03/26/18 at 18:58; Status DC Acetaminophen/ Hydrocodone Bitart (Lortab 5/325) 1 tab PRN Q6HRS PRN PO PAIN; Start 03/17/18 at 15:00; Stop 03/17/18 at 15:16; Status DC Acetaminophen/ Hydrocodone Bitart (Lortab 5/325) 1 tab PRN Q6HRS PRN PO PAIN Last administered on 03/26/18at 10:00; Start 03/17/18 at 15:45; Stop 03/26/18 at 13:08; Status DC Diphenhydramine HCl (Benadryl) 25 mg PRN QHS PRN PO ITCHING Last administered on 03/23/18at 19:41; Start 03/18/18 at 20:45; Stop 03/26/18 at 12:47; Status DC Glucose (Insta-Glucose) 15 gm STK-MED ONCE .ROUTE ; Start 03/19/18 at 16:49; Stop 03/19/18 at 16:50; Status DC Glucose (Insta-Glucose) 15 gm STK-MED ONCE .ROUTE ; Start 03/19/18 at 16:50; Stop 03/19/18 at 16:51; Status DC Quetiapine Fumarate (SEROquel) 25 mg DAILY08 PO Last administered on 03/20/18at 08:29; Start 03/20/18 at 08:00; Stop 03/20/18 at 18:47; Status DC Quetiapine Fumarate (SEROquel) 25 mg DAILY PO ; Start 03/20/18 at 09:00; Status UNV Quetiapine Fumarate (SEROquel) 25 mg TIDBFRMEAL PO Last administered on at 18:20; Start 03/21/18 at 07:30; Stop 03/26/18 at 18:58; Status DC Oxcarbazepine (Trileptal) 300 mg DAILY PO Last administered on 03/23/18at 07:21 ; Start 03/22/18 at 09:00; Stop 03/23/18 at 18:17; Status DC Oxcarbazepine (Trileptal) 600 mg QHS PO Last administered on 03/29/18at 19:49; Start 03/21/18 at 21:00 Oxcarbazepine (Trileptal) 600 mg DAILY PO Last administered on 03/29/18at 07:49; Start 03/24/18 at 09:00 Quetiapine Fumarate (SEROquel) 25 mg DAILY@1300 PO ; Start 03/24/18 at 13:00; Stop 03/24/18 at 13:00; Status DC Melatonin 6 mg STK-MED ONCE .ROUTE ; Start 03/15/18 at 21:00; Stop 03/25/18 at 12:42; Status DC Melatonin 6 mg STK-MED ONCE .ROUTE ; Start 03/20/18 at 21:00; Stop 03/25/18 at 12:43; Status DC Melatonin 6 mg STK-MED ONCE .ROUTE ; Start 03/23/18 at 21:00; Stop 03/25/18 at 12:43; Status DC Clotrimazole (Mycelex-7) 1 belle HS VG Last administered on 03/28/18at 20:54; Start 03/25/18 at 21:00; Stop 04/01/18 at 20:59 Sennosides (Senna) 8.6 mg PRN DAILY PRN PO CONSTIPATION; Start 03/26/18 at 09: 00 Diphenhydramine HCl (Benadryl) 25 mg PRN Q6HRS PRN PO ITCHING Last administered on 03/28/18at 17:53; Start 03/26/18 at 13:00 Acetaminophen/ Hydrocodone Bitart (Lortab 5/325) 1 tab PRN Q4HRS PRN PO PAIN Last administered on 03/28/18at 08:32; Start 03/26/18 at 13:15 Oxycodone HCl (OxyCONTIN) 10 mg Q12HR PO ; Start 03/26/18 at 21:00; Stop at 21:00; Status DC Quetiapine Fumarate (SEROquel) 50 mg QID PO Last administered on 03/29/18at 07:48 ; Start 03/26/18 at 21:00; Stop 03/29/18 at 12:18; Status DC Trazodone HCl (Desyrel) 150 mg PRN QHS PRN PO INSOMNIA; Start 03/27/18 at 19:30 Trazodone HCl (Desyrel) 150 mg QHS PO Last administered on 03/27/18at 22:21; Start 03/27/18 at 21:00 Loperamide HCl (Imodium) 4 mg PRN DAILY PRN PO DIARRHEA Last administered on 03/28/18at 14:32; Start 03/28/18 at 14:00 Loperamide HCl (Imodium) 2 mg PRN Q1HR PRN PO DIARRHEA Last administered on 03/29at 13:33; Start 03/28/18 at 14:00 Quetiapine Fumarate (SEROquel) 50 mg 1300,1700,2100 PO Last administered on 03/29at 19:51; Start 03/29/18 at 13:00 Quetiapine Fumarate (SEROquel) 75 mg DAILY PO ; Start 03/30/18 at 09:00 Active Scripts Active Reported Xarelto (Rivaroxaban) 10 Mg Tablet 20 Mg PO QHS Tramadol Hcl (Tramadol HCl) 50 Mg Tablet 50 Mg PO Q4HRS PRN Topamax (Topiramate) 25 Mg Tablet 25 Mg PO QHS Sennosides 8.6 Mg Tablet 8.6 Mg PO DAILY Klor-Con M20 (Potassium Chloride) 20 Meq Tab.er.prt 20 Meq PO DAILY Pantoprazole Sodium 40 Mg Tablet.dr 40 Mg PO BIDBFRMEAL NITROGLYCERIN SubLingual (Nitroglycerin) 0.4 Mg Tab.subl 0.4 Mg SL PRN Q5MIN PRN Miconazole Nitrate 10 Gm Powder 1 Applic MC BID Metoprolol Tartrate 25 Mg Tablet 12.5 Mg PO DAILY Melatonin 3 Mg Tablet 5 Mg PO PRN QHS PRN Meclizine Hcl 25 Mg Tablet 25 Mg PO PRN Q8HRS PRN Lorazepam 0.5 Mg Tablet 0.5 Mg PO PRN Q6HRS PRN Levothyroxine Sodium 50 Mcg Tablet 50 Mcg PO DAILYAC Latanoprost 0.005% Eye Drop (Latanoprost/Pf) 7.5 Ml Drops 1 Drop OU QHS Lamotrigine 100 Mg Tablet 100 Mg PO BID Probiotic (Lactobacillus Acidophilus) 1 Each Capsule 1 Each PO DAILY Zaditor (Ketotifen Fumarate) 5 Ml Drops 1 Drop OU TID Hydrocortisone 453.6 Gm Cream..g. 1 Applic TP BID Gabapentin 300 Mg Capsule 300 Mg PO HS Gabapentin 100 Mg Capsule 100 Mg PO DAILY Furosemide 40 Mg Tablet 40 Mg PO BID Duoneb 0.5-3(2.5) Mg/3 Ml (Albuterol/Ipratropium) 3 Ml Ampul.neb 3 Ml NEB PRN Q4HRS PRN Voltaren (Diclofenac Sodium) 100 Gm Gel..gram. 1 Applic TP BID Cymbalta (Duloxetine Hcl) 20 Mg Capsule.dr 40 Mg PO BID Cyclobenzaprine Hcl 10 Mg Tablet 10 Mg PO PRN Q8HRS PRN Cranberry Concentrate Softgel (Cranberry Conc/Ascorbic Acid) 1 Each Capsule 425 Mg PO TID Cholestyramine Packet (Cholestyramine (With Sugar)) 4 Gm Powd.pack 4 Gm PO BID Biotene Oralbalance (Saliva Stimulant Agents Comb.2) 44.3 Ml Liquid 30 Ml MM PRN Q3HRS PRN Artificial Tears Eye Drops (Dextran 70/Hypromellose) 15 Ml Drops 2 Ml OU PRN Q4HRS PRN Artificial Tears Eye Drops (Dextran 70/Hypromellose) 15 Ml Drops 2 Ml OU QHS Tylenol (Acetaminophen) 325 Mg Tablet 650 Mg PO PRN Q6HRS PRN I have reviewed the current psychotropics carefully including drug interactions. Risk benefit ratio favors no change other than as noted in my dictated progress note. Diagnosis: Problems: (1) Medical clearance for psychiatric admission (2) Anxiety disorder (3) Bipolar 1 disorder, mixed, moderate (4) Impulse control disorder (5) Schizoaffective disorder, bipolar type (6) Vascular dementia with delusions PATRIC QUEVEDO MD Mar 29, 2018 20:47
--- NOTE | 2018-03-29 20:48 | PN ---
DATE: 03/28/2018 PSYCHIATRIC PROGRESS NOTE This is a late entry of 03/28/2018 covers elements not covered in my initial note. SUBJECTIVE: I met with the patient in the evening. The patient has been less demanding, slept 6 hours, less pressure of speech is evident. REVIEW OF SYSTEMS: Ambulation impaired, in wheelchair. No CV, , pulmonary, eye system symptoms on review. MENTAL STATUS EXAM: Reasonably oriented. Speech coherent, rapid at times. Abstraction fair, computation impaired, language function intact, attention span short. Mood and affect remain somewhat labile, but improved. LABORATORY DATA: Reviewed. IMPRESSION: Unchanged from initial note. PLAN: Increase Trileptal gradually, but for now she is on 600 mg twice a day. Continue rest unchanged. MAN Prasanth QUEVEDO MD DR: DUSTY/yusuf JOB#: [id number] / [id number]
[2018-03-29] MEDS: POLYVINYL ALCOHOL 1.4% OPHTH SOLUTION 15ML BOTTLE. OU SCH (21:00)
[2018-03-29] MEDS: LATANOPROST 0.005% OPHTH SOLUTION 2.5ML BOTTLE. OU SCH (21:00)
[2018-03-29] MEDS: CLOTRIMAZOLE 1% VAGINAL CREAM 45GM TUBE. VG SCH (21:00)
[2018-03-30] MEDS: CYCLOBENZAPRINE 10 MG TABLET. PO PRN ×2 (03:34→20:35)
[2018-03-30] MEDS: HYDROcodone/APAP 5/325MG 1 TAB TABLET PO PRN ×2 (03:34→20:35)
[2018-03-30] MEDS: diphenhydrAMINE HCL 25 MG CAPSULE PO PRN ×2 (03:34→20:35)
[2018-03-30] MEDS: LEVOTHYROXINE 50 MCG TABLET PO SCH ×2 (05:39→07:36)
[2018-03-30 05:46] VITALS: BP 106/68
[2018-03-30] MEDS: CHOLESTYRAMINE/ASPARTAME 4 GM PACKET PO SCH ×2 (07:24→16:23)
[2018-03-30] MEDS: POTASSIUM CHLORIDE 20 MEQ TABLET.ER. PO SCH (07:25)
[2018-03-30] MEDS: METOPROLOL TART IMMED RELEASE 25 MG TABLET PO SCH (07:26)
[2018-03-30] MEDS: FUROSEMIDE 40 MG TABLET PO SCH ×2 (07:26→12:11)
[2018-03-30] MEDS: lamoTRIgine 100 MG TABLET. PO SCH ×2 (07:26→20:19)
[2018-03-30] MEDS: LACTOBACILLUS RHAMNOSUS GG 1 CAPSULE. PO SCH ×2 (07:26→20:19)
[2018-03-30] MEDS: PANTOPRAZOLE 40 MG TABLET. PO SCH ×2 (07:26→16:22)
[2018-03-30] MEDS: GABAPENTIN 100 MG CAPSULE. PO SCH (07:33)
[2018-03-30] MEDS: NYSTATIN TOPICAL POWDER 15GM BOTTLE. TP SCH ×2 (07:33→20:23)
[2018-03-30] MEDS: HYDROCORTISONE 1% TOPICAL CREAM 30GM TUBE. TP SCH ×2 (07:33→20:23)
[2018-03-30] MEDS: KETOTIFEN FUMARATE 0.025% OPHT SOLUTION BOTTLE. OU SCH ×3 (07:34→20:21)
[2018-03-30] MEDS: DICLOFENAC SODIUM 1% TOPICAL GEL 100GM TUBE. TP SCH ×2 (07:35→20:22)
[2018-03-30] MEDS: CLOTRIMAZOLE 1% VAGINAL CREAM 45GM TUBE. VG SCH (07:35)
[2018-03-30] MEDS: MICONAZOLE NITRATE 2% TOPICAL CREAM 28GM TUBE. TP SCH ×2 (07:36→20:23)
[2018-03-30] MEDS ORDERED: SODIUM PHOSPHATES 19/7GM 133 ML ENEMA. PR ONE (08:00)
[2018-03-30] MEDS: QUEtiapine 25 MG TABLET. PO SCH (09:20)
[2018-03-30] MEDS: QUEtiapine 50 MG TABLET. PO SCH ×3 (12:11→20:18)
[2018-03-30 15:53] VITALS: BP 133/68
[2018-03-30] MEDS: traZODone 150 MG TABLET. PO SCH ×2 (20:19→21:00)
[2018-03-30] MEDS: RIVAROXABAN 10 MG TABLET. PO SCH (20:19)
[2018-03-30] MEDS: GABAPENTIN 300 MG CAPSULE. PO SCH (20:19)
[2018-03-30] MEDS: TOPIRAMATE 25 MG TABLET. PO SCH (20:19)
[2018-03-30] MEDS: LATANOPROST 0.005% OPHTH SOLUTION 2.5ML BOTTLE. OU SCH (20:21)
[2018-03-30] MEDS: POLYVINYL ALCOHOL 1.4% OPHTH SOLUTION 15ML BOTTLE. OU SCH (20:21)
--- NOTE | 2018-03-30 20:41 | PDOC ---
Exam Note: Fernando Note: Please also refer to the separate dictated note~for this date of service dictated separately.~Patient seen individually. Discussed the patient with Nursing staff reviewed the chart.~Reviewed interim history and current functioning. Reviewed vital signs,~Labs/ Radiology~and current medications noted below. Continue current treatment with the changes noted in the dictated addendum note Assessment: Vital Signs: Vital Signs Date Time Temp Pulse Resp B/P (MAP) Pulse Ox O2 Delivery O2 Flow Rate FiO2 03/30/18 20:35 95 03/30/18 15:53 97.0 70 20 133/68 (89) 03/28/18 11:00 Room Air I&O Intake and Output 03/30/18 07:00 Intake Total 1680 ml Output Total 2150 ml Balance -470 ml Intake Oral 1680 ml Output Urine Total 2150 ml # Bowel Movements 3 Current Medications: Meds: Current Medications Tramadol HCl (Ultram) 50 mg 1X ONCE PO Last administered on 03/12/18at 21:09; Start 03/12/18 at 21:15; Stop 03/12/18 at 21:36; Status DC Potassium Chloride (Klor-Con) 40 meq 1X ONCE PO ; Start 03/12/18 at 21:15; Stop 03/12/18 at 21:53; Status DC Acetaminophen (Tylenol) 650 mg PRN Q6HRS PRN PO PAIN / TEMP Last administered on 03/14/18at 03:42; Start 03/12/18 at 23:00; Stop 03/14/18 at 16:35; Status DC Multi-Ingredient Ointment (Analgesic [place]) 1 belle PRN QID PRN TP MUSCLE PAIN; Start 03/12/18 at 23:00 Al Hydroxide/Mg Hydroxide (Mylanta Plus Xs) 15 ml PRN AFTMEALHC PRN PO DYSPEPSIA; Start 03/12/18 at 23:00 Magnesium Hydroxide (Milk Of Magnesia) 2,400 mg PRN QHS PRN PO CONSTIPATION; Start 03/12/18 at 23:00 Duloxetine HCl (Cymbalta) 40 mg BID PO Last administered on 03/13/18at 08:59; Start 03/13/18 at 09:00; Stop 03/13/18 at 19:25; Status DC Lorazepam (Ativan) 0.5 mg PRN Q6HRS PRN PO ANXIETY Last administered on 10:34; Start 03/13/18 at 00:15 Acetaminophen (Tylenol) 650 mg PRN Q6HRS PRN PO PAIN / TEMP Last administered on 03/29/18 13:35; Start 03/13/18 at 00:15 Cyclobenzaprine HCl (Flexeril) 10 mg PRN Q8HRS PRN PO MUSCLE SPASMS Last administered on 03/30/18 20:35; Start 03/13/18 at 00:15 Diclofenac Sodium (Voltaren) 1 belle BID TP Last administered on 03/30/18 20:22; Start 03/13/18 at 09:00 Gabapentin (Neurontin) 100 mg DAILY PO Last administered on 03/30/18 07:33; Start 03/13/18 at 09:00 Gabapentin (Neurontin) 300 mg HS PO Last administered on 03/30/18 20:19; Start 03/13/18 at 21:00 Albuterol Sulfate (Ventolin) 2.5 mg PRN Q4HRS PRN NEB SHORTNESS OF BREATH; Start 03/13/18 at 00:15 Metoprolol Tartrate (Lopressor) 12.5 mg DAILY PO Last administered on 03/30/18 07:26; Start 03/13/18 at 09:00 Nitroglycerin (Nitrostat) 0.4 mg PRN Q5MIN PRN SL CHEST PAIN; Start 03/13/18 at 00:15 Potassium Chloride (Klor-Con) 20 meq DAILY PO Last administered on 03/30/18 07: 25; Start 03/13/18 at 09:00 Rivaroxaban (Xarelto) 20 mg QHS PO Last administered on 03/30/18 20:19; Start 03/13/18 at 21:00 Tramadol HCl (Ultram) 50 mg PRN Q4HRS PRN PO PAIN Last administered on 05:56; Start 03/13/18 at 00:15; Stop 03/17/18 at 14:57; Status DC Cholestyramine Resin (Questran Light) 4 gm BIDAFTMEAL PO Last administered on 07:24; Start 03/13/18 at 09:00 Non-Formulary Medication (Cranberry Conc/ Ascorbic Acid (Cranberry Concentrate Softgel)) 425 mg TID PO ; Start 03/13/18 at 09:00; Status UNV Artificial Tears (Artificial Tears) 2 drop PRN Q4HRS PRN OU DRY EYE; Start at 00:15 Artificial Tears (Artificial Tears) 2 drop QHS OU Last administered on 20:21; Start 03/13/18 at 21:00 Furosemide (Lasix) 40 mg BID92 PO Last administered on 03/30/18 12:11; Start at 09:00 Hydrocortisone (Cortaid) 1 belle BID TP Last administered on 03/30/18 20:23; Start 03/13/18 at 09:00 Ketotifen Fumarate (Zaditor) 1 drop TID OU Last administered on 03/30/18 20:21 ; Start 03/13/18 at 09:00 Lactobacillus Rhamnosus (Culturelle) 1 cap DAILY PO Last administered on 07:35; Start 03/13/18 at 09:00; Stop 03/17/18 at 15:35; Status DC Lamotrigine (LaMICtal) 100 mg BID PO Last administered on 03/30/18 20:19; Start 03/13/18 at 09:00 Latanoprost (Xalatan) 1 drop QHS OU Last administered on 03/30/18 20:21; Start 03/13/18 at 21:00 Levothyroxine Sodium (Synthroid) 50 mcg DAILY07 PO Last administered on 07:36; Start 03/13/18 at 07:00 Meclizine HCl (Antivert) 25 mg PRN Q8HRS PRN PO DIZZINESS; Start 03/13/18 at 00 :15 Miconazole Nitrate (Monistat-Derm) 1 belle BID TP Last administered on 03/30/18 20:23; Start 03/13/18 at 09:00 Pantoprazole Sodium (Protonix) 40 mg BIDBFRMEAL PO Last administered on 16:22; Start 03/13/18 at 07:30 Saliva Substitute (Biotene Moisturizing Mouth) 1 spray PRN Q3HRS PRN MM DRY MOUTH; Start 03/13/18 at 00:15 Sennosides (Senna) 8.6 mg DAILY PO Last administered on 03/26/18 07:19; Start 03/13/18 at 09:00; Stop 03/26/18 at 08:34; Status DC Topiramate (Topamax) 25 mg QHS PO Last administered on 03/14/18 19:21; Start 03/13/18 at 21:00; Stop 03/15/18 at 17:03; Status DC Melatonin 6 mg PRN QHS PRN PO INSOMNIA Last administered on 03/26/18 20:42; Start 03/13/18 at 06:00 Insulin Human Lispro (HumaLOG) 0-5 UNITS TIDWMEALS SQ ; Start 03/14/18 at 08:00 ; Stop 03/26/18 at 12:48; Status DC Dextrose 12.5 gm PRN Q15MIN PRN IV SEE COMMENTS; Start 03/13/18 at 19:30 Duloxetine HCl (Cymbalta) 40 mg DAILY PO Last administered on 03/16/18 09:26; Start 03/14/18 at 09:00; Stop 03/16/18 at 19:41; Status DC Oxcarbazepine (Trileptal) 300 mg DAILY PO Last administered on 03/16/18 09:28 ; Start 03/14/18 at 09:00; Stop 03/16/18 at 19:41; Status DC Trazodone HCl (Desyrel) 100 mg QHS PO Last administered on 03/26/18 19:50; Start 03/13/18 at 21:00; Stop 03/27/18 at 19:11; Status DC Trazodone HCl (Desyrel) 100 mg PRN QHS PRN PO INSOMNIA; Start 03/13/18 at 19:30 ; Stop 03/27/18 at 19:11; Status DC Topiramate (Topamax) 50 mg QHS PO Last administered on 03/30/18 20:19; Start at 21:00 Nystatin (Nystop) 1 belle BID TP Last administered on 03/30/18 20:23; Start 03/15 at 21:00 Ondansetron HCl (Zofran Odt) 4 mg PRN Q8HRS PRN PO NAUSEA/VOMITING Last administered on 7/30/18at 09:36; Start 03/15/18 at 17:15 Oxcarbazepine (Trileptal) 300 mg BID PO Last administered on 03/21/18at 08:40; Start 03/16/18 at 21:00; Stop 03/21/18 at 18:55; Status DC Amoxicillin/ Clavulanate Potassium (Augmentin 875/ 125mg) 1 tab BID PO Last administered on 03/24/18at 20:18; Start 03/17/18 at 21:00; Stop 03/24/18 at 20:59 ; Status DC Lactobacillus Rhamnosus (Culturelle) 1 cap BID PO Last administered on at 20:19; Start 03/17/18 at 21:00 Quetiapine Fumarate (SEROquel) 50 mg HS PO Last administered on 03/25/18at 20:42 ; Start 03/17/18 at 21:00; Stop 03/26/18 at 18:58; Status DC Acetaminophen/ Hydrocodone Bitart (Lortab 5/325) 1 tab PRN Q6HRS PRN PO PAIN; Start 03/17/18 at 15:00; Stop 03/17/18 at 15:16; Status DC Acetaminophen/ Hydrocodone Bitart (Lortab 5/325) 1 tab PRN Q6HRS PRN PO PAIN Last administered on 03/26/18at 10:00; Start 03/17/18 at 15:45; Stop 03/26/18 at 13:08; Status DC Diphenhydramine HCl (Benadryl) 25 mg PRN QHS PRN PO ITCHING Last administered on 03/23/18at 19:41; Start 03/18/18 at 20:45; Stop 03/26/18 at 12:47; Status DC Glucose (Insta-Glucose) 15 gm STK-MED ONCE .ROUTE ; Start 03/19/18 at 16:49; Stop 03/19/18 at 16:50; Status DC Glucose (Insta-Glucose) 15 gm STK-MED ONCE .ROUTE ; Start 03/19/18 at 16:50; Stop 03/19/18 at 16:51; Status DC Quetiapine Fumarate (SEROquel) 25 mg DAILY08 PO Last administered on 03/20/18at 08:29; Start 03/20/18 at 08:00; Stop 03/20/18 at 18:47; Status DC Quetiapine Fumarate (SEROquel) 25 mg DAILY PO ; Start 03/20/18 at 09:00; Status UNV Quetiapine Fumarate (SEROquel) 25 mg TIDBFRMEAL PO Last administered on at 18:20; Start 03/21/18 at 07:30; Stop 03/26/18 at 18:58; Status DC Oxcarbazepine (Trileptal) 300 mg DAILY PO Last administered on 03/23/18at 07:21 ; Start 03/22/18 at 09:00; Stop 03/23/18 at 18:17; Status DC Oxcarbazepine (Trileptal) 600 mg QHS PO Last administered on 03/30/18at 20:19; Start 03/21/18 at 21:00 Oxcarbazepine (Trileptal) 600 mg DAILY PO Last administered on 03/30/18at 07:25; Start 03/24/18 at 09:00 Quetiapine Fumarate (SEROquel) 25 mg DAILY@1300 PO ; Start 03/24/18 at 13:00; Stop 03/24/18 at 13:00; Status DC Melatonin 6 mg STK-MED ONCE .ROUTE ; Start 03/15/18 at 21:00; Stop 03/25/18 at 12:42; Status DC Melatonin 6 mg STK-MED ONCE .ROUTE ; Start 03/20/18 at 21:00; Stop 03/25/18 at 12:43; Status DC Melatonin 6 mg STK-MED ONCE .ROUTE ; Start 03/23/18 at 21:00; Stop 03/25/18 at 12:43; Status DC Clotrimazole (Mycelex-7) 1 belle HS VG Last administered on 03/30/18at 07:35; Start 03/25/18 at 21:00; Stop 04/01/18 at 20:59 Sennosides (Senna) 8.6 mg PRN DAILY PRN PO CONSTIPATION; Start 03/26/18 at 09: 00 Diphenhydramine HCl (Benadryl) 25 mg PRN Q6HRS PRN PO ITCHING Last administered on 03/30/18at 20:35; Start 03/26/18 at 13:00 Acetaminophen/ Hydrocodone Bitart (Lortab 5/325) 1 tab PRN Q4HRS PRN PO PAIN Last administered on 03/30/18at 20:35; Start 03/26/18 at 13:15 Oxycodone HCl (OxyCONTIN) 10 mg Q12HR PO ; Start 03/26/18 at 21:00; Stop at 21:00; Status DC Quetiapine Fumarate (SEROquel) 50 mg QID PO Last administered on 03/29/18at 07:48 ; Start 03/26/18 at 21:00; Stop 03/29/18 at 12:18; Status DC Trazodone HCl (Desyrel) 150 mg PRN QHS PRN PO INSOMNIA; Start 03/27/18 at 19:30 Trazodone HCl (Desyrel) 150 mg QHS PO Last administered on 03/27/18at 22:21; Start 03/27/18 at 21:00 Loperamide HCl (Imodium) 4 mg PRN DAILY PRN PO DIARRHEA Last administered on 03/28/18at 14:32; Start 03/28/18 at 14:00 Loperamide HCl (Imodium) 2 mg PRN Q1HR PRN PO DIARRHEA Last administered on 03/29at 13:33; Start 03/28/18 at 14:00 Quetiapine Fumarate (SEROquel) 50 mg 1300,1700,2100 PO Last administered on 03/30at 20:18; Start 03/29/18 at 13:00 Quetiapine Fumarate (SEROquel) 75 mg DAILY PO Last administered on 03/30/18at 09: 20; Start 03/30/18 at 09:00 Sodium Biphosphate/ Sodium Phosphate (Fleet Adult) 133 ml 1X ONCE WI Last administered on 03/30/18at 09:20; Start 03/30/18 at 08:00; Stop 03/30/18 at 08:01; Status DC Active Scripts Active Reported Xarelto (Rivaroxaban) 10 Mg Tablet 20 Mg PO QHS Tramadol Hcl (Tramadol HCl) 50 Mg Tablet 50 Mg PO Q4HRS PRN Topamax (Topiramate) 25 Mg Tablet 25 Mg PO QHS Sennosides 8.6 Mg Tablet 8.6 Mg PO DAILY Klor-Con M20 (Potassium Chloride) 20 Meq Tab.er.prt 20 Meq PO DAILY Pantoprazole Sodium 40 Mg Tablet.dr 40 Mg PO BIDBFRMEAL NITROGLYCERIN SubLingual (Nitroglycerin) 0.4 Mg Tab.subl 0.4 Mg SL PRN Q5MIN PRN Miconazole Nitrate 10 Gm Powder 1 Applic MC BID Metoprolol Tartrate 25 Mg Tablet 12.5 Mg PO DAILY Melatonin 3 Mg Tablet 5 Mg PO PRN QHS PRN Meclizine Hcl 25 Mg Tablet 25 Mg PO PRN Q8HRS PRN Lorazepam 0.5 Mg Tablet 0.5 Mg PO PRN Q6HRS PRN Levothyroxine Sodium 50 Mcg Tablet 50 Mcg PO DAILYAC Latanoprost 0.005% Eye Drop (Latanoprost/Pf) 7.5 Ml Drops 1 Drop OU QHS Lamotrigine 100 Mg Tablet 100 Mg PO BID Probiotic (Lactobacillus Acidophilus) 1 Each Capsule 1 Each PO DAILY Zaditor (Ketotifen Fumarate) 5 Ml Drops 1 Drop OU TID Hydrocortisone 453.6 Gm Cream..g. 1 Applic TP BID Gabapentin 300 Mg Capsule 300 Mg PO HS Gabapentin 100 Mg Capsule 100 Mg PO DAILY Furosemide 40 Mg Tablet 40 Mg PO BID Duoneb 0.5-3(2.5) Mg/3 Ml (Albuterol/Ipratropium) 3 Ml Ampul.neb 3 Ml NEB PRN Q4HRS PRN Voltaren (Diclofenac Sodium) 100 Gm Gel..gram. 1 Applic TP BID Cymbalta (Duloxetine Hcl) 20 Mg Capsule.dr 40 Mg PO BID Cyclobenzaprine Hcl 10 Mg Tablet 10 Mg PO PRN Q8HRS PRN Cranberry Concentrate Softgel (Cranberry Conc/Ascorbic Acid) 1 Each Capsule 425 Mg PO TID Cholestyramine Packet (Cholestyramine (With Sugar)) 4 Gm Powd.pack 4 Gm PO BID Biotene Oralbalance (Saliva Stimulant Agents Comb.2) 44.3 Ml Liquid 30 Ml MM PRN Q3HRS PRN Artificial Tears Eye Drops (Dextran 70/Hypromellose) 15 Ml Drops 2 Ml OU PRN Q4HRS PRN Artificial Tears Eye Drops (Dextran 70/Hypromellose) 15 Ml Drops 2 Ml OU QHS Tylenol (Acetaminophen) 325 Mg Tablet 650 Mg PO PRN Q6HRS PRN I have reviewed the current psychotropics carefully including drug interactions. Risk benefit ratio favors no change other than as noted in my dictated progress note. Diagnosis: Problems: (1) Medical clearance for psychiatric admission (2) Anxiety disorder (3) Bipolar 1 disorder, mixed, moderate (4) Impulse control disorder (5) Schizoaffective disorder, bipolar type (6) Vascular dementia with delusions PATRIC QUEVEDO MD Mar 30, 2018 20:41
--- NOTE | 2018-03-31 00:39 | PN ---
DATE: 03/29/2018 PSYCHIATRIC PROGRESS NOTE This is a late entry, 03/29, covers elements not covered in my initial note of 03/29. SUBJECTIVE: I met with the patient in the evening, staffed the Treatment Team, meeting with the entire team in the morning. Reviewed of the patient's history, diagnosis, progress. The patient slept 6-3/4 hours previous evening. She remains somewhat anxious, labile in her mood, but better than before. REVIEW OF SYSTEMS: Ambulation impaired, in wheelchair. No CV, , pulmonary, eye system symptoms on review. MENTAL STATUS EXAM: Oriented reasonably. Speech coherent, still somewhat pressured. Abstraction fair, computation impaired, language function intact. Mood and affect still somewhat labile, but improved. LABORATORY DATA: Reviewed. IMPRESSION: Bipolar 1 disorder, mixed with psychotic features, personality disorder, unspecified. Rest unchanged from initial note. PLAN: Increase Seroquel from 50 mg 4 times a day to 75 mg in the morning, 50 mg 3 times a day. Continue rest unchanged including Trileptal 600 b.i.d. MAN Prasanth QUEVEDO MD DR: DUSTY/yusuf JOB#: [id number] / [id number]
[2018-03-31 01:02] VITALS: BP 134/92
[2018-03-31] MEDS: lamoTRIgine 100 MG TABLET. PO SCH ×2 (07:20→19:40)
[2018-03-31] MEDS: FUROSEMIDE 40 MG TABLET PO SCH ×2 (07:20→12:33)
[2018-03-31] MEDS: METOPROLOL TART IMMED RELEASE 25 MG TABLET PO SCH (07:21)
[2018-03-31] MEDS: PANTOPRAZOLE 40 MG TABLET. PO SCH ×2 (07:21→16:26)
[2018-03-31] MEDS: QUEtiapine 25 MG TABLET. PO SCH (07:22)
[2018-03-31] MEDS: GABAPENTIN 100 MG CAPSULE. PO SCH (07:23)
[2018-03-31] MEDS: POTASSIUM CHLORIDE 20 MEQ TABLET.ER. PO SCH (07:23)
[2018-03-31] MEDS: CHOLESTYRAMINE/ASPARTAME 4 GM PACKET PO SCH ×2 (07:25→16:27)
[2018-03-31] MEDS: CLOTRIMAZOLE 1% VAGINAL CREAM 45GM TUBE. VG SCH ×2 (07:27→19:43)
[2018-03-31] MEDS: HYDROCORTISONE 1% TOPICAL CREAM 30GM TUBE. TP SCH ×2 (07:27→19:44)
[2018-03-31] MEDS: NYSTATIN TOPICAL POWDER 15GM BOTTLE. TP SCH ×2 (07:28→19:44)
[2018-03-31] MEDS: DICLOFENAC SODIUM 1% TOPICAL GEL 100GM TUBE. TP SCH ×2 (07:28→19:43)
[2018-03-31] MEDS: MICONAZOLE NITRATE 2% TOPICAL CREAM 28GM TUBE. TP SCH ×3 (07:28→21:00)
[2018-03-31] MEDS: KETOTIFEN FUMARATE 0.025% OPHT SOLUTION BOTTLE. OU SCH ×3 (07:29→19:44)
[2018-03-31] MEDS: LACTOBACILLUS RHAMNOSUS GG 1 CAPSULE. PO SCH ×2 (07:29→19:41)
[2018-03-31 10:45] VITALS: BP 109/79
[2018-03-31] MEDS: QUEtiapine 50 MG TABLET. PO SCH ×3 (12:33→19:40)
[2018-03-31] MEDS: HYDROcodone/APAP 5/325MG 1 TAB TABLET PO PRN (13:21)
[2018-03-31] MEDS: CYCLOBENZAPRINE 10 MG TABLET. PO PRN (13:21)
[2018-03-31 16:08] VITALS: BP 111/63
--- NOTE | 2018-03-31 19:33 | EKG ---
[address] [address] Test Date: 2018-03-31 Test Time: 01:11:47 Pat Name: DIA MICHELLE Department: Room: [address] [place] [address] Gender: F Employee Counselor: : 1950 Requested By: PATRIC QUEVEDO Order Number: [id number] Reading MD: Measurements Intervals [place] Rate: 87 P: 8 AL: 170 QRS: 19 QRSD: 102 T: 30 QT: 384 QTc: 463 Interpretive Statements SINUS RHYTHM QRS(T) CONTOUR ABNORMALITY CONSIDER ANTEROSEPTAL MYOCARDIAL DAMAGE CONSIDER INFERIOR INFARCT POSSIBLY ABNORMAL ECG RI6.01 Unconfirmed report No previous ECG available for comparison
[2018-03-31] MEDS: traZODone 150 MG TABLET. PO SCH (19:40)
[2018-03-31] MEDS: TOPIRAMATE 25 MG TABLET. PO SCH (19:40)
[2018-03-31] MEDS: GABAPENTIN 300 MG CAPSULE. PO SCH (19:40)
[2018-03-31] MEDS: RIVAROXABAN 10 MG TABLET. PO SCH (19:41)
[2018-03-31] MEDS: POLYVINYL ALCOHOL 1.4% OPHTH SOLUTION 15ML BOTTLE. OU SCH (19:44)
[2018-03-31] MEDS: LATANOPROST 0.005% OPHTH SOLUTION 2.5ML BOTTLE. OU SCH (19:44)
[2018-03-31] MEDS: diphenhydrAMINE HCL 25 MG CAPSULE PO PRN (21:12)
[2018-04-01 02:10] LABS: BACTERIA,URINE FEW /HPF (0-FEW); BILIRUBIN,URINE NEG (NEG); CLARITY,URINE CLEAR; COLOR,URINE YELLOW; GLUCOSE,URINE NEG (NEG); NITRITE,URINE POS (NEG); RBC,URINE OCC /HPF (0-2); UROBILINOGEN,URINE 0.2 mg/dL (0.2 mg/dL)
[2018-04-01] MEDS: LEVOTHYROXINE 50 MCG TABLET PO SCH (05:03)
[2018-04-01 05:44] VITALS: BP 118/73
[2018-04-01] MEDS: diphenhydrAMINE HCL 25 MG CAPSULE PO PRN ×2 (06:44→21:34)
[2018-04-01] MEDS: CHOLESTYRAMINE/ASPARTAME 4 GM PACKET PO SCH ×3 (08:01→17:35)
[2018-04-01] MEDS: FUROSEMIDE 40 MG TABLET PO SCH ×2 (08:02→13:35)
[2018-04-01] MEDS: QUEtiapine 25 MG TABLET. PO SCH (08:02)
[2018-04-01] MEDS: GABAPENTIN 100 MG CAPSULE. PO SCH (08:02)
[2018-04-01] MEDS: lamoTRIgine 100 MG TABLET. PO SCH ×2 (08:02→21:08)
[2018-04-01] MEDS: POTASSIUM CHLORIDE 20 MEQ TABLET.ER. PO SCH (08:03)
[2018-04-01] MEDS: NYSTATIN TOPICAL POWDER 15GM BOTTLE. TP SCH ×2 (08:04→21:09)
[2018-04-01] MEDS: PANTOPRAZOLE 40 MG TABLET. PO SCH ×2 (08:04→17:19)
[2018-04-01] MEDS: METOPROLOL TART IMMED RELEASE 25 MG TABLET PO SCH (08:04)
[2018-04-01] MEDS: LACTOBACILLUS RHAMNOSUS GG 1 CAPSULE. PO SCH ×2 (08:04→21:08)
[2018-04-01] MEDS: MICONAZOLE NITRATE 2% TOPICAL CREAM 28GM TUBE. TP SCH ×2 (08:05→21:10)
[2018-04-01] MEDS: DICLOFENAC SODIUM 1% TOPICAL GEL 100GM TUBE. TP SCH ×2 (08:05→21:10)
[2018-04-01] MEDS: HYDROCORTISONE 1% TOPICAL CREAM 30GM TUBE. TP SCH ×2 (08:06→21:09)
[2018-04-01] MEDS: KETOTIFEN FUMARATE 0.025% OPHT SOLUTION BOTTLE. OU SCH ×3 (08:06→21:09)
[2018-04-01 08:12] LABS: BASO % 1 % (0-3); EOS # 0.3 x10^3/uL (0.0-0.7); EOS % 8 % (0-3); HEMATOCRIT 36.7 % (36.0-47.0); HEMOGLOBIN 12.2 g/dL (12.0-15.5); LYMPH # 1.3 x10^3/uL (1.0-4.8); LYMPH % 41 % (24-48); MEAN CORPUSCULAR HEMOGLOBIN 28 pg (25-35); MEAN CORPUSCULAR HGB CONC 33 g/dL (31-37); MEAN CORPUSCULAR VOLUME 85 fL (79-100); MONO # 0.2 x10^3/uL (0.0-1.1); MONO % 6 % (0-9); NEUT # 1.4 x10^3uL (1.8-7.7); NEUT % 44 % (31-73); PLATELET COUNT 210 x10^3/uL (140-400); RED BLOOD COUNT 4.34 x10^6/uL (3.50-5.40); RED CELL DISTRIBUTION WIDTH 14.6 % (11.5-14.5); WHITE BLOOD COUNT 3.1 x10^3/uL (4.0-11.0)
[2018-04-01 08:30] LABS: ALBUMIN 3.5 g/dL (3.4-5.0); ALBUMIN/GLOBULIN RATIO 0.9 (1.0-1.7); CALCIUM 9.2 mg/dL (8.5-10.1); CREATININE 0.7 mg/dL (0.6-1.0); GFR 83.2; TOTAL BILIRUBIN 0.3 mg/dL (0.2-1.0); TOTAL PROTEIN 7.6 g/dL (6.4-8.2)
[2018-04-01] MEDS: HYDROcodone/APAP 5/325MG 1 TAB TABLET PO PRN ×2 (11:35→21:12)
[2018-04-01] MEDS: CYCLOBENZAPRINE 10 MG TABLET. PO PRN ×2 (11:36→21:13)
[2018-04-01] MEDS: QUEtiapine 50 MG TABLET. PO SCH ×2 (13:35→17:19)
[2018-04-01] MEDS: ACETAMINOPHEN 325 MG TABLET PO PRN (13:51)
[2018-04-01] MEDS: ONDANSETRON ODT 4 MG TAB.RAPDIS PO PRN (14:37)
[2018-04-01 16:16] VITALS: BP 113/67
--- NOTE | 2018-04-01 19:44 | PDOC ---
Exam Note: Fernando Note: Late entry for date of service March. Please also refer to the separate dictated note~for this date of service dictated separately.~Patient seen individually. Discussed the patient with Nursing staff reviewed the chart.~ Reviewed interim history and current functioning. Reviewed vital signs,~Labs/ Radiology~and current medications noted below. Continue current treatment with the changes noted in the dictated addendum note Assessment: Vital Signs: VS - Last 72 Hours, by Label Date Time Temp Pulse Resp B/P (MAP) Pulse Ox O2 Delivery O2 Flow Rate FiO2 04/01/18 16:16 97.2 70 20 113/67 (82) 97 Room Air 04/01/18 12:40 18 97 Room Air 04/01/18 11:35 18 97 Room Air 04/01/18 08:04 75 118/73 04/01/18 05:44 97.8 75 20 118/73 (88) 97 03/31/18 16:08 97.4 68 18 111/63 (79) 96 03/31/18 13:21 18 Room Air 03/31/18 10:45 97.6 73 18 109/79 (89) 99 Room Air 03/31/18 07:21 96 134/92 03/31/18 01:02 97.5 96 18 134/92 (106) 98 Room Air 03/31/18 00:57 96 134/92 03/30/18 20:35 95 03/30/18 15:53 97.0 70 20 133/68 (89) 95 03/30/18 07:26 70 106/68 03/30/18 05:46 97.1 70 14 106/68 (81) 99 Vital Signs Date Time Temp Pulse Resp B/P (MAP) Pulse Ox O2 Delivery O2 Flow Rate FiO2 04/01/18 16:16 97.2 70 20 113/67 (82) 97 Room Air I&O Intake and Output 04/01/18 07:00 Intake Total 1800 ml Output Total 2675 ml Balance -875 ml Intake Oral 1800 ml Output Urine Total 2675 ml # Bowel Movements 3 Labs: Laboratory Tests Test 04/01/18 01:35 04/01/18 07:40 Urine Collection Type Unknown Urine Color Yellow Urine Clarity Clear Urine pH 7.0 Urine Specific [place] 1.015 Urine Protein Neg (NEG-TRACE) Urine Glucose (UA) Neg mg/dL (NEG) Urine Ketones (Stick) Neg mg/dL (NEG) Urine Blood Small (NEG) Urine Nitrite Pos (NEG) Urine Bilirubin Neg (NEG) Urine Urobilinogen Dipstick 0.2 mg/dL (0.2 mg/dL) Urine Leukocyte Esterase Small (NEG) Urine RBC Occ /HPF (0-2) Urine WBC 11-20 /HPF (0-4) Urine Squamous Epithelial Cells None /LPF Urine Bacteria Few /HPF (0-FEW) White Blood Count 3.1 x10^3/uL (4.0-11.0) L Red Blood Count 4.34 x10^6/uL (3.50-5.40) Hemoglobin 12.2 g/dL (12.0-15.5) Hematocrit 36.7 % (36.0-47.0) Mean Corpuscular Volume 85 fL (79-100) Mean Corpuscular Hemoglobin 28 pg (25-35) Mean Corpuscular Hemoglobin Concent 33 g/dL (31-37) Red Cell Distribution Width 14.6 % (11.5-14.5) H Platelet Count 210 x10^3/uL (140-400) Neutrophils (%) (Auto) 44 % (31-73) Lymphocytes (%) (Auto) 41 % (24-48) Monocytes (%) (Auto) 6 % (0-9) Eosinophils (%) (Auto) 8 % (0-3) H Basophils (%) (Auto) 1 % (0-3) Neutrophils # (Auto) 1.4 x10^3uL (1.8-7.7) L Lymphocytes # (Auto) 1.3 x10^3/uL (1.0-4.8) Monocytes # (Auto) 0.2 x10^3/uL (0.0-1.1) Eosinophils # (Auto) 0.3 x10^3/uL (0.0-0.7) Basophils # (Auto) 0.0 x10^3/uL (0.0-0.2) Sodium Level 135 mmol/L (136-145) L Potassium Level 4.0 mmol/L (3.5-5.1) Chloride Level 102 mmol/L (98-107) Carbon Dioxide Level 22 mmol/L (21-32) Anion Gap 11 (6-14) Blood Urea Nitrogen 14 mg/dL (7-20) Creatinine 0.7 mg/dL (0.6-1.0) Estimated GFR (Cockcroft-Gault) 83.2 BUN/Creatinine Ratio 20 (6-20) Glucose Level 106 mg/dL (70-99) H Calcium Level 9.2 mg/dL (8.5-10.1) Total Bilirubin 0.3 mg/dL (0.2-1.0) Aspartate Amino Transferase (AST) 409 U/L (15-37) H Alanine Aminotransferase (ALT) 501 U/L (14-59) H Alkaline Phosphatase 250 U/L (46-116) H Total Protein 7.6 g/dL (6.4-8.2) Albumin 3.5 g/dL (3.4-5.0) Albumin/Globulin Ratio 0.9 (1.0-1.7) L Current Medications: Meds: Current Medications Tramadol HCl (Ultram) 50 mg 1X ONCE PO Last administered on 03/12/18at 21:09; Start 03/12/18 at 21:15; Stop 03/12/18 at 21:36; Status DC Potassium Chloride (Klor-Con) 40 meq 1X ONCE PO ; Start 03/12/18 at 21:15; Stop 03/12/18 at 21:53; Status DC Acetaminophen (Tylenol) 650 mg PRN Q6HRS PRN PO PAIN / TEMP Last administered on 03/14/18at 03:42; Start 03/12/18 at 23:00; Stop 03/14/18 at 16:35; Status DC Multi-Ingredient Ointment (Analgesic [place]) 1 belle PRN QID PRN TP MUSCLE PAIN; Start 03/12/18 at 23:00 Al Hydroxide/Mg Hydroxide (Mylanta Plus Xs) 15 ml PRN AFTMEALHC PRN PO DYSPEPSIA; Start 03/12/18 at 23:00 Magnesium Hydroxide (Milk Of Magnesia) 2,400 mg PRN QHS PRN PO CONSTIPATION; Start 03/12/18 at 23:00 Duloxetine HCl (Cymbalta) 40 mg BID PO Last administered on 03/13/18at 08:59; Start 03/13/18 at 09:00; Stop 03/13/18 at 19:25; Status DC Lorazepam (Ativan) 0.5 mg PRN Q6HRS PRN PO ANXIETY Last administered on 10:34; Start 03/13/18 at 00:15 Acetaminophen (Tylenol) 650 mg PRN Q6HRS PRN PO PAIN / TEMP Last administered on 04/01/18 13:51; Start 03/13/18 at 00:15 Cyclobenzaprine HCl (Flexeril) 10 mg PRN Q8HRS PRN PO MUSCLE SPASMS Last administered on 04/01/18 11:36; Start 03/13/18 at 00:15 Diclofenac Sodium (Voltaren) 1 belle BID TP Last administered on 04/01/18 08:05; Start 03/13/18 at 09:00 Gabapentin (Neurontin) 100 mg DAILY PO Last administered on 04/01/18 08:02; Start 03/13/18 at 09:00 Gabapentin (Neurontin) 300 mg HS PO Last administered on 03/31/18 19:40; Start 03/13/18 at 21:00 Albuterol Sulfate (Ventolin) 2.5 mg PRN Q4HRS PRN NEB SHORTNESS OF BREATH; Start 03/13/18 at 00:15 Metoprolol Tartrate (Lopressor) 12.5 mg DAILY PO Last administered on 04/01/18 08:04; Start 03/13/18 at 09:00 Nitroglycerin (Nitrostat) 0.4 mg PRN Q5MIN PRN SL CHEST PAIN Last administered on 03/31/18 00:57; Start 03/13/18 at 00:15 Potassium Chloride (Klor-Con) 20 meq DAILY PO Last administered on 04/01/18 08: 03; Start 03/13/18 at 09:00 Rivaroxaban (Xarelto) 20 mg QHS PO Last administered on 03/31/18 19:41; Start 03/13/18 at 21:00 Tramadol HCl (Ultram) 50 mg PRN Q4HRS PRN PO PAIN Last administered on 05:56; Start 03/13/18 at 00:15; Stop 03/17/18 at 14:57; Status DC Cholestyramine Resin (Questran Light) 4 gm BIDAFTMEAL PO Last administered on 07:24; Start 03/13/18 at 09:00 Non-Formulary Medication (Cranberry Conc/ Ascorbic Acid (Cranberry Concentrate Softgel)) 425 mg TID PO ; Start 03/13/18 at 09:00; Status UNV Artificial Tears (Artificial Tears) 2 drop PRN Q4HRS PRN OU DRY EYE; Start at 00:15 Artificial Tears (Artificial Tears) 2 drop QHS OU Last administered on 19:44; Start 03/13/18 at 21:00 Furosemide (Lasix) 40 mg BID92 PO Last administered on 04/01/18 13:35; Start at 09:00 Hydrocortisone (Cortaid) 1 belle BID TP Last administered on 04/01/18 08:06; Start 03/13/18 at 09:00 Ketotifen Fumarate (Zaditor) 1 drop TID OU Last administered on 04/01/18 13:35 ; Start 03/13/18 at 09:00 Lactobacillus Rhamnosus (Culturelle) 1 cap DAILY PO Last administered on 07:35; Start 03/13/18 at 09:00; Stop 03/17/18 at 15:35; Status DC Lamotrigine (LaMICtal) 100 mg BID PO Last administered on 04/01/18 08:02; Start 03/13/18 at 09:00 Latanoprost (Xalatan) 1 drop QHS OU Last administered on 03/31/18 19:44; Start 03/13/18 at 21:00 Levothyroxine Sodium (Synthroid) 50 mcg DAILY07 PO Last administered on 05:03; Start 03/13/18 at 07:00 Meclizine HCl (Antivert) 25 mg PRN Q8HRS PRN PO DIZZINESS; Start 03/13/18 at 00 :15 Miconazole Nitrate (Monistat-Derm) 1 belle BID TP Last administered on 04/01/18 08:05; Start 03/13/18 at 09:00 Pantoprazole Sodium (Protonix) 40 mg BIDBFRMEAL PO Last administered on 17:19; Start 03/13/18 at 07:30 Saliva Substitute (Biotene Moisturizing Mouth) 1 spray PRN Q3HRS PRN MM DRY MOUTH; Start 03/13/18 at 00:15 Sennosides (Senna) 8.6 mg DAILY PO Last administered on 03/26/18at 07:19; Start 03/13/18 at 09:00; Stop 03/26/18 at 08:34; Status DC Topiramate (Topamax) 25 mg QHS PO Last administered on 03/14/18at 19:21; Start 03/13/18 at 21:00; Stop 03/15/18 at 17:03; Status DC Melatonin 6 mg PRN QHS PRN PO INSOMNIA Last administered on 03/26/18at 20:42; Start 03/13/18 at 06:00 Insulin Human Lispro (HumaLOG) 0-5 UNITS TIDWMEALS SQ ; Start 03/14/18 at 08:00 ; Stop 03/26/18 at 12:48; Status DC Dextrose 12.5 gm PRN Q15MIN PRN IV SEE COMMENTS; Start 03/13/18 at 19:30 Duloxetine HCl (Cymbalta) 40 mg DAILY PO Last administered on 03/16/18at 09:26; Start 03/14/18 at 09:00; Stop 03/16/18 at 19:41; Status DC Oxcarbazepine (Trileptal) 300 mg DAILY PO Last administered on 03/16/18at 09:28 ; Start 03/14/18 at 09:00; Stop 03/16/18 at 19:41; Status DC Trazodone HCl (Desyrel) 100 mg QHS PO Last administered on 03/26/18at 19:50; Start 03/13/18 at 21:00; Stop 03/27/18 at 19:11; Status DC Trazodone HCl (Desyrel) 100 mg PRN QHS PRN PO INSOMNIA; Start 03/13/18 at 19:30 ; Stop 03/27/18 at 19:11; Status DC Topiramate (Topamax) 50 mg QHS PO Last administered on 03/31/18at 19:40; Start at 21:00 Nystatin (Nystop) 1 belle BID TP Last administered on 04/01/18at 08:04; Start 03/15 at 21:00 Ondansetron HCl (Zofran Odt) 4 mg PRN Q8HRS PRN PO NAUSEA/VOMITING Last administered on 04/01/18at 14:37; Start 03/15/18 at 17:15 Oxcarbazepine (Trileptal) 300 mg BID PO Last administered on 03/21/18at 08:40; Start 03/16/18 at 21:00; Stop 03/21/18 at 18:55; Status DC Amoxicillin/ Clavulanate Potassium (Augmentin 875/ 125mg) 1 tab BID PO Last administered on 03/24/18at 20:18; Start 03/17/18 at 21:00; Stop 03/24/18 at 20:59 ; Status DC Lactobacillus Rhamnosus (Culturelle) 1 cap BID PO Last administered on at 08:04; Start 03/17/18 at 21:00 Quetiapine Fumarate (SEROquel) 50 mg HS PO Last administered on 03/25/18at 20:42 ; Start 03/17/18 at 21:00; Stop 03/26/18 at 18:58; Status DC Acetaminophen/ Hydrocodone Bitart (Lortab 5/325) 1 tab PRN Q6HRS PRN PO PAIN; Start 03/17/18 at 15:00; Stop 03/17/18 at 15:16; Status DC Acetaminophen/ Hydrocodone Bitart (Lortab 5/325) 1 tab PRN Q6HRS PRN PO PAIN Last administered on 03/26/18at 10:00; Start 03/17/18 at 15:45; Stop 03/26/18 at 13:08; Status DC Diphenhydramine HCl (Benadryl) 25 mg PRN QHS PRN PO ITCHING Last administered on 03/23/18at 19:41; Start 03/18/18 at 20:45; Stop 03/26/18 at 12:47; Status DC Glucose (Insta-Glucose) 15 gm STK-MED ONCE .ROUTE ; Start 03/19/18 at 16:49; Stop 03/19/18 at 16:50; Status DC Glucose (Insta-Glucose) 15 gm STK-MED ONCE .ROUTE ; Start 03/19/18 at 16:50; Stop 03/19/18 at 16:51; Status DC Quetiapine Fumarate (SEROquel) 25 mg DAILY08 PO Last administered on 03/20/18at 08:29; Start 03/20/18 at 08:00; Stop 03/20/18 at 18:47; Status DC Quetiapine Fumarate (SEROquel) 25 mg DAILY PO ; Start 03/20/18 at 09:00; Status UNV Quetiapine Fumarate (SEROquel) 25 mg TIDBFRMEAL PO Last administered on at 18:20; Start 03/21/18 at 07:30; Stop 03/26/18 at 18:58; Status DC Oxcarbazepine (Trileptal) 300 mg DAILY PO Last administered on 03/23/18at 07:21 ; Start 03/22/18 at 09:00; Stop 03/23/18 at 18:17; Status DC Oxcarbazepine (Trileptal) 600 mg QHS PO Last administered on 03/31/18at 19:40; Start 03/21/18 at 21:00 Oxcarbazepine (Trileptal) 600 mg DAILY PO Last administered on 04/01/18at 08:02; Start 03/24/18 at 09:00 Quetiapine Fumarate (SEROquel) 25 mg DAILY@1300 PO ; Start 03/24/18 at 13:00; Stop 03/24/18 at 13:00; Status DC Melatonin 6 mg STK-MED ONCE .ROUTE ; Start 03/15/18 at 21:00; Stop 03/25/18 at 12:42; Status DC Melatonin 6 mg STK-MED ONCE .ROUTE ; Start 03/20/18 at 21:00; Stop 03/25/18 at 12:43; Status DC Melatonin 6 mg STK-MED ONCE .ROUTE ; Start 03/23/18 at 21:00; Stop 03/25/18 at 12:43; Status DC Clotrimazole (Mycelex-7) 1 belle HS VG Last administered on 03/31/18at 19:43; Start 03/25/18 at 21:00; Stop 04/01/18 at 20:59 Sennosides (Senna) 8.6 mg PRN DAILY PRN PO CONSTIPATION; Start 03/26/18 at 09: 00 Diphenhydramine HCl (Benadryl) 25 mg PRN Q6HRS PRN PO ITCHING Last administered on 04/01/18at 06:44; Start 03/26/18 at 13:00 Acetaminophen/ Hydrocodone Bitart (Lortab 5/325) 1 tab PRN Q4HRS PRN PO PAIN Last administered on 04/01/18at 11:35; Start 03/26/18 at 13:15 Oxycodone HCl (OxyCONTIN) 10 mg Q12HR PO ; Start 03/26/18 at 21:00; Stop at 21:00; Status DC Quetiapine Fumarate (SEROquel) 50 mg QID PO Last administered on 03/29/18at 07:48 ; Start 03/26/18 at 21:00; Stop 03/29/18 at 12:18; Status DC Trazodone HCl (Desyrel) 150 mg PRN QHS PRN PO INSOMNIA; Start 03/27/18 at 19:30 Trazodone HCl (Desyrel) 150 mg QHS PO Last administered on 03/31/18at 19:40; Start 03/27/18 at 21:00 Loperamide HCl (Imodium) 4 mg PRN DAILY PRN PO DIARRHEA Last administered on 03/28/18at 14:32; Start 03/28/18 at 14:00 Loperamide HCl (Imodium) 2 mg PRN Q1HR PRN PO DIARRHEA Last administered on 03/29at 13:33; Start 03/28/18 at 14:00 Quetiapine Fumarate (SEROquel) 50 mg 1300,1700,2100 PO Last administered on 04/01at 17:19; Start 03/29/18 at 13:00; Stop 04/01/18 at 19:11; Status DC Quetiapine Fumarate (SEROquel) 75 mg DAILY PO Last administered on 04/01/18at 08: 02; Start 03/30/18 at 09:00; Stop 04/01/18 at 19:11; Status DC Sodium Biphosphate/ Sodium Phosphate (Fleet Adult) 133 ml 1X ONCE [place] Last administered on 03/30/18at 09:20; Start 03/30/18 at 08:00; Stop 03/30/18 at 08:01; Status DC Active Scripts Active Reported Xarelto (Rivaroxaban) 10 Mg Tablet 20 Mg PO QHS Tramadol Hcl (Tramadol HCl) 50 Mg Tablet 50 Mg PO Q4HRS PRN Topamax (Topiramate) 25 Mg Tablet 25 Mg PO QHS Sennosides 8.6 Mg Tablet 8.6 Mg PO DAILY Klor-Con M20 (Potassium Chloride) 20 Meq Tab.er.prt 20 Meq PO DAILY Pantoprazole Sodium 40 Mg Tablet.dr 40 Mg PO BIDBFRMEAL NITROGLYCERIN SubLingual (Nitroglycerin) 0.4 Mg Tab.subl 0.4 Mg SL PRN Q5MIN PRN Miconazole Nitrate 10 Gm Powder 1 Applic MC BID Metoprolol Tartrate 25 Mg Tablet 12.5 Mg PO DAILY Melatonin 3 Mg Tablet 5 Mg PO PRN QHS PRN Meclizine Hcl 25 Mg Tablet 25 Mg PO PRN Q8HRS PRN Lorazepam 0.5 Mg Tablet 0.5 Mg PO PRN Q6HRS PRN Levothyroxine Sodium 50 Mcg Tablet 50 Mcg PO DAILYAC Latanoprost 0.005% Eye Drop (Latanoprost/Pf) 7.5 Ml Drops 1 Drop OU QHS Lamotrigine 100 Mg Tablet 100 Mg PO BID Probiotic (Lactobacillus Acidophilus) 1 Each Capsule 1 Each PO DAILY Zaditor (Ketotifen Fumarate) 5 Ml Drops 1 Drop OU TID Hydrocortisone 453.6 Gm Cream..g. 1 Applic TP BID Gabapentin 300 Mg Capsule 300 Mg PO HS Gabapentin 100 Mg Capsule 100 Mg PO DAILY Furosemide 40 Mg Tablet 40 Mg PO BID Duoneb 0.5-3(2.5) Mg/3 Ml (Albuterol/Ipratropium) 3 Ml Ampul.neb 3 Ml NEB PRN Q4HRS PRN Voltaren (Diclofenac Sodium) 100 Gm Gel..gram. 1 Applic TP BID Cymbalta (Duloxetine Hcl) 20 Mg Capsule.dr 40 Mg PO BID Cyclobenzaprine Hcl 10 Mg Tablet 10 Mg PO PRN Q8HRS PRN Cranberry Concentrate Softgel (Cranberry Conc/Ascorbic Acid) 1 Each Capsule 425 Mg PO TID Cholestyramine Packet (Cholestyramine (With Sugar)) 4 Gm Powd.pack 4 Gm PO BID Biotene Oralbalance (Saliva Stimulant Agents Comb.2) 44.3 Ml Liquid 30 Ml MM PRN Q3HRS PRN Artificial Tears Eye Drops (Dextran 70/Hypromellose) 15 Ml Drops 2 Ml OU PRN Q4HRS PRN Artificial Tears Eye Drops (Dextran 70/Hypromellose) 15 Ml Drops 2 Ml OU QHS Tylenol (Acetaminophen) 325 Mg Tablet 650 Mg PO PRN Q6HRS PRN I have reviewed the current psychotropics carefully including drug interactions. Risk benefit ratio favors no change other than as noted in my dictated progress note. Diagnosis: Problems: (1) Medical clearance for psychiatric admission (2) Anxiety disorder (3) Bipolar 1 disorder, mixed, moderate (4) Impulse control disorder (5) Schizoaffective disorder, bipolar type (6) Vascular dementia with delusions PATRIC QUEVEDO MD Apr 01, 2018 19:44
[2018-04-01] MEDS: traZODone 150 MG TABLET. PO SCH (21:07)
[2018-04-01] MEDS: TOPIRAMATE 25 MG TABLET. PO SCH (21:08)
[2018-04-01] MEDS: GABAPENTIN 300 MG CAPSULE. PO SCH (21:08)
[2018-04-01] MEDS: RIVAROXABAN 10 MG TABLET. PO SCH (21:08)
[2018-04-01] MEDS: POLYVINYL ALCOHOL 1.4% OPHTH SOLUTION 15ML BOTTLE. OU SCH (21:11)
[2018-04-01] MEDS: LATANOPROST 0.005% OPHTH SOLUTION 2.5ML BOTTLE. OU SCH (21:11)
--- NOTE | 2018-04-01 23:30 | PN ---
DATE: 03/30/2018 PSYCHIATRIC PROGRESS NOTE This is a late entry 03/30/2018 covers elements not covered in my initial note. SUBJECTIVE: I met with the patient in the evening. The patient slept 4-1/2 hours previous evening. She is doing better, less labile in her mood, still somewhat hyperverbal, irritable. REVIEW OF SYSTEMS: Ambulation impaired, in wheelchair. No CV, , pulmonary, eye system symptoms on review. She has vague somatic symptoms. MENTAL STATUS EXAM: Oriented to herself and situation. Speech coherent, rapid. Abstraction fair, computation impaired, language function intact, attention span short. Mood and affect remain somewhat labile and grandiose. LABORATORY DATA: Reviewed. IMPRESSION: Unchanged from initial note. PLAN: No change from initial note. MAN Prasanth QUEVEDO MD DR: DUSTY/yusuf JOB#: [id number] / [id number]
[2018-04-02] MEDS: LORazepam 0.5 MG TABLET PO PRN ×2 (00:45→15:27)
[2018-04-02] MEDS: ACETAMINOPHEN 325 MG TABLET PO PRN (00:45)
[2018-04-02] MEDS: diphenhydrAMINE HCL 25 MG CAPSULE PO PRN (04:44)
[2018-04-02] MEDS: CYCLOBENZAPRINE 10 MG TABLET. PO PRN ×2 (04:44→11:49)
[2018-04-02] MEDS: HYDROcodone/APAP 5/325MG 1 TAB TABLET PO PRN ×2 (04:44→11:49)
[2018-04-02] MEDS: LEVOTHYROXINE 50 MCG TABLET PO SCH (04:45)
[2018-04-02 06:22] VITALS: BP 123/75
[2018-04-02 06:53] LABS: ALBUMIN 3.4 g/dL (3.4-5.0); ALBUMIN/GLOBULIN RATIO 0.9 (1.0-1.7); CALCIUM 9.2 mg/dL (8.5-10.1); CREATININE 0.7 mg/dL (0.6-1.0); GFR 83.2; POTASSIUM 3.6 mmol/L (3.5-5.1); TOTAL BILIRUBIN 0.3 mg/dL (0.2-1.0); TOTAL PROTEIN 7.1 g/dL (6.4-8.2)
[2018-04-02] MEDS: CHOLESTYRAMINE/ASPARTAME 4 GM PACKET PO SCH ×2 (09:00→18:00)
[2018-04-02] MEDS: FUROSEMIDE 40 MG TABLET PO SCH ×2 (10:09→13:36)
[2018-04-02] MEDS: POTASSIUM CHLORIDE 20 MEQ TABLET.ER. PO SCH (10:10)
[2018-04-02] MEDS: METOPROLOL TART IMMED RELEASE 25 MG TABLET PO SCH (10:10)
[2018-04-02] MEDS: lamoTRIgine 100 MG TABLET. PO SCH ×2 (10:11→20:57)
[2018-04-02] MEDS: HYDROCORTISONE 1% TOPICAL CREAM 30GM TUBE. TP SCH ×2 (10:11→20:59)
[2018-04-02] MEDS: GABAPENTIN 100 MG CAPSULE. PO SCH (10:11)
[2018-04-02] MEDS: LACTOBACILLUS RHAMNOSUS GG 1 CAPSULE. PO SCH ×2 (10:11→20:58)
[2018-04-02] MEDS: PANTOPRAZOLE 40 MG TABLET. PO SCH ×2 (10:11→17:10)
[2018-04-02] MEDS: KETOTIFEN FUMARATE 0.025% OPHT SOLUTION BOTTLE. OU SCH ×3 (10:11→21:00)
[2018-04-02] MEDS: DICLOFENAC SODIUM 1% TOPICAL GEL 100GM TUBE. TP SCH ×2 (10:12→20:59)
[2018-04-02] MEDS: MICONAZOLE NITRATE 2% TOPICAL CREAM 28GM TUBE. TP SCH ×2 (10:12→20:59)
[2018-04-02] MEDS: NYSTATIN TOPICAL POWDER 15GM BOTTLE. TP SCH ×2 (10:12→20:59)
--- NOTE | 2018-04-02 13:47 | PN ---
DATE: 03/31/2018 This late entry, 03/31/2018, covers elements not covered in my initial note. SUBJECTIVE: I met with the patient in the evening. The patient slept 4-1/2 hours previous evening. Previous night she was complaining of chest pain. EKG was unremarkable. Dr. Valentino was consulted. During the day on 03/31/2018, she has been having other vague somatic symptoms including some pain in her arm area. She has been more irritable, labile. We will check UA to make sure she does not have a UTI accounting for the change. REVIEW OF SYSTEMS: Additionally, he is positive for impaired ambulation, in wheelchair. No CV, , pulmonary, eye system symptoms on review. MENTAL STATUS EXAM: Reasonably oriented. Speech coherent, rapid at times. Abstraction fair, computation impaired, language function intact, attention span short. Mood and affect remain somewhat labile. LABORATORY DATA: Reviewed. IMPRESSION: Unchanged from initial note. PLAN: Check UA. Continue rest psychotropics per initial note. MAN Prasanth QUEVEDO MD DR: DUSTY/yusuf JOB#: [id number] / [id number]
--- NOTE | 2018-04-02 13:51 | PN ---
DATE: 04/01/2018 This is a late entry for 04/01/2018 cover elements not covered in my initial note. SUBJECTIVE: I met with the patient in the evening. The patient slept 5-3/4 hours previous evening. UA has reflex to culture. She may have a UTI accounting for the change in her mood lability and we will address this. Her sister told the nursing staff that she messes with her urostomy, frequently has abnormal UAs that she is manipulated. Nursing staff will look into this. AST, ALT, alkaline phosphatase are elevated. Dr. Valentino wonders whether Seroquel could contribute to it. We will stop the Seroquel, have a pharmacy consult to make sure no other medication could account for it. REVIEW OF SYSTEMS: Ambulation impaired, in wheelchair. No CV, , pulmonary, eye system symptoms on review, vague somatic symptoms are evident. MENTAL STATUS EXAM: Reasonably oriented. Speech is coherent, abstraction fair, computation impaired, language function intact, attention span short. Mood and affect remain somewhat labile. LABORATORY DATA: Reviewed. IMPRESSION: Unchanged. Rule out urinary tract infection. PLAN: As noted above including my initial note. MAN Prasanth QUEVEDO MD DR: DUSTY/yusuf JOB#: [id number] / [id number]
[2018-04-02 16:03] VITALS: BP 159/90
[2018-04-02] MEDS: TOPIRAMATE 25 MG TABLET. PO SCH (20:57)
[2018-04-02] MEDS: RIVAROXABAN 10 MG TABLET. PO SCH (20:57)
[2018-04-02] MEDS: traZODone 150 MG TABLET. PO SCH (20:58)
[2018-04-02] MEDS: GABAPENTIN 300 MG CAPSULE. PO SCH (20:58)
[2018-04-02] MEDS: POLYVINYL ALCOHOL 1.4% OPHTH SOLUTION 15ML BOTTLE. OU SCH (21:00)
[2018-04-02] MEDS: LATANOPROST 0.005% OPHTH SOLUTION 2.5ML BOTTLE. OU SCH (21:01)
--- NOTE | 2018-04-02 21:03 | PDOC ---
Exam Note: Fernando Note: Please also refer to the separate dictated note~for this date of service dictated separately.~Patient seen individually. Discussed the patient with Nursing staff reviewed the chart.~Reviewed interim history and current functioning. Reviewed vital signs,~Labs/ Radiology~and current medications noted below. Continue current treatment with the changes noted in the dictated addendum note Assessment: Vital Signs: Vital Signs Date Time Temp Pulse Resp B/P (MAP) Pulse Ox O2 Delivery O2 Flow Rate FiO2 04/02/18 16:03 97.1 78 22 159/90 (113) 100 04/02/18 14:15 Room Air I&O Intake and Output 04/02/18 07:00 Intake Total 1080 ml Output Total 500 ml Balance 580 ml Intake Oral 1080 ml Output Urine Total 500 ml # Bowel Movements 2 Labs: Laboratory Tests Test 04/02/18 06:24 Sodium Level 135 mmol/L (136-145) L Potassium Level 3.6 mmol/L (3.5-5.1) Chloride Level 100 mmol/L (98-107) Carbon Dioxide Level 25 mmol/L (21-32) Anion Gap 10 (6-14) Blood Urea Nitrogen 12 mg/dL (7-20) Creatinine 0.7 mg/dL (0.6-1.0) Estimated GFR (Cockcroft-Gault) 83.2 BUN/Creatinine Ratio 17 (6-20) Glucose Level 97 mg/dL (70-99) Calcium Level 9.2 mg/dL (8.5-10.1) Total Bilirubin 0.3 mg/dL (0.2-1.0) Aspartate Amino Transferase (AST) 158 U/L (15-37) H Alanine Aminotransferase (ALT) 299 U/L (14-59) H Alkaline Phosphatase 204 U/L (46-116) H Total Protein 7.1 g/dL (6.4-8.2) Albumin 3.4 g/dL (3.4-5.0) Albumin/Globulin Ratio 0.9 (1.0-1.7) L Current Medications: Meds: Current Medications Tramadol HCl (Ultram) 50 mg 1X ONCE PO Last administered on 03/12/18at 21:09; Start 03/12/18 at 21:15; Stop 03/12/18 at 21:36; Status DC Potassium Chloride (Klor-Con) 40 meq 1X ONCE PO ; Start 03/12/18 at 21:15; Stop 03/12/18 at 21:53; Status DC Acetaminophen (Tylenol) 650 mg PRN Q6HRS PRN PO PAIN / TEMP Last administered on 03/14/18at 03:42; Start 03/12/18 at 23:00; Stop 03/14/18 at 16:35; Status DC Multi-Ingredient Ointment (Analgesic [place]) 1 belle PRN QID PRN TP MUSCLE PAIN; Start 03/12/18 at 23:00 Al Hydroxide/Mg Hydroxide (Mylanta Plus Xs) 15 ml PRN AFTMEALHC PRN PO DYSPEPSIA; Start 03/12/18 at 23:00 Magnesium Hydroxide (Milk Of Magnesia) 2,400 mg PRN QHS PRN PO CONSTIPATION; Start 03/12/18 at 23:00 Duloxetine HCl (Cymbalta) 40 mg BID PO Last administered on 03/13/18at 08:59; Start 03/13/18 at 09:00; Stop 03/13/18 at 19:25; Status DC Lorazepam (Ativan) 0.5 mg PRN Q6HRS PRN PO ANXIETY Last administered on 15:27; Start 03/13/18 at 00:15 Acetaminophen (Tylenol) 650 mg PRN Q6HRS PRN PO PAIN / TEMP Last administered on 04/02/18at 00:45; Start 03/13/18 at 00:15 Cyclobenzaprine HCl (Flexeril) 10 mg PRN Q8HRS PRN PO MUSCLE SPASMS Last administered on 04/02/18 11:49; Start 03/13/18 at 00:15 Diclofenac Sodium (Voltaren) 1 belle BID TP Last administered on 04/02/18 20:59; Start 03/13/18 at 09:00 Gabapentin (Neurontin) 100 mg DAILY PO Last administered on 04/02/18 10:11; Start 03/13/18 at 09:00 Gabapentin (Neurontin) 300 mg HS PO Last administered on 04/02/18 20:58; Start 03/13/18 at 21:00 Albuterol Sulfate (Ventolin) 2.5 mg PRN Q4HRS PRN NEB SHORTNESS OF BREATH; Start 03/13/18 at 00:15 Metoprolol Tartrate (Lopressor) 12.5 mg DAILY PO Last administered on 04/02/18 10:10; Start 03/13/18 at 09:00 Nitroglycerin (Nitrostat) 0.4 mg PRN Q5MIN PRN SL CHEST PAIN Last administered on 03/31/18 00:57; Start 03/13/18 at 00:15 Potassium Chloride (Klor-Con) 20 meq DAILY PO Last administered on 04/02/18 10: 10; Start 03/13/18 at 09:00 Rivaroxaban (Xarelto) 20 mg QHS PO Last administered on 04/02/18 20:57; Start 03/13/18 at 21:00 Tramadol HCl (Ultram) 50 mg PRN Q4HRS PRN PO PAIN Last administered on 05:56; Start 03/13/18 at 00:15; Stop 03/17/18 at 14:57; Status DC Cholestyramine Resin (Questran Light) 4 gm BIDAFTMEAL PO Last administered on 07:24; Start 03/13/18 at 09:00 Non-Formulary Medication (Cranberry Conc/ Ascorbic Acid (Cranberry Concentrate Softgel)) 425 mg TID PO ; Start 03/13/18 at 09:00; Status UNV Artificial Tears (Artificial Tears) 2 drop PRN Q4HRS PRN OU DRY EYE; Start at 00:15 Artificial Tears (Artificial Tears) 2 drop QHS OU Last administered on 21:00; Start 03/13/18 at 21:00 Furosemide (Lasix) 40 mg BID92 PO Last administered on 04/02/18 13:36; Start at 09:00 Hydrocortisone (Cortaid) 1 belle BID TP Last administered on 04/02/18 20:59; Start 03/13/18 at 09:00 Ketotifen Fumarate (Zaditor) 1 drop TID OU Last administered on 04/02/18 21:00 ; Start 03/13/18 at 09:00 Lactobacillus Rhamnosus (Culturelle) 1 cap DAILY PO Last administered on 07:35; Start 03/13/18 at 09:00; Stop 03/17/18 at 15:35; Status DC Lamotrigine (LaMICtal) 100 mg BID PO Last administered on 04/02/18 20:57; Start 03/13/18 at 09:00 Latanoprost (Xalatan) 1 drop QHS OU Last administered on 04/02/18 21:01; Start 03/13/18 at 21:00 Levothyroxine Sodium (Synthroid) 50 mcg DAILY07 PO Last administered on 04:45; Start 03/13/18 at 07:00 Meclizine HCl (Antivert) 25 mg PRN Q8HRS PRN PO DIZZINESS; Start 03/13/18 at 00 :15 Miconazole Nitrate (Monistat-Derm) 1 belle BID TP Last administered on 04/02/18 20:59; Start 03/13/18 at 09:00 Pantoprazole Sodium (Protonix) 40 mg BIDBFRMEAL PO Last administered on 17:10; Start 03/13/18 at 07:30 Saliva Substitute (Biotene Moisturizing Mouth) 1 spray PRN Q3HRS PRN MM DRY MOUTH; Start 03/13/18 at 00:15 Sennosides (Senna) 8.6 mg DAILY PO Last administered on 03/26/18 07:19; Start 03/13/18 at 09:00; Stop 03/26/18 at 08:34; Status DC Topiramate (Topamax) 25 mg QHS PO Last administered on 03/14/18at 19:21; Start 03/13/18 at 21:00; Stop 03/15/18 at 17:03; Status DC Melatonin 6 mg PRN QHS PRN PO INSOMNIA Last administered on 03/26/18at 20:42; Start 03/13/18 at 06:00 Insulin Human Lispro (HumaLOG) 0-5 UNITS TIDWMEALS SQ ; Start 03/14/18 at 08:00 ; Stop 03/26/18 at 12:48; Status DC Dextrose 12.5 gm PRN Q15MIN PRN IV SEE COMMENTS; Start 03/13/18 at 19:30 Duloxetine HCl (Cymbalta) 40 mg DAILY PO Last administered on 03/16/18at 09:26; Start 03/14/18 at 09:00; Stop 03/16/18 at 19:41; Status DC Oxcarbazepine (Trileptal) 300 mg DAILY PO Last administered on 03/16/18at 09:28 ; Start 03/14/18 at 09:00; Stop 03/16/18 at 19:41; Status DC Trazodone HCl (Desyrel) 100 mg QHS PO Last administered on 03/26/18at 19:50; Start 03/13/18 at 21:00; Stop 03/27/18 at 19:11; Status DC Trazodone HCl (Desyrel) 100 mg PRN QHS PRN PO INSOMNIA; Start 03/13/18 at 19:30 ; Stop 03/27/18 at 19:11; Status DC Topiramate (Topamax) 50 mg QHS PO Last administered on 04/02/18 20:57; Start at 21:00 Nystatin (Nystop) 1 belle BID TP Last administered on 04/02/18 20:59; Start 03/15 at 21:00 Ondansetron HCl (Zofran Odt) 4 mg PRN Q8HRS PRN PO NAUSEA/VOMITING Last administered on 04/01/18 14:37; Start 03/15/18 at 17:15 Oxcarbazepine (Trileptal) 300 mg BID PO Last administered on 03/21/18 08:40; Start 03/16/18 at 21:00; Stop 03/21/18 at 18:55; Status DC Amoxicillin/ Clavulanate Potassium (Augmentin 875/ 125mg) 1 tab BID PO Last administered on 03/24/18at 20:18; Start 03/17/18 at 21:00; Stop 03/24/18 at 20:59 ; Status DC Lactobacillus Rhamnosus (Culturelle) 1 cap BID PO Last administered on 20:58; Start 03/17/18 at 21:00 Quetiapine Fumarate (SEROquel) 50 mg HS PO Last administered on 03/25/18at 20:42 ; Start 03/17/18 at 21:00; Stop 03/26/18 at 18:58; Status DC Acetaminophen/ Hydrocodone Bitart (Lortab 5/325) 1 tab PRN Q6HRS PRN PO PAIN; Start 03/17/18 at 15:00; Stop 03/17/18 at 15:16; Status DC Acetaminophen/ Hydrocodone Bitart (Lortab 5/325) 1 tab PRN Q6HRS PRN PO PAIN Last administered on 03/26/18at 10:00; Start 03/17/18 at 15:45; Stop 03/26/18 at 13:08; Status DC Diphenhydramine HCl (Benadryl) 25 mg PRN QHS PRN PO ITCHING Last administered on 03/23/18at 19:41; Start 03/18/18 at 20:45; Stop 03/26/18 at 12:47; Status DC Glucose (Insta-Glucose) 15 gm STK-MED ONCE .ROUTE ; Start 03/19/18 at 16:49; Stop 03/19/18 at 16:50; Status DC Glucose (Insta-Glucose) 15 gm STK-MED ONCE .ROUTE ; Start 03/19/18 at 16:50; Stop 03/19/18 at 16:51; Status DC Quetiapine Fumarate (SEROquel) 25 mg DAILY08 PO Last administered on 03/20/18at 08:29; Start 03/20/18 at 08:00; Stop 03/20/18 at 18:47; Status DC Quetiapine Fumarate (SEROquel) 25 mg DAILY PO ; Start 03/20/18 at 09:00; Status UNV Quetiapine Fumarate (SEROquel) 25 mg TIDBFRMEAL PO Last administered on at 18:20; Start 03/21/18 at 07:30; Stop 03/26/18 at 18:58; Status DC Oxcarbazepine (Trileptal) 300 mg DAILY PO Last administered on 03/23/18at 07:21 ; Start 03/22/18 at 09:00; Stop 03/23/18 at 18:17; Status DC Oxcarbazepine (Trileptal) 600 mg QHS PO Last administered on 04/02/18at 20:58; Start 03/21/18 at 21:00 Oxcarbazepine (Trileptal) 600 mg DAILY PO Last administered on 04/02/18at 10:10; Start 03/24/18 at 09:00 Quetiapine Fumarate (SEROquel) 25 mg DAILY@1300 PO ; Start 03/24/18 at 13:00; Stop 03/24/18 at 13:00; Status DC Melatonin 6 mg STK-MED ONCE .ROUTE ; Start 03/15/18 at 21:00; Stop 03/25/18 at 12:42; Status DC Melatonin 6 mg STK-MED ONCE .ROUTE ; Start 03/20/18 at 21:00; Stop 03/25/18 at 12:43; Status DC Melatonin 6 mg STK-MED ONCE .ROUTE ; Start 03/23/18 at 21:00; Stop 03/25/18 at 12:43; Status DC Clotrimazole (Mycelex-7) 1 belle HS VG Last administered on 03/31/18at 19:43; Start 03/25/18 at 21:00; Stop 04/01/18 at 20:59; Status DC Sennosides (Senna) 8.6 mg PRN DAILY PRN PO CONSTIPATION; Start 03/26/18 at 09: 00 Diphenhydramine HCl (Benadryl) 25 mg PRN Q6HRS PRN PO ITCHING Last administered on 04/02/18at 04:44; Start 03/26/18 at 13:00 Acetaminophen/ Hydrocodone Bitart (Lortab 5/325) 1 tab PRN Q4HRS PRN PO PAIN Last administered on 04/02/18at 11:49; Start 03/26/18 at 13:15 Oxycodone HCl (OxyCONTIN) 10 mg Q12HR PO ; Start 03/26/18 at 21:00; Stop at 21:00; Status DC Quetiapine Fumarate (SEROquel) 50 mg QID PO Last administered on 03/29/18at 07:48 ; Start 03/26/18 at 21:00; Stop 03/29/18 at 12:18; Status DC Trazodone HCl (Desyrel) 150 mg PRN QHS PRN PO INSOMNIA; Start 03/27/18 at 19:30 Trazodone HCl (Desyrel) 150 mg QHS PO Last administered on 04/02/18at 20:58; Start 03/27/18 at 21:00 Loperamide HCl (Imodium) 4 mg PRN DAILY PRN PO DIARRHEA Last administered on 03/28/18at 14:32; Start 03/28/18 at 14:00 Loperamide HCl (Imodium) 2 mg PRN Q1HR PRN PO DIARRHEA Last administered on 03/29at 13:33; Start 03/28/18 at 14:00 Quetiapine Fumarate (SEROquel) 50 mg 1300,1700,2100 PO Last administered on 04/01at 17:19; Start 03/29/18 at 13:00; Stop 04/01/18 at 19:11; Status DC Quetiapine Fumarate (SEROquel) 75 mg DAILY PO Last administered on 04/01/18at 08: 02; Start 03/30/18 at 09:00; Stop 04/01/18 at 19:11; Status DC Sodium Biphosphate/ Sodium Phosphate (Fleet Adult) 133 ml 1X ONCE MA Last administered on 03/30/18at 09:20; Start 03/30/18 at 08:00; Stop 03/30/18 at 08:01; Status DC Active Scripts Active Reported Xarelto (Rivaroxaban) 10 Mg Tablet 20 Mg PO QHS Tramadol Hcl (Tramadol HCl) 50 Mg Tablet 50 Mg PO Q4HRS PRN Topamax (Topiramate) 25 Mg Tablet 25 Mg PO QHS Sennosides 8.6 Mg Tablet 8.6 Mg PO DAILY Klor-Con M20 (Potassium Chloride) 20 Meq Tab.er.prt 20 Meq PO DAILY Pantoprazole Sodium 40 Mg Tablet.dr 40 Mg PO BIDBFRMEAL NITROGLYCERIN SubLingual (Nitroglycerin) 0.4 Mg Tab.subl 0.4 Mg SL PRN Q5MIN PRN Miconazole Nitrate 10 Gm Powder 1 Applic MC BID Metoprolol Tartrate 25 Mg Tablet 12.5 Mg PO DAILY Melatonin 3 Mg Tablet 5 Mg PO PRN QHS PRN Meclizine Hcl 25 Mg Tablet 25 Mg PO PRN Q8HRS PRN Lorazepam 0.5 Mg Tablet 0.5 Mg PO PRN Q6HRS PRN Levothyroxine Sodium 50 Mcg Tablet 50 Mcg PO DAILYAC Latanoprost 0.005% Eye Drop (Latanoprost/Pf) 7.5 Ml Drops 1 Drop OU QHS Lamotrigine 100 Mg Tablet 100 Mg PO BID Probiotic (Lactobacillus Acidophilus) 1 Each Capsule 1 Each PO DAILY Zaditor (Ketotifen Fumarate) 5 Ml Drops 1 Drop OU TID Hydrocortisone 453.6 Gm Cream..g. 1 Applic TP BID Gabapentin 300 Mg Capsule 300 Mg PO HS Gabapentin 100 Mg Capsule 100 Mg PO DAILY Furosemide 40 Mg Tablet 40 Mg PO BID Duoneb 0.5-3(2.5) Mg/3 Ml (Albuterol/Ipratropium) 3 Ml Ampul.neb 3 Ml NEB PRN Q4HRS PRN Voltaren (Diclofenac Sodium) 100 Gm Gel..gram. 1 Applic TP BID Cymbalta (Duloxetine Hcl) 20 Mg Capsule.dr 40 Mg PO BID Cyclobenzaprine Hcl 10 Mg Tablet 10 Mg PO PRN Q8HRS PRN Cranberry Concentrate Softgel (Cranberry Conc/Ascorbic Acid) 1 Each Capsule 425 Mg PO TID Cholestyramine Packet (Cholestyramine (With Sugar)) 4 Gm Powd.pack 4 Gm PO BID Biotene Oralbalance (Saliva Stimulant Agents Comb.2) 44.3 Ml Liquid 30 Ml MM PRN Q3HRS PRN Artificial Tears Eye Drops (Dextran 70/Hypromellose) 15 Ml Drops 2 Ml OU PRN Q4HRS PRN Artificial Tears Eye Drops (Dextran 70/Hypromellose) 15 Ml Drops 2 Ml OU QHS Tylenol (Acetaminophen) 325 Mg Tablet 650 Mg PO PRN Q6HRS PRN I have reviewed the current psychotropics carefully including drug interactions. Risk benefit ratio favors no change other than as noted in my dictated progress note. Diagnosis: Problems: (1) Medical clearance for psychiatric admission (2) Anxiety disorder (3) Bipolar 1 disorder, mixed, moderate (4) Impulse control disorder (5) Schizoaffective disorder, bipolar type (6) Vascular dementia with delusions PATRIC QUEVEDO MD Apr 02, 2018 21:03
[2018-04-03] MEDS: LEVOTHYROXINE 50 MCG TABLET PO SCH (06:33)
[2018-04-03 06:46] VITALS: BP 120/61
[2018-04-03] MEDS: CYCLOBENZAPRINE 10 MG TABLET. PO PRN (06:56)
[2018-04-03] MEDS: HYDROcodone/APAP 5/325MG 1 TAB TABLET PO PRN ×2 (06:56→13:00)
[2018-04-03] MEDS: LORazepam 0.5 MG TABLET PO PRN ×2 (06:56→13:00)
[2018-04-03] MEDS: CHOLESTYRAMINE/ASPARTAME 4 GM PACKET PO SCH ×2 (09:00→10:32)
[2018-04-03] MEDS: DICLOFENAC SODIUM 1% TOPICAL GEL 100GM TUBE. TP SCH ×2 (09:00→10:35)
[2018-04-03] MEDS: HYDROCORTISONE 1% TOPICAL CREAM 30GM TUBE. TP SCH ×2 (09:00→10:36)
[2018-04-03] MEDS: ACETAMINOPHEN 325 MG TABLET PO PRN (10:30)
[2018-04-03] MEDS: POTASSIUM CHLORIDE 20 MEQ TABLET.ER. PO SCH (10:30)
[2018-04-03 10:32] VITALS: BP 120/61
[2018-04-03] MEDS: FUROSEMIDE 40 MG TABLET PO SCH (10:32)
[2018-04-03] MEDS: GABAPENTIN 100 MG CAPSULE. PO SCH (10:32)
[2018-04-03] MEDS: lamoTRIgine 100 MG TABLET. PO SCH (10:32)
[2018-04-03] MEDS: METOPROLOL TART IMMED RELEASE 25 MG TABLET PO SCH (10:32)
[2018-04-03] MEDS: PANTOPRAZOLE 40 MG TABLET. PO SCH (10:32)
[2018-04-03] MEDS: LACTOBACILLUS RHAMNOSUS GG 1 CAPSULE. PO SCH (10:32)
[2018-04-03] MEDS: MICONAZOLE NITRATE 2% TOPICAL CREAM 28GM TUBE. TP SCH (10:34)
[2018-04-03] MEDS: KETOTIFEN FUMARATE 0.025% OPHT SOLUTION BOTTLE. OU SCH (10:34)
[2018-04-03] MEDS: NYSTATIN TOPICAL POWDER 15GM BOTTLE. TP SCH (10:36)
--- NOTE | 2018-04-03 10:51 | PN ---
DATE: 04/02/2018 PSYCHIATRIC PROGRESS NOTE This late entry 04/02/2018 covers elements not covered in my initial note. SUBJECTIVE: I met with the patient in the evening. Overall, the patient remains somewhat anxious, labile, demanding at times. Urine has reflex to culture and could well account for the worsening of her mood symptoms. REVIEW OF SYSTEMS: Ambulation impaired, in wheelchair. No CV, , pulmonary, eye, ENT system symptoms on review. MENTAL STATUS EXAM: Reasonably oriented. Speech coherent, still somewhat pressured. Abstraction fair, computation impaired, language function intact, attention span short. Mood and affect, lability is improved, but probably worsened by her UTI. LABORATORY DATA: Reviewed. IMPRESSION: Unchanged from initial note. PLAN: No change from a psychiatric standpoint. If UA and urine C and S is positive, UTI needs to be treated. We will defer to Dr. Valentino. MAN Prasanth QUEVEDO MD DR: DUSTY/yusuf JOB#: [id number] / [id number]
[2018-04-03] MEDS ORDERED: DIPH25CA58 PO (11:16)
[2018-04-03] MEDS ORDERED: HYDR-2758 PO (11:45)
[2018-04-03] MEDS ORDERED: LOPE2CAP PO ×2 (11:46→11:48)
[2018-04-03] MEDS ORDERED: MAG30ORA PO (11:51)
[2018-04-03] MEDS ORDERED: MAGN2400 PO (11:54)
[2018-04-03] MEDS ORDERED: METH85CR16 TP (11:56)
[2018-04-03] MEDS ORDERED: NYST15PO9 TP (11:58)
[2018-04-03] MEDS ORDERED: ONDA4TAB7 PO (12:01)
[2018-04-03] MEDS ORDERED: OXCA600T3 PO (12:03)
[2018-04-03] MEDS ORDERED: TRAZ150T49 PO ×2 (12:04→12:06)
--- NOTE | 2018-04-04 20:13 | DS ---
DATE OF DISCHARGE: 04/03/2018 DISCHARGE SUMMARY/PSYCHIATRIC PROGRESS NOTE This late entry 04/03/2018 covers elements not covered in my initial note of 04/03/2018. REASON FOR ADMISSION: Please refer to the admission history for details. Briefly, the patient is a 67-year-old female referred to us from [facility] by Dr. Valentino, her primary care physician, on account of increasing mood swings, agitation, being manic. She is reportedly on the telephone "[phone] calling #[phone].'' She is also repeatedly calling social security offices, extremely manic, grandiose, paranoid, believes staff were hurting her. She is seeing bugs in her food all of which she denies, minimizes this. Nevertheless, behaviors were unmanageable, dangerous at the facility, referred for inpatient psychiatric stabilization within the context of a diagnosis of bipolar disorder. SIGNIFICANT FINDINGS AND CLINICAL COURSE: Following admission, the patient was seen daily individually by myself, followed medically per Dr. Valentino/Dr. Harrison. The patient is extremely labile, hyperverbal, grandiose, minimized most problems. Insight was limited. Adjustments were made in her psychotropics. She seemed to respond to a combination of Trileptal 600 mg b.i.d. This was for her bipolar disorder. Given her history of chronic hepatitis, we could not use Depakote. She was also on Seroquel but her liver enzymes were elevated and we had to discontinue it. She is also on Lamictal 100 b.i.d., trazodone 150 mg at bedtime, december repeat x 1 for insomnia, Ativan p.r.n., melatonin p.r.n. Gradually mood appeared to improve. She did have a UTI prior to admission, which had been treated on Augmentin and shortly prior to discharge, her behaviors were worse again and the UA was reflective of her UTI. Culture and sensitivity was awaited at discharge and should be [facility] at [facility] for treatment of UTI as indicated. REVIEW OF SYSTEMS: Prior to discharge on 04/03/2018, ambulation impaired, in wheelchair. No CV, , pulmonary, eye system symptoms on review. MENTAL STATUS EXAM: Reasonably oriented. Speech is coherent, rapid, somewhat distractable. Abstraction fair, computation impaired, language function intact. Mood and affect, lability was improved, but she did have a UTI, which was contributing to some worsening and should resolve as the UTI is treated post-discharge once we received the culture sensitivity report. CONDITION AT DISCHARGE: Despite the above is improved. FINAL DIAGNOSES: Bipolar 1 disorder, mixed with psychotic features, in partial remission; anxiety disorder, unspecified; impulse control disorder, unspecified, raised liver enzymes which need follow up at the [facility], possible urinary tract infection. DISCHARGE MEDICATIONS: Please refer to the EMRAD. DISCHARGE INSTRUCTIONS: Outpatient psychiatric medical followup at the [facility]. Time for discharge day management greater than 30 minutes. MAN Prasanth QUEVEDO MD DR: DUSTY/yusuf JOB#: [id number] / [id number]
== END 2018-04-03 14:00 | DRG 885 ==
LOC: ER 18:49 → GEROPSY 22:10
PROVIDERS: ADMIT Psychiatry & Neurology Psychiatry; ATTEND Psychiatry & Neurology Psychiatry
DX: F25.0 Schizoaffective disorder, bipolar type (principal); J96.10 Chronic respiratory failure, unspecified whether with hypoxia or hypercapnia; N39.0 Urinary tract infection, site not specified; I50.32 Chronic diastolic (congestive) heart failure; B37.9 Candidiasis, unspecified; E03.9 Hypothyroidism, unspecified; E11.40 Type 2 diabetes mellitus with diabetic neuropathy, unspecified; F01.50 Vascular dementia, unspecified severity, without behavioral disturbance, psychotic disturbance, mood disturbance, and anxiety; F09 Unspecified mental disorder due to known physiological condition; E83.42 Hypomagnesemia; F63.9 Impulse disorder, unspecified; G89.4 Chronic pain syndrome; F60.9 Personality disorder, unspecified; F41.9 Anxiety disorder, unspecified; E87.6 Hypokalemia; E78.5 Hyperlipidemia, unspecified; G47.00 Insomnia, unspecified; K21.9 Gastro-esophageal reflux disease without esophagitis; J44.9 Chronic obstructive pulmonary disease, unspecified; Z86.718 Personal history of other venous thrombosis and embolism; M79.7 Fibromyalgia; M06.9 Rheumatoid arthritis, unspecified; K73.9 Chronic hepatitis, unspecified; I11.0 Hypertensive heart disease with heart failure; Z88.1 Allergy status to other antibiotic agents; Z88.5 Allergy status to narcotic agent; Z88.2 Allergy status to sulfonamides; Z88.8 Allergy status to other drugs, medicaments and biological substances; Z91.048 Other nonmedicinal substance allergy status; Z79.899 Other long term (current) drug therapy
CPT/HCPCS: 36415; 74176; 80048; 80053; 80061; 80307; 81001; 82306; 82553; 82607; 82947; 83036; 83540; 83550; 83735; 84436; 84443; 84480; 84484; 85025; 86592; 87086; 87186; 87324; 87641; 93005; G0480; J1815; Q0162; Q0163; 97110; 97530; 99285-25; G0479